=== PATIENT | female | born 1950 | race Caucasian/White ===

== ENCOUNTER 2018-08-21 08:29 | Emergency (ER) | payer MEDICARE, SELFPAY ==
[2018-08-21 08:30] VITALS: BP 154/87; PULSE 98; RESP 18; TEMP 36.3; O2SAT 98; BMI 29.6
--- NOTE | 2018-08-21 08:55 | ED.VISSUMM ---
- ER Visit Summary Date of Service: 08/21/18 Chief Complaint: Anxiety and depression History of Present Illness: The patient is a 67 F currently being treated with any depression and Xanax. She is on medication weeks. Changed several times. Her medications are being controlled by the counseling center. Patient is anxious and tearful. She denies she states I just want my medications to work Physical Examination: Older female no acute distress vital signs are stable afebrile. H EENT exam unremarkable. Neck nontender. Lungs clear to auscultation. Heart regular rhythm no murmur. Abdomen soft nontender. Remedies moves all 4. Neurovascular intact. Neurologically she is awake and alert with no focal motor deficits. It is obvious that she is anxious and tearful. Test Results: None Emergency Department Course and Treatment: Patient was given a dose of p.o. Ativan. She denied discussed that the medications she is on often takes weeks to begin showing positive effects. Repeat exam at 9:40 patient is much more calm after receiving the Ativan she denies her female friend in the room again discussed her medications and follow-up. They are comfortable being discharged. Treatment Plan: Continue current meds. Follow-up with the counseling center. Disposition: Discharge Impression: Acute on chronic anxiety and depression This note was generated with [employer] dictation software. It may contain incorrect words, spelling, and punctuation that were not noted in review of the chart prior to signing ED Disposition - Plan for ED Patient: Disposition: Home or Assisted Living Instructions: Anxiety Reaction, Depression Referrals: Counseling,Center [GROUP OF PHYSICIANS] - Basia Swartz MD [Primary Care Provider] - As Needed Additional Instructions: Continue current medications. The medications often take weeks to start showing positive benefits.
--- NOTE | 2018-08-21 08:57 | ED.DEP ---
ED Disposition - Plan for ED Patient: Disposition: Home or Assisted Living Instructions: Anxiety Reaction, Depression Referrals: Basia Swartz MD [Primary Care Provider] - As Needed Counseling,Center [GROUP OF PHYSICIANS] - Additional Instructions: Continue current medications. The medications often take weeks to start showing positive benefits.
[2018-08-21] MEDS: LORazepam 1 MG Tablet PO (09:04)
[2018-08-21 09:53] VITALS: BP 138/77; PULSE 62; RESP 15; O2SAT 98
== END 2018-08-21 09:54 | disposition home or self-care (01) ==
PROVIDERS: Emergency Provider Emergency Medicine; Family Provider Internal Medicine; PCP Internal Medicine
DX: F32.9 Major depressive disorder, single episode, unspecified (principal); F41.9 Anxiety disorder, unspecified; Z79.899 Other long term (current) drug therapy; Z72.0 Tobacco use
CPT/HCPCS: 99283

== ENCOUNTER 2018-09-01 17:50 | Emergency (ER) | payer MEDICARE, SELFPAY ==
[2018-09-01 17:51] VITALS: BP 188/99; PULSE 90; RESP 17; TEMP 37.6; O2SAT 95; BMI 35.5
--- NOTE | 2018-09-01 18:03 | EKG12_ITS ---
Test Reason : [facility] [place] Pressure : / mmHG Vent. Rate : 079 BPM Atrial Rate : 079 BPM P-R Int : 172 ms QRS Dur : 098 ms QT Int : 368 ms P-R-T Axes : 013 076 062 degrees QTc Int : 421 ms Normal sinus rhythm Normal ECG Confirmed by JENNIFER ARCHER, JACKLYN ([id number]), field map editor ALEXIS ELIZALDE ([id number]) on 09/04/2018 1:57:45 PM Referred By: DAKOTA Confirmed By:JACKLYN RODRIGUEZ MD
--- NOTE | 2018-09-01 18:05 | NURSING ---
NO OLD EKGS
--- NOTE | 2018-09-01 18:08 | ED.DCSUM_ITS ---
History of Present Illness Chief Complaint: Suicidal Informant: Patient, Family Onset: Weeks Context: Gradual Onset Timing: Continuous Current Severity: Moderate Maximum Severity: Severe Narrative: Patient presents to the emergency department with significant anxiety. She states that she normally has anxiety and depression that has been easily treated in the past. Over the past few months, it is gotten worse. She is been active at the counseling center. She has been on medications to help with her anxiety. She feels like it is worsening. She is to the point now, where she is not sleeping, she feels like is not safe for her to try. She has been increasingly tremulous. She is also been having thoughts of self-harm. She denies any specific plan, but states if I cannot get feeling better I just want to . She denies any alcohol use. She denies any street drugs. Past Medical History - Allergies and Home Meds Allergies/Adverse Reactions: Allergies No Known Allergies Allergy (Verified 09/01/18 17:57) Primary Care Physician: Basia Swartz MD [Primary Care Provider] - Prior records reviewed: Yes Smoking Status: Current every day smoker Alcohol: None Drugs: None Review of Systems General: Denies: Chills, Fever, Sweats Eyes: Denies: Visual changes - bilaterally, Diplopia ENT: Denies: Rhinorrhea, Sore throat Cardiovascular: Denies: Chest pain, Palpitations Respiratory: Denies: Dyspnea, Cough, Dyspnea on exertion Gastrointestinal: Denies: Abdominal pain, Nausea, Vomiting, Diarrhea, Melena, Hematochezia Genitourinary: Denies: Dysuria, Hematuria, Frequency Musculoskeletal: Denies: Back pain, Extremity Pain Skin: Denies: Rash, Wounds Neurological: Denies: Headache, Weakness, Numbness Psych: Reports: Depression, Anxiety, Suicidal thoughts Endocrine: Denies: Polyuria Hematologic: Denies: Easy bruising Allergy: Denies: Uticaria Physical Exam Vital Signs/Narrative: Vital Signs Temp Pulse Resp BP Pulse Ox 09/01/18 17:51 99.6 F H 90 17 188/99 H 95 Inital Vital Signs reviewed: Yes General: Well nourished, Well developed, No Acute Distress Head: Normocephalic, Atraumatic Eyes: Perrl, EOMI ENT: Moist mucous membranes, No rhinorrhea Neck: Supple, Nontender Cardiovascular: Regular rate, Regular rhythm, No murmurs Respiratory: No distress, CTA bilaterally, Chest nontender Abdomen: Soft, Nontender, Nondistended, Normal bowel sounds Back: Nontender, Normal Inspection Extremities: Nontender, No edema Skin: Normal color, No rash Neurological: Alert, Oriented x3, Cranial nerves II-XII grossly intact, Normal Strength, Normal Sensation Psychological: Normal affect, Depressed, Tearful Diagnostic/Tx/Re-eval Abnormal Lab Results 09/01/18 09/01/18 09/01/18 18:15 18:15 18:15 WBC 12.4 H RBC 4.18 L Hgb 13.0 Hct 37.0 MCV 88.5 MCH 31.1 MCHC 35.1 RDW 13.8 RDW Differential 44.4 H Plt Count 273 MPV 10.3 Immature Gran % (Auto) 0.200 Neut % (Auto) 67.0 Lymph % (Auto) 24.8 [place] % (Auto) 6.9 Eos % (Auto) 0.9 Baso % (Auto) 0.2 Absolute Neuts (auto) 8.3 H Absolute Lymphs (auto) 3.08 Total Counted Not Reportable Sodium 134 L Potassium 3.3 L Chloride 103 Carbon Dioxide 25.0 Anion Gap 6 BUN 15 Creatinine 0.77 Estim Creat Clear Calc 65.54 Est GFR (MDRD) Af Amer 97 Est GFR (MDRD) Non-Af 80 BUN/Creatinine Ratio 19.6 Glucose 113 H Calcium 8.8 Total Bilirubin 0.30 AST 21 ALT 20 Alkaline Phosphatase 90 Total Protein 7.6 Albumin 3.8 Globulin 3.8 Albumin/Globulin Ratio 1.0 Urine Opiates Screen Urine Methadone Screen Ur Barbiturates Screen Ur Phencyclidine Scrn Ur Amphetamines Screen U Methamphetamin-MDMA U Benzodiazepines Scrn Urine Cocaine Screen U Cannabinoids Screen Ur Drug Screen Comment Ethyl Alcohol 7.0 09/01/18 18:20 WBC RBC Hgb Hct MCV MCH MCHC RDW RDW Differential Plt Count MPV Immature Gran % (Auto) Neut % (Auto) Lymph % (Auto) [place] % (Auto) Eos % (Auto) Baso % (Auto) Absolute Neuts (auto) Absolute Lymphs (auto) Total Counted Sodium Potassium Chloride Carbon Dioxide Anion Gap BUN Creatinine Estim Creat Clear Calc Est GFR (MDRD) Af Amer Est GFR (MDRD) Non-Af BUN/Creatinine Ratio Glucose Calcium Total Bilirubin AST ALT Alkaline Phosphatase Total Protein Albumin Globulin Albumin/Globulin Ratio Urine Opiates Screen NEGATIVE Urine Methadone Screen NEGATIVE Ur Barbiturates Screen NEGATIVE Ur Phencyclidine Scrn NEGATIVE Ur Amphetamines Screen NEGATIVE U Methamphetamin-MDMA NEGATIVE U Benzodiazepines Scrn NEGATIVE Urine Cocaine Screen NEGATIVE U Cannabinoids Screen NEGATIVE Ur Drug Screen Comment Ethyl Alcohol - Rhythm Strip Rhythm Strip: Sinus Rhythm Ectopy: None - Medical Decision Making Patient presents with worsening anxiety. She does voice thoughts of harm if she cannot get her anxiety improved. She has no specific plan. Metabolic work-up was pursued and was unremarkable. The patient was given oral Ativan and had significant improvement. The patient was seen and evaluated by social work. Again, she has no specific plan of suicide and really no thoughts. She is just centered more in her anxiety. At this point, I do not see acute reason for ho spitalization. The patient has improvement with Ativan. I am going to give her a short course. She was able to have follow-up arranged with outpatient counseling through social work. The family is comfortable with this plan of care. ED Disposition - Plan for ED Patient: Diagnosis: Acute anxiety Instructions: Anxiety Reaction Prescriptions: Lorazepam [Ativan] 1 mg PO TID #10 tab Prescription Printed Referrals: Basia Swartz MD [Primary Care Provider] -
[2018-09-01] MEDS: LORazepam 1 MG Tablet PO (18:11)
[2018-09-01 18:34] LABS: Absolute Lymphocyte Count 3.08 X10^3/ul (0.83-4.51); Absolute Neutrophil Count 8.3 X10^3/uL (2.0-7.7); Basophil# 0.02 X10^3/uL; Basophil% 0.2 % (0-1); Eosinophil# 0.11 X10^3/uL; Eosinophils% 0.9 % (0-5); Lymphocyte # 3.08 X10^3/ul (4.0); Lymphocyte % 24.8 % (19-41); Mean Corp Hgb Conc 35.1 g/gl (32-36); Mean Corpuscular Hgb 31.1 pg (27.0-32.0); Mean Corpuscular Volume 88.5 fL (81-99); Mean Platelet Vol. 10.3 fl (6.2-12.0); Monocyte# 0.86 X10^3/uL; Monocyte% 6.9 % (0-10); Neutrophil # 8.33 X10^3/uL (2.7-7.7); Platelet Count 273 K/mm3 (150-450); RBC Distribution Width CV 13.8 % (11.6-14.6); RBC Distribution Width SD 44.4 fl (35.1-43.9); Red Blood Count 4.18 M/mm3 (4.2-5.4); White Blood Count 12.4 K/mm3 (4.4-11.0)
[2018-09-01 18:35] LABS: POSITIVE COUNT NO; POSITIVE DIFFERENTIAL NO; POSITIVE MORPHOLOGY NO
[2018-09-01 18:57] LABS: AST(SGOT) 21 U/L (15-37); Alanine Aminotransfer ALT/SGPT 20 U/L (13-56); Albumin, Serum 3.8 g/dL (3.2-5.0); Alkaline Phosphatase 90 U/L (45-117); Anion Gap 6 (5-15); BUN 15 mg/dL (7-18); BUN/Creat Ratio 19.6 RATIO (10-20); Calcium,Total 8.8 mg/dL (8.5-10.1); Chloride 103 mmol/L (98-107); Creatinine, Serum 0.77 mg/dL (0.55-1.02); EST Glomerular Filtration Rate 80 mL/min (>60); Est Glom Filt Rate - Afr Amer 97 mL/min (>60); Estimated Creatinine Clearance 65.54 ml/min; Globulin 3.8 g/dL (2.2-4.2); Glucose 113 mg/dL (74-106); Potassium 3.3 mmol/L (3.5-5.1); Protein, Total 7.6 g/dL (6.4-8.2); Sodium Level 134 mmol/L (136-145)
[2018-09-01 19:00] LABS: Amphetamine Urine VISTA NEGATIVE (<1000 ng/mL); Barbiturate Urine VISTA NEGATIVE (< 200 ng/mL); Benzodiazepine Urine VISTA NEGATIVE (< 200 ng/mL); Cocaine Urine VISTA NEGATIVE (< 300 ng/mL); Ecstacy Urine VISTA NEGATIVE (< 500 ng/mL); Methadone Urine VISTA NEGATIVE (< 300 ng/mL); PCP Urine VISTA NEGATIVE (< 25 ng/mL); THC Urine VISTA NEGATIVE (< 50 ng/mL); Vista UDS pH Range 6
--- NOTE | 2018-09-01 19:00 | CM.ED ---
Social Work Consult: Suicidal, Anxiety Informant. Dr. Burnham Chief Compliant: Panic attacks and feelings of anxiety. Patient reporting to wake up in the mornings shaking. Patient did report a recent change in medication. Marital/Social History: for the past 7 years. Living Situation: Patient lives alone in a 1-story home. Support/Resources: Patient daughters live in the area and are a positive support for patient. Mental Health Treatment/History: Patient reporting to be diagnosed with depression and anxiety. Patient stating to mange depression with anti-depressants. Patient stating to have Zanax to manage anxiety. Patient reporting that patient psychiatrist is wanting patient to stop taking Zanax. Patient stating to have not taken Zanax today and to have had several panic attacks. Patient also use to take Ativan and found that this helped. Patient stating that patient psychiatrist is no longer prescribing patient with Ativan and patient has been trying to home up with other coping skills. Patient reporting to have been off Ativan for the past 2 weeks and to have had 2 ER visits since then and to have seen an increase in anxiety. Patient reporting that next appointment with psychiatrist is September 21 and that patient has attempted to have appointment changed but that recommendation is for patient to take another Zanax when patient calls [facility]. Abuse Issues: Patient denies Substance Abuse Hx: Patient denies Risk to Self/Other: Patient denies homicidal or active suicidal thoughts. Patient stating to sometimes have thoughts of wanting to be gone when the panic attacks are bad. Intervention: Collaborating with patient and patient family. This oncology social worker recommending for referral to the Behavioral Health Program at [facility]. Patient and patient family are agreeable to this and plan to call Monday to set up intake appointment as patient is unable to meet in the afternoons. This oncology social worker providing patient and patient family with contact information for crisis and the Behavioral Health Program at [facility]. Patient daughters plan to check in more with patient throughout the weekend. Collaborating with Dr. Burnham. Plan is for patient to discharge home with safety plan. César LINO, NEETA
[2018-09-01 19:27] VITALS: BP 176/95; PULSE 85; RESP 16; O2SAT 96
== END 2018-09-01 19:28 | disposition home or self-care (01) ==
LOC: ED 18:16
PROVIDERS: Emergency Provider Emergency Medicine; Family Provider Internal Medicine; PCP Internal Medicine
DX: F41.9 Anxiety disorder, unspecified (principal); F32.9 Major depressive disorder, single episode, unspecified; R45.851 Suicidal ideations; Z79.899 Other long term (current) drug therapy; F17.200 Nicotine dependence, unspecified, uncomplicated
CPT/HCPCS: 36415; 80053; 80307; 80320; 85025; 93005; 99284; G0480

== ENCOUNTER 2018-09-25 07:00 | Emergency (ER) | payer MEDICARE, SELFPAY ==
[2018-09-25 07:02] VITALS: BP 157/108; PULSE 87; RESP 21; TEMP 36.8; O2SAT 94; BMI 28.8
--- NOTE | 2018-09-25 07:34 | EKG12_ITS ---
Test Reason : MEDICAL CLEARANCE Blood Pressure : / mmHG Vent. Rate : 072 BPM Atrial Rate : 072 BPM P-R Int : 202 ms QRS Dur : 098 ms QT Int : 388 ms P-R-T Axes : 011 075 067 degrees QTc Int : 424 ms Normal sinus rhythm Normal ECG Confirmed by SHELLY ARCHER, JAGJIT ([id number]), newspaper photo editor ALMA DELIA SIMMONS ([id number]) on 09/27/2018 1:30:04 PM Referred By: PATRICIA Confirmed By:JAGJIT BRAVO MD
--- NOTE | 2018-09-25 07:46 | ED.VISSUMM ---
- ER Visit Summary Date of Service: 09/25/18 Chief Complaint: Depression History of Present Illness: The patient is a 67 F who presents with depression that has been constant for the past 3 months. Patient states she has been having some suicidal thoughts of overdosing on her medications. Patient states nothing in particular has made her depression worse. Patient states nothing is been helping her depression. Patient states she sees Dr. Spain at the [facility] for her psychiatrist. Patient states she feels like she needs to be admitted to a psychiatric facility. Physical Examination: Vital signs are stable. Patient is afebrile. Patient is in no acute distress. Oral mucosa is pink and moist. Neck is supple. Trachea is midline. There is no JVD noted. Heart was regular rate and rhythm. Lungs are clear and equal bilateral. Abdomen is soft. Bowel sounds are normal. There is no tenderness. There is no guarding noted. Skin is warm dry. Cranial nerves II through XII are intact. There are no focal motor or sensory deficits noted. Patient does have a depressed mood and flat affect. Patient does admit to suicidal thoughts of overdosing on medication. Test Results: CBC was normal. Basic metabolic profile showed sodium of 130 and potassium 3.4. Electrolytes were otherwise normal. Urinalysis does not show any evidence of urinary tract infection. Urine tox screen and serum alcohol level were negative. Emergency Department Course and Treatment: Patient was evaluated by crisis. Crisis feels the patient needs to be admitted for suicidal ideation and plan. They are making arrangements for admission. Disposition: Transfer to psychiatric facility Impression: Depression with suicidal ideation This note was generated with [employer] dictation software. It may contain incorrect words, spelling, and punctuation that were not noted in review of the chart prior to signing ED Disposition - Plan for ED Patient: Disposition: Psychiatric Hospital or Unit Diagnosis: Depression with suicidal ideation Referrals: Basia Swartz MD [Primary Care Provider] -
[2018-09-25 08:10] LABS: Mucous, Urine 0 SEEN /hpf (<or=2+); Red Blood Cells-Urine 0 SEEN /hpf (0-5)
[2018-09-25 08:18] LABS: Absolute Lymphocyte Count 2.12 X10^3/uL (0.83-4.51); Absolute Neutrophil Count 7.3 X10^3/uL (2.0-7.7); Basophil# 0.03 X10^3/uL; Basophil% 0.3 % (0-1); Eosinophil# 0.06 X10^3/uL; Eosinophils% 0.6 % (0-5); Hematocrit 40.7 % (37-47); Hemoglobin 14.4 g/dL (12.0-15.0); Lymphocyte # 2.12 X10^3/ul (4.0); Lymphocyte % 20.8 % (19-41); Mean Corp Hgb Conc 35.4 g/dL (32-36); Mean Corpuscular Hgb 31.1 pg (27.0-32.0); Mean Corpuscular Volume 87.9 fL (81-99); Mean Platelet Vol. 10.9 fl (6.2-12.0); Monocyte# 0.66 X10^3/uL; Monocyte% 6.5 % (0-10); NRBC Flagged by Analyzer 0 % (0-5); Neutrophil # 7.29 X10^3/uL (2.7-7.7); Neutrophil % 71.4 % (47-70); Platelet Count 285 K/mm3 (150-450); RBC Distribution Width CV 13.2 % (11.6-14.6); RBC Distribution Width SD 42.2 fl (35.1-43.9); Red Blood Count 4.63 M/mm3 (4.2-5.4); White Blood Count 10.2 K/mm3 (4.4-11.0)
[2018-09-25 08:21] LABS: Color, Urine Yellow (Yellow); Glucose, Dipstick Normal (Normal); Ketone-Dipstick Negative (Negative); Leukocyte Esterase-Dipstick Negative /ul (Negative); Nitrite-Dipstick Positive (Negative); Occult Blood-Urine 25 /ul (Negative); Protein-Dipstick Negative (Negative); Urine Bilirubin Dipstick Negative (Negative); Urine Clarity Clear (Clear); Urine Urobilinogen Normal (Normal)
[2018-09-25 08:31] LABS: Amphetamine Urine VISTA NEGATIVE (<1000 ng/mL); Barbiturate Urine VISTA NEGATIVE (< 200 ng/mL); Benzodiazepine Urine VISTA NEGATIVE (< 200 ng/mL); Cocaine Urine VISTA NEGATIVE (< 300 ng/mL); Ecstacy Urine VISTA NEGATIVE (< 500 ng/mL); Methadone Urine VISTA NEGATIVE (< 300 ng/mL); PCP Urine VISTA NEGATIVE (< 25 ng/mL); THC Urine VISTA NEGATIVE (< 50 ng/mL); Vista UDS pH Range 7
[2018-09-25 08:37] LABS: Anion Gap 9 (5-15); BUN 11 mg/dL (7-18); Calcium,Total 9.4 mg/dL (8.5-10.1); Chloride 93 mmol/L (98-107); Creatinine, Serum 0.74 mg/dL (0.55-1.02); EST Glomerular Filtration Rate 84 mL/min (>60); Est Glom Filt Rate - Afr Amer 102 mL/min (>60); Estimated Creatinine Clearance 57.19 ml/min; Glucose 104 mg/dL (74-106); Potassium 3.4 mmol/L (3.5-5.1); Sodium Level 130 mmol/L (136-145)
[2018-09-25 08:44] LABS: Bacteria 1+ /hpf (None Seen); Squamous Epithelial Cells - UA 5-10 SEEN /hpf (5-10); White Blood Cells 0-5 SEEN /hpf (0-5)
--- NOTE | 2018-09-25 08:49 | ED.RN ---
CALLED COUNSELING CENTER [facility]
--- NOTE | 2018-09-25 08:50 | ED.RN ---
PATIENT IS CLEARED TO BE SEEN BY CRISIS. CALLED COUNSELING CENTER THEY WILL BE CALLING US BACK.
[2018-09-25 11:27] VITALS: BP 130/82; PULSE 72; RESP 18; O2SAT 97
--- NOTE | 2018-09-25 12:10 | CM.ED ---
SOCIAL WORK JANUSZ FROM CRISIS HERE AND ASSESSED PATIENT. JANUSZ STATING PATIENT WILL REQUIRE INPATIENT HOSPITALIZATION. JANUSZ TO WORK ON PLACEMENT AT THIS TIME. MAURISIO KLEIN, UNIT MANAGER, GENERATOR TECHNICIAN.
[2018-09-25 14:14] VITALS: BP 145/80; PULSE 85; RESP 16; O2SAT 96
[2018-09-25 18:25] VITALS: BP 138/74; PULSE 79; RESP 16; O2SAT 98
[2018-09-25] MEDS: LORazepam 0.5 MG Tablet PO (18:45)
[2018-09-25 19:07] VITALS: BP 138/74; PULSE 79; RESP 16; O2SAT 98
== END 2018-09-25 19:44 ==
PROVIDERS: Emergency Provider Emergency Medicine; Family Provider Internal Medicine; PCP Internal Medicine
DX: F32.9 Major depressive disorder, single episode, unspecified (principal); R45.851 Suicidal ideations; I10 Essential (primary) hypertension; Z79.899 Other long term (current) drug therapy; F17.200 Nicotine dependence, unspecified, uncomplicated
CPT/HCPCS: 80048; 80307; 80320; 81001; 85025; 93005; 99284; G0480

== ENCOUNTER → 2022-12-06 | Outpatient (CLI) | payer MEDICARE, SELFPAY ==
--- NOTE | 2022-12-06 11:00 | PET_ITS ---
EXAMINATION: FDG PET-CT INDICATIONS: A 72-year-old female with history of pulmonary nodularity. COMPARISON EXAMINATION: None available INDEX LESION SIZE SUV INTERPRETATION Aorticopulmonary window 9.1-mm 3.6 Quantitative criteria for viable neoplasm are not fulfilled in patients without histories of pulmonary malignancy TECHNIQUE: Following the intravenous administration of F-18 deoxyglucose multiplanar image acquisitions of the neck, chest, abdomen and pelvis to level of mid thigh, obtained at one hour post radiopharmaceutical administration contemporaneously interpreted with the current CT of the neck, chest, abdomen and pelvis, to level of mid thigh, dated 12/06/22 via coregistration reveals: FINDINGS: Head/Neck: There is no evidence of abnormal increased glucose metabolism in the pharyngeal mucosal space, parapharyngeal space, bilateral-lateral and anterior neck, hypopharynx and distribution of the laryngeal structures. The visualized portion of the cerebral cortical-subcortical structures demonstrate symmetric and preserved glucose metabolism. CHEST: Enhanced radiopharmaceutical concentration is defined in the region of the aorticopulmonary window. The calculated maximal standard uptake value is 3.6. The maximal axial diameter of the metabolic, morphologic abnormality is 9.1-mm. Pertinent chest CT findings are as follows. Parenchymal changes noted in the bilateral apical lung howell are non-glucose avid. There is atherosclerotic calcification defined in the thoracic aorta without evidence of dilatation-aneurysm formation. Bilateral axillary and scattered mediastinal additional soft tissue densities are ametabolic. There are no parenchymal densities-nodules defined in the right and left hemithorax with quantitatively significant increased FDG uptake. Abdomen/Pelvis: Normal physiologic distribution of the radiopharmaceutical is apparent in the hepatic (4.2) and splenic parenchyma, both renal units, bladder and visualized intestinal tract. Diffuse radiopharmaceutical concentration is noted in all four quadrants of the abdomen and pelvis. Pertinent abdomen and pelvis CT findings are as follows. There is atherosclerotic calcification defined in the abdominal aorta without evidence of dilatation-aneurysm formation. Pelvic arterial calcification is observed. The right adrenal gland demonstrates focal calcification. The uterus appears surgically absent. Right and left inguinal soft tissue densities are ametabolic. Subcentimeter bilateral inguinal soft tissue densities are ametabolic. Skeletal: Degenerative changes are noted in the cervical, thoracic and lumbar spine without evidence of increased radiopharmaceutical concentration. PET/PET/CT Tumor Base -Thigh Init IMPRESSION: 1. NEGATIVE EXAMINATION. There is no definitive quantitative scintigraphic evidence of viable neoplasm. 2. Enhanced tracer concentration manifest in the aorticopulmonary window does not fulfill quantitative criteria for centrally located thoracic/mediastinal viable neoplasm in patients without histories of prior known pulmonary malignancies. If clinically indicated, histopathologic analysis may be undertaken. Electronic Signature Cahrles Helm D.O. Accurate Quantification of SUVs for this report are calculated using the exclusive [employer], ([place]. Patent No. [id number] [id number] [phone] [place] patent [phone] ). Standardization and correction of the FDG SUV metric exclusively available with [employer] intellectual property, allow for vendor non-specific objective quantitative sequential FDG PET-CT comparison and otherwise unobtainable optimization of the sensitivity and specificity of the examination. [email or web address] Electronically Signed: Charles Helm DO at 13:42 EDT ,
== END | disposition home or self-care (01) ==
PROVIDERS: PCP Internal Medicine; Referring Provider Nurse Practitioner Family; Visit Provider Nurse Practitioner Family
DX: R59.0 Localized enlarged lymph nodes (principal); R91.1 Solitary pulmonary nodule
CPT/HCPCS: 78815; A9552

== ENCOUNTER 2023-01-25 15:11 | Observation (INO) | payer MEDICARE, SELFPAY ==
[2023-01-25] VITALS (7 sets, daily range): BP systolic 155–213; BP diastolic 76–98; PULSE 82–95; RESP 15–24; TEMP 36.2–36.6; O2SAT 83–99; BMI 32.3; BMI 33.0
--- NOTE | 2023-01-25 15:32 | EKG12_ITS ---
Test Reason : SOB Blood Pressure : / mmHG Vent. Rate : 081 BPM Atrial Rate : 081 BPM P-R Int : 228 ms QRS Dur : 156 ms QT Int : 418 ms P-R-T Axes : 078 000 084 degrees QTc Int : 485 ms Sinus rhythm with 1st degree A-V block Left bundle branch block Abnormal ECG Confirmed by JENNIFER ARCHER, JACKLYN ([id number]), editorial clerk ALMA DELIA SIMMONS ([id number]) on 01/26/2023 10:49:19 AM Referred By: Confirmed By:JACKLYN RODRIGUEZ MD
--- NOTE | 2023-01-25 15:33 | CT_ITS ---
STUDY: CTA CHEST REASON FOR EXAM: Female, 72 years old. shortness of breath RADIATION DOSAGE (If Supplied By Facility): CTDIvol = ( 8.97 ) mGy, DLP = ( 393.55 ) mGycm TECHNIQUE: The examination was performed with the intravenous administration of IV 100mL Isovue-370. Post-processing of the angiographic images was performed, with multiplanar reformation and 3D reconstruction. Individualized dose optimization techniques were used for this CT. COMPARISON: None. FINDINGS: Normal enhancement of the main pulmonary artery and right and left pulmonary arteries. Normal enhancement of the bilateral peripheral pulmonary arteries. There is no demonstrated pulmonary embolism. Atherosclerotic changes of the aorta without evidence for aneurysm There is no demonstrated aortic dissection. Heart size is normal. There is minimal coronary artery calcification Normal mediastinum. Normal hilar regions. Normal visualized trachea and bronchi. The lungs are well expanded. There is mild bibasilar interstitial thickening and mild bronchial wall thickening in the right lower lobe. There is also minor atelectasis within the dependent portion of the lower lobes. No focal infiltration or pulmonary nodules Normal pleura. Normal chest wall structures. Dorsal spine demonstrates mild spondylosis Normal visualized upper abdomen. CT/CTA Chest W/WO Contrast IMPRESSION: Minor bibasilar interstitial thickening and bronchitis of the right lower lobe. No evidence for pulmonary embolus Electronically Signed: Burak Borges MD at 17:23 [facility] ,
--- NOTE | 2023-01-25 15:39 | EDS_ITS ---
HPI <JOHNNY Gonzalez - Last Filed: 01/25/23 18:01> History of Present Illness Chief Complaint: Shortness of Breath Narrative Narrative: Patient is a 72-year-old female with history of left side lower lung cancer, hypertension, she is currently in the middle of treatment with chemotherapy, radiation. Patient still smokes 1/2 pack of cigarettes per day, she states while she was getting her chemotherapy today, she developed some increased shortness of breath. Patient pulse oxygenation at the infusion center was 82%, she responded well to nasal cannula oxygen. She is currently is not oxygen dependent. She denies any recent fever or chills, nausea or vomiting. She does see Dr. Moore here at the hospital. She denies any other symptoms. She is currently on any blood thinners. PFSH <JOHNNY Gonzalez - Last Filed: 01/25/23 18:01> PFSH Medical History Anxiety Cancer COPD (chronic obstructive pulmonary disease) Depression Hepatitis Hypertension Small cell lung cancer Smoker Home Medications duloxetine 60 mg capsule,delayed release 60 mg PO BID 03/29/15 [History Last Taken 09/25/18] lisinopril 20 mg-hydrochlorothiazide 12.5 mg tablet 1 tab PO BID 09/25/18 [History Last Taken 09/25/18] lorazepam 1 mg tablet 1 mg PO BID anxiety 09/25/18 [History Last Taken 09/25/18] azithromycin 250 mg tablet See Rx Instructions PO .COMPLEX #6 tabs 05/04/20 [Rx Last Taken Unknown] dexamethasone 4 mg tablet 10 mg PO BID inflammation 01/25/23 [History Last Taken Unknown] Allergy/AdvReac Type Severity Reaction Status Date / Time No Known Allergies Allergy Verified 01/25/23 15:14 Surgical History (Updated 05/04/20 @ 10:45 by Winter Espinal) History of hysterectomy Social History (Updated 05/04/20 @ 10:48 by Leobardo TORRE, PA) Smoking Status: Current every day smoker tobacco type: cigarettes Tobacco: How many years used: 40 alcohol intake: never ROS <JOHNNY Gonzalez - Last Filed: 01/25/23 18:01> ROS ED ROS Narrative Constitutional: Negative for fever, chills, weight loss, weakness Eyes: Negative for vision loss, vision change, double vision ENT: Negative for any sore throat, ear pain, congestion Cardiovascular: Negative for any chest pain, tightness, palpitations Respiratory: Negative for any sputum production, hemoptysis.positive for dyspnea, dyspnea on exertion, orthopnea Gastrointestinal: Negative for any abdominal pain, nausea, vomiting, diarrhea, constipation, blood in stool, blood in vomit : Negative for any urinary frequency, dysuria, retention, blood in urine Muscle skeletal: Negative for any myalgias, arthralgias, neck pain, back pain Neurological: Negative for any headache, syncope, numbness or tingling, dizziness Skin: Negative for any rashes, lumps, itching, abrasions, lacerations Psychiatric: Negative for any depression, anxiety, stress, suicidal ideation, homicidal ideation Hematologic: Negative for any easy bruising, excessive bruising, easy bleeding Allergies: Negative for any eczema, hives, rash EXAM <JOHNNY Gonzalez - Last Filed: 01/25/23 18:01> Physical Exam Narrative Exam Narrative: Vital signs reviewed. Patient on 3 L of nasal cannula oxygen is a pulse oxygenation of 95%. Patient has slight conversational dyspnea. Patient denies any significant pain. HEET: Head normocephalic atraumatic, TMs clear bilaterally. Posterior pharynx is clear, moist mucous membranes. Nares clear bilaterally. Neck: Supple with no lymphadenopathy or tenderness. No signs of meningismus. Cardiac: Regular rate and rhythm no murmurs gallops or rubs, equal peripheral pulses bilaterally. Respiratory: Patient diffuse expiratory wheezes, diminished lung sounds to the lower lobes.. No chest tenderness. Abdomen: Soft, nontender, nondistended. No abdominal bruit or pulsatile masses. No hepatosplenomegaly Extremities: No peripheral edema, no signs of gross trauma or deformity. Active full range of motion of all extremities. Neuro: Cranial nerves II through XII intact, no focal neurological deficits. Skin: Clean dry and intact with no rash, purpura, petechiae, vesicles or pustules. Backs/flank: No CVA tenderness, no midline spinal tenderness, no deformity. Psych: Normal mood and affect. No SI, HI or acute psychosis. Const Vital Signs: 01/25/23 15:12 01/25/23 15:14 01/25/23 15:57 Temperature 97.2 F L Temperature Source Temporal Pulse Rate 95 Respiratory Rate 24 H Respiratory Effort Respiratory Depth Respiratory Pattern Blood Pressure 213/98 H Blood Pressure Mean 136 Pulse Ox 83 96 Oxygen Delivery Method Room Air Nasal Cannula Room Air Oxygen Flow Rate (L/min) 2 01/25/23 15:59 01/25/23 15:59 01/25/23 15:11 Temperature Temperature Source Pulse Rate 86 Respiratory Rate 15 Respiratory Effort Short of Breath Respiratory Depth Shallow Respiratory Pattern Tachypnea Blood Pressure Blood Pressure Mean Pulse Ox 97 Oxygen Delivery Method Nasal Cannula Nasal Cannula Oxygen Flow Rate (L/min) 2.5 01/25/23 17:00 01/25/23 17:00 Temperature Temperature Source Pulse Rate 88 Respiratory Rate 15 Respiratory Effort Respiratory Depth Respiratory Pattern Blood Pressure Blood Pressure Mean Pulse Ox 97 Oxygen Delivery Method Nasal Cannula Oxygen Flow Rate (L/min) 4 <Rayo Pinto MD - Last Filed: 01/25/23 20:49> Physical Exam Const Vital Signs: 01/25/23 15:12 01/25/23 15:14 01/25/23 15:57 Temperature 97.2 F L Temperature Source Temporal Pulse Rate 95 Respiratory Rate 24 H Respiratory Effort Respiratory Depth Respiratory Pattern Blood Pressure 213/98 H Blood Pressure Mean 136 Pulse Ox 83 96 Oxygen Delivery Method Room Air Nasal Cannula Room Air Oxygen Flow Rate (L/min) 2 01/25/23 15:59 01/25/23 15:59 01/25/23 15:11 Temperature Temperature Source Pulse Rate 86 Respiratory Rate 15 Respiratory Effort Short of Breath Respiratory Depth Shallow Respiratory Pattern Tachypnea Blood Pressure Blood Pressure Mean Pulse Ox 97 Oxygen Delivery Method Nasal Cannula Nasal Cannula Oxygen Flow Rate (L/min) 2.5 01/25/23 17:00 01/25/23 17:00 Temperature Temperature Source Pulse Rate 88 Respiratory Rate 15 Respiratory Effort Respiratory Depth Respiratory Pattern Blood Pressure Blood Pressure Mean Pulse Ox 97 Oxygen Delivery Method Nasal Cannula Oxygen Flow Rate (L/min) 4 MDM <JOHNNY Gonzalez - Last Filed: 01/25/23 18:01> MDM Lab Data Labs: Laboratory Results - last 24 hr 01/25/23 15:50 WBC 13.8 H RBC 3.74 L Hgb 11.2 L Hct 34.4 L MCV 92.0 MCH 29.9 MCHC 32.6 RDW Std Deviation 47.6 H RDW Coeff of Krissy 13.8 Plt Count 242 MPV 11.6 Immature Gran % (Auto) 0.700 Neut % (Auto) 93.8 H Lymph % (Auto) 3.1 L [place] % (Auto) 2.2 Eos % (Auto) 0.1 Baso % (Auto) 0.1 Absolute Neuts (auto) 13.0 H Absolute Lymphs (auto) 0.43 L Nucleated RBC % 0 Differential Comment SEE COMMENT Platelet Estimate ADEQUATE RBC Morphology N CHROM Anisocytosis RARE Macrocytosis RARE Sodium 129 L Potassium 4.1 Chloride 98 Carbon Dioxide 22.0 Anion Gap 9 BUN 46 H Creatinine 1.26 H Estim Creat Clear Calc 31.35 Est GFR (MDRD) Af Amer 54 L Est GFR (MDRD) Non-Af 45 L BUN/Creatinine Ratio 36.5 H Glucose 121 H Calcium 7.7 L Troponin I High Sens 25 B-Natriuretic Peptide 249.3 H Radiography Diagnostic Testing: Clinical Impression(s) from Imaging Studies Chest CTA 01/25/23 15:33 IMPRESSION: Minor bibasilar interstitial thickening and bronchitis of the right lower lobe. No evidence for pulmonary embolus Electronically Signed: Burak Borges MD at 17:23 EST , Chest X-Ray 01/25/23 15:50 IMPRESSION: No acute cardiopulmonary pathology Electronically Signed: Burak Borges MD at 16:12 EST , EKG Sinus rhythm with first-degree AV block: Attestation: I personally reviewed and interpreted this EKG as follows: Comments: EKG shows a sinus rhythm with first-degree block, rate of 81 bpm, WA interval 228 ms, QRS duration 186 ms, no acute ST elevation, no acute infarct. Does not change from 2019. Treatment and Re-Evaluation :: Patient arrives in mild distress secondary to shortness of breath. Patient is currently getting her chemotherapy, radiation here in the hospital. Patient developed increased shortness of breath today. Vital signs are stable on the oxygen however patient still hypertensive. Differential diagnosis includes COPD exacerbation, pneumonia, influenza, COVID-19, other viral illnesses, pulmonary embolus. Patient received multiple lab studies. Will perform a cardiac work-up including chest x-ray, CT of the chest, concern for any pulmonary embolus. Patient was given breathing treatments. IV steroids. Patient's 1 view chest x-ray shows no acute cardiopulmonary pathology. Patient's laboratory values show slight leukocytosis with a white blood count of 13.8, hemoglobin 11.7. Patient's chemistries show a sodium of 129, creatinine of 1.26, this is abnormal usually the patient is 0.7. Calcium low at 7.7, BNP was elevated 249. Patient did have improvement of symptoms with breathing treatments. I did provide the patient IV steroids. COVID flu were negative. Patient did receive a CT scan of the chest concerning for any pulmonary embolus. This showed minor bibasilar interstitial thickening and bronchitis of the right lower lobe. No evidence of pulmonary embolus. At this time, I do believe the patient needs to be admitted to hospital, she does have hypoxia, COPD exacerbation, as well as acute kidney injury, dehydration. I will speak to the hospitalist. Troponin was negative. There was of the ACS, ND. <Rayo Pinto MD - Last Filed: 01/25/23 20:49> MDM MDM Narrative Medical decision making narrative: Dr. Pinto: I have personally performed a face to face assessment of the patient and have reviewed the TEREZA Note. I performed a substantive portion of the visit including all aspects of the following. My mtz findings include: History is shortness of breath with hypoxia after chemotherapy infusion. History of lung carcinoma. Does not wear oxygen at home. Exam is afebrile. Vital signs noted. Regular rate and rhythm. Lungs clear to auscultation bilaterally. Abdomen soft and nontender with normal active bowel sounds. Neurological examination nonfocal and nonlateralizing. Medical Decision Making: Check chest x-ray. Check labs. Supplemental oxygen. Check CTA of chest to rule out pulmonary embolism. Chest x-ray in 1 view interpreted by myself independently shows no evidence of pneumonia or pneumothorax. I reviewed the radiology report which confirms my independent interpretation. I reviewed the radiology report of the CTA and there is no evidence of pulmonary embolism. Admit. Other additions or changes: [None] History & Record Review Discussion w/independent historian: Patient Additional record(s) reviewed:: Prior ED visit and Prior labs Lab Data Attestation: I reviewed the patient's lab results. Labs: Laboratory Results - last 24 hr 01/25/23 15:50 WBC 13.8 H RBC 3.74 L Hgb 11.2 L Hct 34.4 L MCV 92.0 MCH 29.9 MCHC 32.6 RDW Std Deviation 47.6 H RDW Coeff of Krissy 13.8 Plt Count 242 MPV 11.6 Immature Gran % (Auto) 0.700 Neut % (Auto) 93.8 H Lymph % (Auto) 3.1 L [place] % (Auto) 2.2 Eos % (Auto) 0.1 Baso % (Auto) 0.1 Absolute Neuts (auto) 13.0 H Absolute Lymphs (auto) 0.43 L Nucleated RBC % 0 Differential Comment SEE COMMENT Platelet Estimate ADEQUATE RBC Morphology N CHROM Anisocytosis RARE Macrocytosis RARE Sodium 129 L Potassium 4.1 Chloride 98 Carbon Dioxide 22.0 Anion Gap 9 BUN 46 H Creatinine 1.26 H Estim Creat Clear Calc 31.35 Est GFR (MDRD) Af Amer 54 L Est GFR (MDRD) Non-Af 45 L BUN/Creatinine Ratio 36.5 H Glucose 121 H Calcium 7.7 L Troponin I High Sens 25 B-Natriuretic Peptide 249.3 H Radiography Chest X-Ray - ED: 1 View and Read by ED Physician Diagnostic Testing: Clinical Impression(s) from Imaging Studies Chest CTA 01/25/23 15:33 IMPRESSION: Minor bibasilar interstitial thickening and bronchitis of the right lower lobe. No evidence for pulmonary embolus Electronically Signed: Burak Borges MD at 17:23 EST , Chest X-Ray 01/25/23 15:50 IMPRESSION: No acute cardiopulmonary pathology Electronically Signed: Burak Borges MD at 16:12 EST , Management Discussion w/another healthcare provider: Hospitalist Discharge Plan Dx/Rx/DC Orders Clinical Impression: Acute kidney injury, History of cancer of lower lobe bronchus or lung, Hypoxia, Acute exacerbation of chronic obstructive pulmonary disease Disposition Disposition: Acute Care Hospital [facility] Discharge Date/Time: 01/25/23 18:23
--- NOTE | 2023-01-25 15:50 | RAD_ITS ---
STUDY: X-RAY CHEST REASON FOR EXAM: Female, 72 years old. cough TECHNIQUE: AP portable COMPARISON: None. FINDINGS: The lungs are clear and expanded. There is no demonstrated pleural abnormality. Normal size heart. Normal mediastinum and jose. Normal visualized pulmonary arteries. Mildly calcified aortic arch and descending thoracic aorta. Dorsal spine and shoulders demonstrate degenerative change. Normal visualized ribs, and clavicles.. There is no demonstrated abnormality of the visualized soft tissue structures of the upper abdomen. RAD/Chest 1 View (Portable) IMPRESSION: No acute cardiopulmonary pathology Electronically Signed: Burak Borges MD at 16:12 EST ,
[2023-01-25] MEDS: MethylPREDNISolone 125 MG/2 ML Vial IV (15:54)
[2023-01-25] MEDS: Ipratropium/Albuterol Sulfate 3 ML AMPUL.NEB INHALATION (15:58)
[2023-01-25] MEDS: Albuterol 2.5 MG/3 ML VIAL.NEB. INHALATION (15:58)
[2023-01-25 16:08] LABS: Absolute Lymphocyte Count 0.43 X10^3/uL (0.83-4.51); Basophil# 0.01 X10^3/uL; Basophil% 0.1 % (0-1); Eosinophil# 0.01 X10^3/uL; Eosinophils% 0.1 % (0-5); Hematocrit 34.4 % (37-47); Hemoglobin 11.2 g/dL (12.0-15.0); Lymphocyte # 0.43 X10^3/ul (0.83-4.51); Lymphocyte % 3.1 % (19-41); Mean Corp Hgb Conc 32.6 g/dL (32-36); Mean Corpuscular Hgb 29.9 pg (27.0-32.0); Mean Platelet Vol. 11.6 fl (6.2-12.0); Monocyte# 0.31 X10^3/uL; Monocyte% 2.2 % (0-10); NRBC Flagged by Analyzer 0 % (0-5); Neutrophil # 12.97 X10^3/uL (2.7-7.7); Neutrophil % 93.8 % (47-70); POSITIVE DIFFERENTIAL YES; Platelet Count 242 K/mm3 (150-450); RBC Distribution Width CV 13.8 % (11.6-14.6); RBC Distribution Width SD 47.6 fl (35.1-43.9); Red Blood Count 3.74 M/mm3 (4.2-5.4); White Blood Count 13.8 K/mm3 (4.4-11.0)
[2023-01-25 16:25] LABS: Anion Gap 9 (5-15); BUN 46 mg/dL (7-18); BUN/Creat Ratio 36.5 RATIO (10-20); Calcium,Total 7.7 mg/dL (8.5-10.1); Chloride 98 mmol/L (98-107); Creatinine, Serum 1.26 mg/dL (0.55-1.02); EST Glomerular Filtration Rate 45 mL/min (>60); Est Glom Filt Rate - Afr Amer 54 mL/min (>60); Estimated Creatinine Clearance 31.35 ml/min; Glucose 121 mg/dL (74-106); Potassium 4.1 mmol/L (3.5-5.1); Sodium Level 129 mmol/L (136-145); Troponin-I HS (w/2H Reflex) 25 pg/mL (3.0-54.0)
[2023-01-25 16:33] LABS: Differential Indicated SCAN CRITERIA MET
[2023-01-25 16:45] LABS: Anisocytosis RARE; Macrocytosis RARE; Platelet Estimate ADEQUATE (ADEQ); Red Cell Morphology N CHROM NORMAL (NORM C&C)
[2023-01-25 16:57] LABS: BNP,B-Type NATRIURETIC PEPTIDE 249.3 pg/mL (0-100)
--- NOTE | 2023-01-25 17:39 | PCM.HP.STD ---
HPI - General General Date of Admission: 01/25/23 Date of Service: 01/25/23 Chief Complaint: Shortness of breath with wheezing HPI Narrative FELI MAN, is a 72 F who presented to [facility] ED on 01/25/2023 with worsening shortness of breath with wheezing. Patient seen at bedside in the ED, multiple family members present. Patient was sitting up comfortably in bed, conversing normally, no acute distress. Satting in the mid to high 90s on 2 L nasal cannula, no increased work of breathing noted. Patient states that she was recently diagnosed with small cell lung cancer, follows with Dr. Hooper in the office. Had 4 rounds of chemotherapy infusion scheduled for this week. Completed the first 3 rounds of chemotherapy on Monday, Monday and today. States she became significantly more short of breath while having her infusion done today. [facility] office staff placed a pulse oximeter on her and noted that her oxygen saturation was 82% on room air. They did place supplemental oxygen on her and she stated that her shortness of breath felt somewhat improved. States she was able to complete her infusion and then came to the ED for further evaluation. She received a DuoNeb breathing treatment prior to my interview and states this was very helpful for her. States that she has a longtime smoking history and is current smoker, smokes about half pack of cigarettes per day. She is not aware of being previously diagnosed with COPD. Has used an albuterol inhaler as needed in the past, has never been on scheduled long-acting inhalers. No previous history of COPD?type exacerbations. She otherwise denies any fevers or chills, cough or sputum production. Denies any abdominal pain or discomfort. Denies any lightheadedness or dizziness. No other acute concerns at this time. PFSH Medical History Anxiety Cancer COPD (chronic obstructive pulmonary disease) Depression Hepatitis Hypertension Small cell lung cancer Smoker Home Medications duloxetine 60 mg capsule,delayed release 60 mg PO BID 03/29/15 [History Last Taken 09/25/18] lisinopril 20 mg-hydrochlorothiazide 12.5 mg tablet 1 tab PO BID 09/25/18 [History Last Taken 09/25/18] lorazepam 1 mg tablet 1 mg PO BID anxiety 09/25/18 [History Last Taken 09/25/18] azithromycin 250 mg tablet See Rx Instructions PO .COMPLEX #6 tabs 05/04/20 [Rx Last Taken Unknown] dexamethasone 4 mg tablet 10 mg PO BID inflammation 01/25/23 [History Last Taken Unknown] Allergy/AdvReac Type Severity Reaction Status Date / Time No Known Allergies Allergy Verified 01/25/23 15:14 Surgical History (Updated 05/04/20 @ 10:45 by Winter Espinal) History of hysterectomy Social History (Updated 05/04/20 @ 10:48 by Leobardo TORRE, PA) Smoking Status: Current every day smoker tobacco type: cigarettes Tobacco: How many years used: 40 alcohol intake: never ROS Constitutional Constitutional: Denies chills, fatigue, fever(s) or weakness Eyes Eyes: Denies change in vision Cardiovascular Cardiovascular: Reports dyspnea on exertion; Denies chest pain, edema, lightheadedness, orthopnea or palpitations Respiratory/Chest Respiratory/Chest: Reports shortness of breath at rest and wheezing; Denies cough or excessive phlegm production Gastrointestinal Gastrointestinal: Denies abdominal pain Genitourinary Genitourinary: Denies dysuria Musculoskeletal Musculoskeletal: Denies arthralgias or back pain Neurologic Neurologic: Denies confusion, dizziness, focal weakness, headache(s) or numbness Vital Signs Vital Signs Vital Signs: 01/25/23 15:12 01/25/23 15:14 01/25/23 15:57 Temperature 97.2 F L Temperature Source Temporal Pulse Rate 95 Respiratory Rate 24 H Respiratory Effort Respiratory Depth Respiratory Pattern Blood Pressure 213/98 H Blood Pressure Mean 136 Pulse Ox 83 96 Oxygen Delivery Method Room Air Nasal Cannula Room Air Oxygen Flow Rate (L/min) 2 01/25/23 15:59 01/25/23 15:59 01/25/23 15:11 Temperature Temperature Source Pulse Rate 86 Respiratory Rate 15 Respiratory Effort Short of Breath Respiratory Depth Shallow Respiratory Pattern Tachypnea Blood Pressure Blood Pressure Mean Pulse Ox 97 Oxygen Delivery Method Nasal Cannula Nasal Cannula Oxygen Flow Rate (L/min) 2.5 01/25/23 17:00 01/25/23 17:00 Temperature Temperature Source Pulse Rate 88 Respiratory Rate 15 Respiratory Effort Respiratory Depth Respiratory Pattern Blood Pressure Blood Pressure Mean Pulse Ox 97 Oxygen Delivery Method Nasal Cannula Oxygen Flow Rate (L/min) 4 Weight Weight: 77.564 kg Body Mass Index (BMI) 32.3 Physical Exam Const alert and oriented x3 Constitutional Narrative: Pleasant elderly female, obese, sitting comfortably in bed, conversing normally, no acute distress. General Appearance: cooperative and comfortable HEENT normocephalic, head/scalp atraumatic, hearing grossly normal bilaterally, nasal mucous membranes and turbinates normal and moist oral mucous membranes Eyes PERRL, EOMs intact bilaterally and conjunctivae normal Neck full ROM, no lymphadenopathy and supple Lymph Lymphatic: no lymphadenopathy noted Chest inspection of chest normal Resp Resp Narrative: Moderate wheezing noted in upper airways bilaterally. Otherwise, good air movement throughout. No crackles noted. Satting well on 2 L nasal cannula, no increased work of breathing or use of accessory breathing muscles noted. Cardio regular rate, regular rhythm, no murmurs and peripheral pulses 2+ throughout GI normal to inspection, nondistended, normoactive bowel sounds, soft to palpation, non-tender and non-distended Back/Spine normal ROM Extremity normal to inspection, full ROM and no pedal edema Skin no rashes or lesions noted Psych mental status grossly normal Results Lab / Micro Data 01/25/23 15:50 01/25/23 15:50 Labs: Laboratory Results - last 24 hr 01/25/23 15:50: WBC 13.8 H, RBC 3.74 L, Hgb 11.2 L, Hct 34.4 L, MCV 92.0, MCH 29.9, MCHC 32.6, RDW Std Deviation 47.6 H, RDW Coeff of Krissy 13.8, Plt Count 242, MPV 11.6, Immature Gran % (Auto) 0.700, Neut % (Auto) 93.8 H, Lymph % (Auto) 3.1 L, [place] % (Auto) 2.2, Eos % (Auto) 0.1, Baso % (Auto) 0.1, Absolute Neuts (auto) 13.0 H, Absolute Lymphs (auto) 0.43 L, Nucleated RBC % 0, Differential Comment SEE COMMENT, Platelet Estimate ADEQUATE, RBC Morphology N CHROM, Anisocytosis RARE, Macrocytosis RARE, Sodium 129 L, Potassium 4.1, Chloride 98, Carbon Dioxide 22.0, Anion Gap 9, BUN 46 H, Creatinine 1.26 H, Estim Creat Clear Calc 31.35, Est GFR (MDRD) Af Amer 54 L, Est GFR (MDRD) Non-Af 45 L, BUN/Creatinine Ratio 36.5 H, Glucose 121 H, Calcium 7.7 L, Troponin I High Sens 25, B-Natriuretic Peptide 249.3 H Micro: Microbiology 01/25/23 15:55 Nasal Secretion SARS-CoV-2 & FLU Antigen (Rapid) - Final Imagaing Radiology Impression Chest CTA 01/25/23 15:33 IMPRESSION: Minor bibasilar interstitial thickening and bronchitis of the right lower lobe. No evidence for pulmonary embolus Electronically Signed: Burak Borges MD at 17:23 EST , Chest X-Ray 01/25/23 15:50 IMPRESSION: No acute cardiopulmonary pathology Electronically Signed: Burak Borges MD at 16:12 EST , Assessment & Plan Assessment/Plan (1) Hypoxia: (2) Shortness of breath: PLAN: Plan Patient is a 72-year-old female with history of COPD not on home O2 and recently diagnosed small cell lung cancer on active chemotherapy and radiation who presented to [facility] ED on 01/17/2023 with worsening shortness of breath after her chemotherapy infusion this morning. 1. Acute hypoxia, improving; worsening dyspnea with wheezing Unclear etiology for acute hypoxia and wheezing today. Unsure if this could be related to the chemotherapy infusion she received today as noted below. No documented history of COPD but has extensive smoking history, would presume she has some degree of obstructive disease. No previous history of COPD?type exacerbations. Has used an albuterol inhaler as needed in the past, has not needed this for some time. Low concern for infectious etiology. Required up to 5 L nasal cannula in the ED, was weaned to 2 L on my interview and satting in the mid to high 90s. Had received a breathing treatment prior to my arrival but continued to have moderate wheezing in upper airways on exam. However she was breathing comfortably at that time, no increased work of breathing noted. WBC count mildly elevated at 13, suspect this is likely due to recent steroid use with her chemotherapy, has been afebrile and no cough or sputum production. CTA chest showed no PE, minor bibasilar interstitial thickening and bronchitis of the right lower lobe. ? Admit under observation status to PCU. Will give another DuoNeb breathing treatment tonight and tomorrow morning. Anticipate patient will be able to be weaned off supplemental oxygen prior to discharge but will likely need O2 ambulatory test prior to discharge. Received 1 dose of IV methylprednisolone 125 mg in the ED, will give p.o. Decadron 6 mg daily starting tomorrow as patient states was recommended by her oncologist during her chemotherapy treatment. Recommend formal outpatient evaluation with PFTs to assist with diagnosis of COPD. 2. Recently diagnosed small cell lung cancer On [facility], patient had biopsy-confirmed small cell lung cancer from bronchoscopy sample at the beginning of December. States she is seeing Dr. Hooper with Oncology; unfortunately I was unable to find any of his notes. Patient states she had chemotherapy infusions starting on Tuesday 01/23, states the plan was to receive infusions on 01/23-01/26 followed by radiation at some point. Unclear on the chemotherapy agent patient is receiving. States she tolerated the first 2 chemotherapy infusion sessions well and did complete her session today prior to coming to the ED. ? Anticipate short hospitalization as patient's hypoxia and shortness of breath with wheezing is improved quickly with breathing treatments as noted above. Should be okay for close outpatient follow-up with oncology on discharge. Could consider oncology consult versus assistance with obtaining recent oncology notes to clarify recent treatment regimen and plan going forward. 3. Current smoker Extensive smoking history, continues to smoke about half pack per day currently. ? Nicotine patch provided per patient request. 4. Mild KITTY Creatinine 1.26 on admit, BUN 46. Last documented creatinine was back in 2019, creatinine was 0.7-0.8 at that time. Suspect mild prerenal KITTY due to recent poor p.o. intake. Chemotherapy agent unknown; KITTY could possibly be due to chemotherapy agent but seems less likely. Patient reports good urine output, no history of urinary tension. ? Follow-up a.m. BMP. Monitor urine output. Encouraged p.o. intake, holding on administration of IV fluids for now. 5. Hyponatremia Sodium 129 on admit. Unknown baseline, last sodium value was from 2019. Suspect this could be due to a degree of SIADH in setting of small cell lung cancer as noted above. Patient has appropriate mental status, no concern for mental status change due to hyponatremia. ? Will obtain serum osmolality, urine osmolality and urine sodium for further evaluation. Follow-up a.m. BMP. 6. Mild normocytic anemia Hemoglobin 11.2, MCV 92 on admit. Last hemoglobin value of 14 back in 2019. Most likely mild chronic worsening, could be secondary to anemia of chronic disease in setting of active cancer. ? Monitor a.m. CBC. Iron studies, B12, folate ordered. Chronic medical conditions: ? Anxiety/depression: Continue home duloxetine, Ativan p.o. twice daily as needed. ? Hypertension: Holding home lisinopril?hydrochlorothiazide in setting of mild KITTY as noted above, restart when able. DVT prophylaxis: Lovenox CODE STATUS: Full code, verified Expected disposition: Home, 1 to 2 days Total clinical time spent by myself addressing the patient's medical issues, reviewing all the data, and collaborating with patient's care team: 55 minutes. Charges/Coding Visit Charges Inpatient E&M: 43511 Init Hosp L2
--- NOTE | 2023-01-25 17:57 | NURSING ---
PCU MOSTELLER HYPOXIA, COPD EXAC
[2023-01-25 17:59] LABS: Reflex Troponin-HS? (from REC) Y
[2023-01-25 19:48] LABS: Troponin-I HS 25 pg/mL (3.0-54.0)
[2023-01-25] MEDS: DULoxetine Hcl 60 MG Capsule PO (21:20)
[2023-01-25] MEDS: LORazepam 0.5 MG Tablet PO (21:20)
[2023-01-25 22:54] LABS: Ferritin 282 ng/mL (8-252); Iron 274 ug/dL (50-170); Iron Binding Capacity,Total 301 ug/dL (250-450)
[2023-01-26] VITALS (10 sets, daily range): BP systolic 149–167; BP diastolic 66–78; PULSE 86–102; RESP 14–20; TEMP 36.6–36.8; O2SAT 93–100
[2023-01-26] MEDS: Ipratropium/Albuterol Sulfate 3 ML AMPUL.NEB INHALATION ×3 (07:25→19:33)
[2023-01-26 08:00] LABS: Osmolality, Serum 289 mOsm/KG (280-301)
[2023-01-26 08:16] LABS: Vitamin B12 456 pg/mL (211-911)
[2023-01-26] MEDS: LORazepam 0.5 MG Tablet PO (09:47)
[2023-01-26] MEDS: Enoxaparin 40 MG/0.4 ML Syringe SC (09:47)
[2023-01-26] MEDS: DULoxetine Hcl 60 MG Capsule PO ×2 (09:47→22:15)
[2023-01-26] MEDS: dexAMETHasone 4 MG Tablet 6 MG PO (09:47)
--- NOTE | 2023-01-26 13:38 | PN_ITS ---
Subjective Subjective Patient seen and examined. She complained of wheezing and occasional cough. She denied any fever, chills, palpitations, dizziness, nausea, vomiting or any other symptoms. Review of systems is otherwise negative. She has remained hemodynamically stable. Objective Data Objective Data Vital Signs: Vital Signs Temp Pulse Resp BP Pulse Ox O2 Del Method O2 Flow Rate 98.2 F 93 18 167/77 H 100 Room Air 1 01/26/23 09:49 01/26/23 09:49 01/26/23 09:49 01/26/23 09:49 01/26/23 09:49 01/26/23 10:00 01/26/23 09:49 Oxygen Flow Rate (L/min) [ 0 AMBULATING on Room Air] Oxygen Flow Rate (L/min) [At 0 REST on Room Air] Oxygen Flow Rate (L/min) 1 Oxygen Delivery Method Room Air Weight: 175 lb 0.752 oz Body Mass Index (BMI) 33.0 Intake & Output: Intake and Output for Last 24 Hours 01/24/23 01/25/23 01/26/23 23:59 23:59 23:59 Intake Total 320 / 320 620 / 620 Balance 320 / 320 620 / 620 Lab / Micro Data 01/25/23 15:50 01/25/23 15:50 Labs: Laboratory Results - last 24 hr 01/25/23 15:50: WBC 13.8 H, RBC 3.74 L, Hgb 11.2 L, Hct 34.4 L, MCV 92.0, MCH 29.9, MCHC 32.6, RDW Std Deviation 47.6 H, RDW Coeff of Krissy 13.8, Plt Count 242, MPV 11.6, Immature Gran % (Auto) 0.700, Neut % (Auto) 93.8 H, Lymph % (Auto) 3.1 L, [place] % (Auto) 2.2, Eos % (Auto) 0.1, Baso % (Auto) 0.1, Absolute Neuts (auto) 13.0 H, Absolute Lymphs (auto) 0.43 L, Nucleated RBC % 0, Differential Comment SEE COMMENT, Platelet Estimate ADEQUATE, RBC Morphology N CHROM, Anisocytosis RARE, Macrocytosis RARE, Sodium 129 L, Potassium 4.1, Chloride 98, Carbon Dioxide 22.0, Anion Gap 9, BUN 46 H, Creatinine 1.26 H, Estim Creat Clear Calc 31.35, Est GFR (MDRD) Af Amer 54 L, Est GFR (MDRD) Non-Af 45 L, BUN/Creatinine Ratio 36.5 H, Glucose 121 H, Calcium 7.7 L, Iron 274 H, TIBC 301, Iron Saturation 91.0 H, Ferritin 282 H, Troponin I High Sens 25, B-Natriuretic Peptide 249.3 H, Folate 13.60 01/25/23 19:22: Troponin I High Sens 25 01/26/23 06:40: Serum Osmolality 289, Vitamin B12 456 Micro: Microbiology 01/25/23 15:55 Nasal Secretion SARS-CoV-2 & FLU Antigen (Rapid) - Final Radiography Diagnostic Testing: Radiology Impression Chest CTA 01/25/23 15:33 IMPRESSION: Minor bibasilar interstitial thickening and bronchitis of the right lower lobe. No evidence for pulmonary embolus Electronically Signed: Burak Borges MD at 17:23 EST , Chest X-Ray 01/25/23 15:50 IMPRESSION: No acute cardiopulmonary pathology Electronically Signed: Burak Borges MD at 16:12 EST , Physical Exam Const alert, oriented x3 and no apparent distress Constitutional Narrative: frail HEENT normocephalic, moist oral mucous membranes and oropharynx normal Eyes PERRL and EOMs intact bilaterally Neck no lymphadenopathy and supple Lymph Lymphatic: no lymphadenopathy noted Resp Resp Narrative: diminished breath sounds bibasally, moderate wheezes, no crackles. On room air. Cardio regular rate, regular rhythm and S1 normal heart sound GI normal to inspection, nondistended, normoactive bowel sounds, soft to palpation, non-tender and non-distended Extremity normal capillary refill General Extremity: no tenderness to palpation of joints or extremities Neuro CN's II-XII intact bilaterally and no focal motor deficits Motor Exam: strength 5/5 throughout and general weakness Psych thought process normal and cooperative Appearance: appropriate Assessment & Plan Assessment/Plan (1) Acute exacerbation of chronic obstructive pulmonary disease: (2) Shortness of breath: PLAN: Plan #Hypoxia due to COPD exacerbation * newly diagnosed with lung cancer, and on chemotherapy. * on Po decadron * breathing treatment with bronchodilators * * #nonsmall cell lung cancer * had biopsy small cell lung cancer from bronchoscopy. * had chemotherapy on 01/23/2023 * wbc is 13. Discussed with her oncologist Dr Hooper; will give SC granix 480mg daily. * #Mild KITTY: Cr was 1.26 on admission. Will hydrate with NS. #Hyponatremia: * sodium is 129. May be due to SIADH in setting of lung cancer. * being hydrated with IVF * #Anxiety and depression; on duloxetine #Hypertension; HCTZ/lisinopril on hold. DVT prophylaxis: lovenox Charges/Coding Visit Charges Inpatient E&M: 60365 Subs Hosp L2
--- NOTE | 2023-01-26 14:10 | CHAPLAIN ---
Type of Pastoral Visit _x__ Initial Visit ___ Follow-up Visit ___ On-call Visit ___ General Patient Visit ___ Spiritual Assessment ___ Family Conference ___ Bereavement ___ Rapid Response ___ Code Blue ___ Other (describe below) Pastoral Care Referral From _x__ Patient ___ Family ___ Nurse ___ Physician ___ Mesh Man ___ Nail Mill Worker ___ Other (describe below) Sacrament/Intervention _x__ Active listening ___ Anointing ___ Advent ___ Bereavement ___ Communion _x__ Kate exploration ___ _x__ Life review _x__ Prayer ___ Reconciliation ___ Sacrament of Sick _x__ Supportive presence ___ Wedding ___ Other (describe below) Pastoral Comments patient is welcoming and gives some history of her illness which is cancer and her schedule of receiving chemo and radiation; pt has concerns about missing treatments; pt states that early today she was thinking of quitting her treatments but then with daytime her thinking turned around; pt spouse of cancer over 12 years ago; pt admits to having feelings of fear and being scared; pt has not been a anglican person but is thinking now is the time to become more spiritual; talked about how such a change can take place; discussion on how to cope in smaller amounts like in hours or days and not in years; pt leads discussion on whether or not prayer and kate are important matters in a person's life; prayer given; offer of return visits is accepted
[2023-01-26 15:07] LABS: Absolute Lymphocyte Count 0.22 X10^3/uL (0.83-4.51); Absolute Neutrophil Count 10.6 X10^3/uL (2.0-7.7); Basophil# 0.01 X10^3/uL; Basophil% 0.1 % (0-1); Eosinophil# 0.01 X10^3/uL; Eosinophils% 0.1 % (0-5); Hemoglobin 11.1 g/dL (12.0-15.0); Lymphocyte # 0.22 X10^3/ul (0.83-4.51); Mean Corp Hgb Conc 32.6 g/dL (32-36); Mean Corpuscular Hgb 30.2 pg (27.0-32.0); Mean Corpuscular Volume 92.4 fL (81-99); Mean Platelet Vol. 11.4 fl (6.2-12.0); Monocyte# 0.09 X10^3/uL; Monocyte% 0.8 % (0-10); NRBC Flagged by Analyzer 0 % (0-5); Neutrophil # 10.58 X10^3/uL (2.7-7.7); POSITIVE DIFFERENTIAL YES; Platelet Count 221 K/mm3 (150-450); RBC Distribution Width CV 13.9 % (11.6-14.6); RBC Distribution Width SD 47.3 fl (35.1-43.9); Red Blood Count 3.68 M/mm3 (4.2-5.4)
[2023-01-26 15:09] LABS: Differential Indicated SCAN CRITERIA MET
[2023-01-26] MEDS: TBO-FILGRASTIM 480 MCG/0.8 ML ML SC (15:22)
[2023-01-26] MEDS: Flu Vacc QS2023-24(65YR UP)/PF 240 MCG/0.7 ML Syringe IM (15:23)
[2023-01-26 15:38] LABS: Anion Gap 10 (5-15); BUN 41 mg/dL (7-18); BUN/Creat Ratio 28.1 RATIO (10-20); Calcium,Total 7.8 mg/dL (8.5-10.1); Chloride 99 mmol/L (98-107); Creatinine, Serum 1.46 mg/dL (0.55-1.02); EST Glomerular Filtration Rate 38 mL/min (>60); Est Glom Filt Rate - Afr Amer 46 mL/min (>60); Estimated Creatinine Clearance 27.06 ml/min; Glucose 146 mg/dL (74-106); Potassium 4.2 mmol/L (3.5-5.1); Sodium Level 134 mmol/L (136-145)
--- NOTE | 2023-01-26 15:51 | CASEMGMT ---
Met with patient to complete BENDER form. BENDER form explained to patient who voiced understanding and signed form. Original form placed in pt?s chart and copy provided to?patient. Azra Briscoe, Discharge Planning Asst
--- NOTE | 2023-01-26 16:20 | CASEMGMT ---
Discharge Planning Msg received from [facility] that patient will not need a precert. Physician updated and plans to discharge today. Aneta completed and given to SW. Azra Briscoe, Discharge Planning Asst.
[2023-01-26] MEDS: 0.9% Normal Saline (1000mL) 1,000 ML 125 ML IV (18:15)
[2023-01-26] MEDS: LORazepam 1 MG Tablet PO (22:15)
[2023-01-27] VITALS (8 sets, daily range): BP systolic 152–181; BP diastolic 72–98; PULSE 94–100; RESP 15–18; TEMP 36–36.8; O2SAT 94–99
[2023-01-27] MEDS: 0.9% Normal Saline (1000mL) 1,000 ML 125 ML IV (00:08)
[2023-01-27 04:08] LABS: Osmolality, Urine 350 mOsm/KG; Urine Sodium 68 mmol/L (Not Establ.)
[2023-01-27 06:48] LABS: Hematocrit 30.9 % (37-47); Hemoglobin 10.6 g/dL (12.0-15.0); Mean Corp Hgb Conc 34.3 g/dL (32-36); Mean Corpuscular Hgb 31.4 pg (27.0-32.0); Mean Corpuscular Volume 91.4 fL (81-99); Mean Platelet Vol. 11.5 fl (6.2-12.0); POSITIVE COUNT YES; POSITIVE DIFFERENTIAL YES; POSITIVE MORPHOLOGY YES; Platelet Count 186 K/mm3 (150-450); RBC Distribution Width CV 14.2 % (11.6-14.6); RBC Distribution Width SD 48.2 fl (35.1-43.9); Red Blood Count 3.38 M/mm3 (4.2-5.4)
[2023-01-27 06:53] LABS: Differential Indicated MANUAL DIFF; White Blood Count 39.4 K/mm3 (4.4-11.0)
[2023-01-27] MEDS: Ipratropium/Albuterol Sulfate 3 ML AMPUL.NEB INHALATION ×3 (07:32→19:55)
[2023-01-27 07:40] LABS: Anion Gap 7 (5-15); BUN 38 mg/dL (7-18); BUN/Creat Ratio 37.6 RATIO (10-20); Calcium,Total 7.1 mg/dL (8.5-10.1); Chloride 105 mmol/L (98-107); Creatinine, Serum 1.01 mg/dL (0.55-1.02); EST Glomerular Filtration Rate 58 mL/min (>60); Est Glom Filt Rate - Afr Amer 70 mL/min (>60); Estimated Creatinine Clearance 39.11 ml/min; Glucose 115 mg/dL (74-106); Potassium 3.9 mmol/L (3.5-5.1); Sodium Level 135 mmol/L (136-145)
[2023-01-27 07:58] LABS: Neutrophil-Segmented 100 % (47-70); Platelet Estimate ADEQUATE (ADEQ); Red Cell Morphology NORM C+C NORMAL (NORM C&C); Total Cells Counted 100 (MANUAL DIFF)
[2023-01-27 07:59] LABS: Absolute Neutrophil Count 39.4 X10^3/uL (2.0-7.7)
[2023-01-27] MEDS: LORazepam 1 MG Tablet PO ×2 (09:45→20:56)
[2023-01-27] MEDS: DULoxetine Hcl 60 MG Capsule PO ×2 (09:45→20:56)
--- NOTE | 2023-01-27 11:20 | CASEMGMT ---
RN CM Face to Face with patient for initial transition planning/care coordination assessment. RN CM introduced self and role at [facility]. Patient lying in bed, alert and oriented. Patient willing to participate in assessment and is able to answer all questions appropriately. Care providers, pharmacy, and demographics verified. Patient wishes to discharge home, denies need for home health at this time. Patient states he has no further needs or concerns at this time. CM to follow for discharge planning needs that may arise. PCP: Maxime Specialists: Sandie, oncologist; Yadi, radiologist Preferred Pharmacy: [facility] Insurance: [employer] Prescription Benefit: yes Living Will/HPOA: yes, daughter Hilad Caraballo LNOK: daughters Living Arrangements: Patient lives alone in a single story home with one step to enter. Patient states she is independent at home. Transportation: self, sister DME/HHC: Patient denies DME in the home. No previous HHC or SNF. Will monitor for home oxygen. Patient has no preferences for DME. Disposition Plan: Patient to discharge home with family support and follow-up plans in place. Will monitor for home oxygen. Nova LANCE, RN, CM
--- NOTE | 2023-01-27 12:00 | PN_ITS ---
Subjective Subjective Patient seen and examined. She still feels short of breath and weak. She is still wheezing. She is coughing, productive of sputum. Review of systems is otherwise negative. She has remained hemodynamically stable and is now on room air. Objective Data Objective Data Vital Signs: Vital Signs Temp Pulse Resp BP Pulse Ox O2 Del Method O2 Flow Rate 96.8 F L 98 16 181/98 H 99 Room Air 1 01/27/23 08:15 01/27/23 08:15 01/27/23 08:15 01/27/23 08:15 01/27/23 08:15 01/27/23 08:22 01/26/23 09:49 Oxygen Flow Rate (L/min) [ 0 AMBULATING on Room Air] Oxygen Flow Rate (L/min) [At 0 REST on Room Air] Oxygen Flow Rate (L/min) 1 Oxygen Delivery Method Room Air Weight: 175 lb 0.752 oz Body Mass Index (BMI) 33.0 Intake & Output: Intake and Output for Last 24 Hours 01/25/23 01/26/23 01/27/23 23:59 23:59 23:59 Intake Total 320 / 320 860 / 860 1735.42 / 1735.42 Balance 320 / 320 860 / 860 1735.42 / 1735.42 Lab / Micro Data 01/27/23 06:27 01/27/23 06:27 Labs: Laboratory Results - last 24 hr 01/26/23 14:38: WBC 11.0, RBC 3.68 L, Hgb 11.1 L, Hct 34.0 L, MCV 92.4, MCH 30.2, MCHC 32.6, RDW Std Deviation 47.3 H, RDW Coeff of Krissy 13.9, Plt Count 221, MPV 11.4, Immature Gran % (Auto) 1.000 H, Neut % (Auto) 96.0 H, Lymph % (Auto) 2.0 L, [place] % (Auto) 0.8, Eos % (Auto) 0.1, Baso % (Auto) 0.1, Absolute Neuts (auto) 10.6 H, Absolute Lymphs (auto) 0.22 L, Nucleated RBC % 0, Sodium 134 L, Potassium 4.2, Chloride 99, Carbon Dioxide 25.0, Anion Gap 10, BUN 41 H, Creatinine 1.46 H, Estim Creat Clear Calc 27.06, Est GFR (MDRD) Af Amer 46 L, Est GFR (MDRD) Non-Af 38 L, BUN/Creatinine Ratio 28.1 H, Glucose 146 H, Calcium 7.8 L 01/27/23 03:45: Urine Osmolality 350, Ur Random Sodium 68 01/27/23 06:27: WBC 39.4 H*, RBC 3.38 L, Hgb 10.6 L, Hct 30.9 L, MCV 91.4, MCH 31.4, MCHC 34.3 D, RDW Std Deviation 48.2 H, RDW Coeff of Krissy 14.2, Plt Count 186, MPV 11.5, Neut % (Auto) Not Reportable, Absolute Neuts (auto) 39.4 H, Absolute Lymphs (auto) 0.00 L, Total Counted 100, Neutrophils % (Manual) 100 H, Diff Path Review June, Platelet Estimate ADEQUATE, RBC Morphology NORM C+C, Sodium 135 L, Potassium 3.9, Chloride 105, Carbon Dioxide 23.0, Anion Gap 7, BUN 38 H, Creatinine 1.01, Estim Creat Clear Calc 39.11, Est GFR (MDRD) Af Amer 70, Est GFR (MDRD) Non-Af 58 L, BUN/Creatinine Ratio 37.6 H, Glucose 115 H, Calcium 7.1 L Micro: Microbiology 01/25/23 15:55 Nasal Secretion SARS-CoV-2 & FLU Antigen (Rapid) - Final Physical Exam Const alert, oriented x3 and no apparent distress Constitutional Narrative: frail General Appearance: cooperative and comfortable HEENT normocephalic, head/scalp atraumatic, hearing grossly normal bilaterally, nasal mucous membranes and turbinates normal, moist oral mucous membranes and oropharynx normal Eyes PERRL, EOMs intact bilaterally and conjunctivae normal Neck full ROM, no lymphadenopathy and supple Lymph Lymphatic: no lymphadenopathy noted Chest inspection of chest normal Resp Resp Narrative: diminished breath sounds bibasally, moderate bilateral wheezes, no crackles. On room air. Cardio regular rate, regular rhythm, S1 normal heart sound, no murmurs and peripheral pulses 2+ throughout GI normal to inspection, nondistended, normoactive bowel sounds, soft to palpation, non-tender and non-distended Back/Spine normal ROM Extremity normal to inspection, full ROM, normal capillary refill and no pedal edema General Extremity: no tenderness to palpation of joints or extremities Skin no rashes or lesions noted Neuro CN's II-XII intact bilaterally and no focal motor deficits Motor Exam: strength 5/5 throughout and general weakness Psych mental status grossly normal, thought process normal and cooperative Appearance: appropriate Assessment & Plan Assessment/Plan (1) Acute exacerbation of chronic obstructive pulmonary disease: (2) Shortness of breath: PLAN: Plan #Hypoxia due to COPD exacerbation * newly diagnosed with lung cancer, and on chemotherapy. * on Po decadron * still wheezing and coughing. * will hold pO decadron and start on IV solumedrol * breathing treatment with bronchodilators * * #nonsmall cell lung cancer * had biopsy small cell lung cancer from bronchoscopy. * had chemotherapy on 01/23/2023 * wbc is 13. Discussed with her oncologist Dr Hooper; will give SC granix 480mg daily. * wbc today is 39.4 with absolute neutrophil count of 34. Per discussion with Dr Hooper today, will hold granix if neutrophil count is >30 * #Mild KITTY: resolved. Cr is down to 1.01. #Hyponatremia: * resolved. sodium is 135. * #Anxiety and depression; on duloxetine #Hypertension; HCTZ/lisinopril on hold. Will resume as KITTY and hyponatremia have resolved DVT prophylaxis: lovenox Charges/Coding Visit Charges Inpatient E&M: 15586 Subs Hosp L2
[2023-01-27] MEDS: Ondansetron 4 MG/2 ML Vial IV (20:20)
[2023-01-27] MEDS: 0.9% Saline Lock 10 ML Syringe IV ×2 (20:20→20:58)
[2023-01-28 03:00] VITALS: BP 132/80; PULSE 96; RESP 15; TEMP 36.6; O2SAT 95
[2023-01-28] MEDS: 0.9% Saline Lock 10 ML Syringe IV (05:21)
[2023-01-28 07:06] VITALS: PULSE 92; RESP 20; O2SAT 96
[2023-01-28] MEDS: Ipratropium/Albuterol Sulfate 3 ML AMPUL.NEB INHALATION (07:06)
[2023-01-28 07:15] LABS: Hematocrit 31.3 % (37-47); Hemoglobin 10.4 g/dL (12.0-15.0); Mean Corp Hgb Conc 33.2 g/dL (32-36); Mean Corpuscular Hgb 30.2 pg (27.0-32.0); Mean Platelet Vol. 11.9 fl (6.2-12.0); POSITIVE COUNT YES; POSITIVE DIFFERENTIAL YES; POSITIVE MORPHOLOGY YES; Platelet Count 206 K/mm3 (150-450); RBC Distribution Width CV 14.2 % (11.6-14.6); RBC Distribution Width SD 47.2 fl (35.1-43.9); Red Blood Count 3.44 M/mm3 (4.2-5.4)
[2023-01-28 07:31] LABS: Differential Indicated MANUAL DIFF
[2023-01-28 08:37] VITALS: BP 169/90; PULSE 92; RESP 18; TEMP 36.8; O2SAT 98
[2023-01-28] MEDS: DULoxetine Hcl 60 MG Capsule PO (08:41)
[2023-01-28] MEDS: LORazepam 1 MG Tablet PO (08:41)
[2023-01-28 08:43] LABS: Anion Gap 9 (5-15); BUN 36 mg/dL (7-18); BUN/Creat Ratio 35.3 RATIO (10-20); Calcium,Total 7.4 mg/dL (8.5-10.1); Chloride 102 mmol/L (98-107); Creatinine, Serum 1.02 mg/dL (0.55-1.02); EST Glomerular Filtration Rate 57 mL/min (>60); Est Glom Filt Rate - Afr Amer 69 mL/min (>60); Estimated Creatinine Clearance 38.73 ml/min; Glucose 122 mg/dL (74-106); Potassium 3.9 mmol/L (3.5-5.1); Sodium Level 134 mmol/L (136-145)
[2023-01-28 09:07] VITALS: O2SAT 94; O2SAT 98
--- NOTE | 2023-01-28 11:47 | DS.PCM_ITS ---
Providers Date of Admission: 01/26/23 Date of Discharge: 01/28/23 Primary Care Physician: Dr. Basia Swartz MD Reason For Visit: COPD EXACERBATION WITH HYPXIA Diagnosis Discharge Diagnosis (1) Acute exacerbation of chronic obstructive pulmonary disease: Status: Chronic Code(s): J44.1 - Chronic obstructive pulmonary disease with (acute) exacerbation (2) Shortness of breath: Status: Acute Code(s): R06.02 - Shortness of breath Plan #Hypoxia due to COPD exacerbation * newly diagnosed with lung cancer, and on chemotherapy. * on Po decadron * still wheezing and coughing. * will hold pO decadron and start on IV solumedrol * breathing treatment with bronchodilators * * #nonsmall cell lung cancer * had biopsy small cell lung cancer from bronchoscopy. * had chemotherapy on 01/23/2023 * wbc is 13. Discussed with her oncologist Dr Hooper; will give SC granix 480mg daily. * wbc today is 39.4 with absolute neutrophil count of 34. Per discussion with Dr Hooper today, will hold granix if neutrophil count is >30 * #Mild KITTY: resolved. Cr is down to 1.01. #Hyponatremia: * resolved. sodium is 135. * #Anxiety and depression; on duloxetine #Hypertension; HCTZ/lisinopril on hold. Will resume as KITTY and hyponatremia have resolved DVT prophylaxis: lovenox Medications at Discharge Home Medications duloxetine 60 mg capsule,delayed release 60 mg PO BID 03/29/15 lisinopril 20 mg-hydrochlorothiazide 12.5 mg tablet 1 tab PO BID 09/25/18 lorazepam 1 mg tablet 1 mg PO BID anxiety 09/25/18 dexamethasone 4 mg tablet 10 mg PO BID inflammation 01/25/23 levofloxacin 750 mg tablet 750 mg PO DAILY #5 tabs 01/28/23 methylprednisolone 4 mg tablets in a dose pack (Medrol (Landon)) 4 mg PO DAILY #21 tabs 01/28/23 nicotine 14 mg/24 hr daily transdermal patch 14 mg transdermal DAILY #30 ea 01/28/23 Hospital Course Operations None Summary of Care Provided Minutes Spent on Discharge: 55 Hospital Course: Patient is a 72 y/o female with a PMH as outlined who was admitted via the ED on 01/25/2023 with a complaint of shortness of breath and wheezing. She was saturating at 90% on 2L of oxygen. She had recently been diagnosed with small cell lung cancer and had completed on 3 rounds of chemotherapy. She became hypoxic whilst on chemotherapy that day at the outpatient infusion center, and she was saturating at 82% on room air. She was therefore brought o he ED. She was still smoking. She had never been diagnosed with COPD. Chest CTA showed minor bibasilar interstitial thickening and bronchitis of the right lower lobe, with no evidence for PE. SHE was admitted and managed for hypoxia due to COPD exacerbation. She was placed on breathing treatment and steroids as well as antibiotics. White cell count was [address] Hooper, since she had recently had chemotherapy she was to be placed on subcu Granix. White cell count trended up to over 30 and so Granix was held. Patient is of breath improved and she felt much better. She was weaned off of oxygen. On 01/28/2023, patient was still wheezing a bit but insisted on being discharged home as she felt much better than when she came in. She was therefore discharged with a tapering dose of prednisone as well as p.o. levofloxacin 500 mg daily for 5 days . She is follow-up with her primary care doctor and follow-up with oncology on outpatient basis. Patient seen and examined prior to discharge. She felt much better. She was still coughing but had improved. She had no other complaints and review systems otherwise negative. Labs and vitals reviewed. Medication reviewed and reconciled. Physical Exam Const alert, oriented x3 and no apparent distress Constitutional Narrative: frail General Appearance: cooperative, comfortable and well kempt HEENT normocephalic, head/scalp atraumatic, hearing grossly normal bilaterally, nasal mucous membranes and turbinates normal, moist oral mucous membranes and oropharynx normal Mouth: oral and palatal mucosa normal Eyes PERRL, EOMs intact bilaterally and conjunctivae normal Neck full ROM, no lymphadenopathy and supple Lymph Lymphatic: no lymphadenopathy noted Chest inspection of chest normal Resp Resp Narrative: diminished breath sounds bibasally, minimal bilateral wheezes, no crackles. On room air. Cardio regular rate, regular rhythm, S1 normal heart sound, S2 normal heart sound, no murmurs and peripheral pulses 2+ throughout GI normal to inspection, nondistended, normoactive bowel sounds, soft to palpation, non-tender and non-distended Back/Spine normal ROM Extremity normal to inspection, full ROM, normal capillary refill and no pedal edema General Extremity: no tenderness to palpation of joints or extremities Skin no rashes or lesions noted Neuro oriented x3, CN's II-XII intact bilaterally, moves all extremities and no focal motor deficits Sensorium / Orientation: awake Motor Exam: strength 5/5 throughout and general weakness Psych mental status grossly normal, thought process normal and cooperative Appearance: appropriate Weight / BMI Weight Weight: 175 lb 0.752 oz Body Mass Index (BMI) 33.0 ABG / Lab / Microbiology Data 01/28/23 06:27 01/28/23 06:27 Laboratory: Laboratory Results - last 24 hr 01/28/23 06:27: WBC 33.0 H*, RBC 3.44 L, Hgb 10.4 L, Hct 31.3 L, MCV 91.0, MCH 30.2, MCHC 33.2, RDW Std Deviation 47.2 H, RDW Coeff of Krissy 14.2, Plt Count 206, MPV 11.9, Neut % (Auto) Not Reportable, Sodium 134 L, Potassium 3.9, Chloride 102, Carbon Dioxide 23.0, Anion Gap 9, BUN 36 H, Creatinine 1.02, Estim Creat Clear Calc 38.73, Est GFR (MDRD) Af Amer 69, Est GFR (MDRD) Non-Af 57 L, BUN/Creatinine Ratio 35.3 H, Glucose 122 H, Calcium 7.4 L Microbiology: Microbiology 01/25/23 15:55 Nasal Secretion SARS-CoV-2 & FLU Antigen (Rapid) - Final D/C Instructions Discharge Diet: Low fat / Low cholesterol Discharge Activity: Return to Normal Activity Weight Bearing Status: Weight bearing as tolerated Call your doctor if you observe: Fever of 101 or Higher, Shortness of breath, Dizziness and Swelling in the ankles Meaningful Use Info Meaningful Use Diagnoses (Choose all that apply): None applicable Discharge Plan Admission Admit Date/Time: 01/26/23 16:44 Primary Reason for Your Visit: COPD exacerbation Attending Provider: Lorraine Stanley Primary Care Provider: Basia Swartz Consulting Providers: Gerry Lang Instructions Patient Instructions: Diagnosing COPD, COPD Meds Additional Instructions / Restrictions: hold decadron until you finish taking course of prednisone. Counseled strongly to stop smoking. Discharge Orders/Prescriptions Prescriptions: New methylprednisolone [Medrol (Landon)] 4 mg tablets,dose pack 4 mg PO DAILY Qty: 21 0RF levofloxacin 750 mg tablet 750 mg PO DAILY Qty: 5 0RF nicotine 14 mg/24 hr Patch 24 Hour 14 mg transdermal DAILY Qty: 30 0RF Continued duloxetine 60 MG capsule 60 mg PO BID lisinopril-hydrochlorothiazide 1 EACH tablet 1 tab PO BID lorazepam 1 MG tablet 1 mg PO BID dexamethasone 4 mg tablet 10 mg PO BID Discontinued azithromycin 250 mg tablet See Rx Instructions PO .COMPLEX Qty: 6 0RF Rx Instructions: take 500 mg today (day 1), then 250 mg for 4 days (days 2-5) PO Referrals / Follow Up: Basia Swartz MD [Primary Care Provider] - Within 2 Weeks Nhan Hooper DO [Med Staff - Active Staff] - Within 2 Weeks Disposition Disposition (needs filled in before D/C Order can be placed): Home, Self Care Charges/Coding Visit Charges Inpatient E&M: 86920 Disch Hosp >30min
[2023-01-28 12:23] LABS: Neutrophil-Band 3 % (0-5); Neutrophil-Segmented 97 % (47-70); Total Cells Counted 100 (MANUAL DIFF)
[2023-01-28 12:24] LABS: Platelet Estimate ADEQUATE (ADEQ); Red Cell Morphology NORM C+C NORMAL (NORM C&C)
[2023-01-28 12:44] VITALS: BP 171/84; PULSE 80
[2023-01-28] MEDS: hydrALAZINE 20 MG/ML Vial 10 MG IV (12:44)
[2023-01-28] MEDS: hydroCHLOROthiazide 12.5mg 12.5 MG PO (13:48)
[2023-01-28] MEDS: Lisinopril 20 MG Tablet PO (13:49)
[2023-01-28 13:50] VITALS: BP 155/80
[2023-01-30 09:38] LABS: Pathologist Review Reviewed
[2023-01-30 13:30] LABS: Pathologist Review Reviewed
== END 2023-01-28 14:22 | disposition home or self-care (01) | DRG 191 ==
LOC: ED 17:42 → PCU 18:04
PROVIDERS: Nurse Practitioner; Admitting Provider Hospitalist; Emergency Provider Emergency Medicine; PCP Internal Medicine; Visit Provider Student in an Organized Health Care Education/Training Program
DX: J44.1 Chronic obstructive pulmonary disease with (acute) exacerbation (principal); C34.32 Malignant neoplasm of lower lobe, left bronchus or lung; N17.9 Acute kidney failure, unspecified; E87.1 Hypo-osmolality and hyponatremia; D64.9 Anemia, unspecified; F17.210 Nicotine dependence, cigarettes, uncomplicated; I10 Essential (primary) hypertension; F32.A Depression, unspecified; F41.9 Anxiety disorder, unspecified; Z92.21 Personal history of antineoplastic chemotherapy; Z79.899 Other long term (current) drug therapy; Z23 Encounter for immunization; R06.02 Shortness of breath
CPT/HCPCS: 36415; 71045; 71275; 80048; 82607; 82728; 82746; 83540; 83550; 83880; 83930; 83935; 84300; 84484; 85025; 87428; 93005; 94640; 94668; 96361; 96372; 96374; 96375; 96376; 99221; 99284; G0008; J7030; Q9967; 90662; A4216; G0378; J1447; J2405

== ENCOUNTER 2023-02-24 09:04 | Emergency (ER) | payer MEDICARE, SELFPAY ==
[2023-02-24] VITALS (11 sets, daily range): BP systolic 104–166; BP diastolic 47–83; PULSE 70–110; RESP 15–26; TEMP 36.8–37.2; O2SAT 90–96; BMI 31.1
--- NOTE | 2023-02-24 09:40 | EKG12_ITS ---
Test Reason : SOB Blood Pressure : / mmHG Vent. Rate : 101 BPM Atrial Rate : 101 BPM P-R Int : 168 ms QRS Dur : 156 ms QT Int : 388 ms P-R-T Axes : 006 -32 096 degrees QTc Int : 503 ms Sinus tachycardia with Premature atrial complexes Left axis deviation Left bundle branch block Abnormal ECG Confirmed by JENNIFER ARCHER, JACKLYN ([id number]), editorial writer SHAYLEE NIELSON ([id number]) on 02/28/2023 8:25:12 AM Referred By: Confirmed By:JACKLYN RODRIGUEZ MD
--- NOTE | 2023-02-24 09:41 | EX.ED.DYSGE1 ---
HPI History of Present Illness Chief Complaint: Shortness of Breath Informant: patient Narrative Narrative: Patient states that she was sent here because she might have COVID. Triage note says shortness of breath. But patient states her breathing is at her baseline. She does not feel short of breath any different than normal. She does have a history of lung cancer. She had radiation. She is getting chemo. Last chemo was about 3 weeks ago. She also has COPD. She states she is has some wheezing but it is not anything different for her. She is not here for dyspnea. She states that for the last 3 or so days she has had loss of taste, loss of smell, some myalgias, subjective fevers but none measured as high, she is also had some diarrhea without blood. She states she might have had minimal nausea but never vomited. She feels nausea is a very minor part of this. She states she is not eating and drinking a lot mostly because she has no taste. She is able to eat and drink and keep it down though. She states overall she did not feel that bad but she felt she should get checked out. PFSH PFSH Medical History Anxiety Cancer COPD (chronic obstructive pulmonary disease) Depression Hepatitis History of cancer of lower lobe bronchus or lung Hypertension Hypoxia Small cell lung cancer Smoker Home Medications duloxetine 60 mg capsule,delayed release 60 mg PO BID 03/29/15 [History Last Taken 09/25/18] lisinopril 20 mg-hydrochlorothiazide 12.5 mg tablet 1 tab PO BID 09/25/18 [History Last Taken 09/25/18] lorazepam 1 mg tablet 1 mg PO BID anxiety 09/25/18 [History Last Taken 09/25/18] nicotine 14 mg/24 hr daily transdermal patch 14 mg transdermal DAILY #30 ea 01/28/23 [Rx Last Taken Unknown] Allergy/AdvReac Type Severity Reaction Status Date / Time No Known Allergies Allergy Verified 02/24/23 09:06 Surgical History History of hysterectomy Social History Smoking Status: Current every day smoker tobacco type: cigarettes Tobacco: How many years used: 40 alcohol intake: never ROS ROS ED Constitutional Constitutional ED: Reports chills and subjective; Denies fever(s) Eyes Eyes: Denies change in vision ENT ENT ED: Reports rhinorrhea; Denies ear pain or sore throat Cardiovascular Cardiovascular: Denies chest pain, palpitations or racing heartbeat Respiratory/Chest Respiratory/Chest: Reports cough; Denies dyspnea or sputum Gastrointestinal Gastrointestinal: Reports diarrhea, nausea and other Details: She has had mild nausea but it is improving and she is able to eat. Her diarrhea is also improving. Denies ever having blood in it. ; Denies abdominal pain or vomiting Genitourinary Genitourinary ED: Reports other Details: Slightly darker and less amount of urine. But no dysuria ; Denies dysuria Musculoskeletal Musculoskeletal: Reports myalgias Integumentary Denies rash Neurologic Neurologic: Denies weakness Endocrine Endocrinology: Denies polydipsia or polyuria Hematologic/Lymphatic Hematologic/Lymphatic: Denies lymphadenopathy Allergic/Immunologic Allergic/Immunologic ED: Denies urticaria EXAM Physical Exam Narrative Exam Narrative: CONSTITUTIONAL: Patient is nontoxic in appearance. The patient looks comfortable. Work of breathing looks normal. She looks relaxed comfortable and carries on a normal conversation HEENT: No notable trauma. Mucous membranes do look a bit dry. No sinus tenderness. No indication of pain with swallowing. EYES: No significant pallor or icterus. NECK:No JVD. No stridor. CARDIOVASCULAR: Regular rate currently at about 90?95.. Regular rhythm. No notable murmur. No JVD. RESPIRATORY: No respiratory distress. Breathing is unlabored. She carries on a full conversation without difficulty. But she does have expiratory wheezing. GASTROINTESTINAL: Not distended. Bowel sounds are normal. No tenderness. No guarding. No rebound. No palpable mass. No bruit is heard. Abdomen is quite benign. She states despite the diarrhea she has no pain at all in her abdomen GENITOURINARY: No tenderness over the bladder. No CVA tenderness. MUSCULOSKELETAL: Atraumatic. No tenderness. NEUROLOGICAL: Patient is alert and appropriate. No focal deficit noted. SKIN: No noted rashes. No diaphoresis. PSYCHIATRIC: Patient is calm. Mood is appropriate. Const Vital Signs: 02/24/23 09:06 02/24/23 09:37 02/24/23 09:38 Temperature 98.9 F 98.9 F Temperature Source Temporal Temporal Pulse Rate 109 H 101 H Respiratory Rate 22 H 16 Respiratory Effort Short of Breath Respiratory Depth Normal Respiratory Pattern Normal Blood Pressure 117/53 L 109/66 Blood Pressure Mean 74 80 Pulse Ox 96 93 Oxygen Delivery Method Room Air Room Air Room Air 02/24/23 09:56 02/24/23 10:29 02/24/23 10:29 Temperature 98.3 F 98.3 F Temperature Source Oral Oral Pulse Rate 105 H 82 82 Respiratory Rate 20 H 20 H 16 Respiratory Effort Respiratory Depth Respiratory Pattern Blood Pressure 127/60 H 127/60 H Blood Pressure Mean 82 82 Pulse Ox 94 94 Oxygen Delivery Method Room Air Room Air 02/24/23 13:03 02/24/23 13:03 Temperature 98.4 F 98.5 F Temperature Source Oral Oral Pulse Rate 99 101 H Respiratory Rate 20 H 15 Respiratory Effort Respiratory Depth Respiratory Pattern Blood Pressure 133/47 H 133/47 H Blood Pressure Mean 75 75 Pulse Ox 96 96 Oxygen Delivery Method Room Air Room Air MDM MDM MDM Narrative Medical decision making narrative: My independent interpretation of the single view AP chest x-ray showed no acute process final reading was similar. Patient CBC shows a normal white count. But she did have a slight drop in her hemoglobin of 8.8 and her platelets were low at 37,000. This is new on our labs. But she has no bleeding. I talked with her again. She has not seen any black or blood in the stool or urine. No bruising. No nasal bleeding. Patient's electrolytes show some low potassium at 2.3. This is likely due to her diarrhea. But she states the diarrhea is already improving. She is starting to get some formed stools. Creatinine was a little bit above baseline at 1.37. Sodium was slightly low at 127. But she did receive IV fluids here. Rest of electrolytes overall looked good. Patient's urine showed no sign of infection. There were also no red cells Patient's viral studies were negative. I talked with the patient. She now states that she was getting some cramping in her muscles. I have replacing potassium. We are doing this both oral and IV because of the low level. But she really wants to go home. She states she does not feel bad. The diarrhea and symptoms that she was having are improving already. She really just wanted to know if she had COVID. I did call Dr. Guardado who was on-call for the patient's oncologist. He then had to go check the patient's record. He found that the chemo she is getting would cause thrombocytopenia so this is not unexpected. They will have her into the office for recheck. But she should be at a low point now. She is about 10 days past chemo. Patient is happy about this plan and wants to go. As soon as her potassium is in we will get her home. Lab Data Attestation: I reviewed the patient's lab results. Labs: Laboratory Results - last 24 hr 02/24/23 02/24/23 10:22 10:28 WBC 9.0 RBC 2.94 L Hgb 8.8 L Hct 25.4 L MCV 86.4 MCH 29.9 MCHC 34.6 RDW Std Deviation 43.2 RDW Coeff of Krissy 14.2 Plt Count 37 L* MPV 11.5 Neut % (Auto) Not Reportable Absolute Neuts (auto) 6.9 Absolute Lymphs (auto) 0.81 L Total Counted 100 Neutrophils % (Manual) 70 Band Neutrophils % 6 H Lymphocytes % (Manual) 9 L Monocytes % (Manual) 3 Metamyelocytes % 9 H Myelocytes % 3 H Nucleated RBCs/100 WBC 1 Diff Path Review May foll Platelet Estimate MKD DEC RBC Morphology N CHROM Anisocytosis 1+ Sodium 127 L Potassium 2.3 L* Chloride 84 L Carbon Dioxide 29.0 Anion Gap 14 BUN 26 H Creatinine 1.37 H Estim Creat Clear Calc 28.83 Est GFR (MDRD) Af Amer 49 L Est GFR (MDRD) Non-Af 41 L BUN/Creatinine Ratio 19.0 Glucose 94 Calcium 8.6 Urine Color Yellow Urine Clarity Sl. Cloudy Urine pH 5.0 Ur Specific [place] 1.020 Urine Protein 30 H Urine Glucose (UA) Normal Urine Ketones 5 H Urine Occult Blood 50 H Urine Nitrite Negative Urine Bilirubin Negative Urine Urobilinogen Normal Ur Leukocyte Esterase 25 H Urine RBC 0-5 SEEN Urine WBC 0-5 SEEN Ur Squamous Epith Cells 5-10 SEEN Urine Bacteria 1+ Coarse Granular Casts 0-5 SEEN Urine Mucus 0 SEEN Radiography Diagnostic Testing: Clinical Impression(s) from Imaging Studies Chest X-Ray 02/24/23 09:50 IMPRESSION: No radiographic evidence of acute cardiopulmonary disease. Electronically Signed: Rohini Muñoz MD at 10:51 EST , EKG Initial EKG: Comments: My independent interpretation of the patient's EKG shows sinus rhythm with borderline tachycardic rate at 101. Occasional PAC. She has a left bundle branch block which is not new. She has secondary ST changes but no Sgarbossa criteria. MO interval is normal. QRS duration is long and QTc are a bit long. But this is similar to EKG of 25 January 2023. There are some expected other changes likely due to her very low potassium. Discharge Plan Triage Chief Complaint: Shortness of Breath ED Provider: Isaias Tillman Dx/Rx/DC Orders Clinical Impression: History of diarrhea, History of lung cancer, Thrombocytopenia, Acute hypokalemia Instructions: Thrombocytopenia, ED Hypokalemia Prescriptions: No Action duloxetine 60 MG capsule 60 mg PO BID lisinopril-hydrochlorothiazide 1 EACH tablet 1 tab PO BID lorazepam 1 MG tablet 1 mg PO BID nicotine 14 mg/24 hr Patch 24 Hour 14 mg transdermal DAILY Qty: 30 0RF Primary Care Provider: Basia Swartz Referrals: Basia Swartz MD [Primary Care Provider] - Nhan Hooper DO [Med Staff - Active Staff] - (Call Monday for recheck of your labs. The office is expecting your call.) Disposition Disposition: Home, Self Care
--- NOTE | 2023-02-24 09:50 | RAD_ITS ---
INDICATION: cough EXAMINATION/TECHNIQUE: X-RAY - XR Chest 1 View COMPARISON: May 25, 2022 FINDINGS: LINES/DEVICES: None. LUNGS: No consolidation, edema or effusion. No pneumothorax. MEDIASTINUM AND CARDIOVASCULAR STRUCTURES: Cardiac silhouette not enlarged. Central airways and mediastinal contour are unremarkable. BONES AND SOFT TISSUES: Unremarkable. RAD/Chest 1 View (Portable) IMPRESSION: No radiographic evidence of acute cardiopulmonary disease. Electronically Signed: Rohini Muñoz MD at 10:51 EST ,
[2023-02-24] MEDS: Ipratropium/Albuterol Sulfate 3 ML AMPUL.NEB INHALATION (09:53)
[2023-02-24] MEDS: 0.9% Normal Saline (1000mL) 1,000 ML 1000 ML IV (10:24)
[2023-02-24 10:42] LABS: Mucous, Urine 0 SEEN /hpf (<or=2+)
[2023-02-24 10:48] LABS: Hematocrit 25.4 % (37-47); Hemoglobin 8.8 g/dL (12.0-15.0); Mean Corp Hgb Conc 34.6 g/dL (32-36); Mean Corpuscular Hgb 29.9 pg (27.0-32.0); Mean Corpuscular Volume 86.4 fL (81-99); Mean Platelet Vol. 11.5 fl (6.2-12.0); POSITIVE COUNT YES; POSITIVE DIFFERENTIAL YES; POSITIVE MORPHOLOGY YES; RBC Distribution Width CV 14.2 % (11.6-14.6); RBC Distribution Width SD 43.2 fl (35.1-43.9); Red Blood Count 2.94 M/mm3 (4.2-5.4)
[2023-02-24 10:50] LABS: Color, Urine Yellow (Yellow); Glucose, Dipstick Normal (Normal); Ketone-Dipstick 5 mg/dl (Negative); Leukocyte Esterase-Dipstick 25 /ul (Negative); Nitrite-Dipstick Negative (Negative); Occult Blood-Urine 50 /ul (Negative); Protein-Dipstick 30 mg/dl (Negative); Urine Bilirubin Dipstick Negative (Negative); Urine Clarity Sl. Cloudy (Clear); Urine Urobilinogen Normal (Normal)
[2023-02-24 10:56] LABS: Bacteria 1+ /hpf (None Seen); Coarse Granular Cast 0-5 SEEN /lpf (0-5 /lpf); Red Blood Cells-Urine 0-5 SEEN /hpf (0-5); Squamous Epithelial Cells - UA 5-10 SEEN /hpf (5-10); White Blood Cells 0-5 SEEN /hpf (0-5)
[2023-02-24 11:05] LABS: Anion Gap 14 (5-15); BUN 26 mg/dL (7-18); Calcium,Total 8.6 mg/dL (8.5-10.1); Chloride 84 mmol/L (98-107); Creatinine, Serum 1.37 mg/dL (0.55-1.02); EST Glomerular Filtration Rate 41 mL/min (>60); Est Glom Filt Rate - Afr Amer 49 mL/min (>60); Estimated Creatinine Clearance 28.83 ml/min; Glucose 94 mg/dL (74-106); Potassium 2.3 mmol/L (3.5-5.1); Sodium Level 127 mmol/L (136-145)
[2023-02-24 11:07] LABS: Differential Indicated MANUAL DIFF; Platelet Count 37 K/mm3 (150-450)
[2023-02-24 11:10] LABS: Anisocytosis 1+; Lymphocyte 9 % (19-41); Metamyelocyte 9 % (0-1); Monocyte 3 % (0-10); Myelocyte 3 % (0-0); Neutrophil-Band 6 % (0-5); Neutrophil-Segmented 70 % (47-70); Nucleated Red Bld Cells,Manual 1 % (0-5); Platelet Estimate MKD DEC (ADEQ); Total Cells Counted 100 (MANUAL DIFF)
[2023-02-24 11:11] LABS: Absolute Lymphocyte Count 0.81 X10^3/uL (0.83-4.51); Absolute Neutrophil Count 6.9 X10^3/uL (2.0-7.7); Red Cell Morphology N CHROM NORMAL (NORM C&C)
[2023-02-24] MEDS: Potassium Chloride Oral Tablet 20 MEQ 40 MEQ PO (11:32)
[2023-02-24] MEDS: Potassium Chloride 10mEq/100mL 10 MEQ/100 ML IV.SOLN. 100 MEQ IV BOLUS ×4 (11:32→16:03)
[2023-02-28 13:50] LABS: Pathologist Review Reviewed
== END 2023-02-24 17:15 | disposition home or self-care (01) ==
PROVIDERS: Emergency Provider Emergency Medicine; PCP Internal Medicine; Visit Provider Emergency Medicine
DX: D69.6 Thrombocytopenia, unspecified (principal); J44.9 Chronic obstructive pulmonary disease, unspecified; R19.7 Diarrhea, unspecified; F17.210 Nicotine dependence, cigarettes, uncomplicated; Z92.21 Personal history of antineoplastic chemotherapy; Z85.118 Personal history of other malignant neoplasm of bronchus and lung; E87.6 Hypokalemia; F41.9 Anxiety disorder, unspecified; F32.A Depression, unspecified; I10 Essential (primary) hypertension; Z79.899 Other long term (current) drug therapy; Z90.710 Acquired absence of both cervix and uterus; M79.10 Myalgia, unspecified site; R50.9 Fever, unspecified
CPT/HCPCS: 71045; 80048; 81001; 85025; 87631; 93005; 94640; 96361; 96365; 96366; 99284; J7030; A4216

== ENCOUNTER 2023-03-31 09:41 | Emergency (ER) | payer MEDICARE, SELFPAY ==
[2023-03-31 09:41] VITALS: BP 168/78; PULSE 99; RESP 22; TEMP 36; O2SAT 100; BMI 31.5
--- NOTE | 2023-03-31 10:22 | EX.ED.DYSGE1 ---
HPI History of Present Illness Chief Complaint: Abn Labs Informant: patient Narrative Narrative: Patient sent from oncology office secondary to low hemoglobin. She is currently undergoing chemotherapy treatments for lung cancer, last treatment 2 to 3 weeks ago. I did check the fax machine and note from this morning's visit with lab results has been sent to us. Hemoglobin today is down to 7.4. Per their note they would like patient transfused 1 unit of packed RBCs. Patient does report increased weakness and fatigue since her last treatment. No obvious source of blood loss. PFSH PFSH Medical History Anxiety Cancer COPD (chronic obstructive pulmonary disease) Depression Hepatitis History of cancer of lower lobe bronchus or lung Hypertension Hypoxia Small cell lung cancer Smoker Home Medications duloxetine 60 mg capsule,delayed release 60 mg PO BID 03/29/15 [History Last Taken 09/25/18] lisinopril 20 mg-hydrochlorothiazide 12.5 mg tablet 1 tab PO BID 09/25/18 [History Last Taken 09/25/18] lorazepam 1 mg tablet 1 mg PO BID anxiety 09/25/18 [History Last Taken 09/25/18] nicotine 14 mg/24 hr daily transdermal patch 14 mg transdermal DAILY #30 ea 01/28/23 [Rx Last Taken Unknown] potassium chloride 20 mEq tablet,extended release 20 meq PO BID #8 tabs 02/24/23 [Rx Last Taken Unknown] Allergy/AdvReac Type Severity Reaction Status Date / Time No Known Allergies Allergy Verified 02/24/23 09:06 Surgical History History of hysterectomy Social History Smoking Status: Current every day smoker tobacco type: cigarettes Tobacco: How many years used: 40 alcohol intake: never ROS ROS ED Constitutional Constitutional ED: Denies chills or fever(s) Eyes Eyes: Denies discharge from eye(s) ENT ENT ED: Denies discharge from eye(s), rhinorrhea or sore throat Cardiovascular Cardiovascular: Denies chest pain or palpitations Respiratory/Chest Respiratory/Chest: Denies cough or dyspnea Gastrointestinal Gastrointestinal: Denies abdominal pain, nausea or vomiting Musculoskeletal Musculoskeletal: Denies back pain or extremity pain Integumentary Denies Abrasions or rash Neurologic Neurologic: Reports weakness; Denies headache(s) Psychiatric Psychiatric: Denies anxiety or depression Allergic/Immunologic Allergic/Immunologic ED: Denies lip swelling or urticaria EXAM Physical Exam Const Vital Signs: 03/31/23 09:41 03/31/23 09:41 Temperature 96.8 F L Temperature Source Temporal Pulse Rate 99 Respiratory Rate 22 H Respiratory Effort Normal Respiratory Pattern Normal Blood Pressure 168/78 H Blood Pressure Mean 108 Pulse Ox 100 Oxygen Delivery Method Room Air Positive well nourished and well developed General Appearance ED: well developed HEENT Reports moist mucous membranes Eyes EOMs intact bilaterally Chest Wall inspection of chest normal and palpation of chest normal Resp normal respiratory effort and clear to auscultation bilaterally Cardio regular rate and regular rhythm GI non-tender Palpation: soft Extremity normal to inspection Neuro oriented x3 and no sensory deficits noted Motor Exam: strength 5/5 throughout Psych mental status grossly normal Skin no rashes or lesions noted MDM MDM MDM Narrative Medical decision making narrative: Patient's labs from this morning are reviewed. Hep-Lock ordered. 1 unit packed RBCs will be ordered and transfused. Patient stable following 1 L PRBCs. Will be discharged home to follow-up with oncology as planned. Lab Data Labs: Laboratory Results - last 24 hr 03/31/23 10:25 Crossmatch See Detail Discharge Plan Triage Chief Complaint: Abn Labs ED Provider: Gardenia Triplett Dx/Rx/DC Orders Clinical Impression: Anemia Instructions: ED Anemia, Type Not Specified (Adult) Prescriptions: No Action duloxetine 60 MG capsule 60 mg PO BID lisinopril-hydrochlorothiazide 1 EACH tablet 1 tab PO BID lorazepam 1 MG tablet 1 mg PO BID potassium chloride 20 mEq tablet extended release 20 meq PO BID Qty: 8 0RF nicotine 14 mg/24 hr Patch 24 Hour 14 mg transdermal DAILY Qty: 30 0RF Primary Care Provider: Basia Swartz Referrals: Basia Swartz MD [Primary Care Provider] - Nhan Hooper DO [Med Staff - Active Staff] - [facility] appointment Disposition Disposition: Home, Self Care
[2023-03-31 12:41] VITALS: BP 152/64; PULSE 93; RESP 16; TEMP 36.3; O2SAT 95
[2023-03-31 12:56] VITALS: BP 135/66; PULSE 102; RESP 18; TEMP 36.1; O2SAT 98
[2023-03-31 13:46] VITALS: BP 153/77; PULSE 91; RESP 16; TEMP 37; O2SAT 98
== END 2023-03-31 13:56 | disposition home or self-care (01) ==
PROVIDERS: Emergency Provider Emergency Medicine; PCP Internal Medicine; Visit Provider Emergency Medicine
DX: D64.9 Anemia, unspecified (principal); J44.9 Chronic obstructive pulmonary disease, unspecified; F17.210 Nicotine dependence, cigarettes, uncomplicated; Z92.21 Personal history of antineoplastic chemotherapy; Z85.118 Personal history of other malignant neoplasm of bronchus and lung; I10 Essential (primary) hypertension; F41.9 Anxiety disorder, unspecified; F32.A Depression, unspecified; Z79.899 Other long term (current) drug therapy; Z90.710 Acquired absence of both cervix and uterus
CPT/HCPCS: 86850; 86900; 86901; 86920; 86922; 99283; J7040; P9016; A4216

== ENCOUNTER 2023-04-22 08:38 | Emergency (ER) | payer MEDICARE, SELFPAY ==
[2023-04-22] VITALS (7 sets, daily range): BP systolic 160–174; BP diastolic 60–91; PULSE 68–110; RESP 14–20; TEMP 36.6–37.1; O2SAT 97–99; BMI 30.3
--- NOTE | 2023-04-22 09:16 | EDS_ITS ---
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 Porter, and was told that her hemoglobin was very low . She has been feeling weak and tired over the last few days up to a week. While she does not recall how low her hemoglobin may have been, she states that it was arranged for her to have a transfusion on Monday, 2 days from now. However, she states that she feels so weak and tired that it cannot wait so she presents to the emergency department. She denies any black stool. No nausea or vomiting, no bleeding diathesis. PFSH PFSH Medical History Anxiety Cancer COPD (chronic obstructive pulmonary disease) Depression Hepatitis History of cancer of lower lobe bronchus or lung Hypertension Hypoxia Small cell lung cancer Smoker Home Medications duloxetine 60 mg capsule,delayed release 60 mg PO BID 03/29/15 [History Last Taken 09/25/18] lisinopril 20 mg-hydrochlorothiazide 12.5 mg tablet 1 tab PO BID 09/25/18 [History Last Taken 09/25/18] lorazepam 1 mg tablet 1 mg PO BID anxiety 09/25/18 [History Last Taken 09/25/18] nicotine 14 mg/24 hr daily transdermal patch 14 mg transdermal DAILY #30 ea 01/28/23 [Rx Last Taken Unknown] potassium chloride 20 mEq tablet,extended release 20 meq PO BID #8 tabs 02/24/23 [Rx Last Taken Unknown] doxycycline hyclate 100 mg capsule 100 mg PO Q12H 04/22/23 [History Last Taken Unknown] Allergy/AdvReac Type Severity Reaction Status Date / Time No Known Allergies Allergy Verified 04/22/23 08:39 Surgical History History of hysterectomy Social History Smoking Status: Current every day smoker tobacco type: cigarettes Tobacco: How many years used: 40 alcohol intake: never ROS ROS ED ROS Narrative Constitutional: No fever, no chills. Generalized weakness. HEENT: No sore throat. No neck pain. No loss of vision. No rhinorrhea. Cardiovascular: Intermittent chest pain. No palpitations. No pedal edema. Respiratory: No cough, mild dyspnea on exertion/shortness of breath. Abdominal: No abdominal pain. No nausea. No vomiting. No hematemesis. Genitourinary: No dysuria. No hematuria. Musculoskeletal: No myalgias. No arthralgias. Neurologic: No headaches. No dizziness. No lightheadedness. Skin: No rash. No change in color. Psychiatric: No depression. No anxiety. EXAM Physical Exam Narrative Exam Narrative: Afebrile. Vital signs noted. HEENT: Normocephalic. Atraumatic. PERRL, EOMI. Neck soft and supple. No point tenderness or step off. Cardiovascular: Positive tachycardia. No murmurs, rubs, or gallops appreciated. Respiratory: No tachypnea. Lungs clear to auscultation bilaterally. Gastrointestinal: Abdomen soft, nontender, with normoactive bowel sounds. No rebound or guarding. Neurological: Awake. Alert. Nonfocal, nonlateralizing. Skin: No rash. Normal color. Positive pallor. Musculoskeletal: No pedal edema. Full range of motion extremities. Const Vital Signs: 04/22/23 08:39 04/22/23 09:30 04/22/23 12:34 Temperature 97.8 F Temperature Source Temporal Pulse Rate 110 H 94 Respiratory Rate 14 18 Respiratory Effort Normal Respiratory Pattern Normal Blood Pressure 160/81 H 169/61 H Blood Pressure Mean 107 97 Blood Pressure Source Blood Pressure Position Blood Pressure Location Pulse Ox 99 98 Oxygen Delivery Method Room Air Room Air 04/22/23 12:35 04/22/23 12:45 04/22/23 13:45 Temperature 98.4 F 98.4 F 98.1 F Temperature Source Oral Oral Oral Pulse Rate 93 86 89 Respiratory Rate 18 20 H 18 Respiratory Effort Respiratory Pattern Blood Pressure 169/91 H 170/63 H 174/60 H Blood Pressure Mean 117 98 98 Blood Pressure Source Monitor Monitor Monitor Blood Pressure Position Semi-Fowlers Semi-Fowlers Semi-Fowlers Blood Pressure Location Right Arm Right Arm Right Arm Pulse Ox 97 97 99 Oxygen Delivery Method Room Air Room Air Room Air 04/22/23 14:20 04/22/23 14:42 Temperature 98.3 F 98.7 F Temperature Source Oral Pulse Rate 92 68 Respiratory Rate 16 16 Respiratory Effort Respiratory Pattern Blood Pressure 160/64 H 160/83 H Blood Pressure Mean 96 108 Blood Pressure Source Monitor Blood Pressure Position Semi-Fowlers Blood Pressure Location Right Arm Pulse Ox 98 98 Oxygen Delivery Method Room Air MDM MDM MDM Narrative Medical decision making narrative: In the differential diagnosis is anemia of chronic disease, ACS, I have low suspicion for pulmonary embolism causing her shortness of breath. She may have pneumonia as well. She recently finished her fourth dose of chemotherapy. She does not have a Mediport. CBC will be obtained to see how anemic she may be and if she requires transfusion. I will obtain a CMP, troponin, EKG, and chest x- ray as well to rule out other pathology such as pneumonia. However clinically and her history does not support pneumonia. Pulse ox is 99% on room air. EKG was obtained and interpreted by myself independently as normal sinus rhythm at 98 bpm without ectopy or acute ST changes. No STEMI. There is a left bundle branch block present, but in comparison to EKG dated January 2023, no significant change. CBC was obtained and reviewed along with her other laboratory work and she has an elevated white count of 20.5, but she is on Neupogen. Her hemoglobin is 7.5 with platelet count 220. Review of her electrolyte panel shows sodium 135 with potassium slightly low at 3.2 which I think is nonspecific, BUN of 33 and creatinine 1.35, glucose appropriately elevated at 142 with a normal anion gap of 7. High-sensitivity troponin is 13. This is greater than a 6-hour troponin and I do not feel that serial enzymes are indicated. I attempted to contact the oncologist on-call, but there is been no return of the page. Given that the patient is symptomatic with ongoing chest pain, weakness, and mild shortness of breath, initially I had ordered 2 units of packed red blood cells for her, but she declined stating that she only wants 1 transfused. I spoke with blood bank and Dr. Mcclendon she had ordered nonirradiated cells for her. She was consented for transfusion of 1 unit of packed red blood cells. Afterwards, I feel she can be discharged to follow-up and perhaps have another unit infused on Monday. Patient is agreeable to the plan. I do not feel she requires observation at this time. Disposition is discharged home in stable condition. History & Record Review Discussion w/independent historian: Patient Additional record(s) reviewed:: Prior ED visit Lab Data Attestation: I reviewed the patient's lab results. Labs: Laboratory Results - last 24 hr 04/22/23 09:15 WBC 20.5 H RBC 2.36 L Hgb 7.5 L Hct 22.6 L MCV 95.8 MCH 31.8 MCHC 33.2 RDW Std Deviation 63.5 H RDW Coeff of Krissy 19.1 H Plt Count 220 MPV 11.1 Neut % (Auto) Not Reportable Absolute Neuts (auto) 17.6 H Absolute Lymphs (auto) 1.43 Total Counted 100 Neutrophils % (Manual) 84 H Band Neutrophils % 2 Lymphocytes % (Manual) 7 L Monocytes % (Manual) 1 Metamyelocytes % 2 H Myelocytes % 4 H Diff Path Review May foll Platelet Estimate ADEQUATE RBC Morphology N CHROM Anisocytosis 1+ Sodium 135 L Potassium 3.2 L Chloride 100 Carbon Dioxide 28.0 Anion Gap 7 BUN 33 H Creatinine 1.35 H Estim Creat Clear Calc 36.83 Est GFR (MDRD) Af Amer 50 L Est GFR (MDRD) Non-Af 41 L BUN/Creatinine Ratio 24.4 H Glucose 142 H Calcium 9.3 Total Bilirubin 0.40 AST 23 ALT 17 Alkaline Phosphatase 128 H Troponin I High Sens 13 Total Protein 7.3 Albumin 3.5 Globulin 3.8 Albumin/Globulin Ratio 0.9 Blood Type O POSITIVE Antibody Screen NEGATIVE Crossmatch See Detail Radiography Diagnostic Testing: Clinical Impression(s) from Imaging Studies Chest X-Ray 04/22/23 09:16 IMPRESSION: Stable chest with no acute or active cardiopulmonary disease. Electronically Signed: Shravan Robin MD at 9:37 EST Reading Location ID and State: [facility] / [place] , Service support , Discharge Plan Triage Chief Complaint: Weakness ED Provider: Rayo Pinto Dx/Rx/DC Orders Clinical Impression: Anemia requiring transfusions, Symptomatic anemia, Chest pain Instructions: ED Anemia, Type Not Specified (Adult), ED Chest Pain, Uncertain Cause Prescriptions: No Action duloxetine 60 MG capsule 60 mg PO BID lisinopril-hydrochlorothiazide 1 EACH tablet 1 tab PO BID lorazepam 1 MG tablet 1 mg PO BID potassium chloride 20 mEq tablet extended release 20 meq PO BID Qty: 8 0RF nicotine 14 mg/24 hr Patch 24 Hour 14 mg transdermal DAILY Qty: 30 0RF doxycycline hyclate 100 mg capsule 100 mg PO Q12H Primary Care Provider: Basia Swartz Referrals: Basia Swartz MD [Primary Care Provider] - Nhan Hooper DO [Med Staff - Active Staff] - 2 Days Activity Restrictions/Additional Instructions: Follow-up with Dr. Hooper on Monday. You may require another transfusion on Monday Disposition Disposition: Home, Self Care Discharge Date/Time: 04/22/23 14:43
--- NOTE | 2023-04-22 09:16 | EKG12_ITS ---
Test Reason : Blood Pressure : / mmHG Vent. Rate : 098 BPM Atrial Rate : 098 BPM P-R Int : 182 ms QRS Dur : 144 ms QT Int : 384 ms P-R-T Axes : 019 -14 104 degrees QTc Int : 490 ms Normal sinus rhythm Left bundle branch block Abnormal ECG Confirmed by JENNIFER ARCHER, JACKLYN ([id number]), proposal editor ALMA DELIA SIMMONS ([id number]) on 04/24/2023 9:47:26 AM Referred By: Confirmed By:JACKLYN RODRIGUEZ MD
--- NOTE | 2023-04-22 09:16 | RAD_ITS ---
STUDY: X-RAY CHEST REASON FOR EXAM: Female, 72 years old. Chest pain. TECHNIQUE: Single frontal view of the chest. COMPARISON: 02/24/2023 FINDINGS: Stable mild hyperinflation. There is no demonstrated pleural abnormality. Mild cardiomegaly unchanged. Normal mediastinum and jose. Normal visualized pulmonary arteries. Aortic tortuosity with calcification unchanged. No abnormality of the visualized soft tissue structures of the upper abdomen. RAD/Chest 1 View (Portable) IMPRESSION: Stable chest with no acute or active cardiopulmonary disease. Electronically Signed: Shravan Robin MD at 9:37 EST ,
[2023-04-22 09:34] LABS: Hematocrit 22.6 % (37-47); Hemoglobin 7.5 g/dL (12.0-15.0); Mean Corp Hgb Conc 33.2 g/dL (32-36); Mean Corpuscular Hgb 31.8 pg (27.0-32.0); Mean Corpuscular Volume 95.8 fL (81-99); Mean Platelet Vol. 11.1 fl (6.2-12.0); POSITIVE COUNT YES; POSITIVE DIFFERENTIAL YES; POSITIVE MORPHOLOGY YES; Platelet Count 220 K/mm3 (150-450); RBC Distribution Width CV 19.1 % (11.6-14.6); RBC Distribution Width SD 63.5 fl (35.1-43.9); Red Blood Count 2.36 M/mm3 (4.2-5.4); White Blood Count 20.5 K/mm3 (4.4-11.0)
[2023-04-22 09:54] LABS: ALB/GLOB Ratio 0.9 RATIO (0.9-2.4); AST(SGOT) 23 U/L (15-37); Alanine Aminotransfer ALT/SGPT 17 U/L (13-56); Albumin, Serum 3.5 g/dL (3.2-5.0); Alkaline Phosphatase 128 U/L (45-117); Anion Gap 7 (5-15); BUN 33 mg/dL (7-18); BUN/Creat Ratio 24.4 RATIO (10-20); Calcium,Total 9.3 mg/dL (8.5-10.1); Chloride 100 mmol/L (98-107); Creatinine, Serum 1.35 mg/dL (0.55-1.02); EST Glomerular Filtration Rate 41 mL/min (>60); Est Glom Filt Rate - Afr Amer 50 mL/min (>60); Estimated Creatinine Clearance 36.83 ml/min; Globulin 3.8 g/dL (2.2-4.2); Glucose 142 mg/dL (74-106); Potassium 3.2 mmol/L (3.5-5.1); Protein, Total 7.3 g/dL (6.4-8.2); Sodium Level 135 mmol/L (136-145); Troponin-I HS 13 pg/mL (3.0-54.0)
[2023-04-22 10:11] LABS: Anisocytosis 1+; Lymphocyte 7 % (19-41); Metamyelocyte 2 % (0-1); Monocyte 1 % (0-10); Myelocyte 4 % (0-0); Neutrophil-Band 2 % (0-5); Neutrophil-Segmented 84 % (47-70); Platelet Estimate ADEQUATE (ADEQ); Red Cell Morphology N CHROM NORMAL (NORM C&C); Total Cells Counted 100 (MANUAL DIFF)
[2023-04-22 10:12] LABS: Differential Indicated MANUAL DIFF
[2023-04-22 10:13] LABS: Absolute Lymphocyte Count 1.43 X10^3/uL (0.83-4.51); Absolute Neutrophil Count 17.6 X10^3/uL (2.0-7.7)
--- OUTSIDE RECORDS SUMMARY | 2023-04-22 10:21 | XMS RPT_ITS | CCD ---
Author Name Unknown Address [address] [place] [address] Organization [facility] Care Team Providers Care [facility] Pruner Name Role Phone Maxime ARCHER, Vamshi Primary Care Provider Maxime ARCHER, Vamshi Primary Care Provider Sana Lang MD Unavailable NICK WEAVER Referring Unavail able NICK WEAVER Attending Unavail able NICK WEAVER Admitting Unavail able GANTA, VAMSHI Primary Care Unavailable Masci Nhan PISANO A Unavailable Doup RN, Miriam Unavailable Unavailable Fortnio ARCHER, , Daesung Unavailable Fortino ARCHER, Raduung Unavailable GANTA, VAMSHI Primary Care Unavailable MASCI, NHAN A Referring Unavailable MASCI, NHAN A Referring Unavailable GANTA, VAMSHI Primary Care Unavailable MASCI, NHAN A Referring Unavailable GANTA, VAMSHI Primary Care Unavailable GANTA, VAMSHI Primary Care Unavailable GANTA, VAMSHI Primary Care Unavailable MASCI, NHAN A Referring Unavailable FORTINO, DAESUNG Referring Unavailable GANTA, VAMSHI Primary Care Unavailable FORTINO, DAESUNG Referring Unavailable GANTA, VAMSHI Primary Care Unavailable FORTINO, DAESUNG Referring Unavailable GANTA, VAMSHI Primary Care Unavailable MASCI, NHAN A Referring Unavailable GANTA, VAMSHI Primary Care Unavailable FORTINO, DAESUNG Referring Unavailable GANTA, VAMSHI Primary Care Unavailable GANTA, VAMSHI Primary Care Unavailable ZACH BRIGGS Attending Unavailable MASCINHAN Attending Unavailable GANTA, VAMSHI Primary Care Unavailable NICK WEAVER Referring Unavail able MASCI, NHAN A Referring Unavailable GANTA, VAMSHI Primary Care Unavailable SANA LANG Attending Unavailable MASCI, NHAN A Referring Unavailable [facility], [facility] Primary Care Unavailable MASCI, NHAN A Referring Unavailable GANTA, [facility] Primary Care Unavailable MASCI, NHAN A Referring Unavailable GANTA, [facility] Primary Care Unavailable GANTA, [facility] Primary Care Unavailable GANTA, [facility] Primary Care Unavailable GANTA, [facility] Primary Care Unavailable FORTINO, DAESUNG Referring Unavailable GANTA, [facility] Primary Care Unavailable FORTINO, DAESUNG Referring Unavailable GANTA, [facility] Primary Care Unavailable GANTA, [facility] Primary Care Unavailable FORTINO, DAESUNG Attending Unavailable MASCI, NHAN A Referring Unavailable GANTA, [facility] Primary Care Unavailable GANTA, [facility] Primary Care Unavailable MASCI, NHAN A Referring Unavailable GANTA, [facility] Primary Care Unavailable VERENA MATUTE Attending Unavailable MASCI, NHAN A Referring Unavailable GANTA, [facility] Primary Care Unavailable MASCI, NHAN A Referring Unavailable GANTA, [facility] Primary Care Unavailable GANTA, [facility] Primary Care Unavailable FORTINO, DAESUNG Referring Unavailable GANTA, [facility] Primary Care Unavailable GANTA, [facility] Primary Care Unavailable MASCI, NHAN A Referring Unavailable MICHELINE UMANZOR Attending Unavailable GANTA, [facility] Primary Care Unavailable FORTINO, DAESUNG Referring Unavailable GANTA, [facility] Primary Care Unavailable FORTINO, DAESUNG Referring Unavailable GANTA, [facility] Primary Care Unavailable DARYA GERMAIN Attending Unavailable GANTA, [facility] Primary Care Unavailable MASCI, NHAN A Referring Unavailable GANTA, [facility] Primary Care Unavailable MASCI, NHAN A Referring Unavailable GANTA, [facility] Primary Care Unavailable MASCI, NHAN A Referring Unavailable GANTA, [facility] Primary Care Unavailable GANTA, [facility] Primary Care Unavailable FORTINO, DAESUNG Referring Unavailable FORTINO, DAESUNG Attending Unavailable GANTA, [facility] Primary Care Unavailable MASCI, NHAN A Referring Unavailable GANTA, [facility] Primary Care Unavailable MASCI, NHAN A Referring Unavailable GANTA, [facility] Primary Care Unavailable FORTINO, DAESUNG Attending Unavailable FORTINO, DAESUNG Referring Unavailable GANTA, [facility] Primary Care Unavailable FORTINO, DAESUNG Referring Unavailable GANTA, [facility] Primary Care Unavailable FORTINO, DAESUNG Referring Unavailable GANTA, [facility] Primary Care Unavailable GANTA, [facility] Primary Care Unavailable FORTINO, DAESUNG Referring Unavailable FORTINO, DAESUNG Referring Unavailable GANTA, [facility] Primary Care Unavailable GANTA, [facility] Primary Care Unavailable FORTINO, DAESUNG Referring Unavailable GANTA, [facility] Primary Care Unavailable FORTINO, DAESUNG Referring Unavailable GANTA, VAMSHI Primary Care Unavailable FORTINO, DAESUNG Referring Unavailable GANTA, [facility] Primary Care Unavailable MASCI, NHAN A Referring Unavailable FORTINO, DAESUNG Attending Unavailable GANTA, VAMSHI Primary Care Unavailable GANTA, VAMSHI Primary Care Unavailable GANTA, VAMSHI Primary Care Unavailable GANTA, VAMSHI Primary Care Unavailable GANTA, [facility] Primary Care Unavailable FORTINO, DAESUNG Referring Unavailable GANTA, [facility] Primary Care Unavailable FORTINO, DAESUNG Referring Unavailable GANTA, [facility] Primary Care Unavailable FORTINO, DAESUNG Attending Unavailable MASCI, NHAN A Referring Unavailable GANTA, [facility] Primary Care Unavailable GANTA, [facility] Primary Care Unavailable DARYA GERMAIN Referring Unavailable HARPSTER, NASREEN Attending Unavailable GANTA, [facility] Primary Care Unavailable SANA LANG Referring Unavailable GANTA, [facility] Primary Care Unavailable OLDER, DARYA Referring Unavailable GANTA, [facility] Primary Care Unavailable HARPSTER, NASREEN Referring Unavailable GANTA, [facility] Primary Care Unavailable FORTINO, DAESUNG Referring Unavailable GANTA, [facility] Primary Care Unavailable FORTINO, DAESUNG Attending Unavailable GANTA, [facility] Primary Care Unavailable FORTINO, DAESUNG Referring Unavailable MASCI, NHAN A Referring Unavailable GANTA, [facility] Primary Care Unavailable GANTA, [facility] Primary Care Unavailable GANTA, [facility] Primary Care Unavailable URIGURDEEP Referring Unavailable GANTA, [facility] Primary Care Unavailable URISHARMILAGURDEEP Referring Unavailable GANTA, [facility] Primary Care Unavailable SANA LANG Attending Unavailable GURDEEP GREWAL Referring Unavailable MASCINHAN Attending Unavailable GANTA, [facility] Primary Care Unavailable MASCI, NHAN A Referring Unavailable GANTA, [facility] Primary Care Unavailable FORTINO, DAESUNG Referring Unavailable GANTA, [facility] Primary Care Unavailable FORTINO, DAESUNG Referring Unavailable GANTA, [facility] Primary Care Unavailable GANTA, [facility] Primary Care Unavailable FORTINO, DAESUNG Attending Unavailable FORTINO, DAESUNG Referring Unavailable GANTA, [facility] Primary Care Unavailable FORTINO, DAESUNG Referring Unavailable GANTA, [facility] Primary Care Unavailable GANTA, [facility] Primary Care Unavailable SANA LANG Referring Unavailable GANTA, [facility] Primary Care Unavailable MENA JACKMAN Attending Unavailable GANTA, [facility] Primary Care Unavailable FORTINO, DAESUNG Referring Unavailable GANTA, [facility] Primary Care Unavailable MASCI, NHAN A Referring Unavailable MASCI, NHAN A Referring Unavailable GANTA, VAMSHI Primary Care Unavailable NHAN HOOPER Referring Unavailable GANTA, [facility] Primary Care Unavailable GANTA, [facility] Primary Care Unavailable NHAN HOOPER Referring Unavailable GANTA, [facility] Primary Care Unavailable GANTA, [facility] Primary Care Unavailable NHAN HOOPER Referring Unavailable MASCJacqui, NHAN Yang Referring Unavailable GANTA, [facility] Primary Care Unavailable FORTINO, DAESUNG Attending Unavailable GANTA, VAMSHI Primary Care Unavailable FORTINO, DAESUNG Referring Unavailable GANTA, VAMSHI Primary Care Unavailable FORTINO, DAESUNG Referring Unavailable GANTA, [facility] Primary Care Unavailable FORTINO, DAESUNG Referring Unavailable GANTA, [facility] Primary Care Unavailable FORTINO, DAESUNG Referring Unavailable GANTA, [facility] Primary Care Unavailable NHAN HOOPER Referring Unavailable GANTA, [facility] Primary Care Unavailable VERENA MATUTE Referring Unavailable Allergies Allergy Classification Reported Allergen(s) Allergy Type Date of Onset Reaction(s) Facility (20 sources) ARIPiprazole; Translations: [ARIPIPRAZOLE] Drug Allergy 09-12-2018 [facility] Work Phone: (20 sources) risperiDONE; Translations: [RISPERIDONE] Drug Allergy 09-12-2018 [facility] Work Phone: Medications Current Medications Medication Drug Class(es) Dates Sig (Normalized) Sig (Original) doxycycline monohydrate 100 mg oral capsule (5 sources) Tetracycline-cla ss Drug Start: 03-03-2022 End: 03-08-2022 take 1 capsule by mouth twice daily doxycycline monohydrate (MONODOX) 100 mg capsule Indications: COPD with exacerbation (HCC) Take 1 capsule by mouth twice daily for 5 days. 10 capsule 0 03/03/2022 03/08/2022 Active Completed/Discontinued Medications Medication Drug Class(es) Dates Sig (Normalized) Sig (Original) [id number] 200 actuat albuterol 0.09 mg/actuat metered dose inhaler (20 sources) beta2-Adrenergic Agonist Start: 08-03-2021 End: 09-12-2022 take 2 puff(s) by inhalation every four hours as needed albuterol HFA (PROAIR HFA) 90 mcg/actuation inhaler Indications: COPD with exacerbation (HCC) Inhale 2 Puffs as instructed every 4 hours as needed. 18 g 0 09/13/2022 Active Problems Active Problems Problem Classification Problem Date Documented Date Episodic/Chronic Administrative/social admission (1 source) Counseling, unspecified; Translations: [Encounter for education] Onset: 01-16-2023 Episodic Anxiety disorders (20 sources) Anxiety; Translations: [Anxiety disorder, unspecified] Onset: 04-19-2021 04-19-2021 Chronic Cancer of bronchus; lung (20 sources) Small cell carcinoma of lung; Translations: [Malignant neoplasm of lower lobe, left bronchus or lung] Onset: 01-12-2023 01-12-2023 Chronic Chronic obstructive pulmonary disease and bronchiectasis (20 sources) Acute exacerbation of chronic obstructive airways disease; Translations: [Chronic obstructive pulmonary disease with (acute) exacerbation] Onset: 08-02-2022 Chronic Coagulation and hemorrhagic disorders (1 source) Easy bruising; Translations: [Spontaneous ecchymoses] Episodic Deficiency and other anemia (3 sources) Anemia; Translations: [Anemia, unspecified] 03-31-2023 Episodic Deficiency and other anemia (1 source) Anemia, unspecified; Translations: [Anemia, unspecified type] Onset: 04-04-2023 Episodic Essential hypertension (20 sources) Essential hypertension; Translations: [Essential (primary) hypertension] Onset: 11-15-2011 12-08-2015 Chronic Fluid and electrolyte disorders (20 sources) Hypokalemia; Translations: [Hypokalemia] Onset: 07-19-2013 07-19-2013 Episodic Immunizations and screening for infectious disease (1 source) Suspected disease caused by 2019-nCoV; Translations: [Suspected COVID-19 virus infection] Episodic Malaise and fatigue (1 source) Fatigue; Translations: [Other fatigue] Episodic Mood disorders (20 sources) Severe recurrent major depression without psychotic features; Translations: [Major depressive disorder, recurrent severe without psychotic features] Onset: 07-13-2020 07-13-2020 Chronic Mood disorders (1 source) Mood disorders; Translations: [Depression, unspecified depression type] Onset: 10-19-2022 Nutritional deficiencies (4 sources) Vitamin D deficiency; Translations: [Vitamin D deficiency, unspecified] Onset: 10-19-2022 Chronic Nutritional deficiencies (2 sources) Cobalamin deficiency; Translations: [Deficiency of other specified B group vitamins] Episodic Open wounds of extremities (1 source) Disorder of lower extremity; Translations: [Unspecified open wound, left lower leg, initial encounter] Episodic Other circulatory disease (1 source) Respiratory symptom; Translations: [Other specified symptoms and signs involving the circulatory and respiratory systems] Episodic Other lower respiratory disease (2 sources) Cough; Translations: [Cough] Episodic Other lower respiratory disease (2 sources) Wheezing; Translations: [Wheezing] Episodic Other lower respiratory disease (1 source) Disorder of lung; Translations: [Other disorders of lung] Episodic Other lower respiratory disease (4 sources) Nodule of lung; Translations: [Solitary pulmonary nodule] 11-24-2022 Episodic Other lower respiratory disease (1 source) Solitary pulmonary nodule; Translations: [Lung nodule] Onset: 01-04-2023 Episodic Other nutritional; endocrine; and metabolic disorders (1 source) Excessive weight gain; Translations: [Abnormal weight gain] Episodic Other upper respiratory infections (1 source) Chronic sinusitis; Translations: [Chronic sinusitis, unspecified] Chronic Screening and history of mental health and substance abuse codes (1 source) Ex-smoker; Translations: [Personal history of nicotine dependence] 02-03-2023 Episodic Secondary malignancies (20 sources) Secondary malignant neoplasm of mediastinal lymph nodes; Translations: [Secondary and unspecified malignant neoplasm of intrathoracic lymph nodes] Onset: 01-12-2023 01-12-2023 Chronic Secondary malignancies (1 source) Secondary and unspecified malignant neoplasm of intrathoracic lymph nodes; 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)] Onset: 01-12-2023 Chronic Substance-related disorders (4 sources) Cigarette smoker ; Translations: [Nicotine dependence, cigarettes, uncomplicated] Onset: 11-08-2022 Chronic Unclassified (1 source) Non-Chemotherapy Treatment Onset: 04-07-2023 Viral infection (1 source) Disease caused by 2019-nCoV; Translations: [COVID-19] Episodic Past or Other Problems Problem Classification Problem Date Documented Da te Episodic/Chronic Diabetes mellitus without complication (2 sources) Increased glucose level; Translations: [Other abnormal glucose] Onset: 11-15-2022 11-07-2022 Episodic Other lower respiratory disease (3 sources) Chronic cough; Translations: [Chronic cough] Onset: 08-02-2022 Episodic Other lower respiratory disease (1 source) Other disorders of lung; Translations: [Small airways disease] Onset: 08-02-2022 Episodic Other lower respiratory disease (1 source) Wheezing; Translations: [Wheezing] Onset: 07-18-2022 Episodic Other nutritional; endocrine; and metabolic disorders (20 sources) Overweight; Translations: [Overweight] Onset: 05-14-2018 05-14-2018 Episodic Other screening for suspected conditions (not mental disorders or infectious disease) (10 sources) Patient encounter status; Translations: [Encounter for screening mammogram for malignant neoplasm of breast] Onset: 10-19-2022 Episodic Residual codes; unclassified (20 sources) Tobacco user; Translations: [Tobacco use] Onset: 08-14-2017 08-14-2017 Episodic Residual codes; unclassified (1 source) Tobacco use; Translations: [Tobacco abuse disorder] Onset: 08-14-2017 Episodic Results Test Name Value Interpretation Reference Range Facil ity Vital Signs Date Time Vital Sign Value Performing Clinician Faci lity 04-10-2023 11:00-0500 Body temperature 97.81 [degF] Treatment Wstr Work Phone: [facility] 04-10-2023 11:00-0500 Diastolic blood pressure 61 mm[Hg] Treatment Wstr Work Phone: [facility] 04-10-2023 11:00-0500 Heart rate 94 /min Treatment Wstr Work Phone: [facility] 04-10-2023 11:00-0500 Respiratory rate 16 /min Treatment Wstr Work Phone: [facility] 04-10-2023 11:00-0500 SaO2% (BldA) [Mass fraction] 98 % Treatment Wstr Work Phone: [facility] 04-10-2023 11:00-0500 Systolic blood pressure 122 mm[Hg] Treatment Wstr Work Phone: [facility] 04-07-2023 11:00-0500 Diastolic blood pressure 102 mm[Hg] Treatment Wstr Work Phone: [facility] 04-07-2023 11:00-0500 Systolic blood pressure 194 mm[Hg] Treatment Wstr Work Phone: [facility] 04-07-2023 10:00-0500 Body temperature 97.81 [degF] Treatment Wstr Work Phone: [facility] 04-07-2023 10:00-0500 Heart rate 94 /min Treatment Wstr Work Phone: [facility] 04-07-2023 10:00-0500 Respiratory rate 20 /min Treatment Wstr Work Phone: [facility] 04-07-2023 10:00-0500 SaO2% (BldA) [Mass fraction] 98 % Treatment Wstr Work Phone: [facility] 04-06-2023 13:24-0500 Body temperature 97.2 [degF] Treatment Wstr Work Phone: [facility] 04-06-2023 13:24-0500 Diastolic blood pressure 82 mm[Hg] Treatment Wstr Work Phone: [facility] 04-06-2023 13:24-0500 Heart rate 106 /min Treatment Wstr Work Phone: [facility] 04-06-2023 13:24-0500 SaO2% (BldA) [Mass fraction] 97 % Treatment Wstr Work Phone: [facility] 04-06-2023 13:24-0500 Systolic blood pressure 159 mm[Hg] Treatment Wstr Work Phone: [facility] 04-05-2023 13:16-0500 Body temperature 97.59 [degF] Treatment Wstr Work Phone: [facility] 04-05-2023 13:16-0500 Diastolic blood pressure 73 mm[Hg] Treatment Wstr Work Phone: [facility] 04-05-2023 13:16-0500 Heart rate 95 /min Treatment Wstr Work Phone: [facility] 04-05-2023 13:16-0500 SaO2% (BldA) [Mass fraction] 98 % Treatment Wstr Work Phone: [facility] 04-05-2023 13:16-0500 Systolic blood pressure 155 mm[Hg] Treatment Wstr Work Phone: [facility] 04-04-2023 10:07-0500 Body temperature 97.81 [degF] Treatment Wstr Work Phone: [facility] 04-04-2023 10:07-0500 Diastolic blood pressure 69 mm[Hg] Treatment Wstr Work Phone: [facility] 04-04-2023 10:07-0500 Heart rate 107 /min Treatment Wstr Work Phone: [facility] 04-04-2023 10:07-0500 SaO2% (BldA) [Mass fraction] 97 % Treatment Wstr Work Phone: [facility] 04-04-2023 10:07-0500 Systolic blood pressure 142 mm[Hg] Treatment Wstr Work Phone: [facility] 03-31-2023 08:39-0500 Body temperature 98.1 [degF] Verena Matute Work Phone: [facility] 03-31-2023 08:39-0500 Body weight 75.3 kg Verenamaggi Matute Work Phone: [facility] 03-31-2023 08:39-0500 Diastolic blood pressure 74 mm[Hg] Verena Matute Work Phone: [facility] 03-31-2023 08:39-0500 Heart rate 98 /min Verenamaggi Matute Work Phone: [facility] 03-31-2023 08:39-0500 SaO2% (BldA) [Mass fraction] 98 % Verena Matute Work Phone: [facility] 03-31-2023 08:39-0500 Systolic blood pressure 117 mm[Hg] Verena Matute Work Phone: [facility] 02-13-2023 09:33-0500 Body temperature 97.39 [degF] Treatment Wstr Work Phone: [facility] 02-13-2023 09:33-0500 Diastolic blood pressure 65 mm[Hg] Treatment Wstr Work Phone: [facility] 02-13-2023 09:33-0500 Heart rate 89 /min Treatment Wstr Work Phone: [facility] 02-13-2023 09:33-0500 SaO2% (BldA) [Mass fraction] 98 % Treatment Wstr Work Phone: [facility] 02-13-2023 09:33-0500 Systolic blood pressure 147 mm[Hg] Treatment Wstr Work Phone: [facility] 02-10-2023 09:14-0500 Body temperature 97.81 [degF] Verena Matute Work Phone: [facility] 02-10-2023 09:14-0500 Body weight 77.11 kg Verena Matute Work Phone: [facility] 02-10-2023 09:14-0500 Diastolic blood pressure 84 mm[Hg] Verena Matute Work Phone: [facility] 02-10-2023 09:14-0500 Heart rate 87 /min Verena Matute Work Phone: [facility] 02-10-2023 09:14-0500 SaO2% (BldA) [Mass fraction] 97 % Verena Matute Work Phone: [facility] 02-10-2023 09:14-0500 Systolic blood pressure 142 mm[Hg] Verena Matute Work Phone: [facility] 02-09-2023 14:34-0500 Body temperature 98.2 [degF] Lia Freitas MD, MD Work Phone: [facility] 02-09-2023 14:34-0500 Diastolic blood pressure 94 mm[Hg] Lia Freitas MD, MD Work Phone: [facility] 02-09-2023 14:34-0500 Heart rate 92 /min Lia Freitas MD, MD Work Phone: [facility] 02-09-2023 14:34-0500 Respiratory rate 16 /min Lia Freitas MD, MD Work Phone: [facility] 02-09-2023 14:34-0500 SaO2% (BldA) [Mass fraction] 98 % Lia Freitas MD, MD Work Phone: [facility] 02-09-2023 14:34-0500 Systolic blood pressure 175 mm[Hg] Lia Freitas MD, MD Work Phone: [facility] 02-07-2023 14:43-0500 Body temperature 98.29 [degF] Lia Freitas MD, MD Work Phone: [facility] 02-07-2023 14:43-0500 Diastolic blood pressure 75 mm[Hg] Lia Freitas MD, MD Work Phone: [facility] 02-07-2023 14:43-0500 Heart rate 58 /min Lia Freitas MD, MD Work Phone: [facility] 02-07-2023 14:43-0500 SaO2% (BldA) [Mass fraction] 98 % Lia Freitas MD, MD Work Phone: [facility] 02-07-2023 14:43-0500 Systolic blood pressure 146 mm[Hg] Lia Freitas MD, MD Work Phone: [facility] 02-03-2023 08:20-0500 Body temperature 98.8 [degF] Lia Freitas MD, MD Work Phone: [facility] 02-03-2023 08:20-0500 Body weight 76.48 kg Lia Freitas MD, MD Work Phone: [facility] 02-03-2023 08:20-0500 Diastolic blood pressure 86 mm[Hg] Lia Freitas MD, MD Work Phone: [facility] 02-03-2023 08:20-0500 Heart rate 81 /min Lia Freitas MD, MD Work Phone: [facility] 02-03-2023 08:20-0500 Respiratory rate 16 /min Lia Freitas MD, MD Work Phone: [facility] 02-03-2023 08:20-0500 SaO2% (BldA) [Mass fraction] 99 % Lia Freitas MD, MD Work Phone: [facility] 02-03-2023 08:20-0500 Systolic blood pressure 174 mm[Hg] Lia Freitas MD, MD Work Phone: [facility] 01-31-2023 14:54-0500 Body temperature 99.1 [degF] Lia Feritas MD, MD Work Phone: [facility] 01-31-2023 14:54-0500 Diastolic blood pressure 82 mm[Hg] Lia Freitas MD, MD Work Phone: [facility] 01-31-2023 14:54-0500 Heart rate 101 /min Lia Freitas MD, MD Work Phone: [facility] 01-31-2023 14:54-0500 SaO2% (BldA) [Mass fraction] 100 % Lia Freitas MD, MD Work Phone: [facility] 01-31-2023 14:54-0500 Systolic blood pressure 132 mm[Hg] Lia Freitas MD, MD Work Phone: [facility] 01-25-2023 12:50-0500 Body temperature 97.81 [degF] Treatment Wstr Work Phone: [facility] 01-25-2023 12:50-0500 Diastolic blood pressure 76 mm[Hg] Treatment Wstr Work Phone: [facility] 01-25-2023 12:50-0500 Heart rate 91 /min Treatment Wstr Work Phone: [facility] 01-25-2023 12:50-0500 SaO2% (BldA) [Mass fraction] 93 % Treatment Wstr Work Phone: [facility] 01-25-2023 12:50-0500 Systolic blood pressure 158 mm[Hg] Treatment Wstr Work Phone: [facility] 01-25-2023 08:19-0500 Body temperature 98.2 [degF] Lia Freitas MD, MD Work Phone: [facility] 01-25-2023 08:19-0500 Body weight 78.02 kg Lia Freitas MD, MD Work Phone: [facility] 01-25-2023 08:19-0500 Diastolic blood pressure 96 mm[Hg] Lia Freitas MD, MD Work Phone: [facility] 01-25-2023 08:19-0500 Heart rate 81 /min Lia Freitas MD, MD Work Phone: [facility] 01-25-2023 08:19-0500 SaO2% (BldA) [Mass fraction] 97 % Lia Freitas MD, MD Work Phone: [facility] 01-25-2023 08:19-0500 Systolic blood pressure 170 mm[Hg] Lia Freitas MD, MD Work Phone: [facility] 01-13-2023 14:48-0500 Body temperature 97.3 [degF] Lia Freitas MD, MD Work Phone: [facility] 01-13-2023 14:48-0500 Body weight 77.11 kg Lia Freitas MD, MD Work Phone: [facility] 01-13-2023 14:48-0500 Diastolic blood pressure 78 mm[Hg] Lia Freitas MD, MD Work Phone: [facility] 01-13-2023 14:48-0500 Heart rate 89 /min Lia Freitas MD, MD Work Phone: [facility] 01-13-2023 14:48-0500 SaO2% (BldA) [Mass fraction] 96 % Lia Freitas MD, MD Work Phone: [facility] 01-13-2023 14:48-0500 Systolic blood pressure 130 mm[Hg] Lia Freitas MD, MD Work Phone: [facility] 01-04-2023 08:59-0500 Body height 154.9 cm Zach Briggs MD Work Phone: [facility] 01-04-2023 08:59-0500 Body temperature 98.01 [degF] Zach Briggs MD Work Phone: [facility] 01-04-2023 08:59-0500 Body weight 77.11 kg Zach Briggs MD Work Phone: [facility] 01-04-2023 08:59-0500 Diastolic blood pressure 76 mm[Hg] Zach Briggs MD Work Phone: [facility] 01-04-2023 08:59-0500 Heart rate 64 /min Zach Briggs MD Work Phone: [facility] 01-04-2023 08:59-0500 Respiratory rate 17 /min Zach Briggs MD Work Phone: [facility] 01-04-2023 08:59-0500 SaO2% (BldA) [Mass fraction] 99 % Zach Briggs MD Work Phone: [facility] 01-04-2023 08:59-0500 Systolic blood pressure 125 mm[Hg] Zach Briggs MD Work Phone: [facility] 11-08-2022 08:07-0400 Body weight 77.11 kg Nasreen Reynolds LIFE SKILLS SPECIALIST.AMERICAN HISTORY TEACHER Work Phone: [facility] 11-08-2022 08:07-0400 Diastolic blood pressure 73 mm[Hg] Nasreen Reynolds LIFE SKILLS SPECIALIST.AMERICAN HISTORY TEACHER Work Phone: [facility] 11-08-2022 08:07-0400 Heart rate 83 /min Nasreen Reynolds LIFE SKILLS SPECIALIST.AMERICAN HISTORY TEACHER Work Phone: [facility] 11-08-2022 08:07-0400 SaO2% (BldA) [Mass fraction] 97 % Nasreen Reynolds LIFE SKILLS SPECIALIST.AMERICAN HISTORY TEACHER Work Phone: [facility] 11-08-2022 08:07-0400 Systolic blood pressure 144 mm[Hg] Nasreen Reynolds LIFE SKILLS SPECIALIST.AMERICAN HISTORY TEACHER Work Phone: [facility] 10-19-2022 10:55-0400 Diastolic blood pressure 77 mm[Hg] Darya Older LIFE SKILLS SPECIALIST.AMERICAN HISTORY TEACHER Work Phone: [facility] 10-19-2022 10:55-0400 Systolic blood pressure 132 mm[Hg] Darya Older LIFE SKILLS SPECIALIST.AMERICAN HISTORY TEACHER Work Phone: [facility] 10-19-2022 10:21-0400 Body weight 76.2 kg Darya Older LIFE SKILLS SPECIALIST.AMERICAN HISTORY TEACHER Work Phone: [facility] 10-19-2022 10:21-0400 Heart rate 92 /min Darya Older LIFE SKILLS SPECIALIST.AMERICAN HISTORY TEACHER Work Phone: [facility] 10-19-2022 10:21-0400 Respiratory rate 16 /min Darya Older LIFE SKILLS SPECIALIST.AMERICAN HISTORY TEACHER Work Phone: [facility] 10-19-2022 10:21-0400 SaO2% (BldA) [Mass fraction] 97 % Darya Older LIFE SKILLS SPECIALIST.AMERICAN HISTORY TEACHER Work Phone: [facility] 08-02-2022 08:31-0400 Body height 158 cm Sana Lang MD Work Phone: [facility] 08-02-2022 08:31-0400 Body weight 77.11 kg Sana Lang MD Work Phone: [facility] 08-02-2022 08:31-0400 Diastolic blood pressure 82 mm[Hg] Sana Lang MD Work Phone: [facility] 08-02-2022 08:31-0400 Heart rate 82 /min Sana Lang MD Work Phone: [facility] 08-02-2022 08:31-0400 Respiratory rate 14 /min Sana Lang MD Work Phone: [facility] 08-02-2022 08:31-0400 SaO2% (BldA) [Mass fraction] 95 % Sana Lang MD Work Phone: [facility] 08-02-2022 08:31-0400 Systolic blood pressure 126 mm[Hg] Sana Lang MD Work Phone: [facility] 08-02-2022 08:24-0400 Body height 158 cm Pulm Wstr Work Phone: [facility] 08-02-2022 08:24-0400 Body weight 77.11 kg Pulm Wstr Work Phone: [facility] 08-02-2022 08:24-0400 Heart rate 82 /min Pulm Wstr Work Phone: [facility] 08-02-2022 08:24-0400 Respiratory rate 14 /min Pulm Wstr Work Phone: [facility] 08-02-2022 08:24-0400 SaO2% (BldA) [Mass fraction] 95 % Pulm Wstr Work Phone: [facility] 04-08-2022 09:16-0500 Body height 157.5 cm Vamshi Davis MD Work Phone: [facility] 04-08-2022 09:16-0500 Body temperature 97.11 [degF] Vamshi Davis MD Work Phone: [facility] 04-08-2022 09:16-0500 Body weight 77.56 kg Vamshi Davis MD Work Phone: [facility] 04-08-2022 09:16-0500 Diastolic blood pressure 70 mm[Hg] Vamshi Davis MD Work Phone: [facility] 04-08-2022 09:16-0500 Heart rate 86 /min Vamshi Davis MD Work Phone: [facility] 04-08-2022 09:16-0500 Respiratory rate 12 /min Vamshi Davis MD Work Phone: [facility] 04-08-2022 09:16-0500 SaO2% (BldA) [Mass fraction] 94 % Vamshi Davis MD Work Phone: [facility] 04-08-2022 09:16-0500 Systolic blood pressure 128 mm[Hg] Vamshi Davis MD Work Phone: [facility] 03-09-2022 11:46-0500 Body temperature 98.6 [degF] Winter Denbow PA-C Work Phone: [facility] 03-09-2022 11:46-0500 Body weight 78.11 kg Winter Denbow PA-C Work Phone: [facility] 03-09-2022 11:46-0500 Diastolic blood pressure 78 mm[Hg] Winter Denbow PA-C Work Phone: [facility] 03-09-2022 11:46-0500 Systolic blood pressure 128 mm[Hg] Winter Denbow PA-C Work Phone: [facility] 03-03-2022 09:05-0500 Body temperature 98.91 [degF] Naveen Isbell MD Work Phone: [facility] 03-03-2022 09:05-0500 Body weight 78.74 kg Naveen Isbell MD Work Phone: [facility] 03-03-2022 09:05-0500 Diastolic blood pressure 82 mm[Hg] Naveen Isbell MD Work Phone: [facility] 03-03-2022 09:05-0500 Heart rate 87 /min Naveen Isbell MD Work Phone: [facility] 03-03-2022 09:05-0500 Respiratory rate 18 /min Naveen Isbell MD Work Phone: [facility] 03-03-2022 09:05-0500 SaO2% (BldA) [Mass fraction] 96 % Naveen Isbell MD Work Phone: [facility] 03-03-2022 09:05-0500 Systolic blood pressure 148 mm[Hg] Naveen Isbell MD Work Phone: [facility] 01-12-2022 09:40-0500 Body temperature 98.8 [degF] Naveen Isbell MD Work Phone: [facility] 01-12-2022 09:40-0500 Body weight 78.65 kg Naveen Isbell MD Work Phone: [facility] 01-12-2022 09:40-0500 Diastolic blood pressure 74 mm[Hg] Naveen Isbell MD Work Phone: [facility] 01-12-2022 09:40-0500 Heart rate 85 /min Naveen Isbell MD Work Phone: [facility] 01-12-2022 09:40-0500 Respiratory rate 18 /min Naveen Isbell MD Work Phone: [facility] 01-12-2022 09:40-0500 SaO2% (BldA) [Mass fraction] 96 % Naveen Isbell MD Work Phone: [facility] 01-12-2022 09:40-0500 Systolic blood pressure 136 mm[Hg] Naveen Isbell MD Work Phone: [facility] 10-09-2021 09:05-0400 Body temperature 97.7 [degF] Myles Trivedi LIFE SKILLS SPECIALIST.AMERICAN HISTORY TEACHER Work Phone: [facility] 10-09-2021 09:05-0400 Body weight 75.39 kg Myles Trivedi LIFE SKILLS SPECIALIST.AMERICAN HISTORY TEACHER Work Phone: [facility] 10-09-2021 09:05-0400 Diastolic blood pressure 78 mm[Hg] Myles Trivedi LIFE SKILLS SPECIALIST.AMERICAN HISTORY TEACHER Work Phone: [facility] 10-09-2021 09:05-0400 Heart rate 85 /min Myles Trivedi LIFE SKILLS SPECIALIST.AMERICAN HISTORY TEACHER Work Phone: [facility] 10-09-2021 09:05-0400 Respiratory rate 20 /min Myles Trivedi LIFE SKILLS SPECIALIST.AMERICAN HISTORY TEACHER Work Phone: [facility] 10-09-2021 09:05-0400 SaO2% (BldA) [Mass fraction] 96 % Myles Farooq LIFE SKILLS SPECIALIST.AMERICAN HISTORY TEACHER Work Phone: [facility] 10-09-2021 09:05-0400 Systolic blood pressure 122 mm[Hg] Myles King JOSI.AMERICAN HISTORY TEACHER Work Phone: [facility] 10-05-2021 09:24-0400 Body height 157.5 cm Vamshi Davis MD Work Phone: [facility] 10-05-2021 09:24-0400 Body temperature 99 [degF] Vamshi Davis MD Work Phone: [facility] 10-05-2021 09:24-0400 Body weight 76.2 kg Vamshi Davis MD Work Phone: [facility] 10-05-2021 09:24-0400 Diastolic blood pressure 76 mm[Hg] Vamshi Davis MD Work Phone: [facility] 10-05-2021 09:24-0400 Heart rate 80 /min Vamshi Davis MD Work Phone: [facility] 10-05-2021 09:24-0400 Respiratory rate 12 /min Vamshi Davis MD Work Phone: [facility] 10-05-2021 09:24-0400 SaO2% (BldA) [Mass fraction] 98 % Vamshi Davis MD Work Phone: [facility] 10-05-2021 09:24-0400 Systolic blood pressure 130 mm[Hg] Vamshi Davis MD Work Phone: [facility] 08-03-2021 08:24-0400 Body temperature 98.6 [degF] Savannah Crook APRN.AMERICAN HISTORY TEACHER Work Phone: [facility] 08-03-2021 08:24-0400 Body weight 76.75 kg Savannah Crook APRN.AMERICAN HISTORY TEACHER Work Phone: [facility] 08-03-2021 08:24-0400 Diastolic blood pressure 76 mm[Hg] Savannah Crook LIFE SKILLS SPECIALIST.AMERICAN HISTORY TEACHER Work Phone: [facility] 08-03-2021 08:24-0400 Heart rate 94 /min Savannah Ambreen LIFE SKILLS SPECIALIST.AMERICAN HISTORY TEACHER Work Phone: [facility] 08-03-2021 08:24-0400 Respiratory rate 20 /min Savannah Ambreen LIFE SKILLS SPECIALIST.AMERICAN HISTORY TEACHER Work Phone: [facility] 08-03-2021 08:24-0400 SaO2% (BldA) [Mass fraction] 96 % Savannah Ambreen LIFE SKILLS SPECIALIST.AMERICAN HISTORY TEACHER Work Phone: [facility] 08-03-2021 08:24-0400 Systolic blood pressure 142 mm[Hg] Savannah Ambreen LIFE SKILLS SPECIALIST.AMERICAN HISTORY TEACHER Work Phone: [facility] 05-23-2021 09:08-0400 Body temperature 98.01 [degF] Myles Farooq LIFE SKILLS SPECIALIST.AMERICAN HISTORY TEACHER Work Phone: [facility] 05-23-2021 09:08-0400 Body weight 76.02 kg Myles Trivedi LIFE SKILLS SPECIALIST.AMERICAN HISTORY TEACHER Work Phone: [facility] 05-23-2021 09:08-0400 Diastolic blood pressure 74 mm[Hg] Myles Farooq LIFE SKILLS SPECIALIST.AMERICAN HISTORY TEACHER Work Phone: [facility] 05-23-2021 09:08-0400 Heart rate 85 /min Myles Fraooq LIFE SKILLS SPECIALIST.AMERICAN HISTORY TEACHER Work Phone: [facility] 05-23-2021 09:08-0400 Respiratory rate 18 /min Myles Farooq LIFE SKILLS SPECIALIST.AMERICAN HISTORY TEACHER Work Phone: [facility] 05-23-2021 09:08-0400 SaO2% (BldA) [Mass fraction] 97 % Myles Trivedi LIFE SKILLS SPECIALIST.AMERICAN HISTORY TEACHER Work Phone: [facility] 05-23-2021 09:08-0400 Systolic blood pressure 132 mm[Hg] Myles Farooq LIFE SKILLS SPECIALIST.AMERICAN HISTORY TEACHER Work Phone: [facility] Encounters Encounter Date Encounter Type Care Provider Facility Start: 04-12-2023 End: 04-13-2023 ambulatory [facility] Facility:[facility] Start: 04-12-2023 End: 04-12-2023 ambulatory Treatment Rm 10 [facility] Work Phone: Hematology/Oncology Procedures Date Procedure Procedure Detail Performing Clinician Start: 01-13-2023 Mri brain brain stem w/o w/contrast material Nhan Trey Hooper DO Work Phone: Start: 11-22-2022 CT LUNG SCREEN WO IVCON Nasreen Reynolds LIFE SKILLS SPECIALIST.AMERICAN HISTORY TEACHER Work Phone: Start: 11-02-2022 Lipid 1996 panel - S karyna or Plasma Nasreen Reynolds LIFE SKILLS SPECIALIST.AMERICAN HISTORY TEACHER Work Phone: Start: 08-02-2022 Nitric oxide gas determination Sana Lang MD Work Phone: Start: 08-02-2022 Brncdilat rspse spmt ry pre&post-brncdilat admn Sana Lang MD Work Phone: Start: 03-09-2022 Radiologic exam ches t 2 views Winter NUNEZC Work Phone: Start: 03-03-2022 COVID WITH FLUA+B, ROUTINE Naveen Isbell MD Work Phone: Start: 12-06-2019 Mammography Myles wang LIFE SKILLS SPECIALIST.AMERICAN HISTORY TEACHER Work Phone: Start: 12-11-2013 Colonoscopy Myles wang LIFE SKILLS SPECIALIST.AMERICAN HISTORY TEACHER Work Phone: Plan of Treatment Date Care Activity Detail Author Start: 11-03-2027 Lipid 1996 panel - Serum or Plasma Lipid Screening [facility] Start: 11-03-2027 Lipid panel Lipid Screening [facility] Start: 11-03-2027 LIPID SCREEN LIPID SCREEN [facility] Start: 04-12-2026 Diabetes Screening Diabetes Screening [facility] Start: 04-10-2026 Diabetes Screening Diabetes Screening [facility] Start: 04-07-2026 Diabetes Screening Diabetes Screening [facility] Start: 04-05-2026 LIPID SCREEN LIPID SCREEN [facility] Start: 04-04-2026 Diabetes Screening Diabetes Screening [facility] Start: 03-31-2026 Diabetes Screening Diabetes Screening [facility] Start: 02-10-2026 Diabetes Screening Diabetes Screening [facility] Start: 01-23-2026 Diabetes Screening Diabetes Screening [facility] Start: 01-13-2026 Diabetes Screening Diabetes Screening [facility] Start: 01-12-2026 Diabetes Screening Diabetes Screening [facility] Start: 11-15-2025 Diabetes Screening Diabetes Screening [facility] Start: 11-02-2025 DIABETES SCREEN DIABETES SCREEN [facility] Start: 11-02-2025 Diabetes Screening Diabetes Screening [facility] Start: 04-08-2025 DIABETES SCREEN DIABETES SCREEN [facility] Start: 04-05-2024 DIABETES SCREEN DIABETES SCREEN [facility] Start: 03-31-2024 BP Controlled (<130/80) BP Controlled (<130/80) [facility] Start: 02-04-2024 BP Controlled (<130/80) BP Controlled (<130/80) [facility] Start: 01-05-2024 BP Controlled (<130/80) BP Controlled (<130/80) [facility] Start: 12-23-2023 [facility] Start: 12-23-2023 Screening for malignant neoplasm of colon Cologuard (FIT-DNA) [facility] Start: 11-23-2023 Influenza vaccination Lung Cancer Screening [facility] Start: 10-20-2023 ANNUAL PCP TEAM CHRONIC DISEASE VISIT ANNUAL PCP TEAM CHRONIC DISEASE VISIT [facility] Start: 09-27-2023 Urine microalbumin profile [facility] Start: 07-18-2023 BP CONTROLLED (<130/80) BP CONTROLLED (<130/80) [facility] Start: 04-12-2023 End: 07-12-2023 Basic metabolic 2000 panel - Serum or Plasma BASIC METABOLIC PNL Lab STAT Small cell lung cancer, 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) Anemia, unspecified type Expected: 04/12/2023, Expires: 07/12/2023 [facility] Work Phone: Immunizations Immunization Date Immunization Notes Care Provider Tal landry 12-31-2021 influenza virus vacc ine, unspecified formulation Nasreen Reynolds APRN.AMERICAN HISTORY TEACHER Work Phone: [facility] 12-14-2020 influenza, high-dose , quadrivalent vaccine (FLUZONE HIGH DOSE QUADRIVALENT) Myles Trivedi LIFE SKILLS SPECIALIST.AMERICAN HISTORY TEACHER Work Phone: [facility] Work Phone: 12-14-2020 pneumococcal polysaccharide vaccine, 23 valent Myles Trivedi LIFE SKILLS SPECIALIST.AMERICAN HISTORY TEACHER Work Phone: [facility] Work Phone: 07-11-2020 COVID-19 vaccine, fu ll dose (MODERNA) Myles Trivedi LIFE SKILLS SPECIALIST.AMERICAN HISTORY TEACHER Work Phone: [facility] Work Phone: 12-27-2019 influenza, high dose seasonal, preservative-free Myles Trivedi LIFE SKILLS SPECIALIST.[facility] Work Phone: [facility] 09-09-2019 pneumococcal conjuga te vaccine, 13 valent Myles Trivedi LIFE SKILLS SPECIALIST.[facility] Work Phone: [facility] Work Phone: 11-27-2018 influenza, high dose seasonal, preservative-free Myles Trivedi LIFE SKILLS SPECIALIST.AMERICAN HISTORY TEACHER Work Phone: [facility] Work Phone: 05-14-2018 pneumococcal conjuga te vaccine, 13 valent Myles Trivedi LIFE SKILLS SPECIALIST.[facility] Work Phone: [facility] Work Phone: 11-25-2016 influenza, injectabl e, quadrivalent, contains preservative Myles Trivedi LIFE SKILLS SPECIALIST.AMERICAN HISTORY TEACHER Work Phone: [facility] 12-11-2015 influenza, injectabl e, quadrivalent, contains preservative Myles Trivedi LIFE SKILLS SPECIALIST.AMERICAN HISTORY TEACHER Work Phone: [facility] Work Phone: 10-14-2014 hepatitis A and hepatitis B vaccine Myles Trivedi LIFE SKILLS SPECIALIST.AMERICAN HISTORY TEACHER Work Phone: [facility] Work Phone: 09-12-2014 hepatitis A and hepatitis B vaccine Myles Trivedi LIFE SKILLS SPECIALIST.AMERICAN HISTORY TEACHER Work Phone: [facility] Work Phone: 09-26-2013 tetanus toxoid, redu shy diphtheria toxoid, and acellular pertussis vaccine, adsorbed Myles Trivedi LIFE SKILLS SPECIALIST.AMERICAN HISTORY TEACHER Work Phone: [facility] 12-13-2012 influenza virus vacc ine, unspecified formulation Myles Trivedi LIFE SKILLS SPECIALIST.AMERICAN HISTORY TEACHER Work Phone: [facility] 12-02-2011 influenza virus vacc ine, unspecified formulation Myles Trivedi LIFE SKILLS SPECIALIST.AMERICAN HISTORY TEACHER Work Phone: [facility] Work Phone: 03-21-2011 influenza virus vacc ine, unspecified formulation Myles Trivedi LIFE SKILLS SPECIALIST.AMERICAN HISTORY TEACHER Work Phone: [facility] 03-21-2011 pneumococcal polysaccharide vaccine, 23 valent Myles Trivedi LIFE SKILLS SPECIALIST.AMERICAN HISTORY TEACHER Work Phone: [facility] Payers Date Payer Category Payer Unknown [id number] 2021 Unknown [id number] 2014 Medicare MEDICARE MEDICAR E A AND B [id number] 2014-Present [phone] [place] [address] Medicare [id number] 2014 Medicare MEDICARE MEDICAR E A AND B [id number] 2014-Present [phone] [place] [address] Medicare [id number] Social History Date Type Detail Facility Start: 02-24-2011 End: 01-12-2023 Tobacco smoking status WIIS Smokes tobacco daily [facility] Work Phone: End: 01-25-2023 History of tobacco use Cigarette Smoker [facility] Work Phone: Start: 02-24-2011 End: 08-02-2022 Cigarettes smoked current (pack per day) - Reported 1 [facility] Start: 02-24-2011 End: 02-03-2023 Tobacco use and exposure Smokeless tobacco non-user [facility] Work Phone: Start: 05-23-2021 End: 02-10-2023 Alcohol intake Current non-drinker of alcohol (finding) [facility] Start: 04-12-2011 End: 10-05-2021 Tobacco Comment Declined information [facility] Start: 1950 Sex Assigned At Not on file [facility] Start: 07-24-2021 End: 01-12-2022 Exposure to SARS-CoV-2 (event) Not sure [facility] Start: 08-02-2022 Tobacco Comment Declined infor ramona. Started age 17 [facility] Start: 11-27-2018 End: 08-02-2022 Tobacco use panel [facility] Adult Depression Screening Assessment 0 [facility] Start: 01-12-2023 [facility] Start: 1950 Sex Assigned At Female [facility] Start: 01-16-2023 Gender identity Identifies as female gender (finding) [facility] Start: 01-16-2023 Sexual orientation Heterosexual (fin ding) [facility] Start: 02-03-2023 Tobacco smoking stat us WIIS Ex-smoker [facility] End: 01-25-2023 History of tobacco use Current smoker [facility] Start: 03-31-2023 Alcohol intake Ex-drinker (finding) [facility] Clinical Notes 10-14-2014 to 04-12-2023 Bebe Amaya RN - 04/12/2023 11:28 AM ESTTelephone Encounter - Miriam Gregory RN - 04/11/2023 9:38 AM ESTTelephone Encounter - Angela Bone - 04/11/2023 9:29 AM ESTPatient Instructions Note Date & Type Note Facility 04-12-2023 Note HNO ID: [id number] Author: BEBE AMAYA RN Service: ? Author Type: Registered Nurse Type: Progress Notes Filed: 04/12/2023 11:29 Note Text: Labs reviewed with Dr Hooper and no hydration needed today [facility] 04-12-2023 History of Present illness Narrative Labs reviewed with Dr Hooper and no hydration needed today documented in this encounter [facility] 04-11-2023 Miscellaneous Notes [place] Care Coordination FOLLOW-UP NOTE Patient identified by name and date of . YES Spoke to patient Summary: (Reason for follow-up) Follow-up from yesterday's phone call Concerns: (New Barriers to care) Patient stated she is feeling a little bit better compared to yesterday. Patient stated the dizziness has improved, the pain has subsided, and SOB also seems to be better. Patient denies fever, chills, N/V, or diarrhea. Patient verbalized when to seek Medical Attention and an understanding of after- hours phone number and process: Yes Care Coordination Plan: No further follow up needed at this time Miriam Gregory RN April 11, 2023 documented in this encounter [facility] 04-11-2023 Miscellaneous Notes Spoke with primary nurse and patient. Scheduled patient for labs/hydration as directed and adjusted balance of schedule as directed. Angela Bone Chemotherapy is completed. She had 4 cycles. Keep next OV as scheduled, but repeat BMP with possible hydration on Monday. Nhan Hooper DO [place] as directed Shanel Kraus PSS:please schedule lab for 04/07/23 BMP Mg and possible hydration. Dr Hooper orders pended. Kimberly Mcbride LPN documented in this encounter [facility] 04-10-2023 Miscellaneous Notes Pt added on as directed. Simona Dover Spoke to patient. Patient stated she has had intermittent low back pain that started yesterday. Rates pain 10/06, exacerbated with walking, alleviated with rest. Patient has not taken any pain medications, she received neulasta on Monday. Denies urinary symptoms, fever, chills, constipation, diarrhea, or irregular heartbeats. PSS- Patient aware to come in today at 10:45 for labs and IVF at 11:00. Please schedule appointment. Thank you. Miriam Gregory RN PSS- please contact patient to schedule labs/hydration today at 11:00. Ilene Salas LPN May need more hydration. If we have room then stat BMP/hydration. If not can send her to the emergency room. Nhan Hooper DO pt calls office with C/O feeling dizzy when she stands up, head feels foggy for the last few days. The dizziness goes away after a few min after going from sitting to standing. She denies any fever headache or NVD. She does C/O low back pain that comes and goes, pain when she is up moving around but gets better when sitting. Her last Tx was 04/06/23. She still C/O SOB when going up and down her steps at home, this is unchanged. Kimberly Mcbride LPN documented in this encounter [facility] 04-07-2023 Note HNO ID: [id number] Author: NHAN HOOPER DO Service: ? Author Type: Physician Type: Progress Notes Filed: 04/07/2023 17:13 Note Text: Today's hydration order approved by me. Nhan Hooper DO [facility] 04-07-2023 History of Present illness Narrative Today's hydration order approved by me. Nhan Hooper DO documented in this encounter [facility] 04-07-2023 Note [facility] 04-07-2023 History of Present illness Narrative Dr Hooper updated on labs/VS with hypertension noted. Orders received to give 500ml of NS over one hour. Ok to give Neulasta. Rx was written for BP and [facility] Pt has PCP OV on Monday and will follow up. States still have ringing in ears but denies any Headache or pain. Next appt reviewed and denies any needs. Sofía Edouard RN documented in this encounter [facility] 04-06-2023 Note HNO ID: [id number] Author: TERESA GILLIS RN Service: ? Author Type: Registered Nurse Type: Progress Notes Filed: 04/06/2023 14:52 Note Text: ++ [facility] 04-06-2023 History of Present illness Narrative ++ documented in this encounter [facility] 04-04-2023 Note HNO ID: [id number] Author: BEBE AMAYA, ED Service: ? Author Type: Registered Nurse Type: Progress Notes Filed: 04/04/2023 14:19 Note Text: Assessment unchanged from 03/31/23 from office visit with Faisal Matute CNP . [facility] 04-04-2023 History of Present illness Narrative Assessment unchanged from 03/31/23 from office visit with Faisal Matute CNP . documented in this encounter [facility] 03-31-2023 Note [facility] 03-31-2023 History of Present illness Narrative Yadira Yang Magda 1950 03/31/2023 Oncologic problem(s): 1) Stage IIIA small cell lung cancer. HPI: The patient is a 72-year-old female with a past medical history of smoking, hypertension and hypokalemia who was recently diagnosed with small cell lung cancer. Patient underwent a low-dose screening CT lung in October 2022. Was observed to have 3 solid nodules and a perifissural nodule. The solid nodules were located in the right and left upper lobes and one in the left lower lobe and the perifissural nodule is located in the left major fissure. The largest was the nodule in the left lower lobe measuring an average diameter of 8.4 mm. There was a left paratracheal lymph node measuring 12 mm in short axis. No urged supraclavicular, axillary or hilar lymph nodes were observed. There was biapical scarring likely postinflammatory. FDG PET scan done at [facility] 12/06/2022 revealed enhanced radiopharmaceutical concentration in the AP window with a calculated SUV of 3.6. The maximal axial diameter of the corresponding abnormality on CT was 9.1 mm. Overall the study was negative for malignancy. Patient underwent bronchoscopy on 01/04/2023. Under EBUS guidance, the 4L (lower paratracheal) lymph node measured 14.3 mm. 8 samples were obtained. Rapid onsite evaluation suggested malignancy. Pathology: Left station 4, lower paratracheal lymph node, biopsies: - Small cell carcinoma. See comment Was smoking a ppd. Now done to 8-10 cigs a day. No coughing as much. Used to wheeze and that is better now that cut back on cigarettes. No CANTRELL. Active. No hemoptysis except day or two after bronch. Had pneumovax. History of hepatitis C initially treated with interferon and subsequently with oral therapy. Complete response. Admitted 03/27 for exacerbation COPD. Completed radiation 02/14. Quit smoking. Presents for ongoing oncologic management. Interim history: Ms. Man presents today for follow up prior to C4 carbo/etop. She notes that since last treatment she has just felt run down . This last cycle was tough . Increased fatigue. Denies SOB, CP. Some CANTRELL. Feels that her legs are weaker. Dizziness with walking long distances. No SINCLAIR. Notes achy L leg pain over the last few weeks, not getting any worse. No radiculopathy. No N/T. No edema. Eating and drinking ok. Weight stable. No changes in bowel or bladder habits. Denies bleeding, bruising. No hematuria, hematochezia, hemoptysis. Cough is generally stable. Rhinorrhea since quit smoking, stable. Denies fevers, chills or NS. PAST MEDICAL HISTORY Diagnosis Date Chronic hepatitis C virus infection (HCC) 10/14/2014 Successful eradication with Harvoni treatment 2014. 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 Nonspecific elevation of levels of transaminase or lactic acid dehydrogenase (LDH) Elevated LFT's, Hepatitis C infection Small cell lung cancer, left lower lobe (HCC) 01/12/2023 Unspecified vitamin D deficiency PAST SURGICAL HISTORY Procedure Laterality Date CATARACT EXTRACTION HX COLONOSCOPY FLX DX W/COLLJ SPEC WHEN PFRMD 12/11/13 Colonoscopy ESOPHAGOGASTRODUODENOSCOPY TRANSORAL DIAGNOSTIC 12/11/13 EGD VAGINAL HYSTERECTOMY UTERUS 250 GM/< 1973 Hysterectomy, vaginal, Endometrial CA ALLERGIES Allergen Reactions Abilify [Aripiprazo* Intolerance Risperidone Intolerance Developed tardive dyskinesia Current Outpatient Medications Medication Sig [id number]-[id number] (BMX 1:1:1) 1:1:1 liqd Take 10 mL by mouth every 4 hours as needed. LORazepam (ATIVAN) 1 mg tablet Take 1 tablet by mouth two times a day as needed for up to 90 days. umeclidinium-vilanterol (ANORO ELLIPTA) 62.5-25 mcg/actuation inhaler Inhale 1 Inhalation as instructed once daily. OLANZapine (ZYPREXA) 10 mg tablet Take 1 tablet by mouth daily at bedtime. for 4 nights beginning the night of chemotherapy treatment. dexAMETHasone (DECADRON) 4 mg tablet Take 1 tablet by mouth two times a day with meals. for 3 days beginning the day after receiving cisplatin each cycle of chemotherapy. prochlorperazine (COMPAZINE) 10 mg tablet Take 1 tablet by mouth every 6 hours as needed. lisinopril-hydroCHLOROthiazide (ZESTORETIC) 20-12.5 mg per tablet Take 2 tablets by mouth once daily. albuterol HFA (PROAIR HFA) 90 mcg/actuation inhaler Inhale 2 Puffs as instructed every 4 hours as needed. DULoxetine (CYMBALTA) 60 mg capsule Take 1 capsule by mouth twice daily. ergocalciferol 50,000 unit capsule (VITAMIN D2, DRISDOL) Take 1 capsule by mouth two times a week. TO BE TAKEN ORALLY DIRECTED. Take 1 tablet by mouth twice weekly [id number], then decrease to 1 tablet weekly. dextromethorphan-guaiFENesin (MUCINEX DM) 30-600 mg per tablet Take 1 tablet by mouth twice daily. No current facility-administered medications for this visit. Social History Tobacco Use Smoking status: Former Packs/day: 0.50 Years: 50.00 Additional pack years: 0.00 Total pack years: 25.00 Types: Cigarettes Quit date: 01/25/2023 Years since quittin.1 Smokeless tobacco: Never Tobacco comments: Declined information. Started age 17 Vaping Use Vaping Use: Never used Substance Use Topics Alcohol use: Not Currently Comment: rare Drug use: Not Currently Types: Marijuana Family History Problem Relation Age of Onset Hypertension Mother Heart Mother Ischemic Heart Disease Father Fatal HI age 58 Cancer Sister other (C. Diff) Sister Psychiatry Sister Schizoprhenia Cancer Sister Lung Psychiatry Brother Depression Asthma No Family History ROS: All systems reviewed on 03/31/2023 with pertinent positives and negatives as outlined in the interval history. PHYSICAL EXAM: Vitals: Blood pressure 117/74, pulse 98, temperature 36.7 C (98.1 F), temperature source Temporal, weight 75.3 kg (166 lb), SpO2 98%. Well-appearing and in no acute distress. EYES: Sclerae are anicteric bilaterally. ENT: Oral mucosa is unremarkable. LYMPHATIC: There is no palpable cervical, supraclavicular, axillary adenopathy. RESPIRATORY: Inspiratory breath sounds are of diminished intensity in all howell. Scattered wheezes. No crackles CARDIOVASCULAR: Rhythm is regular. ABDOMEN: The abdomen is nondistended. No splenomegaly or hepatomegaly. No tenderness. Extremities: No swelling or edema. SKIN: No jaundice. NEUROLOGIC: edging catcher II-XII are grossly intact. No focal motor weakness. MUSCULOSKELETAL: No muscle wasting. I have performed the physical exam today (03/31/2023) and have edited the note to correlate with current findings. LABS: Latest Reference Range & Units 03/02/23 09:01 03/09/23 08:54 03/13/23 08:28 03/31/23 08:27 WBC 3.70 - 11.00 k/uL 22.13 (H) 13.98 (H) 9.63 14.80 (H) (P) RBC 3.90 - 5.20 m/uL 2.87 (L) 2.88 (L) 3.02 (L) 2.30 (L) (P) Hemoglobin 11.5 - 15.5 g/dL 8.7 (L) 8.8 (L) 9.3 (L) 7.4 (L) (P) Hematocrit 36.0 - 46.0 % 25.3 (L) 25.2 (L) 27.5 (L) 21.5 (L) (P) Platelet Count 150 - 400 k/uL 143 (L) 441 (H) 339 269 (P) MCV 80.0 - 100.0 fL 88.2 87.5 91.1 93.5 (P) MCH 26.0 - 34.0 pg 30.3 30.6 30.8 32.2 (P) MCHC 30.5 - 36.0 g/dL 34.4 34.9 33.8 34.4 (P) MPV 9.0 - 12.7 fL 11.2 9.8 9.9 10.2 (P) RDW-CV 11.5 - 15.0 % 14.6 16.3 (H) 17.6 (H) 18.6 (H) (P) (H): Data is abnormally high (L): Data is abnormally low (P): Preliminary ASSESSMENT/PLAN: (C34.32) Small cell lung cancer, left lower lobe (HCC) (primary encounter diagnosis) (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 -Active smoker. Has cut back. -History of treated hepatitis C infection. -Completed radiation 02/14. -She is tolerating treatment overall well but she is more fatigued today and appetite has been down. Recommended delaying cycle three 1 week. -Reviewed labs. Significantly more anemic but no sign of GI bleeding. Likely from chemotherapy and radiation. -No findings of oral thrush but has symptoms suggestive of mild to moderate radiation esophagitis. -Hypokalemia, improved Plan: -Continue as scheduled, pending labs - reviewed CBC with patient today, dicussed blood transfusion. Pt agreeable - 1 uPRBC for hgb 7.4 as she is symptomatic - CANTRELL, dizziness, fatigue - would not have her wait until Monday with current symptoms. - will need to go to [facility] ED, pt acknowledged -recommend loratadine 10 mg for aches s/p neulasta -Continue potassium supplement. -Rx BMX for as needed use. -Due for scans, will discuss with Dr. Hooper. RTC as scheduled on Monday for tx Verena Matute APRN.[employer] H[employer] Portions of this note including HPI, ROS, impression/plan may have been copied forward as to provide important historical information essential in contributing to medical decision making. Documentation has been reviewed and edited as necessary to support clinical decision making for today's visit and to reflect my own independent evaluation of this patient. documented in this encounter [facility] 03-20-2023 Note HNO ID: [id number] Author: LY BORJAS, ED Service: ? Author Type: Registered Nurse Type: Progress Notes Filed: 03/20/2023 14:42 Note Text: non [facility] 03-02-2023 Note [facility] 03-02-2023 Note [facility] 02-24-2023 Note [facility] 02-14-2023 Note [facility] 02-14-2023 Note [facility] 02-10-2023 Note [facility] 02-10-2023 History of Present illness Narrative Yadira Man 1950 02/10/[address] Weaver for small cell lung cancer. The impression and plan will be communicated by way of the shared electronic record or faxed under separate cover letter. HPI: The patient is a 72-year-old female with a past medical history of smoking, hypertension and hypokalemia who was recently diagnosed with small cell lung cancer. Patient underwent a low-dose screening CT lung in October 2022. Was observed to have 3 solid nodules and a perifissural nodule. The solid nodules were located in the right and left upper lobes and one in the left lower lobe and the perifissural nodule is located in the left major fissure. The largest was the nodule in the left lower lobe measuring an average diameter of 8.4 mm. There was a left paratracheal lymph node measuring 12 mm in short axis. No urged supraclavicular, axillary or hilar lymph nodes were observed. There was biapical scarring likely postinflammatory. FDG PET scan done at [facility] 12/06/2022 revealed enhanced radiopharmaceutical concentration in the AP window with a calculated SUV of 3.6. The maximal axial diameter of the corresponding abnormality on CT was 9.1 mm. Overall the study was negative for malignancy. Patient underwent bronchoscopy on 01/04/2023. Under EBUS guidance, the 4L (lower paratracheal) lymph node measured 14.3 mm. 8 samples were obtained. Rapid onsite evaluation suggested malignancy. Pathology: Left station 4, lower paratracheal lymph node, biopsies: - Small cell carcinoma. See comment Was smoking a ppd. Now done to 8-10 cigs a day. No coughing as much. Used to wheeze and that is better now that cut back on cigarettes. No CANTRELL. Active. No hemoptysis except day or two after bronch. Had pneumovax. History of hepatitis C initially treated with interferon and subsequently with oral therapy. Complete response. Interval History: Ms. Man presents today for follow up of SCLC prior to treatment. She reports feeling better. Recent admission for COPD exacerbation following C1D3. Denies fevers, chills or NS. Feel radiation is going well. Energy is improving. Appetite is good. No changes in bowel or bladder habits. Managing constipation with doculax. Nausea controlled with antiemetics, no vomiting. No dysuria, hematuria. Denies worsening SOB, CANTRELL, or cough. Non-productive cough. No edema, rash or skin changes. Denies SINCLAIR, dizziness, numbness, tingling, or neuro changes. PAST MEDICAL HISTORY Diagnosis Date Chronic hepatitis C virus infection (HCC) 10/14/2014 Successful eradication with Harvoni treatment 2014. Negative hep c virus RNA in May 2015 Depression History of cervical dysplasia 12/02/2011 Had total Hysterectomy at age 23 Lung nodule Major depressive disorder 12/05/2016 [facility] Metastasis to mediastinal lymph node (HCC) 01/12/2023 Nonspecific elevation of levels of transaminase or lactic acid dehydrogenase (LDH) Elevated LFT's, Hepatitis C infection Small cell lung cancer, left lower lobe (HCC) 01/12/2023 Unspecified vitamin D deficiency PAST SURGICAL HISTORY Procedure Laterality Date CATARACT EXTRACTION HX COLONOSCOPY FLX DX W/COLLJ SPEC WHEN PFRMD 12/11/13 Colonoscopy ESOPHAGOGASTRODUODENOSCOPY TRANSORAL DIAGNOSTIC 12/11/13 EGD VAGINAL HYSTERECTOMY UTERUS 250 GM/< 1973 Hysterectomy, vaginal, Endometrial CA ALLERGIES Allergen Reactions Abilify [Aripiprazo* Intolerance Risperidone Intolerance Developed tardive dyskinesia Current Outpatient Medications Medication Sig LORazepam (ATIVAN) 1 mg tablet Take 1 tablet by mouth two times a day as needed for up to 90 days. umeclidinium-vilanterol (ANORO ELLIPTA) 62.5-25 mcg/actuation inhaler Inhale 1 Inhalation as instructed once daily. predniSONE (DELTASONE) 10 mg tablet Take 4 daily for three days, then 3 daily for three days, then 2 daily for three days, then one daily for three days. OLANZapine (ZYPREXA) 10 mg tablet Take 1 tablet by mouth daily at bedtime. for 4 nights beginning the night of chemotherapy treatment. prochlorperazine (COMPAZINE) 10 mg tablet Take 1 tablet by mouth every 6 hours as needed. lisinopril-hydroCHLOROthiazide (ZESTORETIC) 20-12.5 mg per tablet Take 2 tablets by mouth once daily. albuterol HFA (PROAIR HFA) 90 mcg/actuation inhaler Inhale 2 Puffs as instructed every 4 hours as needed. DULoxetine (CYMBALTA) 60 mg capsule Take 1 capsule by mouth twice daily. ergocalciferol 50,000 unit capsule (VITAMIN D2, DRISDOL) Take 1 capsule by mouth two times a week. TO BE TAKEN ORALLY DIRECTED. Take 1 tablet by mouth twice weekly [id number], then decrease to 1 tablet weekly. iv contrast (will be provided with radiology test) CT Chest W -Inject, intravenously, once for 1 dose.No IV access, insert saline lock prior to the beginning of sedation, infusion, injection of imaging exam. Discontinue saline lock post exam. If Pt. has a central line or IVAD, may access for administration according to line specific nursing protocol. Once exam is complete flush line and de-access according to line specific nursing protocol in the CT contrast administration guidelines link. dexAMETHasone (DECADRON) 4 mg tablet Take 1 tablet by mouth two times a day with meals. for 3 days beginning the day after receiving cisplatin each cycle of chemotherapy. (Patient not taking: Reported on 02/03/2023) dextromethorphan-guaiFENesin (MUCINEX DM) 30-600 mg per tablet Take 1 tablet by mouth twice daily. (Patient not taking: Reported on 01/12/2023) No current facility-administered medications for this visit. Social History Tobacco Use Smoking status: Former Packs/day: 0.50 Years: 50.00 Additional pack years: 0.00 Total pack years: 25.00 Types: Cigarettes Quit date: 01/25/2023 Years since quittin.0 Smokeless tobacco: Never Tobacco comments: Declined information. Started age 17 Vaping Use Vaping Use: Never used Substance Use Topics Alcohol use: No Comment: rare Drug use: No Family History Problem Relation Age of Onset Hypertension Mother Heart Mother Ischemic Heart Disease Father Fatal HI age 58 Cancer Sister other (C. Diff) Sister Psychiatry Sister Schizoprhenia Cancer Sister Lung Psychiatry Brother Depression Asthma No Family History Constipation taking doculax ROS: Constitutional: No fever. No drenching night sweats. Normal appetite. No unexplained weight loss. No significant fatigue. Neuro: No recent SINCLAIR, vertigo, dizziness or imbalance. No symptoms of sensory neuropathy. HEENT: No recent change in voice, vision or hearing. Resp: See above. CVS: No exertional chest pain, PND or orthopnea. No extremity swelling/edema. No symptoms of claudication. No painful or tender varicose veins. GI: No dysgeusia. No symptoms of stomatitis. No dysphagia or odynophagia. No reflux, n/v, change in bowel habits. No abdominal pain, bloating or distension. No black or bloody stools. : No dysuria or gross hematuria. No symptoms of bladder outlet obstruction. Endo: No hot flashes. No polyuria or polydipsia. No heat or cold intolerance. Musculoskeletal: No bone, back, joint and muscular pain. Derm: No current rash. No history of jaundice. No diffuse pruritis. Heme: No unusual bleeding and unexplained bruising. Psych: Normal mood. All systems reviewed on 02/10/2023 with pertinent positives and negatives as outlined in the interval history. PHYSICAL EXAM: Vitals: Blood pressure 142/84, pulse 87, temperature 36.6 C (97.8 F), weight 77.1 kg (170 lb), SpO2 97%. Well-appearing and in no acute distress. EYES: Sclerae are anicteric bilaterally. ENT: Oral mucosa is unremarkable. LYMPHATIC: There is no palpable cervical, supraclavicular, axillary adenopathy. RESPIRATORY: Inspiratory breath sounds are of diminished intensity in all howell. Scattered wheezes, worse bases. Clear with cough. CARDIOVASCULAR: Rhythm is regular. ABDOMEN: The abdomen is nondistended. No splenomegaly or hepatomegaly. No tenderness. Extremities: No swelling or edema. SKIN: No jaundice. NEUROLOGIC: edging catcher II-XII are grossly intact. No focal motor weakness. MUSCULOSKELETAL: No muscle wasting. I have performed the physical exam today (02/10/2023) and have edited the note to correlate with current findings. 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 -MRI brain: negative -Active smoker. Has cut back. -History of treated hepatitis C infection. -No functional limitations and no dyspnea with exertion. -Discussed the importance of smoking cessation and recommended nicotine patch and the use of nicotine gum. -Outlined treatment plan of concurrent chemotherapy and radiation and recommended cisplatin and etoposide. Plan: -Continue with C2 cis/etop pending all labs, WBC, ANC pending. -Neulasta day 4 each cycle (age > 65 and goal is cure). Hyponatremia - down to 123 from 130 baseline - asymptomatic - concern SIADH vs fluid overload 2/2 recent admission - discussed fluid restriction, increase Na intake - pt reluctant to start PO NaCl - advised to call with an symptoms. - recheck CMP on Monday RTC as scheduled Verena Matute APRN.[employer] H[employer]ORY TEACHER Portions of this note including HPI, ROS, impression/plan may have been copied forward as to provide important historical information essential in contributing to medical decision making. Documentation has been reviewed and edited as necessary to support clinical decision making for today's visit and to reflect my own independent evaluation of this patient. documented in this encounter [facility] 02-09-2023 Note [facility] 02-09-2023 History of Present illness Narrative Radiation Oncology - On Treatment Review (OTR) Note PATIENT NAME: Yadira Man PATIENT DIAGNOSIS: Limited stage small cell lung cancer. COURSE: definitive and concurrent chemotherapy AREA TREATED: Mediastinum CURRENT DOSE: 3600 cGy in 24 fx PLANNED DOSE: 4500 cGy in 30 fx Status: Post-menopausal SUBJECTIVE: She is doing well without any specific new complaints. No significant changes with slight dysphagia. EXAM: KPS: 90 General Appearance: Alert and oriented. No acute distress. IMAGING/LAB RESULTS: CBC scheduled tomorrow. Treatment chart checked: Yes Patient treatment site reviewed and verified:Yes CBCTs reviewed and current:Yes Medications started: None. ASSESSMENT/PLAN: Clinically stable. Toxicity within expected parameters. Continue radiation treatment as planned. Lia Freitas MD documented in this encounter [facility] 02-09-2023 Nurse Note Radiation Therapy - Nursing Note (OTV) PATIENT NAME: Yadira Man PATIENT February 09, 2023 [facility] FACILITY/LOCATION: [place] NURSING NOTE TYPE: CHEST Subjective Data No complaints Additional Data Do you want to see a Mechanical Operator? No Status: Post-menopausal. Stress Scale: On a scale of 0 to 10, what number best describes how much distress you have experienced in the past week?(0 being no distress and 10 being extreme distress) 1 Social work notified: no Nursing Assessment Fatigue: increased fatigue over baseline but not altering normal activities Appetite: good Nutritional Intake: Regular oral intake. Weight Gain/Loss: No Ambulatory weight history: Last 6 Encounter Wt Readings: Date: Wt: 02/03/2023 76.5 kg (168 lb 9.6 oz) 01/25/2023 78 kg (172 lb) 01/23/2023 78 kg (172 lb) 01/13/2023 77.1 kg (170 lb) 01/12/2023 77.1 kg (170 lb) 01/04/2023 77.1 kg (170 lb) Nausea:None Vomiting: None Bowel Function: constipation 0 - bowel movement every day Erythema/Hyperpigmentation:none Desquamation:none Rash:none Skin Care: Aquaphor Skin Sensation: Within Normal Limits Focused Assessment CHEST: Dysphagia: Minimal. Pain with swallowing: No. Shortness of breath: No. Cough: Mild. SIGNED by: Paige Negron RN documented in this encounter [facility] 02-07-2023 Note [facility] 02-07-2023 History of Present illness Narrative Radiation Oncology - On Treatment Review (OTR) Note PATIENT NAME: Yadira Man PATIENT DIAGNOSIS: Limited stage small cell lung cancer. COURSE: definitive and concurrent chemotherapy AREA TREATED: Mediastinum CURRENT DOSE: 3000 cGy in 20 fx PLANNED DOSE: 4500 cGy in 30 fx Status: Post-menopausal SUBJECTIVE: She has slight dysphagia with dry food only occasionally. She hasn't started Prilosec yet because her symptoms are only mild. EXAM: KPS: 90 General Appearance: Alert and oriented. No acute distress. IMAGING/LAB RESULTS: CBC on 01/30/23 reviewed. Treatment chart checked: Yes Patient treatment site reviewed and verified:Yes CBCTs reviewed and current:Yes Medications started: None. ASSESSMENT/PLAN: Clinically stable. Toxicity within expected parameters. Continue radiation treatment as planned. Lia Freitas MD documented in this encounter [facility] 02-07-2023 Nurse Note Radiation Therapy - Nursing Note (OTV) PATIENT NAME: Yadira Man PATIENT February 07, 2023 [facility] FACILITY/LOCATION: [place] NURSING NOTE TYPE: CHEST Subjective Data no new complaints quit smoking, breathing a lot better Additional Data Do you want to see a Mechanical Operator? No Status: Post-menopausal. Stress Scale: On a scale of 0 to 10, what number best describes how much distress you have experienced in the past week?(0 being no distress and 10 being extreme distress) 2 Social work notified: Pt denied need to see social director at this time. Nursing Assessment Fatigue: moderate; causing difficulty performing some activities Appetite: good Nutritional Intake: Regular oral intake. Weight Gain/Loss: No Ambulatory weight history: Last 6 Encounter Wt Readings: Date: Wt: 02/03/2023 76.5 kg (168 lb 9.6 oz) 01/25/2023 78 kg (172 lb) 01/23/2023 78 kg (172 lb) 01/13/2023 77.1 kg (170 lb) 01/12/2023 77.1 kg (170 lb) 01/04/2023 77.1 kg (170 lb) Nausea:None Vomiting: None Bowel Function: constipation will take something tonight Erythema/Hyperpigmentation:none Desquamation:none Rash:none Skin Care: Aquaphor Skin Sensation: Within Normal Limits Focused Assessment CHEST: Dysphagia: Mild. Pain with swallowing: No. Shortness of breath: No. Cough: Mild.improved Mild dysphagia with foods that are dry SIGNED by: Rizwana Graves RN documented in this encounter [facility] 02-07-2023 Miscellaneous Notes TC to patient who verbalized understanding of script sent. Nothing further at this time. MARIO Collado Prescription sent PDMP website checked and validated. All prescriptions have been APPROPRIATELY filled. No suspicious activity was identified. 02/06/2023 by Darya Germain APRN.[employer] Pt calling to check status on refill below. Pt out of medication. Please advise pt when this has been sent to the pharmacy. Yi Menjivar LPN Patient has been identified by name and date of : No Patient phones for refill(s): Requested Prescriptions Pending Prescriptions Disp Refills LORazepam (ATIVAN) 1 mg tablet 60 tablet 0 Sig: Take 1 tablet by mouth two times a day as needed for up to 30 days. Date of last office visit in primary care: 11/25/2016 Date of next office visit in primary care: Visit date not found Last 2 Encounter Wt Readings: Date: Wt: 02/03/2023 76.5 kg (168 lb 9.6 oz) 01/25/2023 78 kg (172 lb) Previous labs/tests for medication: Not applicable Please advise. Thank you. Winnie Reynolds. Patient has been identified by name and date of : Yes Last office visit in this department: 11/25/2016 RX INSTRUCTIONS: Patient aware RX will be sent to pharmacy. No need to notify patient. Patient phones requesting refills as follows: Requested Prescriptions Pending Prescriptions Disp Refills LORazepam (ATIVAN) 1 mg tablet 60 tablet 0 Sig: Take 1 tablet by mouth two times a day as needed for up to 30 days. Please review and advise. Loraine Joseph documented in this encounter [facility] 02-03-2023 Note [facility] 02-03-2023 History of Present illness Narrative Images from the original note were not included. . [facility] [place] Note Patient name: Yadira Man PCP: Vamshi Davis MD CC: Follow-up HPI: Yadira Man 72 year old female recent former smoker with PMH significant for Hep C s/p treatment, depression originally seen for evaluation of SOB. PFT with small airways obstruction. Patient was counseled to quit smoking, to maintain albuterol as needed and was referred to lung cancer screening program. CT showed several nodules, largest 8 mm LLL nodule and left paratracheal adenopathy. PET scan without significant uptake in nodule or enlarged paratracheal nodes but 3.6 SUV in AP window lymph node 9 mm in diameter. Tumor board recommended EBUS biopsy. Pathology unfortunately was positive for small cell lung cancer, 4L. Patient seen Dr. Hooper, treatment plan with concomitant chemoradiation (carboplatin/etoposide). Recent hospitalization for COPD exacerbation [facility] 01/26-01/27. She was in the infusion center for her chemotherapy, noted to be wheezing and saturation was 82%. Symptoms at that time consisted of chest congestion, wheezing, cough productive of green sputum. No fevers or chills. CTA of the chest performed at [facility] did not show evidence of pulmonary embolism nor significant infiltrate to suggest pneumonia. She did not require oxygen at discharge. She was treated with steroids and Levaquin. Today she still has some chest congestion and wheezing with shortness of breath. DATA: Reviewed EMR from [facility] Labs: Component Ref Range & Units 4 d ago WBC 3.70 - 11.00 k/uL 4.06 RBC 3.90 - 5.20 m/uL 3.66 Low Hemoglobin 11.5 - 15.5 g/dL 11.0 Low Hematocrit 36.0 - 46.0 % 31.7 Low MCV 80.0 - 100.0 fL 86.6 MCH 26.0 - 34.0 pg 30.1 MCHC 30.5 - 36.0 g/dL 34.7 RDW-CV 11.5 - 15.0 % 13.2 Platelet Count 150 - 400 k/uL 158 MPV 9.0 - 12.7 fL 10.9 NRBC /100 WBC 0.0 Absolute nRBC <0.01 k/uL <0.01 Neutrophils % % 90.4 Abs Neut (Segs + Bands) 1.45 - 7.50 k/uL 3.67 Lymphocytes % % 9.6 Abs Lymph (Normal + Reactive) 1.00 - 4.00 k/uL 0.39 Low Monocytes % % 0.0 Abs [place] <0.87 k/uL 0.00 Eosin% % 0.0 Abs Eosin <0.46 k/uL 0.00 Basophils % % 0.0 Abs Baso <0.11 k/uL 0.00 Imaging / Diagnostic Studies: DATE OF EXAM: Jan 12 2023 4:02PM [facility] 0539 - CT CHEST W IVCON / Comparison: PET/CT, 12/06/[address] of the lungs, 11/22/2022 RESULT: Limitations: None. Lines, tubes, and devices: None. Lung parenchyma and airways: The trachea and major bronchi are patent. There is mild diffuse bronchial wall thickening in both lungs suggestive of airway inflammation. Biapical bullae with post inflammatory mild biapical pleural parenchymal scarring again noted. The largest bulla in the left lung apex measures approximately 1.5 cm (image 18). Stable bilateral lung nodules which are not significantly changed from 11/22/2022. The largest nodule is located in the left lower lobe and measures approximately 8 mm (image 113); the nodule has a somewhat tubular shape, and may have an endobronchial component associated with mucous plugging which precludes accurate measurement. Additional stable nodules include a couple of 5 mm perifissural nodules along the left major fissure (images 104 and 107), a 4 mm anterior left upper lobe nodule (image 114), and a couple one-2 mm nodules in the bilateral apices (images 32, 37, 53, etc.). There is subtle mosaicism of the lung parenchyma suggestive of air trapping in the mid to lower lung zones. Pleural space: No pleural effusion. No pleural thickening. Lower neck, lymph nodes, and mediastinum: The imaged thyroid gland is unremarkable. No supraclavicular or axillary lymphadenopathy. Again noted is an enlarged left paratracheal lymph node which measures 16 mm in short axis (image 72), mildly increased in size compared to the previous scans when it measured approximately 13-14 mm in short axis. No additional mediastinal lymphadenopathy. No hilar lymphadenopathy. The thoracic esophagus is nondilated. Heart, pericardium, and thoracic vessels: The thoracic aorta and main pulmonary artery are normal in caliber. There are mild atherosclerotic calcifications in the thoracic aorta, particularly in the aortic arch. The cardiac chambers are normal in size. Minimal coronary artery atherosclerotic calcifications are noted, although the study is not optimized for coronary assessment. No pericardial effusion or thickening. Bones and soft tissues: No destructive bone lesion. Stable indeterminate sclerotic density in the right fourth rib, possibly a bone island (image 50). Degenerative changes in the thoracic spine. Chest wall is unremarkable aside from a stable tiny calcification or clip in the left breast (image 34). Upper abdomen: Stable subcentimeter low-density lesions in both kidneys, which most likely represent simple cysts although too small to characterize (image 219). Stable subcentimeter calcification in the right adrenal (image 201). IMPRESSION: Overall, no significant change in size and number of multiple bilateral small lung nodules. The largest nodule in the left lower lobe measures approximately 8 mm and has a somewhat tubular shape with presumed endobronchial component and probable distal mucous plugging. Suggest continued follow-up. Enlarged left paratracheal lymph node is minimally increased in size compared to earlier scans. The node is compatible with biopsy-proven metastasis. Mild bronchial wall thickening suggestive of airway inflammation, few stable biapical bullae and mild biapical pleural parenchymal fibrosis again noted. CTA chest from [facility] FINDINGS: Normal enhancement of the main pulmonary artery and right and left pulmonary arteries. Normal enhancement of the bilateral peripheral pulmonary arteries. There is no demonstrated pulmonary embolism. Atherosclerotic changes of the aorta without evidence for aneurysm There is no demonstrated aortic dissection. Heart size is normal. There is minimal coronary artery calcification Normal mediastinum. Normal hilar regions. Normal visualized trachea and bronchi. The lungs are well expanded. There is mild bibasilar interstitial thickening and mild bronchial wallthickening in the right lower lobe. There is also minor atelectasis withinthe dependent portion of the lower lobes. No focal infiltration or pulmonary nodules Normal pleura. Normal chest wall structures. Dorsal spine demonstrates mild spondylosis Normal visualized upper abdomen. CT/CTA Chest W/WO Contrast IMPRESSION: Minor bibasilar interstitial thickening and bronchitis of the right lower lobe. No evidence for pulmonary embolus I personally reviewed the images listed above and agree with the assessments PAST MEDICAL HISTORY Diagnosis Date Chronic hepatitis C virus infection (HCC) 10/14/2014 Successful eradication with Harvoni treatment 2014. 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 predniSONE (DELTASONE) 10 mg tablet Take 4 daily for three days, then 3 daily for three days, then 2 daily for three days, then one daily for three days. iv contrast (will be provided with radiology test) CT Chest W -Inject, intravenously, once for 1 dose.No IV access, insert saline lock prior to the beginning of sedation, infusion, injection of imaging exam. Discontinue saline lock post exam. If Pt. has a central line or IVAD, may access for administration according to line specific nursing protocol. Once exam is complete flush line and de-access according to line specific nursing protocol in the CT contrast administration guidelines link. OLANZapine (ZYPREXA) 10 mg tablet Take 1 tablet by mouth daily at bedtime. for 4 nights beginning the night of chemotherapy treatment. dexAMETHasone (DECADRON) 4 mg tablet Take 1 tablet by mouth two times a day with meals. for 3 days beginning the day after receiving cisplatin each cycle of chemotherapy. (Patient not taking: Reported on 02/03/2023) prochlorperazine (COMPAZINE) 10 mg tablet Take 1 tablet by mouth every 6 hours as needed. LORazepam (ATIVAN) 1 mg tablet Take 1 tablet by mouth two times a day as needed for up to 30 days. lisinopril-hydroCHLOROthiazide (ZESTORETIC) 20-12.5 mg per tablet Take 2 tablets by mouth once daily. albuterol HFA (PROAIR HFA) 90 mcg/actuation inhaler Inhale 2 Puffs as instructed every 4 hours as needed. DULoxetine (CYMBALTA) 60 mg capsule Take 1 capsule by mouth twice daily. ergocalciferol 50,000 unit capsule (VITAMIN D2, DRISDOL) Take 1 capsule by mouth two times a week. TO BE TAKEN ORALLY DIRECTED. Take 1 tablet by mouth twice weekly [id number], then decrease to 1 tablet weekly. dextromethorphan-guaiFENesin (MUCINEX DM) 30-600 mg per tablet Take 1 tablet by mouth twice daily. (Patient not taking: Reported on 01/12/2023) Social History Tobacco Use Smoking status: Former Packs/day: 0.50 Years: 50.00 Additional pack years: 0.00 Total pack years: 25.00 Types: Cigarettes Quit date: 01/25/2023 Years since quittin.0 Smokeless tobacco: Never Tobacco comments: Declined information. Started age 17 Vaping Use Vaping Use: Never used Substance Use Topics Alcohol use: No Comment: rare Drug use: No FAMILY HISTORY Problem Relation Age of Onset Hypertension Mother Heart Mother Ischemic Heart Disease Father Fatal [place] age 58 Cancer Sister other (C. Diff) Sister Psychiatry Sister Schizoprhenia Cancer Sister Lung Psychiatry Brother Depression Asthma No Family History PAST SURGICAL HISTORY Procedure Laterality Date CATARACT EXTRACTION HX COLONOSCOPY FLX DX W/COLLJ SPEC WHEN PFRMD 12/11/13 Colonoscopy ESOPHAGOGASTRODUODENOSCOPY TRANSORAL DIAGNOSTIC 12/11/13 EGD VAGINAL HYSTERECTOMY UTERUS 250 GM/< 1973 Hysterectomy, vaginal, Endometrial CA PMH, Social history, family history and surgical history reviewed and updated in EMR REVIEW OF SYSTEMS: CONSTITUTIONAL: No fevers, chills, nightsweats, unintended weight loss HEENT: Denies nasal congestion/sinus symptoms, allergy problems. EYES: No diplopia or blurry vision. CARDIOVASCULAR: No chest pain, palpitations, orthopnea, PND, edema. PULM: See HPI GI: No dysphagia/odynophagia, reflux, diarrhea NEURO: No new balance problems, peripheral weakness/paresthesias or numbness of concern. INTEGUMENTARY: No new skin changes or rashes PHYSICAL EXAMINATION: BP 120/70, P 88, RR 16, SpO2 96% General Appearance: Age appropriate, NAD. Skin: Skin color, texture, turgor normal, no suspicious rashes or lesions. Upper extremity ecchymoses Head: Normocephalic, no masses, lesions, tenderness or abnormalities. Eyes: Sclera, conjunctiva normal. Oropharynx: Poor dentition, no sores. Neck: No JVD, no masses, no adenopathy. Lungs: Not labored, normal to percussion, wheezes on the right and crackles with rhonchi on the left. Heart: RRR, no murmur. Extremities: No edema, no clubbing. Assessment/Plan: Mild COPD, GOLD stage 1 -Longer course of steroids -Started Anoro Ellipta with continued use of albuterol as needed -Smoking cessation is paramount Small cell lung cancer -Active treatment plan per oncology Recent former smoker -Stop smoking since her hospitalization. -Continue abstinence Sana Lang MD [facility] [place] documented in this encounter [facility] 02-03-2023 Nurse Note Intake information documented in the prior visit with Dr. Fortino olivares. documented in this encounter [facility] 02-03-2023 Note [facility] 02-03-2023 Nurse Note Radiation Therapy - Nursing Note (OTV) PATIENT NAME: Yadira Man PATIENT February 03, 2023 [facility] FACILITY/LOCATION: [place] NURSING NOTE TYPE: CHEST Subjective Data No complaints Additional Data Do you want to see a Mechanical Operator? No Status: Post-menopausal. Stress Scale: On a scale of 0 to 10, what number best describes how much distress you have experienced in the past week?(0 being no distress and 10 being extreme distress) 7 Social work notified: Pt denied need to see social director at this time. Nursing Assessment Fatigue: moderate; causing difficulty performing some activities Appetite: good Nutritional Intake: Regular oral intake. Weight Gain/Loss: No Ambulatory weight history: Last 6 Encounter Wt Readings: Date: Wt: 01/25/2023 78 kg (172 lb) 01/23/2023 78 kg (172 lb) 01/13/2023 77.1 kg (170 lb) 01/12/2023 77.1 kg (170 lb) 01/04/2023 77.1 kg (170 lb) 11/08/2022 77.1 kg (170 lb) Nausea:Nausea does not interfere with the ability to eat Vomiting: None Bowel Function: normal bowel movements Erythema/Hyperpigmentation:mild Desquamation:none Rash:none Skin Care: Aquaphor Skin Sensation: Within Normal Limits Focused Assessment CHEST: Dysphagia: No. Pain with swallowing: No. Shortness of breath: No. Cough: Mild and productive clear sputum. SIGNED by: Paige Negron RN documented in this encounter [facility] 02-03-2023 History of Present illness Narrative Radiation Oncology - On Treatment Review (OTR) Note PATIENT NAME: Yadira Man PATIENT DIAGNOSIS: Limited stage small cell lung cancer. COURSE: definitive and concurrent chemotherapy AREA TREATED: Mediastinum CURRENT DOSE: 2250 cGy in 15 fx PLANNED DOSE: 4500 cGy in 30 fx Status: Post-menopausal SUBJECTIVE: She is doing well without any specific new complaints related to radiation treatment. EXAM: KPS: 90 General Appearance: Alert and oriented. No acute distress. IMAGING/LAB RESULTS: CBC on 01/30/23 reviewed. Treatment chart checked: Yes Patient treatment site reviewed and verified:Yes CBCTs reviewed and current:Yes Medications started: Prilosec. ASSESSMENT/PLAN: Clinically stable. Toxicity within expected parameters. Continue radiation treatment as planned. Lia Freitas MD documented in this encounter [facility] 01-31-2023 Note [facility] 01-31-2023 History of Present illness Narrative Radiation Oncology - On Treatment Review (OTR) Note PATIENT NAME: Yadira Man PATIENT DIAGNOSIS: Limited stage small cell lung cancer. COURSE: definitive and concurrent chemotherapy AREA TREATED: Mediastinum CURRENT DOSE: 1500 cGy in 10 fx PLANNED DOSE: 4500 cGy in 30 fx Status: Post-menopausal SUBJECTIVE: She is doing well without any specific new complaints. EXAM: KPS: 90 General Appearance: Alert and oriented. No acute distress. IMAGING/LAB RESULTS: CBC on 01/30/23 reviewed. Treatment chart checked: Yes Patient treatment site reviewed and verified:Yes CBCTs reviewed and current:Yes Medications started: Prilosec. ASSESSMENT/PLAN: Clinically stable. Toxicity within expected parameters. Continue radiation treatment as planned. Lia Freitas MD documented in this encounter [facility] 01-31-2023 Nurse Note Radiation Therapy - Nursing Note (OTV) PATIENT NAME: Yadira Man PATIENT January 31, 2023 [facility] FACILITY/LOCATION: [place] NURSING NOTE TYPE: CHEST Subjective Data slight nausea related to chemo Additional Data Do you want to see a Mechanical Operator? No Status: Post-menopausal. Stress Scale: On a scale of 0 to 10, what number best describes how much distress you have experienced in the past week?(0 being no distress and 10 being extreme distress) 8 Social work notified: Pt denied need to see social director at this time. Nursing Assessment Fatigue: increased fatigue over baseline but not altering normal activities Appetite: good Nutritional Intake: Regular oral intake. Weight Gain/Loss: No Ambulatory weight history: Last 6 Encounter Wt Readings: Date: Wt: 01/25/2023 78 kg (172 lb) 01/23/2023 78 kg (172 lb) 01/13/2023 77.1 kg (170 lb) 01/12/2023 77.1 kg (170 lb) 01/04/2023 77.1 kg (170 lb) 11/08/2022 77.1 kg (170 lb) Nausea:Nausea does not interfere with the ability to eat Vomiting: None Bowel Function: constipation just amount has decreased goes every day small amounts Erythema/Hyperpigmentation:none Desquamation:none Rash:none Skin Care: Aquaphor Skin Sensation: Within Normal Limits Focused Assessment CHEST: Dysphagia: No. Pain with swallowing: No. Shortness of breath: improved. Cough: much improved dx as COPD. SIGNED by: Rizwana Graves RN documented in this encounter [facility] 01-30-[address] Hooper filed consult to pulmonary medicine. Please schedule patient to see Dr. Lang. New diagnosis COPD, was recently admitted for COPD exacerbation. Patient stated [facility] recommended that she follow-up with pulmonology, patient would like to stay within [facility]. Thank you. Miriam Gregory RN Radiation nurse made aware to inform pt. She Needs a CBC today or tomorrow when here for radiation. Mitzi Jacques LPN We can repeat a CBC either today or tomorrow when she is here for radiation. Order filed. Nhan Hooper DO DISCHARGE CALL BACK Today's date: January 30, 2023 Notified of Pt discharge by: checked [facility] records Patient discharged on 01/28/23 from [facility] to Home Primary Cancer Diagnosis: SCLC Admitting Diagnosis: COPD exacerbation Discharge Summary/SBAR reviewed: Yes Handoff Discussed with Transitional [place]: N/A Psychosocial Risk Factors: None If patient discharged to SNF/Rehab Facility, phone call completed to reinforce discharge instructions and follow up: N/A Call Disposition: Called patient and spoke with patient Patient identified by name and date of . YES Patient with symptom issues: Yes, patient still has wheezing and a productive cough but stated this has improved. Pain: No=0 (pain 0 on a scale of 0-10). Is patient followed by Palliative Medicine? No Palliative Medicine follow up: N/A Any new barriers to care identified? Patient was instructed to stay on her nicotine patch and stop smoking Any new referrals needed? Yes pulmonary medicine Social Work Follow-Up visit scheduled? No Does the patient need interventions no or same day appointment: No MEDICATION ADHERENCE Patient discharged with prescriptions? Yes, medrol dose pack, Levaquin, nicotine patch Discharge prescriptions filled: Yes Patient understands when to take prescriptions: Yes FOLLOW UP Patient scheduled for follow-up appointment within 5 business days of discharge? No, Other: patient has an OV with XRT this week, will discuss with Dr. Hooper if patient needs an earlier OV Patient reminded of follow-up appointment with [facility] provider, Micheline Umanzor on 02/10/23: Yes Discussed: patient was discharged home on 01/28/23. Patient was admitted for COPD exacerbation. Patient was discharged home on steroids, Levaquin, and a nicotine patch. Patient was encouraged to stop smoking. Patient stated she is to follow-up with a pulmonary doctor, she would like to stay within [facility]. Okay to refer patient to Dr. Lang? Next OV is with Micheline on 02/10/23, no labs scheduled until 02/10. PATIENT EDUCATION / REINFORCEMENT Patient verbalizes understanding of when to seek Medical Attention? YES Patient verbalizes understanding of after hours and weekend phone number? YES Miriam Gregory RN CYCLE 1/DAY 1 POST TREATMENT CALL Today's date: January 30, 2023 Treatment Regimen: Cisplatin/Etoposide C1D1 Date: 01/23/23 Called patient to follow-up on symptom management. Spoke with patient SYMPTOM ASSESSMENT Neuro: None CV/Resp: Patient denies difficulty breathing, still has some wheezing, I think its getting better each day . Patient stated she has had a bad cough with phlegm first it was real dark green but now its brown (denies blood) but this seems to be improving. GI/: Diarrhea: yes, while she was admitted into the hospital. Resolved. Integument: None Activity: Patient reported no changes in energy level, energy level good Activity Level (0-100%): good Pain: No=0 (pain 0 on a scale of 0-10). Fever: No Chills: No Any new referrals needed? Yes pulmonary medicine Reinforced CURRENT treatment education based on current and anticipated symptoms. Discussed port/line care and patient verbalizes understanding: Not Applicable Patient instructed to contact office or after hours Hematology/Oncology fellow for: temperature ? 100.4; questions or concerns. Patient verbalized understanding of when to seek medical attention and after hours number protocol. Miriam Gregory RN CYCLE 1/DAY 1 POST TREATMENT CALL Today's date: January 26, 2023 Treatment Regimen: Cisplatin/Etoposide C1D1 Date: 01/23/23 Patient is currently admitted at [facility] for exacerbation of COPD. Dr. Hooper aware. This nurse will follow-up with patient after discharge. Miriam Gregory RN documented in this encounter [facility] 01-26-2023 Miscellaneous Notes Daughter notified. Ilene Salas LPN Yes. She is admitted to [facility] currently though. But okay with me if she gets a flu shot while there. Nhan Hooper DO Patient asking if she can have flu shot. Please advise Hilda. documented in this encounter [facility] 01-26-2023 Miscellaneous Notes I spoke with the hospitalist. Patient was started on Neupogen daily while in the hospital. Nhan Hooper DO Done. Please cancel neulasta injection. Thank you. Miriam Gregory RN Received call from daughter stating patient will not be discharged today. Dr. Hooper informed that patient is currently admitted and might not make it today for her neulasta injection. Spoke to Edwige the nurse taking care of patient. Edwige stated patient is doing better and is on 1 L of oxygen. Edwige is unsure of when patient will be discharged at this time. Edwige stated Dr. Stanley will be rounding today. Edwige informed that Dr. Hooper would like to discuss Neupogen with the hospitalist. Edwige was given Dr. Hooper's number to give to Dr. Stanley to call when able. Miriam Gregory RN Noted. Ilene Salas LPN Edwige from [facility] called to inform that patient is inpatient at [facility]. She is unsure if patient will be discharged in time for Neulasta scheduled for today. documented in this encounter [facility] 01-25-2023 Note HNO ID: [id number] Author: Bebe Amaya RN Service: ? Author Type: Registered Nurse Type: Progress Notes Filed: 01/25/2023 2:12 PM Note Text: Assessment unchanged from 01/24/23 chemotherapy treatment [facility] 01-25-2023 History of Present illness Narrative Assessment unchanged from 01/24/23 chemotherapy treatment documented in this encounter [facility] 01-25-2023 Note [facility] [facility] Nurse Note Radiation Therapy - Nursing Note (OTV) PATIENT NAME: Yadira Man PATIENT January 25, 2023 [facility] FACILITY/LOCATION: [place] NURSING NOTE TYPE: CHEST Subjective Data c/o raspy voice, no pain, had decadron with chemo Additional Data Do you want to see a Mechanical Operator? No Status: Post-menopausal. Stress Scale: On a scale of 0 to 10, what number best describes how much distress you have experienced in the past week?(0 being no distress and 10 being extreme distress) 9 Social work notified: Pt denied need to see social director at this time. Nursing Assessment Fatigue: none Appetite: good Nutritional Intake: Regular oral intake. Weight Gain/Loss: No Ambulatory weight history: Last 6 Encounter Wt Readings: Date: Wt: 01/23/2023 78 kg (172 lb) 01/13/2023 77.1 kg (170 lb) 01/12/2023 77.1 kg (170 lb) 01/04/2023 77.1 kg (170 lb) 11/08/2022 77.1 kg (170 lb) 10/19/2022 76.2 kg (168 lb) Nausea:None Vomiting: None Bowel Function: normal bowel movements Erythema/Hyperpigmentation:none Desquamation:none Rash:none Skin Care: Aquaphor Skin Sensation: Within Normal Limits Focused Assessment CHEST: Dysphagia: No. Pain with swallowing: No. Shortness of breath: nothing new since starting treatment. Cough: yes but not new since starting treatment C/O dry mouth. SIGNED by: Rizwana Graves RN documented in this encounter [facility] 01-25-2023 History of Present illness Narrative Radiation Oncology - On Treatment Review (OTR) Note PATIENT NAME: Yadira Man PATIENT DIAGNOSIS: Limited stage small cell lung cancer. COURSE: definitive and concurrent chemotherapy AREA TREATED: Mediastinum CURRENT DOSE: 750 cGy in 5 fx PLANNED DOSE: 4500 cGy in 30 fx Status: Post-menopausal SUBJECTIVE: She is doing well without any specific new complaints related to radiation treatment. EXAM: KPS: 90 General Appearance: Alert and oriented. No acute distress. IMAGING/LAB RESULTS: CBC on 01/23/23 reviewed. Treatment chart checked: Yes Patient treatment site reviewed and verified:Yes CBCTs reviewed and current:Yes Medications started: Prilosec. ASSESSMENT/PLAN: Clinically stable. Toxicity within expected parameters. Continue radiation treatment as planned. Lia Freitas MD documented in this encounter [facility] 01-17-2023 Note [facility] 01-17-2023 Note [facility] 01-17-2023 History of Present illness Narrative YADIRA MAN [id number] 01/17/2023 [facility] Department of Radiation Oncology Treatment Planning Note For reasons stated in the consult note, Yadira Man is a candidate for radiation therapy. Based on review and interpretation of the relevant diagnostic studies together with the exam findings, Yadira Man was simulated on 01/17/2023 at which time the target volume and/or requisite howell were delineated, as indicated in the simulation note, to be treated according to the prescription. An ITV was created from all the phases of respiratory motion captured by the 4DCT image sets. Motion management allowed for design of patient specific planning target volume and reduced the radiation exposure to normal tissues. The treatment target and organs at risk were contoured on the simulation scan using the fused PET /CT. Special consideration to these and other structures was given in light of the potential for increased toxicities of combined chemoradiation. Pulmonary function testing was reviewed. After reviewing multiple treatment plans with dosimetry, the best plan was approved to deliver the prescribed course of radiation to the target area using inverse planning to allow for the best isodose distribution, treating to the 97.4% isodose line with 6 MV and 3 vmat howell. Custom MLC for IMRT were the treatment device(s) used to shape/modify the beams. Limiting dose to normal tissue was confirmed upon review of the calculated dose volume histogram. IMRT planning was used because it best met the dose/volume constraints for the organs at risk for this patient, better than what could be achieved using conventional or 3D planning. The specific dose requirements for the PTV, organs at risk and dose-volume histograms are contained in this treatment plan and/or elsewhere in the medical record. A completed summary of this plan dated 01/18/2023 incorporated herein by reference includes dose, beam arrangements, energy, blocking, isodose distribution, and/or ports and DVH. Electronically Signed Lia Freitas M.D. 0:14 AM documented in this encounter [facility] 01-16-2023 Nurse Note This visit was completed via telephone. Miriam Gregory RN ONCOLOGY PATIENT EDUCATION NOTE TOPIC: Chemotherapy, Medications: Cisplatin/etoposide READINESS TO LEARN: COGNITIVE ABILITY: Alert and oriented MOTIVATION TO LEARN: Interested FAMILY SUPPORT: Unable to assess - Family not present INSTRUCTION PROVIDED TO: Patient INSTRUCTION PROVIDED BY: Nurse Coordinator PATIENT LEARNS BEST BY: Multiple Methods FACTORS AFFECTING LEARNING: None PHYSICAL LIMITATIONS AFFECTING LEARNING: None LEARNING RESPONSE DIAGNOSIS: SCLC METHOD OF INSTRUCTION: Individual instruction Written instruction - handouts Verbal instruction PATIENT/FAMILY RESPONSE: Verbalizes understanding of: CHEMOTHERAPY-Regimen, toxicity and side effects FOLLOW UP PLAN: Patient instructed to call with any further issues Recommend - Recommend continued instruction and follow up as directed Follow up phone call. Contact information given. SUPPLEMENTAL MATERIAL: Written material was provided at this visit with the following information: - Chemotherapy education was provided by a pharmacist NO - Side effect management information was provided/discussed including but not limited to: anemia, appetite changes, arthralgia, bowel habit changes, diet, fatigue, infection, mouth hygiene, myalgia, nausea/vomitting, neuropathy, neutropenia, peripheral neuropathy, rash, skin changes, taste changes, thrombocytopenia YES - Provided important phone numbers and contacts during and after hours. YES - Provided information on symptoms that require immediate assistance. YES - Provided Chemotherapy when to call handouts YES - Preventing infection. YES - Treatment schedule and confirmation of appointment times. NA - Available support groups. YES - The importance of contraception during the course of chemotherapy YES - Neutropenic fever protocol discussed with patient, which included the importance of reporting any fever of 100.4F (38.0C) or greater to the healthcare team as noted on the provided wallet card and/or magnet. YES Time Spent: 50 minutes REFERRAL (RECOMMENDATION): Social Work Miriam Gregory RN [place] Pre Chemo Patient identified by name and date of . YES Confirmed date and time for chemotherapy ? NO TBD Other appointments (labs, imaging) discussed? YES Discussed where to park (retirement actuary), charge for parking YES Discussed where to report (building/floor) YES Any pre-medications ordered? NO Described the infusion room and what to expect. (What to wear, what to bring [iPad, books] amount of time treatment can take, meals and CC options for food) YES Note: Discussed whether the patient can eat prior to labs and treatment. YES-- but should discuss with XRT if they will allow her to eat/drink prior to XRT. Okay from a chemo standpoint. Who is driving you to and from treatment? Daughter? Discussed why it is important to bring someone with you. Yes, for the first day of treatment Resources discussed (music therapy, Art therapy, pet therapy, etc.) NO Education on chemotherapy (drug, side effects) discussed and that the patient will be receiving a C1D1 call within 7 days of treatment. YES Other topics discussed, interventions needed: Miriam Gregory RN documented in this encounter [facility] 01-16-2023 Miscellaneous Notes PSYCHOSOCIAL ASSESSMENT Date of Service: January 16, 2023 Yadira Man is a 72 year old female being seen for initial social work assessment. Diagnosis: Small cell lung cancer, left lower lobe; Metastasis to mediastinal lymph node New Primary Oncologist: Nhan Hooper DO Radiation Oncologist: Lia Freitas MD Goals of Care: Curative intent Today's visit includes: self/patient Family History of Cancer: Sister-Lung cancer. Pt reports the family on both sides. SUPPORT NETWORK: Marital status: Parent(s): Child/Children: Yes. How many? 2 daughters director career services arrangements needed: No Siblings: Yes Grandchild(dewey): 4 Home Health Provider: No Community Services: No Kate Identified: No Yarsanism/Spirituality: Unknown Are these practices or beliefs that may affect or influence treatment? No EMPLOYMENT/FINANCIAL/HEALTH INSURANCE: Employment: Retired Income source: Social Security Insurance: Medicare only Prescription coverage: Yes Is the patient appropriate for referral to [facility] COBRA Assistance program? No Financial Distress: No : No FOOD INSECURITY Within the past year, have you worried about how you would buy or obtain food? No LIVING ARRANGEMENTS: Type: House- independent ranch Resides with: Alone FUNCTIONAL STATUS: Cognitive limitations: none Physical limitations: none Language barrier: No Hearing Impaired: No Speech Impaired: No Visual Impairments: No Special considerations/accommodations needed: No HEALTH LITERACY: Do you have difficulty understanding medical instructions or other written materials you receive from you doctor or pharmacy? No Do have difficulty filling out medical forms by yourself? No The following interventions were put into place: NA MEDICATION ADHERENCE: Within the past 2 weeks, have you had difficulty remembering to take your medicine? No Within the past 2 weeks, did you ever miss taking your medications for reasons other than forgetting? No The following interventions were put into place: NA MENTAL HEALTH HISTORY: Yes Diagnosis: Severe episode of recurrent major depressive disorder, without psychotic features Treatment: medication - Cymbalta, Ativan; previous counseling history, no longer feels is needed History of combat/trauma: No Substance Use and Treatment History: Regular tobacco use History of Abuse: Unknown Issues with: Sleep:No Eating:No Exercising: No Stress Management: No ADVANCE DIRECTIVES/LEGAL DOCUMENTS: Living Will: Not addressed during this encounter Scanned into EPIC: Not addressed during this encounter Health Care Durable Power of Public Health Physician: Not addressed during this encounter Scanned into EPIC: Not addressed during this encounter Guardianship: No Scanned into EPIC:NA Reasons Advanced Directives were not Addressed: SW did not address due to patient being overwhelmed COPING STATUS: Coping Strengths: supportive relationships with immediate family successful managing past crises ability to plan able to follow direction consistently over time future oriented and able to identify goals Current affect/mood: anxious History of Loss: Yes Adjustment to diagnosis: reflecting understanding, responding appropriately, and accepting help BARRIERS/CARE CHALLENGES: None Are barriers/care challenges identified likely to have an impact on the patient's quality of life during treatment? No INTERVENTIONS/REFERRALS TO BE PROVIDED: Monitor patient response to treatment Communicate pertinent medical/psychosocial information to Cancer Center team Provide emotional support to patient/family Financial Navigators Continue follow up as needed Resources and Referrals: Internal: [facility] External: [facility] CLINICAL IMPRESSION: Yadira is a 72 year old female beginning treatment for lung cancer. She has no previous personal encounter with oncology although reports she has seen several people and family members go through it. She reports she is feeling pretty scared although is encouraged that Dr. Hooper has a positive outlook on her diagnosis. Yadira lives alone, has two adult daughters and 4 grandchildren who live close. She reports they are her main support system. Pt has a history of major depression although reports it is well managed by Cymbalta which is prescribed and monitored by her PCP. She [facility] although feels well enough on Cymbalta that she no longer feels this is needed. SW oriented pt to SW role and explained all available resources/referrals. Pt reports she would like some assistance with co-pays as she lives on a fixed income and has had to pay $45 per visit lately and reports this is unaffordable. SW discussed grants, foundations, patient assistance applications. Pt reports she would be appreciative of any help. Yadira declined any further needs at this time and agreed to reach out to SW if needs arise. Psychosocial Risk Criteria If positive for one or more of the following risk criteria, follow up every 30 days Age: NA Mental Health: History of Severe Mental Illness Practical Needs: N/A PLAN: SW to follow pt at upcoming appointments and remain in contact with pt throughout treatment to address any psychosocial concerns if needed. Follow up appointment with SW in: PAULINE Jacobson documented in this encounter [facility] 01-13-2023 Note [facility] 01-13-2023 Note [facility] 01-13-2023 History of Present illness Narrative Radiology Service Progress Note DATE OF SERVICE: January 13, 2023 TIME: 4:23 PM PATIENT IDENTITY VERIFICATION COMPLETED USING TWO (2) STANDARD IDENTIFIERS: Name and Date of confirmed by patient verbally. FALL SCREENING: Has the patient had 2 falls in the last year or 1 fall with injury or currently using an Ambulatory Assistive Device (Walker, Cane, Wheelchair, Crutches, etc.)? No PATIENT GENDER DATA: Female. status: : No status: NO. PATIENT RELEVANT IMPLANT DATA REVIEWED: Yes ALLERGIES: Reviewed and unchanged CONTRAST ALLERGY: NO. EXAM: MRI - CONTRAST TYPE: GROUP II PERIPHERAL IV DATA: Ambulatory: A peripheral IV was started in the Left hand with a Angio cath: 22 gauge. RADIOLOGY DEPARTMENT: MR; Exam(s) Completed: Head: Routine Brain SIGNATURE: RT Ezra(R) PATIENT NAME: Yadira Man DATE: January 13, 2023 TIME: 4:23 PM documented in this encounter [facility] 01-13-2023 Nurse Note Radiation Therapy - Nursing Note (Consult) PATIENT NAME: Yadira Man PATIENT January 13, 2023 [facility] FACILITY/LOCATION: [place] Chief Complaint: lung cancer Reason for visit: Consult. Referring physician: Internal provider Dr Hooper Subjective Data: notes cough for months, CANTRELL at times but not always Additional Data Do you want to see a Mechanical Operator? No Are you interested in information about fertility? No Status: Post-menopausal Stress Scale: On a scale of 0 to 10, what number best describes how much distress you have experienced in the past week?(0 being no distress and 10 being extreme distress) 10 Social work notified: encouraged to talk to teresa SIGNED by: Rizwana Graves RN documented in this encounter [facility] 01-13-2023 History of Present illness Narrative Radiation Oncology - New Patient/Consult Note PATIENT NAME: Yadira Man PATIENT REQUESTING PROVIDER: Dr. Nhan Hooper DIAGNOSIS: Limited stage small cell lung cancer. HPI: 72 year old female who presents with above diagnosis, for an opinion regarding the role of radiation therapy in the management of the patient's disease. Final recommendations will be communicated back to the requesting physician by way of the shared medical record, or letter to requesting physician via US mail. 72 year old woman with 25 pack-year history of smoking and a current smoker, 1/2 ppd. She had a screening CT chest on 11/22/22. It showed a solid nodule in the left lower lobe measuring 11.4 mm x 5.4 mm. There was another left lung nodules measuring 6.7 x 2.2 mm,1.7 x 1.3 mm and right upper lung nodule measuring 2.5 x 1.7 mm. PET/CT scan on 12/06/22 showed an AP window node measuring 9.1 mm with SUV 3.6. Bronchoscopy on 01/04/23 showed no endobronchial lesions. EBUS and TBNA of the 4L node showed small cell carcinoma. PFT on 08/02/22 showed FEV1 1.96 L, 77% predicted. CT chest on 01/12/23 showed that the left paratracheal node increased in size slightly from 13-14 mm to 16 mm. No additional mediastinal lymphadenopathy. No hilar lymphadenopathy. The previously seen bilateral lung nodules didn't change in size. The largest nodule measuring 8 mm had somewhat tubular shape with presumed endobronchial component and probable distal mucous plugging. MRI brain today was negative for brain metastasis. ALLERGIES Allergen Reactions Abilify [Aripiprazo* Intolerance Risperidone Intolerance Developed tardive dyskinesia Current Outpatient Medications on File Prior to Visit Medication Sig iv contrast (will be provided with radiology test) MRI Brain Inject, intravenously, once for 1 dose.No IV access, insert saline lock prior to beginning of sedation, infusion, injection of imaging exam.Discontinue saline lock post exam. If Pt. has a central line or IVAD, may access for administration according to line specific nursing protocol.Once exam is complete flush line and de-access according to line specific nursing protocol in the MR contrast administration guidelines link iv contrast (will be provided with radiology test) CT Chest W -Inject, intravenously, once for 1 dose.No IV access, insert saline lock prior to the beginning of sedation, infusion, injection of imaging exam. Discontinue saline lock post exam. If Pt. has a central line or IVAD, may access for administration according to line specific nursing protocol. Once exam is complete flush line and de-access according to line specific nursing protocol in the CT contrast administration guidelines link. OLANZapine (ZYPREXA) 10 mg tablet Take 1 tablet by mouth daily at bedtime. for 4 nights beginning the night of chemotherapy treatment. dexAMETHasone (DECADRON) 4 mg tablet Take 1 tablet by mouth two times a day with meals. for 3 days beginning the day after receiving cisplatin each cycle of chemotherapy. prochlorperazine (COMPAZINE) 10 mg tablet Take 1 tablet by mouth every 6 hours as needed. LORazepam (ATIVAN) 1 mg tablet Take 1 tablet by mouth two times a day as needed for up to 30 days. lisinopril-hydroCHLOROthiazide (ZESTORETIC) 20-12.5 mg per tablet Take 2 tablets by mouth once daily. albuterol HFA (PROAIR HFA) 90 mcg/actuation inhaler Inhale 2 Puffs as instructed every 4 hours as needed. DULoxetine (CYMBALTA) 60 mg capsule Take 1 capsule by mouth twice daily. ergocalciferol 50,000 unit capsule (VITAMIN D2, DRISDOL) Take 1 capsule by mouth two times a week. TO BE TAKEN ORALLY DIRECTED. Take 1 tablet by mouth twice weekly [id number], then decrease to 1 tablet weekly. dextromethorphan-guaiFENesin (MUCINEX DM) 30-600 mg per tablet Take 1 tablet by mouth twice daily. (Patient not taking: Reported on 01/12/2023) No current facility-administered medications on file prior to visit. PAST MEDICAL HISTORY Diagnosis Date Chronic hepatitis C virus infection (HCC) 10/14/2014 Successful eradication with Harvoni treatment 2014. 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 Nonspecific elevation of levels of transaminase or lactic acid dehydrogenase (LDH) Elevated LFT's, Hepatitis C infection Small cell lung cancer, left lower lobe (HCC) 01/12/2023 Unspecified vitamin D deficiency Prior radiation therapy, collagen vascular disease, or inflammatory bowel disease: No Any implanted or external electric devices? No status: Post-menopausal. PAST SURGICAL HISTORY Procedure Laterality Date CATARACT EXTRACTION HX COLONOSCOPY FLX DX W/COLLJ SPEC WHEN PFRMD 12/11/13 Colonoscopy ESOPHAGOGASTRODUODENOSCOPY TRANSORAL DIAGNOSTIC 12/11/13 EGD VAGINAL HYSTERECTOMY UTERUS 250 GM/< 1973 Hysterectomy, vaginal, Endometrial CA FAMILY HISTORY Problem Relation Age of Onset Hypertension Mother Heart Mother Ischemic Heart Disease Father Fatal [place] age 58 Cancer Sister other (C. Diff) Sister Psychiatry Sister Schizoprhenia Cancer Sister Lung Psychiatry Brother Depression Asthma No Family History Social History Tobacco Use Smoking status: Every Day Packs/day: 0.50 Years: 50.00 Additional pack years: 0.00 Total pack years: 25.00 Types: Cigarettes Smokeless tobacco: Never Tobacco comments: Declined information. Started age 17 Vaping Use Vaping Use: Never used Substance Use Topics Alcohol use: No Comment: rare Drug use: No COMPLETE REVIEW OF SYSTEMS: GENERAL: feeling well without fatigue, no recent change in weight HEENT: denies SINCLAIR, change in hearing or vision, no other ENT complaints NECK: denies swelling or pain in neck RESPIRATORY: chronic cough and shortness of breath with exertion. CARDIOVASCULAR: no chest pain, no palpitations GI: normal appetite, tolerating PO well, BMs normal, and no abdominal pain : urination is normal MUSCULOSKELETAL: denies any painful or swollen joints, no muscle aches SKIN: no rash HEMATOLOGY/LYMPHOLOGY: negative for prolonged bleeding, no swollen lymph nodes NEURO: no numbness or paresthesias and no weakness of the extremities PHYSICAL EXAM: VS: BP 130/78 Pulse 89 Temp 36.3 C (97.3 F) (Temporal) Wt 77.1 kg (170 lb) SpO2 96% BMI 30.69 kg/m KPS: 90 General Appearance: Alert and oriented. No acute distress. HEENT: NCAT. Sclera anicteric. EOMI. Neck: Normal ROM. Chest: No respiratory distress. Musculoskeletal: Normal ROM in extremities. Neuro: Speech fluent. Gait normal. No focal deficits. Hematologic: No signs of active bleeding. RADIOLOGY/LABORATORY DATA: see HPI ASSESSMENT AND PLAN: 72 year old woman with limited stage small cell lung cancer. I recommend concurrent chemoradiation treatment. I explained the rationale, benefits, alternative management options and potential complications of radiation treatment to the patient and she understands and agrees to proceed. It was explained and understood that other personnel such as radiation therapists, safety deposit clerk, and physicists will participate in planning and delivery of radiation treatment. Permanent tattoo acosta will be placed to aid with positioning for daily treatment and the patient consented. Patient will have a simulation procedure within a week. Thank you very much for allowing us to participate in her care. Signed by: Lia Freitas MD cc: Vamshi Davis [address] [place] [address] Nhan Hooper [address] [facility] [id number] documented in this encounter [facility] 01-12-2023 Note [facility] 01-12-2023 Miscellaneous Notes Spoke with patient and scheduled. Angela Bone Her sodium and potassium were little low on today's lab work. Not sure if this is erroneous or not so please check BMP when she is here on Monday to see Dr. Freitas. Nhan Hooper DO Check out comments: Labs today. - COMPLETED STAT MRI brain at [facility] (patient preference)- AUTHORIZED AND AWAITING SCHEDULING CT chest [facility]. - SCHEDULED Chemo education. - SCHEDULED Referral to Dr. Freitas for SCLC. - SCHEDULED Referral to Dr. Araujo for baseline hearing test. - SCHEDULED FOR 01/23/23 AT 8:15 am - FIRST AVAILABLE Consented for treatment to begin after patient sees Dr. Freitas. Treatment will begin when radiation begins. Chemo needs scheduled concurrently with Radiation and AFTER 10/23/22 appointment with [facility]. Angela Bone documented in this encounter [facility] 01-12-2023 History of Present illness Narrative Radiology Service Progress Note DATE OF SERVICE: January 12, 2023 TIME: 4:15 PM PATIENT IDENTITY VERIFICATION COMPLETED USING TWO (2) STANDARD IDENTIFIERS: Name and Date of confirmed by patient verbally. FALL SCREENING: Has the patient had 2 falls in the last year or 1 fall with injury or currently using an Ambulatory Assistive Device (Walker, Cane, Wheelchair, Crutches, etc.)? No PATIENT GENDER DATA: Female. status: : No status: NO. PATIENT RELEVANT IMPLANT DATA REVIEWED: Yes ALLERGIES: Reviewed and unchanged CONTRAST ALLERGY: NO. EXAM: CT -CONTRAST INDUCED NEPHROPATHY RISK FACTORS: Patient age > 60 years CREATININE: Creatinine Date Value Ref Range Status 01/12/2023 0.76 0.58 - 0.96 mg/dL Final 11/02/2022 0.86 0.58 - 0.96 mg/dL Final 04/08/2022 0.90 0.58 - 0.96 mg/dL Final Estimated Glomerular Filtration Rate Date Value Ref Range Status 01/12/2023 84 >=60 mL/min/1.73m Final Comment: Estimated Glomerular Filtration Rate (eGFR) is calculated using the 2020 CKD-EPI creatinine equation. This equation utilizes serum creatinine, sex, and age as parameters. The creatinine assay has traceable calibration to isotope dilution-mass spectrometry. Refer to KDIGO guidelines for clinical interpretation. In patients with unstable renal function, e.g. those with acute kidney injury, the eGFR may not accurately reflect actual GFR. eGFR- Date Value Ref Range Status 04/05/2021 >60 Final P.O.C.T. RESULTS: POC done: Yes, See Lab Tab January 12, 2023 TREATMENT: N/A PERIPHERAL IV DATA: Ambulatory: A peripheral IV was started in the Left hand with a Angio cath: 22 gauge. RADIOLOGY DEPARTMENT: CT; Exam(s) Completed: Chest SIGNATURE: RT Tawanna(R) PATIENT NAME: Yadira Man DATE: January 12, 2023 TIME: 4:15 PM documented in this encounter [facility] 01-12-2023 Note [facility] 01-06-2023 Miscellaneous Notes Patient notified. Let her know ok to increase to a whole pill twice daily from the prior dose of half a pill, new rx sent. Pt calling stating she needs a refill of her Ativan. She is asking if dosage could be increased.Pt states she was just diagnosed with lymphoma and is having trouble sleeping and current dosage is not working. Please send to [facility]. Please call to update pt. Rupal Davis LPN documented in this encounter [facility] 01-04-2023 Note HNO ID: [id number] Author: Christiano Saldivar, RN Service: Nursing Author Type: Registered Nurse Type: Nursing Progress Note Filed: 01/04/2023 2:33 PM Note Text: Positive gag reflex noted; [facility] 01-04-2023 Note HNO ID: [id number] Author: Christiano Saldivar RN Service: Nursing Author Type: Registered Nurse Type: Nursing Progress Note Filed: 01/04/2023 2:03 PM Note Text: Gag reflex evaluated with 2 RNs; gag reflex not returned; [facility] 01-04-2023 Note HNO ID: [id number] Author: Rod Saba APRN.CRNA Service: Anesthesiology Author Type: Nurse Asphalt Smoother Type: Anesthesia Procedure Notes Filed: 01/04/2023 12:19 PM Note Text: ANESTHESIOLOGY PROCEDURE NOTE Airway General Information Procedure Start Time/Medication Administration: 01/04/2023 12:12 PM Staffing [employer]PERVISOR [employer]: Rod Saba APRN.SUPERVISOR [employer] Performed by: SUPERVISOR [employer] Indications and Patient Condition Indications for airway management: anesthesia Preoxygenated: yes anesthesia circuit Patient position: sniffing Method: asleep Difficult Mask: No Final Airway Details Final airway type: supraglottic airway Number of attempts at approach: 1 Final Supraglottic Airway: i-gel Size 4 Seal Adequate: yes Failed airway: no Airway not difficult SIGNATURE: Rod Saba APRN.SUPERVISOR [employer] PATIENT NAME: Yadira Man DATE: January 04, 2023 TIME: 12:19 PM CSN: [id number] [facility] 01-04-2023 Note [facility] 01-04-2023 History of Present illness Narrative Summary: Pre Op H&P Images from the original note were not included. [facility] Pre-EBUS H&P Note SERVICE DATE: 01/04/2023 PRIMARY CARE PHYSICIAN: Vamshi Davis MD Consultation requested by for an opinion regarding Yadira Man. My final recommendations will be communicated back to the requesting physician by way of shared Medical record or letter to requesting physician via US mail. SUBJECTIVE CHIEF COMPLAINT: LLL lung nodule HPI: Yadira Man is a 72 year old female here for assessment and management of lung nodule. She has a PMH of Depression, Hep C s/p treatment, 50 pack yr hx of smoking, mild emphysema and a newly found LLL nodule with a 4L PET avid LN. On today's visit she states that she continues to smoke and has a mild cough that she notices worse in the morning but does not use anything for it. She does have an albuterol inhaler that she barely uses. Denies any wheezing, weight loss, fever, chills, lightheadedness, dizziness, chest pain, chest tightness or shortness of breath. She is able to walk for long distances and climb a flight of stairs with ease with no issues. Denies any history of cardiac disease. She follows with Nasreen Reynolds and Sana Lang at [place]. PMH: PAST MEDICAL HISTORY Diagnosis Date Chronic hepatitis C virus infection (HCC) 10/14/2014 Successful eradication with Harvoni treatment 2014. Negative hep c virus RNA in May 2015 Depression History of cervical dysplasia 12/02/2011 Had total Hysterectomy at age 23 Lung nodule Major depressive disorder 12/05/2016 [facility] Nonspecific elevation of levels of transaminase or lactic acid dehydrogenase (LDH) Elevated LFT's, Hepatitis C infection Unspecified vitamin D deficiency PSH: PAST SURGICAL HISTORY Procedure Laterality Date CATARACT EXTRACTION HX COLONOSCOPY FLX DX W/COLLJ SPEC WHEN PFRMD 12/11/13 Colonoscopy ESOPHAGOGASTRODUODENOSCOPY TRANSORAL DIAGNOSTIC 12/11/13 EGD VAGINAL HYSTERECTOMY UTERUS 250 GM/< 1973 Hysterectomy, vaginal, Endometrial CA Family Hx: Family History Problem Relation Age of Onset Hypertension Mother Heart Mother Ischemic Heart Disease Father Fatal HI age 58 Cancer Sister other (C. Diff) Sister Psychiatry Sister Schizoprhenia Cancer Sister Lung Psychiatry Brother Depression Asthma No Family History SOCIAL HISTORY: Social History Tobacco Use Smoking status: Every Day Packs/day: 1.00 Years: 50.00 Additional pack years: 0.00 Total pack years: 50.00 Types: Cigarettes Smokeless tobacco: Never Tobacco comments: Declined information. Started age 17 Vaping Use Vaping Use: Never used Substance Use Topics Alcohol use: No Drug use: No MEDICATIONS: Current Outpatient Medications Medication Sig Dispense Refill LORazepam (ATIVAN) 1 mg tablet Take 0.5 tablets by mouth two times a day as needed for up to 30 days. 30 tablet 0 lisinopril-hydroCHLOROthiazide (ZESTORETIC) 20-12.5 mg per tablet Take 2 tablets by mouth once daily. 180 tablet 3 albuterol HFA (PROAIR HFA) 90 mcg/actuation inhaler Inhale 2 Puffs as instructed every 4 hours as needed. 18 g 0 DULoxetine (CYMBALTA) 60 mg capsule Take 1 capsule by mouth twice daily. 180 capsule 3 ergocalciferol 50,000 unit capsule (VITAMIN D2, DRISDOL) Take 1 capsule by mouth two times a week. TO BE TAKEN ORALLY DIRECTED. Take 1 tablet by mouth twice weekly [id number], then decrease to 1 tablet weekly. 8 capsule 5 dextromethorphan-guaiFENesin (MUCINEX DM) 30-600 mg per tablet Take 1 tablet by mouth twice daily. (Patient not taking: Reported on 11/08/2022) 30 tablet 0 No current facility-administered medications for this visit. ALLERGIES Allergen Reactions Abilify [Aripiprazo* Intolerance Risperidone Intolerance Developed tardive dyskinesia (Not in a hospital admission) CURRENT ALLERGIES: ALLERGIES Allergen Reactions Abilify [Aripiprazo* Intolerance Risperidone Intolerance Developed tardive dyskinesia COMPLETE REVIEW OF SYSTEMS: REVIEW OF SYSTEMS 12 Point ROS done and negative except HPI. OBJECTIVE PHYSICAL EXAMINATION: VITAL SIGNS: BP 125/76 Pulse 64 Temp (Src) 98 (Temporal) Resp 17 Ht 5' 1 (1.55m) Wt 170 lb (77.1kg) SpO2 99% BMI 32.14 kg/(m^2). General appearance- NAD, no conversational dyspnea. Ambulates without assistance Eyes: PERRLA; anicteric sclera, No conjunctival injection; No heliotrope rash. ENMT: Gross hearing intact. No oral ulcers. No oral thrush. Mallampati class 3 Neck: No palpable LEANDRA; No obvious goiter; No JVD Cardiovascular: RRR w/o murmurs Respiratory: Good bilateral air entry with no added sounds. No crackles, wheezes, or rhonchi. No accessory muscle use. Good effort. No kyphosis. Gastrointestinal: soft, NT/ND, BS+ Skin: No visible rashes, lesions, or subcutaneous nodules; No Gottron's papules; normal temperature Psychiatric: Alert and oriented x person, place and time; cooperative, appropriate affect Neurological: Gross sensation intact. EOMI, moving all extremities Musculoskeletal: No clubbing or cyanosis; No joint effusions, swelling or erythema; strength 5/5 throughout; normal tone Extremities: Peripheral pulses present; No edema DATA: Diagnostic tests reviewed for today's visit, films/specimens were personally reviewed by me: Labs: @CBC with diff:@ WBC 8.13 11/02/2022 RBC 4.16 11/02/2022 Hemoglobin 12.6 11/02/2022 Hematocrit 38.8 11/02/2022 MCV 93.3 11/02/2022 MCH 30.3 11/02/2022 MCHC 32.5 11/02/2022 RDW-CV 13.9 11/02/2022 Platelet Count 274 11/02/2022 MPV 12.1 11/02/2022 Neut% 62.1 04/08/2022 Lymph% 29.1 04/08/2022 [place]% 7.3 04/08/2022 Eosin% 0.9 04/05/2021 Baso% 0.4 04/08/2022 Abs Neut (ANC) 6.70 04/08/2022 Abs [place] 0.79 04/08/2022 Abs Eosin 0.08 04/08/2022 Abs Baso 0.04 04/08/2022 Diagnostic Work Up: CT chest: 11/22/2022 LDCT RESULT: Are nodules present? Yes, 1-5 nodules If No, go to IMPRESSION. If yes, proceed with characterization of the FIVE largest nodules. Nodule 1: This Solid nodule is located in the left lower lobe on slice number 157 with an average diameter of 8.4 mm (11.4 mm x 5.4 mm). Nodule 2: This Perifissural nodule is located in the left major fissure on slice number 151 with an average diameter of 4.5 mm (6.7 mm x 2.2 mm). Nodule 3: This Solid nodule is located in the Right Upper Lobe on slice number 35 with an average diameter of 2.1 mm (2.5 mm x 1.7 mm). Nodule 4: This Solid nodule is located in the Left Upper Lobe on slice number 49 with an average diameter of 1.5 mm (1.7 mm x 1.3 mm). Other lung nodule comments: None Other findings: The central airways are patent without evidence of endobronchial lesion. Biapical scarring is likely postinflammatory. No acute focal lung consolidation is seen. There is no pleural effusion or pneumothorax. A left paratracheal lymph node (image 98) measures 12 mm in short axis. No enlarged supraclavicular, axillary or hilar lymph nodes are seen. The aorta and main pulmonary artery are normal in course and caliber. Mild atherosclerotic calcifications are seen in the aorta. The heart size is normal. There is no pericardial effusion. The thyroid gland is unremarkable. The esophagus is nondilated. Punctate calcification is seen in the left breast (image 101). The visible portion of the upper abdomen is unremarkable. No destructive bone lesion is seen. Minimal endplate degenerative changes are seen in the thoracic spine. Emphysema: Trivial (<5%), Paraseptal, Upper lobe Coronary Artery Calcifications: Circumflex None; Left Anterior Descending Minimum; Right Coronary None PET/CT done December 09, 2022 showed a left paratracheal PET avid lymph node and no significant uptake otherwise. I personally reviewed it. Chest xray: Heart echo: None recent. PFT: Done November 2022 showed normal spirometry with normal exhaled nitric oxide. Biopsy results: ASSESSMENT No problem-specific Assessment & Plan notes found for this encounter. 1. Lung nodule - ICD9: 793.11, ICD10: R91.1 (primary diagnosis) 2. Pre-op exam - ICD9: V72.84, ICD10: Z01.818 Patient is not on any anticoagulation, antiplatelet therapy and has a METS of 4 at least. We will obtain EKG preoperatively and proceed with planned EBUS. Left lower lobe lung nodule with a PET avid 4L lymph node for EBUS, diagnostic and staging. I personally reviewed the procedure with the patient, obtained her consent and reviewed all the relevant information including risk factors, benefits, anticipated wait times and all the details about the procedure. Discussed the differential diagnosis of her nodule and lymph node. She is to follow-up with her primary industrial cleaner at [facility] for her remaining pulmonary. PLAN: Orders Placed This Encounter ECG (FUTURE) Standing Status: Future Standing Expiration Date: 01/05/2024 Return in about 4 weeks (around 02/01/2023). Copy to Referring physician Thank you for allowing me to participate in this patient's care. I spent a total of 35 minutes on the date of the service which included preparing to see the patient, [id number] patient care, completing clinical documentation, obtaining and/or reviewing separately obtained history, performing a medically appropriate examination, counseling and educating the patient/family/caregiver, ordering medications, tests, or procedures, and independently interpreting results (not separately reported). SIGNATURE: Zach Briggs MD PATIENT NAME: Yadira Man DATE: January 04, 2023 TIME: 9:00 AM PAGER/CONTACT #: [phone] documented in this encounter [facility] 01-04-2023 Note HNO ID: [id number] Author: Christiano Saldivar RN Service: Nursing Author Type: Registered Nurse Type: Nursing Progress Note Filed: 01/04/2023 3:38 PM Note Text: Dr Weaver at bedside to evaluate pt; [facility] 12-26-2022 Miscellaneous Notes Called pt and reviewed all pre procedure dates times and locations. Pt is aware to be there 2 hours early. Pt aware nothing to eat or drink after midnight Pt aware must have a driver examiner Pt aware no blood thinning medications Pt notes understanding all instructions and will call if they have any questions before the procedure. Pt passed COVID screening questions, denies fevers,cough,diarrhea. Denies exposure to someone who tested positive for COVID and pt has not travelled internationally in the past month. Opal Pollack RN Opal, please call the patient with prep, date and time of EBUS. EBUS is scheduled on 01/04/23 @ 12:30pm. Patient has a office visit same day a@ 9:15am. Patient wanted all done in same day because of long drive. Preethi Lu documented in this encounter [facility] 12-20-2022 Miscellaneous Notes [facility] Bronchoscopy Request: Please schedule patient for the following: Bronchoscopy: EBUS staging Clinical Discussion: left lower lobe 8 mm nodule with enlarged adenopathies , PET showed activity in the [address], lung nodule without PET activity Pulmonary Visit: schedule with [facility] prior to OR Time Allotment:90 first available Monday OR Physician Performing Bronchoscopy: Dedicated OR Staff Anesthesia Type: General Equipment Requests: EBUS bronchoscopy Needs Labs: No Needs EKG: Yes Needs CT prior: No Does the pt need cardiac clearance? No Is he/she on anticoagulants/anti-plt therapy? No Referred by: Nasreen Mayer MD December 20, 2022 10:24 AM Addendum: CBC with diff: WBC 8.13 11/02/2022 RBC 4.16 11/02/2022 Hemoglobin 12.6 11/02/2022 Hematocrit 38.8 11/02/2022 MCV 93.3 11/02/2022 MCH 30.3 11/02/2022 MCHC 32.5 11/02/2022 RDW-CV 13.9 11/02/2022 Platelet Count 274 11/02/2022 MPV 12.1 11/02/2022 Neut% 62.1 04/08/2022 Lymph% 29.1 04/08/2022 [place]% 7.3 04/08/2022 Eosin% 0.9 04/05/2021 Baso% 0.4 04/08/2022 Abs Neut (ANC) 6.70 04/08/2022 Abs [place] 0.79 04/08/2022 Abs Eosin 0.08 04/08/2022 Abs Baso 0.04 04/08/2022 Potassium Date Value Ref Range Status 11/02/2022 5.0 3.7 - 5.1 mmol/L Final 04/08/2022 4.3 3.7 - 5.1 mmol/L Final 04/05/2021 4.8 3.7 - 5.1 mmol/L Final Sodium Date Value Ref Range Status 11/02/2022 134 (L) 136 - 144 mmol/L Final 04/08/2022 134 (L) 136 - 144 mmol/L Final 04/05/2021 137 136 - 144 mmol/L Final BUN Date Value Ref Range Status 11/02/2022 31 (H) 7 - 21 mg/dL Final Creatinine Date Value Ref Range Status 11/02/2022 0.86 0.58 - 0.96 mg/dL Final documented in this encounter [facility] 12-15-2022 Miscellaneous Notes Phone call to patient to discuss PET results. No avidity in lung nodule or lymph nodes. Will present to tumor board for review and will notify pt of recommendations. Pt is agreeable. Patient requesting a call to discuss her scan results from 12/06/2022. Her phone # [phone] Gardenia Leslie MA documented in this encounter [facility] 12-09-2022 Miscellaneous Notes Pt called to let you know her pharmacy is out of medication below. She needs prescription to be sent to [facility]. Yi Menjivar LPN documented in this encounter [facility] 12-08-2022 Miscellaneous Notes PDMP website checked and validated. All prescriptions have been APPROPRIATELY filled. No suspicious activity was identified. 12/08/2022 by Darya Germain APRN.IKER Patient has been identified by name and date of : No Patient phones for refill(s): Requested Prescriptions Pending Prescriptions Disp Refills LORazepam (ATIVAN) 1 mg tablet 30 tablet 0 Sig: Take 0.5 tablets by mouth two times a day as needed for up to 30 days. Date of last office visit in primary care:10/19/2022 Date of next office visit in primary care: Visit date not found Last 2 Encounter Wt Readings: Date: Wt: 11/08/2022 77.1 kg (170 lb) 10/19/2022 76.2 kg (168 lb) Previous labs/tests for medication: Not applicable Please advise. Thank you. Winnie Reynolds. Patient has been identified by name and date of : Yes Last office visit in this department: 11/25/2016 RX INSTRUCTIONS: Patient aware RX will be sent to pharmacy. No need to notify patient. Patient phones requesting refills as follows: Requested Prescriptions Pending Prescriptions Disp Refills LORazepam (ATIVAN) 1 mg tablet 30 tablet 0 Sig: Take 0.5 tablets by mouth two times a day as needed for up to 30 days. Please review and advise. Zenaida Cerna documented in this encounter [facility] 11-30-2022 Note HNO ID: [id number] Author: Nasreen Reynolds APRN.AMERICAN HISTORY TEACHER Service: ? Author Type: Nurse Practitioner Type: Progress Notes Filed: 11/30/2022 3:20 PM Note Text: Pt requests PET scan at [facility]. [facility] 11-30-2022 Note [facility] 11-22-2022 Note [facility] 11-22-2022 History of Present illness Narrative 2 Radiology Service Progress Note PATIENT NAME: Yadira Man DATE OF SERVICE: November 22, 2022 TIME: 9:34 AM PATIENT IDENTITY VERIFICATION COMPLETED USING TWO (2) IDENTIFIERS: Name and Date of confirmed by patient verbally. FALL SCREENING: Has the patient had 2 falls in the last year or 1 fall with injury or currently using an Ambulatory Assistive Device (Walker, Cane, Wheelchair, Crutches, etc.)? No PATIENT GENDER DATA: Female. status: : No status: NO. PATIENT RELEVANT IMPLANT DATA REVIEWED: Yes RADIOLOGY DEPARTMENT: CT; Exam(s) Completed: Chest PERIPHERAL IV DATA: Not applicable SIGNED BY: RT Tawanna(R) November 22, 2022 9:34 AM documented in this encounter [facility] 11-18-2022 Miscellaneous Notes Patient notified. ----- Message from Darya Germain APRN.AMERICAN HISTORY TEACHER sent at 11/17/2022 7:24 AM EDT ----- Please let patient know that HgbA1c is in the acceptable ranges. Take care Darya Germain APRN.AMERICAN HISTORY TEACHER documented in this encounter [facility] 11-11-2022 Miscellaneous Notes PATIENT NOTIFIED OF SAME. Please let patient know script updated and sent in for her. Yadira Man is calling Vamshi Davis MD today to request Medication Problem (LORazepam (ATIVAN) 0.5 mg- pharmacy will not have this med until January can the patient get a script for the 1 mg of this medication instead as this is what the pharmacy has? )please advise Patient has been identified by name and birthdate. Duration of symptoms: N/A Person calling: self Call patient at: at home [phone] (home) [phone] (cell) Was an appointment scheduled: No Closing statement: Results or non-symptom based questions: Thank you for calling [facility], your call will be returned within the next business day. Winter Augustine Pss documented in this encounter [facility] 11-10-2022 Miscellaneous Notes Reviewed recent progress note from appointment with Darya Germain. Had discussed trying to use med as needed instead of routinely; noted has been on for 11 years so may take time to work on this. Okayed RX . She has follow up in March. The following approved medication requests have been transmitted electronically. Requested Prescriptions Signed Prescriptions Disp Refills LORazepam (ATIVAN) 0.5 mg 60 tablet 0 Sig: Take 1 tablet by mouth twice daily as needed for up to 30 days. Do not start before November 11, 2022. Authorizing Provider: TANVIR ZARATE MD Pharmacy verified in [facility] Patient has been identified by name and date of : Yes Patient aware RX will be sent to pharmacy. No need to notify patient. Patient phones for refill(s): Requested Prescriptions Pending Prescriptions Disp Refills LORazepam (ATIVAN) 0.5 mg 60 tablet 0 Sig: Take 1 tablet by mouth twice daily as needed for up to 30 days. Date of last office visit : 10/19/2022 Date of next office visit : 04/21/2023 Last 2 Encounter Wt Readings: Date: Wt: 11/08/2022 77.1 kg (170 lb) 10/19/2022 76.2 kg (168 lb) Not applicable Please advise. Gardenia Veliz documented in this encounter [facility] 11-08-2022 Note [facility] 11-08-2022 Instructions Nasreen Reynolds APRN.IKER - 11/08/2022 8:33 AM EDT Triggers In order to unpair certain habits of smoking with specific activities and to help wean down smoking over time in order to minimize withdrawal effects of reduction in nicotine intake, try the following: Smoke one cigarette every hour on the hour during waking hours and do not pair the cigarette with a normal activity such as coffee or driving as you normally would. Do this for a week and then cut back to smoking one cigarette every other hour for the second week Then cut back to smoking a cigarette every third hour on the third week Quit on week 4. Alternatively, you can make a list of triggers such as coffee, after eating, while driving, etc. and work on one habit at a time for a week period before working on the next one and continuing on. Inconvenience You can try to implement new routines that you associate with smoking that make smoking more inconvenient or less desirable/pleasurable to do. Try to choose one new routine and work on that for 4-6 weeks until it becomes second nature. Then implement an additional barrier. This should help you to decrease how much you smoke over time. Some ideas include: Smoking outside only (it won't be as pleasant in the winter when it is snowing and freezing!!) Putting cigarettes in the trunk of the car where they aren't as accessible Leaving cigarettes on another floor in the house (or far away in a drawer) where it is an effort to go get them Stress/Cravings Be aware of a craving/trigger to have a cigarette and wait 5 minutes before you smoke. During this 5 minute period try to sit in a quiet place and focus on your breathing (meditation).This should help you to relax and lower stress. Alternatively, try to occupy your mind by completing a task or going on a short walk. Re-assess to see if you still feel like you need to smoke. CT Lung Screen Results The CT scan that you will have done will show if you have any nodules (small spots) in your lungs that are suspicious for cancer. Around 90% of the patients who have this scan done are found to have at least one nodule. Most nodules are benign (not cancer) and of no harm to you at all. A specialist will make a scientific evaluation about whether or not a nodule is worrisome based on its size and shape. The radiologist who will read your scan will put it into one of four categories: LUNG-RADS Category Description Overall Probability of Malignancy Recommended Follow-Up 1 Negative No nodules and definitely benign (non-cancerous nodules) Essentially 0. 1 Year - Follow-up Low dose CT 2 Benign Appearance or Behavior Nodules with a very low likelihood of becoming cancer due to size or lack of growth Less than 1% 1 Year - Follow-up Low dose CT 3 Probably Benign Probably benign finding, short term follow-up recommended 1 to 2% 6 Months - Follow-up CT 4 A,B,or X Suspicious Findings for which additional diagnostic testing and/or biopsy is recommended Will be calculated based on nodule characteristics. Dependent on what is seen on the exam. [address], PET, Biopsy At times, we may see something outside of the lungs on the scan that could be a health concern. Below are some of the most common findings: S Clinically Significant or Potentially Clinically Significant Findings (non lung cancer) Referral or additional imaging/labs depending on result. Approximately 10% of people receive this result. Coronary Artery Calcifications (Moderate or Severe) - Referral to cardiology or PCP for further work-up and recommendations. Thyroid Nodule - TSH level and Thyroid Ultrasound dependent on size, referral to endocrinology. Adrenal Nodule - Blood work and referral to endocrinology. Others Lung Cancer Screening hotline: [phone] Lung Cancer Screening [phone] Billing Questions: or [email or web address] Lung Cancer Screening Team: Aletha Quiñonez CNP; Inga Cartagena PA-C; Marilynn Marcial CNP; Ly Constantino CNP, Cecy Barnard PA-C, Tiffany Gómez PA-C, Nasreen Reynolds, AMERICAN HISTORY TEACHER : [phone] documented in this encounter [facility] 11-08-2022 History of Present illness Narrative Images from the original note were not included. LUNG SCREENING VISIT PRIMARY CARE PHYSICIAN: Vamshi Davis MD PULMONARY PROVIDER: Dr. Sana Lang Results will be communicated via letter or electronic record if applicable. Visit Delivery: In Person Patient Visit Type: New to Screening Current or Ex-smoker? [Current Exam Type: baseline LDCT Number of Pack Years: 50 Current smoker (=0) REQUESTER: The referring provider advised the patient to have screening. HISTORY OF PRESENT ILLNESS: Yadira Man is a 72 year old Active smoker who presents for lung screening. Respiratory symptoms include: SOB: Yes, heat and humidity Chest tightness: No Coughing: Yes: With mucus Clear and brown Hemoptysis: No Wheezing: Yes Fever/Chills: No Recent Respiratory Infection: No Unintentional weight loss: No Last 6 Encounter Wt Readings: Date: Wt: 11/08/2022 77.1 kg (170 lb) 10/19/2022 76.2 kg (168 lb) 08/02/2022 77.1 kg (170 lb) 08/02/2022 77.1 kg (170 lb) 07/17/2022 77.6 kg (171 lb) 04/08/2022 77.6 kg (171 lb) ECOG PERFORMANCE STATUS: 0- Fully active, able to carry on all pre-disease performance w/o restriction. Modified Medical Research [place] Dyspnea Scale (MMRC) I only get breathless with strenous exercise 0 PAST MEDICAL HISTORY Diagnosis Date Chronic hepatitis C virus infection (HCC) 10/14/2014 Successful eradication with Harvoni treatment 2014. Negative hep c virus RNA in May 2015 Depression History of cervical dysplasia 12/02/2011 Had total Hysterectomy at age 23 Major depressive disorder 12/05/2016 [facility] Nonspecific elevation of levels of transaminase or lactic acid dehydrogenase (LDH) Elevated LFT's, Hepatitis C infection Unspecified vitamin D deficiency PAST SURGICAL HISTORY Procedure Laterality Date CATARACT EXTRACTION HX COLONOSCOPY FLX DX W/COLLJ SPEC WHEN PFRMD 12/11/13 Colonoscopy ESOPHAGOGASTRODUODENOSCOPY TRANSORAL DIAGNOSTIC 12/11/13 EGD VAGINAL HYSTERECTOMY UTERUS 250 GM/< 1973 Hysterectomy, vaginal, Endometrial CA FAMILY HISTORY Problem Relation Age of Onset Hypertension Mother Heart Mother Ischemic Heart Disease Father Fatal [place] age 58 Cancer Sister other (C. Diff) Sister Psychiatry Sister Schizoprhenia Cancer Sister Lung Psychiatry Brother Depression Asthma No Family History lisinopril-hydroCHLOROthiazide (ZESTORETIC) 20-12.5 mg per tablet Take 2 tablets by mouth once daily. LORazepam (ATIVAN) 0.5 mg Take 1 tablet by mouth twice daily as needed for up to 30 days. albuterol HFA (PROAIR HFA) 90 mcg/actuation inhaler Inhale 2 Puffs as instructed every 4 hours as needed. DULoxetine (CYMBALTA) 60 mg capsule Take 1 capsule by mouth twice daily. ergocalciferol 50,000 unit capsule (VITAMIN D2, DRISDOL) Take 1 capsule by mouth two times a week. TO BE TAKEN ORALLY DIRECTED. Take 1 tablet by mouth twice weekly [id number], then decrease to 1 tablet weekly. dextromethorphan-guaiFENesin (MUCINEX DM) 30-600 mg per tablet Take 1 tablet by mouth twice daily. (Patient not taking: Reported on 11/08/2022) ALLERGIES Allergen Reactions Abilify [Aripiprazo* Intolerance Risperidone Intolerance Developed tardive dyskinesia The medications and allergies were reviewed and reconciled for this patient and deemed current. Lung Cancer Risk Factors: 1.Tobacco Use: Start Age 22, Quit Age: N/A, Average packs per day 1, Pack Years 50 2. Passive Smoke Exposure: Yes, as a Child and as an Adult 3. Personal hx of malignancy: Yes, Type of Cancer: Other smoking-related cancers 4. 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 Race: White 6. Education: Less than High School 7. BMI:Body mass index is 30.88 kg/m . Patient-entered Height: 5'2 Patient-entered Weight: 170 pounds 8. COPD: No 9. Pneumonia in the past 5 years: No 10. Is there a history of lung cancer in a first degree relative? Yes 11. Is there a history of lung cancer in a non-first degree relative? No 12. Is there a history of any other cancer in a first degree relative? Yes Health Maintenance Immunization History Administered Date(s) Administered COVID-19 original vaccine, full dose, monovalent (MODERNA) 06/09/2020 07/11/2020 02/23/2021 COVID-19 vaccine, age 12+ yr, bivalent (MODERNA) 12/31/2021 hepatitis A-hepatitis B (HepA-HepB) vaccine (TWINRIX) 09/12/2014 10/14/2014 influenza (HD-IIV3) vaccine, age 65+ yr, high dose, PF (FLUZONE HIGH-DOSE) 11/27/2018 12/27/2019 influenza (HD-IIV4) vaccine, age 65+ yr, high dose, quadrivalent, PF (FLUZONE HIGH-DOSE) 12/14/2020 influenza (IIV4) vaccine, age 6 mo - 64 yr, quadrivalent (AFLURIA, FLULAVAL, FLUZONE) 12/11/2015 11/25/2016 influenza vaccine, unspecified formulation 03/21/2011 12/02/2011 12/13/2012 pneumococcal (PCV13) vaccine, 13 valent (PREVNAR 13) 05/14/2018 09/09/2019 pneumococcal (PPV23) vaccine, 23 valent (PNEUMOVAX 23) 03/21/2011 12/14/2020 tetanus diphtheria pertussis (Tdap) vaccine, age 7+ yr (ADACEL, BOOSTRIX) 09/26/2013 Colonoscopy: 09/13/2019 Mammogram: 12/06/2019 DATA REVIEW I have directly visualized the testing documented: Prior Imaging: Last CT/CTA Chest/Lungs No resulted procedures found. Last CT Chest - Impression Only No resulted procedures found. Last XR Chest - Impression Only XR CHEST 2V FRONTAL/LAT Exam End: 07/18/2022 9:38 AM (Final result) Impression: IMPRESSION: No acute radiographic abnormality. ... Pulmonary Function Testing: SPIROMETRY WITH DILATOR IF OBSTRUCTED ([id number]) - ordered on 08/02/22 No textual results for order. PHYSICAL EXAM: BP 144/73 (BP Site: Right Arm, BP Position: Sitting, BP Cuff Size: Regular Adult) Pulse 83 Wt 77.1 kg (170 lb) SpO2 97% BMI 30.88 kg/m Deferred ASSESSMENT and RECOMMENDATIONS: 1. Screening for lung cancer: Six year risk for lung cancer: 16.63% Https://PakSense.Pocket Change/Greek/ result/female_[email or web address]_yes_unknown [email or web address] Change/tiny/01sk4 https://youtu.be/[email or web address] I have determined that the patient is eligible for a low dose CT based on age, absence of signs or symptoms of lung cancer, and total pack years: Yes. The patient and I engaged in shared decision making, including the use of one or more decision aids, to include benefits, harms, follow-up diagnostic testing, over-diagnosis, false positive rate, and total radiation exposure. The patient understands and feels comfortable with it: Yes. The patient was counseled on the importance of adherence to annual LDCT lung cancer screening, impact of comorbidities and ability or willingness to undergo diagnosis and treatment. The patient understands and feels comfortable with it:Yes. 2. Nicotine dependence: The patient was counseled on the importance of smoking cessation if current smoker and, if appropriate, offered additional tobacco cessation counseling services - Smoking Cessation Counseling. SMOKING CESSATION COUNSELING Smoking cessation methods including Nicotine Replacement Therapies and Behavior Modification were discussed with the patient and assistance offered. Pt has had side effects from bupropion in the past and was told not to take Chantix. Discussed reduction by smoking on the hourly method. Directions added to AVS. The medical conditions adversely affected by cigarette use include:COPD, Emphysema, and Lung Cancer. The patient is currently not ready to quit. I personally spent 5 minutes in counseling. The time spent in smoking cessation counseling is exclusive of any other counseling during this visit. Nasreen Reynolds APRN.CNP NPI #: November [id number], [id number] 8:24 AM documented in this encounter [facility] 11-07-2022 Miscellaneous Notes Left detailed message on Cuponzote. Please let patient know lab work is all within acceptable ranges except fasting glucose was slightly elevated. I have ordered a HgbA1c to evaluate for possible prediabetes. Thank you Darya Germain APRN.IKER documented in this encounter [facility] 10-19-2022 Note [facility] 10-19-2022 History of Present illness Narrative CC: Patient presents with: Recheck: 6 month follow up HPI Yadira Man is a 72 year old female who presents today for routine follow up. Denies history of asthma or COPD. [facility] to [facility] a few months ago with some shortness of breath, was consulted to pulmonology and given an albuterol inhaler. Needs the albuterol inhaler 1-2 per week. Does smoke an average of 1ppd but sometimes less. Shortness of breath has improved, chronic cough related to smoking without change, and occasionally has wheezing. Denies fever, chills, or chest pain. Anxiety and Depression: Feels controlled with the duloxetine but also uses ativan twice daily. Has been on ativan since 2011 and last increase was in 2019. Will occasionally get anxiety attacks, but uses ativan regularly even without increase in anxiety symptoms. Sleep: is described as normal Alcohol use: drinks less than one drink a day Drug use: No Appetite: good Stresses: Major stressor: sister Suicidal Thoughts: No suicidal ideation, intent or plan Support: Comes from multiple sources including family Counseling: No HTN: Ms. Man indicates that she is feeling well and denies any symptoms referable to elevated blood pressure. Specifically denies headache, chest pain, palpitations, dyspnea, and peripheral edema. Patient denies any side effects of her medication(s) and is compliant with their regimen. She does not check BP's generally. Yadira denies regular aerobic exercise but stays active with house and yard work. She watches her diet for sodium, low fat and low cholesterol some of the time. Last 3 Encounter BP Readings: Date: BP: 10/19/2022 136/80 - 132/77 08/02/2022 126/82 07/17/2022 110/68 REVIEW OF SYSTEMS General: no fevers, no chills, no night sweats, no recurrent infections, no change in appetite, no change in energy, and no significant changes in weight Respiratory: See HPI Cardiovascular: no chest pain, no chest pressure, no palpitations, and no swelling Neurologic: No headache, weakness, numbness, tingling, dizziness, syncope. PAST MEDICAL HISTORY Diagnosis Date Chronic hepatitis C virus infection (HCC) 10/14/2014 Successful eradication with Harvoni treatment 2014. Negative hep c virus RNA in May 2015 Depression History of cervical dysplasia 12/02/2011 Had total Hysterectomy at age 23 Major depressive disorder 12/05/2016 [facility] Nonspecific elevation of levels of transaminase or lactic acid dehydrogenase (LDH) Elevated LFT's, Hepatitis C infection Unspecified vitamin D deficiency PAST SURGICAL HISTORY Procedure Laterality Date CATARACT EXTRACTION HX COLONOSCOPY FLX DX W/COLLJ SPEC WHEN PFRMD 12/11/13 Colonoscopy ESOPHAGOGASTRODUODENOSCOPY TRANSORAL DIAGNOSTIC 12/11/13 EGD VAGINAL HYSTERECTOMY UTERUS 250 GM/< 1973 Hysterectomy, vaginal, Endometrial CA ALLERGIES Abilify [Aripiprazole] and Risperidone MEDICATIONS LORazepam (ATIVAN) 0.5 mg Take 1 tablet by mouth twice daily as needed for up to 30 days. albuterol HFA (PROAIR HFA) 90 mcg/actuation inhaler Inhale 2 Puffs as instructed every 4 hours as needed. DULoxetine (CYMBALTA) 60 mg capsule Take 1 capsule by mouth twice daily. ergocalciferol 50,000 unit capsule (VITAMIN D2, DRISDOL) Take 1 capsule by mouth two times a week. TO BE TAKEN ORALLY DIRECTED. Take 1 tablet by mouth twice weekly [id number], then decrease to 1 tablet weekly. lisinopril-hydroCHLOROthiazide (ZESTORETIC) 20-12.5 mg per tablet Take 2 tablets by mouth once daily. dextromethorphan-guaiFENesin (MUCINEX DM) 30-600 mg per tablet Take 1 tablet by mouth twice daily. (Patient not taking: Reported on 07/17/2022) FAMILY HISTORY Problem Relation Age of Onset Hypertension Mother Heart Mother Ischemic Heart Disease Father Fatal [place] age 58 Cancer Sister other (C. Diff) Sister Psychiatry Sister Schizoprhenia Cancer Sister Lung Psychiatry Brother Depression Asthma No Family History Social History Tobacco Use Smoking status: Every Day Packs/day: 1.00 Years: 50.00 Additional pack years: 0.00 Total pack years: 50.00 Types: Cigarettes Smokeless tobacco: Never Tobacco comments: Declined information. Started age 17 Vaping Use Vaping Use: Never used Substance Use Topics Alcohol use: No Drug use: No PHYSICAL EXAM BP 132/77 Pulse 92 Resp 16 Wt 76.2 kg (168 lb) SpO2 97% BMI 30.52 kg/m General Appearance: well appearing, in no acute distress, alert Pysch: mood and affect broad and appropriate Skin: Skin color, texture, turgor normal for age; Eyes: conjunctiva pink and moist, no icterus, sclera white, non-injected Lungs: Lungs clear to auscultation. No wheezing, rhonchi, rales. Heart: RRR without murmur, gallop, or rubs. No ectopy Health maintenance reviewed with patient: LUNG CANCER SCREENING Never done SHINGRIX VACCINE(1 of 2) Never done MAMMOGRAM due on 12/05/2020 COLORECTAL CANCER SCREENING due on 12/23/2020 BP CONTROLLED (<130/80) due on 08/06/2021 ADVANCE DIRECTIVE DISCUSSION due on 02/27/2022 COVID-19 VACCINE(5 - Moderna series) due on 04/30/2022 INFLUENZA(1) due on 10/28/2022 ANNUAL PCP TEAM CHRONIC DISEASE VISIT due on 04/08/2023 DTAP,TDAP,TD(2 - Td or Tdap) due on 09/27/2023 DIABETES SCREEN due on 04/08/2025 LIPID SCREEN due on 04/05/2026 BONE DENSITY Completed ALPHA-1 ANTITRYPSIN DEFICIENCY SCREENING Completed SPIROMETRY Completed HEPATITIS C SCREENING Completed PNEUMOCOCCAL: 65+ Completed DATA REVIEWED: No new labs ASSESSMENT/PLAN: 1. Essential hypertension - ICD9: 401.9, ICD10: I10 (primary diagnosis) - Controlled - Continue current medications - Recommend home blood pressure monitoring, to bring results to next visit - Encouraged sodium restriction, DASH or Mediterranean diet - Recommend regular aerobic exercise - smoking cessation encouraged. - COMP METABOLIC PANEL - CBC - LISINOPRIL 20 MG-HYDROCHLOROTHIAZIDE 12.5 MG TABLET 2. Anxiety - ICD9: 300.00, ICD10: F41. - controlled at this time. Patient has been on ativan for 11 years. Would be difficult to get off of this. Discussed only uses ativan twice a day as needed for feelings of anxiety. She may only need it once day... - Reviewed concept of neurochemical imbalance wth depression/anxiety, treatment options and benefits of counseling in combination with medication. Also reviewed benefits of sleep hygeine, diet and exercise - Follow-up in 6 [facility] or sooner as needed - Instructed patient to contact office or [id number] after-hours promptly should condition worsen or any new symptoms appear. - [facility] and after hours crisis line 3. Depression, unspecified depression type - ICD9: 311, ICD10: F32.A As above 4. Tobacco abuse disorder - ICD9: 305.1, ICD10: Z72.0 - Cessation encouraged. - Physiologic and physical aspects of tobacco addiction as well as strategies for quitting were discussed. - Counseling was given focusing on the harmful effects of this addiction especially given the patient's medical condition(s) which will be worsened because of the chemicals in tobacco. 5. Vitamin D deficiency - ICD9: 268.9, ICD10: E55.9 - taking supplement regularly as previously ordered - VITAMIN D 25 HYDROXY 6. Lipid screening - ICD9: V77.91, ICD10: Z13.220 - LIPID PANEL BASIC - COMP METABOLIC PANEL Prescription instructions reviewed with patient as applicable. Potential red flag symptoms discussed with the patient. Reviewed appropriate action plan to take if red flag symptoms occur. Patient agreeable to treatment plan. Darya Germain APRN.CNP documented in this encounter [facility] 09-13-2022 Miscellaneous Notes The following approved medication requests have been transmitted electronically. Requested Prescriptions Signed Prescriptions Disp Refills LORazepam (ATIVAN) 0.5 mg 60 tablet 0 Sig: Take 1 tablet by mouth twice daily as needed for up to 30 days. Do not start before September 15, 2022. Authorizing Provider: TANVIR ZARATE albuterol HFA (PROAIR HFA) 90 mcg/actuation inhaler 18 g 0 Sig: Inhale 2 Puffs as instructed every 4 hours as needed. Authorizing Provider: TANVIR ZARATE MD Noted PDMP last filled lorazepam 08/16 so instead of 09/17 okayed 09/15 fill date Refills when sees Darya in September Patient has been identified by name and date of : No Patient phones for refill(s): Requested Prescriptions Pending Prescriptions Disp Refills LORazepam (ATIVAN) 0.5 mg 60 tablet 1 Sig: Take 1 tablet by mouth twice daily as needed for up to 60 days. albuterol HFA (PROAIR HFA) 90 mcg/actuation inhaler 18 g 0 Sig: Inhale 2 Puffs as instructed every 4 hours as needed. Date of last office visit in primary care: 04/08/22 Last 2 Encounter Wt Readings: Date: Wt: 08/02/2022 77.1 kg (170 lb) 08/02/2022 77.1 kg (170 lb) Previous labs/tests for medication: Not applicable Please advise. Thank you. Winnie Knight LPN Patient has been identified by name and date of : Yes Last office visit in this department: Visit date not found RX INSTRUCTIONS: Patient aware RX will be sent to pharmacy. No need to notify patient. Patient phones requesting refills as follows: Requested Prescriptions Pending Prescriptions Disp Refills LORazepam (ATIVAN) 0.5 mg 60 tablet 1 Sig: Take 1 tablet by mouth twice daily as needed for up to 60 days. albuterol HFA (PROAIR HFA) 90 mcg/actuation inhaler 18 g 0 Sig: Inhale 2 Puffs as instructed every 4 hours as needed. Please review and advise. Lexis Veliz documented in this encounter [facility] 08-02-2022 Note [facility] 08-02-2022 Note [facility] 08-02-2022 Note [facility] 08-02-2022 Instructions Sana Lang MD - 08/02/2022 9:11 AM EDT Received literature on smoking cessation documented in this encounter [facility] 08-02-2022 History of Present illness Narrative Images from the original note were not included. . Respiratory [place] Note Patient name: Yadira Man PCP: Vamshi Davis MD Referring Physician: [facility] Consultation requested by Gurdeep Grewal for an opinion regarding SOB. My final recommendations will be communicated back to the requesting physician by way of shared Medical record or letter to requesting physician via US mail. CC: SOB HPI: Yadira Man 71 year old female current 26-yigk-oipp smoker with PMH significant for Hep C s/p treatment, depression, recently seen [facility] for urinary frequency and dysuria. Patient mentioned symptoms of chronic cough and SOB and was noted to have wheezing on exam so referred to pulmonary clinic for evaluation of possible COPD. Patient denies significant dyspnea rest or with activity. She may note more shortness of breath when exposed to significant heat and humidity during the summer months. She has a chronic morning cough productive of phlegm that is clear to slightly discolored. No hemoptysis. No coughing throughout the day or nocturnal awakenings. She denies recurrent bronchitis, audible wheezing, history of pneumonia. She has tried quitting smoking in the past using nicotine replacement but has been unsuccessful. No acid reflux symptoms. She does have occasional sinus congestion and drainage. No history of allergies. She received albuterol inhaler [facility] which she does not use as she feels it is unnecessary. DATA: SERVICE DATE: 08/02/2022 SERVICE TIME: 8:28 AM Oral Exhaled Nitric Oxide measurement: 6.0 (ppb) PFT: FVC 2.08 L 77% FEV1 1.49 L 71% FEV1/FVC 72% FEF 25-75% 1.04 L 57% Review of spirometry shows small airways obstruction Labs: Component Ref Range & Units 3 mo ago (04/08/22) WBC 3.70 - 11.00 k/uL 10.79 RBC 3.90 - 5.20 m/uL 4.11 Hemoglobin 11.5 - 15.5 g/dL 12.7 Hematocrit 36.0 - 46.0 % 37.6 MCV 80.0 - 100.0 fL 91.5 MCH 26.0 - 34.0 pg 30.9 MCHC 30.5 - 36.0 g/dL 33.8 RDW-CV 11.5 - 15.0 % 13.2 Platelet Count 150 - 400 k/uL 308 MPV 9.0 - 12.7 fL 11.8 Neutrophils % % 62.1 Abs Neut 1.45 - 7.50 k/uL 6.70 Lymphocytes % % 29.1 Abs Lymph 1.00 - 4.00 k/uL 3.14 Monocytes % % 7.3 Abs [place] <0.87 k/uL 0.79 Eosinophils % % 0.7 Abs Eosin <0.46 k/uL 0.08 Basophils % % 0.4 Abs Baso <0.11 k/uL 0.04 Immature Granulocytes % % 0.4 Abs Immature Gran <0.10 k/uL 0.04 NRBC /100 WBC 0.0 Absolute nRBC <0.01 k/uL <0.01 Diff Type Auto Nucleated Reds Imaging / Diagnostic Studies: DATE OF EXAM: Jul 18 2022 9:37AM WOX [id number] - XR CHEST 2V FRONTAL/LAT / CLINICAL HISTORY: Wheezing MQ: [id number] EXAM DATE/TIME: 07/18/2022 9:37 AM COMPARISON: 03/09/2022 RESULT: Lines, tubes, and devices: None. Lungs and pleura: No consolidation. No lung mass. No pleural effusion. No pneumothorax. Apical scarring bilaterally is stable Cardiomediastinal silhouette: Normal cardiomediastinal silhouette. Bones and soft tissues: Unremarkable. IMPRESSION: No acute radiographic abnormality. I personally reviewed the images which shows no suspicious nodules or infiltrates. PAST MEDICAL HISTORY Diagnosis Date Chronic hepatitis C virus infection (HCC) 10/14/2014 Successful eradication with Harvoni treatment 2014. Negative hep c virus RNA in May 2015 Depression History of cervical dysplasia 12/02/2011 Had total Hysterectomy at age 23 Major depressive disorder 12/05/2016 [facility] Nonspecific elevation of levels of transaminase or lactic acid dehydrogenase (LDH) Elevated LFT's, Hepatitis C infection Unspecified vitamin D deficiency ALLERGIES Allergen Reactions Abilify [Aripiprazo* Intolerance Risperidone Intolerance Developed tardive dyskinesia LORazepam (ATIVAN) 0.5 mg Take 1 tablet by mouth twice daily as needed for up to 60 days. DULoxetine (CYMBALTA) 60 mg capsule Take 1 capsule by mouth twice daily. ergocalciferol 50,000 unit capsule (VITAMIN D2, DRISDOL) Take 1 capsule by mouth two times a week. TO BE TAKEN ORALLY DIRECTED. Take 1 tablet by mouth twice weekly [id number], then decrease to 1 tablet weekly. lisinopril-hydroCHLOROthiazide (PRINZIDE,ZESTORETIC) 20-12.5 mg per tablet Take 2 tablets by mouth once daily. dextromethorphan-guaiFENesin (MUCINEX DM) 30-600 mg per tablet Take 1 tablet by mouth twice daily. (Patient not taking: Reported on 07/17/2022) albuterol HFA (PROAIR HFA) 90 mcg/actuation inhaler Inhale 2 Puffs as instructed every 4 hours as needed. (Patient not taking: Reported on 08/02/2022) Social History Tobacco Use Smoking status: Every Day Packs/day: 1.00 Types: Cigarettes Smokeless tobacco: Never Tobacco comments: Declined information. 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 Pets: None FAMILY HISTORY Problem Relation Age of Onset Hypertension Mother Heart Mother Ischemic Heart Disease Father Fatal [place] age 58 Cancer Sister other (C. Diff) Sister Psychiatry Sister Schizoprhenia Cancer Sister Lung Psychiatry Brother Depression Asthma No Family History PAST SURGICAL HISTORY Procedure Laterality Date CATARACT EXTRACTION HX COLONOSCOPY FLX DX W/COLLJ SPEC WHEN PFRMD 12/11/13 Colonoscopy ESOPHAGOGASTRODUODENOSCOPY TRANSORAL DIAGNOSTIC 12/11/13 EGD VAGINAL HYSTERECTOMY UTERUS 250 GM/< 1973 Hysterectomy, vaginal, Endometrial CA PMH, Social history, family history and surgical history reviewed and updated in EMR REVIEW OF SYSTEMS: CONSTITUTIONAL: No fevers, chills, nightsweats, unintended weight loss HEENT: Occasional nasal congestion/sinus symptoms. No history of allergies EYES: No diplopia or blurry vision. CARDIOVASCULAR: No chest pain, dyspnea, palpitations, orthopnea, PND, edema. PULM: See HPI GI: No dysphagia/odynophagia, problematic reflux, changes in stool habits : No new urinary complaints, including dysuria, gross hematuria or pyuria. NEURO: No new balance problems, peripheral weakness/paresthesias or numbness of concern. MUSC-SKEL: No new joint pain, swelling, or erythema. PSY: Significant depression and anxiety INTEGUMENTARY: No new skin changes. Easy bruising PHYSICAL EXAMINATION: BP 126/82 Pulse 82 Resp 14 Ht 5' 2.21 (1.58m) Wt 170 lb (77.1kg) SpO2 95% BMI 30.89 kg/(m^2). General Appearance: Age-appropriate female, NAD Skin: Skin color, turgor normal, no suspicious rashes or lesions. Thin skin with extremity ecchymoses Head: Normocephalic, no masses, lesions, tenderness or abnormalities. Eyes: Sclera, conjunctiva normal Oropharynx: No oral lesions or thrush Neck: No JVD, no masses, no thyromegaly Chest wall: Normal configuration Lungs: Not labored, normal to percussion, no wheezes or crackles Heart: Regular rate and rhythm, no murmurs, no gallops Extremities: No edema, no clubbing Musculoskeletal: No joint deformities or effusions Neurologic: Alert and oriented, no focal findings Lymph Nodes: No cervical lymphadenopathy and No supraclavicular lymphadenopathy. Assessment/Plan: 1. Smoker's cough -Morning cough typical of a smoker's cough with some component of postnasal drip -Recommend smoking cessation -Patient received literature regarding smoking cessation 2. Cigarette smoker -Current [id number] smoker -See #1 -Patient qualifies for and is agreeable to lung cancer screening -Referral to lung cancer screening clinic 3. Small airways obstruction -Pulmonary function test show small airways obstruction. No large airways obstruction to suggest COPD at this point -Smoking cessation -Continue albuterol as needed Sana Lang MD Respiratory [place] documented in this encounter [facility] 08-02-2022 Nurse Note Intake information documented in the prior visit with TRINI Gonzales today. documented in this encounter [facility] 08-02-2022 Procedure note Associated Ord er(s): NITRIC OXIDE, EXHALED RESPIRATORY THERAPY ORAL EXHALED NITRIC OXIDE SERVICE DATE: 08/02/2022 SERVICE TIME: 8:28 AM Oral Exhaled Nitric Oxide measurement: 6.0 (ppb) Normal: Adult 5-20 ppb, pediatric (<12 years) 5-15 ppb High Normal / Increased: Adult 20-35 ppb, pediatric (<12 years) 15-25 ppb Moderately raised exhaled Nitric Oxide may indicate underlying inflammation, but note that: Cold and influenza can raise exhaled Nitric Oxide and some patients have higher baseline exhaled Nitric Oxide levels than others. High: Adult >35 ppb, pediatric (<12 years) >25 ppb Indicative of ongoing eosinophilic inflammation. Symptomatic patient likely to respond to steroids. Possible causes (if already on steroids): Poor compliance, recent allergen exposure, steroid dose inadequate, and steroid resistance. Note that not all patients with high exhaled nitric oxide levels display symptoms. Oral Exhaled Nitric Oxide measurement (Previous Encounters) Test Date Oral Exhaled Nitric Oxide (ppb) 08/02/2022 6.0 NAME: TRINI Gonzales PATIENT NAME: Yadira Man DATE: August 02, 2022 TIME: 8:28 AM documented in this encounter [facility] 08-02-2022 History of Present illness Narrative PULM FUNCTION SMARTBLOCK: Provider: Sana Lang MD Assisting Tech: TRINI Gonzales Spirometry: 1 Exhaled Nitric Oxide: 1 documented in this encounter [facility] 07-19-2022 Miscellaneous Notes Patient calling to check status of refill of medication and not at pharmacy yet. . Patient is out of medication Patient has been identified by name and date of : No Patient phones for refill(s): Requested Prescriptions Pending Prescriptions Disp Refills LORazepam (ATIVAN) 0.5 mg 60 tablet 1 Sig: Take 1 tablet by mouth twice daily as needed for up to 60 days. Date of last office visit in primary care: 04/08/22 Last 2 Encounter Wt Readings: Date: Wt: 07/17/2022 77.6 kg (171 lb) 04/08/2022 77.6 kg (171 lb) Previous labs/tests for medication: Not applicable Please advise. Thank you. Winnie Knight LPN Pt states she is out of her medication. Patient has been identified by name and date of : Yes Last office visit in this department: 11/25/2016 RX INSTRUCTIONS: Patient aware RX will be sent to pharmacy. No need to notify patient. Patient phones requesting refills as follows: Requested Prescriptions No prescriptions requested or ordered in this encounter Please review and advise. Corina Carbajal documented in this encounter [facility] 07-18-2022 Note [facility] 07-18-2022 Miscellaneous Notes Left detailed message on a secured voicemail. Priya Durant Please let patient know that her chest x-ray was normal. Follow-up with pulmonary as discussed at visit. documented in this encounter [facility] 07-17-2022 Note [facility] 05-19-2022 Miscellaneous Notes PDMP website checked and validated. All prescriptions have been APPROPRIATELY filled. No suspicious activity was identified. 05/19/2022 by Darya Germain APRN.IKER Patient has been identified by name and date of : No Patient phones for refill(s): Requested Prescriptions Pending Prescriptions Disp Refills LORazepam (ATIVAN) 0.5 mg 60 tablet 1 Sig: Take 1 tablet by mouth twice daily as needed for up to 60 days. Date of last office visit in primary care: 04/08/22 Last 2 Encounter Wt Readings: Date: Wt: 04/08/2022 77.6 kg (171 lb) 03/09/2022 78.1 kg (172 lb 3.2 oz) Previous labs/tests for medication: Not applicable Please advise. Thank you. Winnie Knight LPN Patient has been identified by name and date of : Yes Requested Prescriptions Pending Prescriptions Disp Refills LORazepam (ATIVAN) 0.5 mg 60 tablet 1 Sig: Take 1 tablet by mouth twice daily as needed for up to 60 days. RX INSTRUCTIONS: Patient aware RX will be sent to pharmacy. No need to notify patient. Ivania Man [employer] documented in this encounter [facility] 04-14-2022 Miscellaneous Notes Addended by: VAMSHI DAVIS on: 04/14/2022 08:05 AM Modules accepted: Orders Ok I sent the rx for it Regards, Vamshi Davis MD Patient calling asking if PCP could give her rx for Vitamin D? Patient said the otc never works and her level never gets any better. Patient uses [facility] for her [facility]. Please advise documented in this encounter [facility] 04-11-2022 Miscellaneous Notes Ok, I updated hm Fax received from [facility] stating that the cologuard that was ordered 04/08/22 is too soon. Most insurance will cover cost of test once every 3 years. documented in this encounter [facility] 04-08-2022 History of Present illness Narrative Reason for Visit Patient presents with: F/U 6 months Yadira Man is a 71 year old female who presents here today for Above Complaints.. Health Maintenance SPIROMETRY SHINGRIX VACCINE(1 of 2) MAMMOGRAM COLORECTAL CANCER SCREENING ADVANCE DIRECTIVE DISCUSSION HPI Patient feels tired a lot lately. HTN: Compliant with medications. Denies any chest pain, palpitations, or edema. No SOB. Doesn't check BP at home generally. Careful with diet to avoid salt, trying to eat more fruits and vegetables, exercises regularly. Still smoking around 2 to 4 cigs a day, she has tried to cut down over the past few years and is doing well. Anxiety and depression is well controlled on cymbalta. No problem-specific Assessment & Plan notes found for this encounter. PAST MEDICAL HISTORY Diagnosis Date Chronic hepatitis C virus infection (HCC) 10/14/2014 Successful eradication with Harvoni treatment 2014. Negative hep c virus RNA in May 2015 Depression History of cervical dysplasia 12/02/2011 Had total Hysterectomy at age 23 Major depressive disorder 12/05/2016 [facility] Nonspecific elevation of levels of transaminase or lactic acid dehydrogenase (LDH) Elevated LFT's, Hepatitis C infection Unspecified vitamin D deficiency PAST SURGICAL HISTORY Procedure Laterality Date CATARACT EXTRACTION HX COLONOSCOPY FLX DX W/COLLJ SPEC WHEN PFRMD 12/11/13 Colonoscopy ESOPHAGOGASTRODUODENOSCOPY TRANSORAL DIAGNOSTIC 12/11/13 EGD VAGINAL HYSTERECTOMY UTERUS 250 GM/< 1973 Hysterectomy, vaginal, Endometrial CA FAMILY HISTORY Problem Relation Age of Onset Hypertension Mother Heart Mother Ischemic Heart Disease Father Fatal HI age 58 Psychiatry Brother Depression Psychiatry Sister Schizoprhenia Cancer Sister Lung Social History Tobacco Use Smoking status: Every Day Packs/day: 1.00 Types: Cigarettes Smokeless tobacco: Never Tobacco comments: Declined information Vaping Use Vaping Use: Never used Substance Use Topics Alcohol use: No Drug use: No Past medical history, appointments, medications, allergies reviewed. Pertinent Lab/Diagnostic Studies are reviewed and discussed today Current Outpatient Medications: LORazepam (ATIVAN) 0.5 mg dextromethorphan-guaiFENesin (MUCINEX DM) 30-600 mg per tablet albuterol HFA (PROAIR HFA) 90 mcg/actuation inhaler lisinopril-hydroCHLOROthiazide (PRINZIDE,ZESTORETIC) 20-12.5 mg per tablet DULoxetine (CYMBALTA) 60 mg capsule Review of Systems CONSTITUTIONAL: No fevers, chills night sweats, unintended weight loss CARDIOVASCULAR: No chest pain, dyspnea, palpitations, orthopnea, PND, ankle edema. PULM: No dyspnea, unexplained cough. GI: No dysphagia/odynophagia, problematic reflux, constipation, diarrhea, changes in stool habits, hematochezia, melena. : No new urinary complaints, including dysuria, gross hematuria or pyuria. NEURO: No new balance problems, peripheral weakness/paresthesias or numbness of concern. Physical Exam BP 128/70 (BP Site: Left Arm, BP Position: Sitting, BP Cuff Size: Large Adult) Pulse 86 Temp 36.2 C (97.1 F) Resp 12 Ht 157.5 cm (5' 2 ) Wt 77.6 kg (171 lb) SpO2 94% BMI 31.28 kg/m General appearance: Well appearing, alert, in no acute distress, well nourished. Skin: Skin color, texture, turgor normal, no suspicious rashes or lesions Head: Normocephalic, no masses, lesions, tenderness or abnormalities Eyes: Anicteric sclera. Pupils are equally round and reactive to light. Extraocular movements are intact. Lungs: Lungs clear to auscultation. No wheezing, rhonchi, rales Heart: RRR without murmur, gallop, or rubs. Extremities: No deformities, edema, skin discoloration, clubbing or cyanosis. Good capillary refill. ASSESSMENT/PLAN: 1. Other fatigue - ICD9: 780.79, ICD10: R53.83 (primary diagnosis) - TSH BLD 2. Vitamin B12 deficiency - ICD9: 266.2, ICD10: E53.8 - VITAMIN B12 BLOOD 3. Vitamin D deficiency - ICD9: 268.9, ICD10: E55.9 - VITAMIN D 25 HYDROXY 4. Essential hypertension - ICD9: 401.9, ICD10: I10 - good control - Recommended regular aerobic exercise. - Recommend home blood pressure monitoring, to bring results in on next visit - Goal of BP <130/80 5. Tobacco abuse disorder - ICD9: 305.1, ICD10: Z72.0 - Cessation encouraged. - Physiologic and physical aspects of tobacco addiction as well as strategies for quitting were discussed. - Counseling was given focusing on the harmful effects of this addiction especially given the patient's medical condition(s) which will be worsened because of the chemicals in tobacco. 6. Iron deficiency - ICD9: 280.9, ICD10: E61.1 - CBC + DIFF - IRON + TIBC - FERRITIN BLD Vamshi Davis MD documented in this encounter [facility] 03-24-2022 Miscellaneous Notes Patient has been identified by name and date of : Yes Requested Prescriptions Pending Prescriptions Disp Refills LORazepam (ATIVAN) 0.5 mg 60 tablet 1 Sig: Take 1 tablet by mouth twice daily as needed for up to 60 days. [facility]-10/05/21 Labs-04/05/21 NOV-04/08/22 med filled 01/27/22 RX INSTRUCTIONS: Patient aware RX will be sent to pharmacy. No need to notify patient. Betty Romano documented in this encounter [facility] 03-09-2022 Instructions Winter Whitehead PA-C - 03/09/2022 12:51 PM EST Mucinex and scheduled dosing of albuterol inhaler every 4-6 hours Start prednisone taper -- would advise taking half the dosage today so it does not keep you up all night (20 mg instead of 40 mg) OK to take 60 mg tomorrow first thing in the morning (the 20 mg you aren't taking today will be added to the 40 mg for tomorrow's dosage), then proceeding with 40 mg and normal taper from there on out Typically take prednisone first thing in the morning with food documented in this encounter [facility] 03-09-2022 History of Present illness Narrative Subjective HPI HPI Yadira Man is a 71 year old female who presents today for CC of cough and sinus drainage, that she has now had almost 2 weeks. I just feel miserable. Was diagnosed with covid on 03/03, and had symptoms for about 1 week prior to that. When she was seen 03/03/22, she was txed w/ Doxy and prednisone. May have felt better slightly at the time but states symptoms have not resolved. Sometimes SOB and wheezy. PMH significant for COPD. Uses abuterol PRN, currently about once to twice/day. Currently smokes ~1PPD. BP 128/78 Temp 37 C (98.6 F) (Tympanic) Wt 78.1 kg (172 lb 3.2 oz) BMI 31.50 kg/m ALLERGIES Allergen Reactions Abilify [Aripiprazo* Intolerance Risperidone Intolerance Developed tardive dyskinesia ACTIVE PROBLEM LIST Essential Hypertension Hypokalemia Tobacco Abuse Disorder Overweight Severe Episode of Recurrent Major Depressive Disorder, Without Psychotic Features (Hcc) Anxiety Family History Problem Relation Age of Onset Hypertension Mother Heart Mother Ischemic Heart Disease Father Fatal HI age 58 Psychiatry Brother Depression Psychiatry Sister Schizoprhenia Cancer Sister Lung Social History Tobacco Use Smoking status: Every Day Packs/day: 1.00 Types: Cigarettes Smokeless tobacco: Never Tobacco comments: Declined information Vaping Use Vaping Use: Never used Substance Use Topics Alcohol use: No Drug use: No Review of Systems Constitutional: Negative for chills, fever and malaise/fatigue. HENT: Negative for congestion, ear pain, sinus pain and sore throat. Respiratory: Positive for cough, sputum production, shortness of breath and wheezing. Cardiovascular: Negative for chest pain. Neurological: Negative for headaches. Objective BP 128/78 Pulse (P) 97 Temp 37 C (98.6 F) (Tympanic) Wt 78.1 kg (172 lb 3.2 oz) SpO2 (P) 96% BMI 31.50 kg/m Physical Exam Constitutional: General: She is not in acute distress. Appearance: She is not toxic-appearing. HENT: Head: Normocephalic. Right Ear: Tympanic membrane, ear canal and external ear normal. No drainage. No middle ear effusion. Tympanic membrane is not perforated, erythematous, retracted or bulging. Left Ear: Ear canal normal. No drainage. No middle ear effusion. Tympanic membrane is not perforated, erythematous, retracted or bulging. Nose: No rhinorrhea. Right Sinus: No maxillary sinus tenderness or frontal sinus tenderness. Left Sinus: No maxillary sinus tenderness or frontal sinus tenderness. Mouth/Throat: Pharynx: Uvula midline. No oropharyngeal exudate or posterior oropharyngeal erythema. Tonsils: No tonsillar abscesses. Eyes: General: Lids are normal. Conjunctiva/sclera: Conjunctivae normal. Cardiovascular: Rate and Rhythm: Normal rate and regular rhythm. Heart sounds: S1 normal and S2 normal. No friction rub. Pulmonary: Effort: Pulmonary effort is normal. Breath sounds: Wheezing (Diffusely wheezy on both inspiration and expiration) present. No decreased breath sounds, rhonchi or rales. Lymphadenopathy: Head: Right side of head: No submental, submandibular, tonsillar, preauricular, posterior auricular or occipital adenopathy. Left side of head: No submental, submandibular, tonsillar, preauricular, posterior auricular or occipital adenopathy. Cervical: Right cervical: No superficial or posterior cervical adenopathy. Left cervical: No superficial or posterior cervical adenopathy. Neurological: Mental Status: She is alert and oriented to person, place, and time. Psychiatric: Behavior: Behavior is cooperative. ASSESSMENT/PLAN: 1. COVID-19 - ICD9: 079.89, ICD10: U07.1 (primary diagnosis) As diagnosed on 03/03 -- about 13 days of symptoms at this point. Recent course of doxy, and short steroid taper, with minimal relief in symptoms. Will obtain CXR to see if secondary bacterial component is playing a role and start additional abx if indicated. Update post CXR: no acute findings/pneumonia. Will send in longer course of steroids (taper), and advise scheduled dosing of albuterol every 4-6 hours PRN. Also advised mucinex to help assist w/ mucus plugging/cough, as pt states tessalon is ineffective for her (and I explained that we cannot have her taking another sedating cough suppressant with her ativan, which already causes respiratory depression) - XR CHEST 2V FRONTAL/LAT - PREDNISONE 10 MG TABLET 2. Wheezing - ICD9: 786.07, ICD10: R06.2 See above - XR CHEST 2V FRONTAL/LAT - PREDNISONE 10 MG TABLET 3. COPD with exacerbation (HCC) - ICD9: 491.21, ICD10: J44.1 See above - XR CHEST 2V FRONTAL/LAT - PREDNISONE 10 MG TABLET - MUCINEX DM 30 MG-600 MG TABLET,EXTENDED RELEASE 12 HR Pt advised to see PCP if symptoms persist or progress. Reviewed red flags with patient and when to seek care sooner. The patient indicates understanding of these issues and agrees with the plan. Winter Whitehead PA-C documented in this encounter [facility] 03-04-2022 Miscellaneous Notes Patient notified and verbalized understanding of instructions given.Zuleyka Daigle LPN Please call and let patient know her COVID-19 was positive. It looks like she is out of the 5-day quarantine. But I would recommend a mask around others for the full 10 days of symptoms. Continue the medications as prescribed at visit. Follow-up with PCP if not improving. documented in this encounter [facility] 03-03-2022 Miscellaneous Notes Noted and agree. Patient needs a visit to discuss this further. Thank you Darya Germain APRN.IKER Patient calls and states that she has been on Cymbalta for quite a while for depression. Patient states that she just cries all of the time. Patient states that she does not feel like doing the things she used to enjoy. Patient denies any suicidal ideations. Patient states that she is just down. Offered to schedule her with provider today to discuss medications and depression. Patient declining at this time. Patient states that she will schedule something tomorrow if she feels like she needs it. Please review and advise, Angela Addison RN documented in this encounter [facility] 03-03-2022 History of Present illness Narrative Patient presents with: Cough: Cough and chest congestion, SINCLAIR x 1 week HPI: Feeling sick for 1 week. Positive symptoms: cough-productive, headache, improved body aches, Shortness of breath, Wheezing, sometimes Feverish, Nasal Congestion, Rhinorrhea, Diarrhea, Negative symptoms: Sore throat, Vomiting, OTC: Nyquil, albuterol MEDICATIONS: Current Outpatient Medications Medication Sig LORazepam (ATIVAN) 0.5 mg Take 1 tablet by mouth twice daily as needed for up to 60 days. albuterol HFA (PROAIR HFA) 90 mcg/actuation inhaler Inhale 2 Puffs as instructed every 4 hours as needed. lisinopril-hydroCHLOROthiazide (PRINZIDE,ZESTORETIC) 20-12.5 mg per tablet Take 2 tablets by mouth once daily. DULoxetine (CYMBALTA) 60 mg capsule Take 1 capsule by mouth twice daily. No current facility-administered medications for this visit. ALLERGIES: ALLERGIES Allergen Reactions Abilify [Aripiprazo* Intolerance Risperidone Intolerance Developed tardive dyskinesia VITALS: BP 148/82 Pulse 87 Temp 37.2 C (98.9 F) (Tympanic) Resp 18 Wt 78.7 kg (173 lb 9.6 oz) SpO2 96% BMI 31.75 kg/m PHYSICAL EXAM: GEN: mildly ill appearing HEENT: PERRL, EOMI, conjunctiva clear Ears: TMs without erythema, bulge, or effusion Sinuses: non-tender frontal sinus, non-tender maxillary sinuses Throat: moist mucous membranes, mild erythema, no exudate Neck: supple, no thyromegaly, no lymphadenopathy HEART: regular rate and rhythm, no murmurs LUNGS: few scattered wheezes or crackles, no increased WOB; harsh productive sounding cough ASSESSMENT/PLAN: 1. COPD with exacerbation (HCC) - ICD9: 491.21, ICD10: J44.1 - DOXYCYCLINE MONOHYDRATE 100 MG CAPSULE - PREDNISONE 10 MG TABLET burst. - COVID WITH FLUA+B, ROUTINE Naveen Isbell MD documented in this encounter [facility] 01-12-2022 History of Present illness Narrative Patient presents with: Cough: Cough, congestion and SINCLAIR x 1 week HPI: Feeling sick for 8 days. Reminds her of bronchitis she gets this time year. Positive symptoms: Cough, Nasal Congestion, Headache, some Shortness of breath, lots of Wheezing, some Sinus pressure, Negative symptoms: Fever, Vomiting, Diarrhea, OTC: Cold Medicine Has not had known COVID illness. Had 4th Moderna COVID-19 (bivalent) vaccine a week ago. Exposed to someone with inflenza. PAST MEDICAL HISTORY Diagnosis Date Chronic hepatitis C virus infection (HCC) 10/14/2014 Successful eradication with Harvoni treatment 2014. Negative hep c virus RNA in May 2015 Depression History of cervical dysplasia 12/02/2011 Had total Hysterectomy at age 23 Major depressive disorder 12/05/2016 [facility] Nonspecific elevation of levels of transaminase or lactic acid dehydrogenase (LDH) Elevated LFT's, Hepatitis C infection Unspecified vitamin D deficiency MEDICATIONS: Current Outpatient Medications Medication Sig LORazepam (ATIVAN) 0.5 mg Take 1 tablet by mouth twice daily as needed for up to 60 days. lisinopril-hydroCHLOROthiazide (PRINZIDE,ZESTORETIC) 20-12.5 mg per tablet Take 2 tablets by mouth once daily. albuterol HFA (PROAIR HFA) 90 mcg/actuation inhaler Inhale 2 Puffs as instructed every 4 hours as needed. DULoxetine (CYMBALTA) 60 mg capsule Take 1 capsule by mouth twice daily. No current facility-administered medications for this visit. ALLERGIES: ALLERGIES Allergen Reactions Abilify [Aripiprazo* Intolerance Risperidone Intolerance Developed tardive dyskinesia VITALS: BP 136/74 Pulse 85 Temp 37.1 C (98.8 F) (Tympanic) Resp 18 Wt 78.7 kg (173 lb 6.4 oz) SpO2 96% BMI 31.72 kg/m PHYSICAL EXAM: GEN: mildly ill appearing HEENT: PERRL, EOMI, conjunctiva clear Ears: canals clear. TMs without erythema, bulge, or effusion Sinuses: non-tender frontal sinus, non-tender maxillary sinuses Throat: moist mucous membranes, mild erythema, no exudate Neck: supple, no thyromegaly, no lymphadenopathy HEART: regular rate and rhythm, no murmurs LUNGS: bilateral upper lung field wheezes no crackles, diminished lower lung air exchange, no increased WOB; wheezy cough ASSESSMENT/PLAN: 1. Acute cough - ICD9: 786.2, ICD10: R05.1 (primary diagnosis) 2. COPD with exacerbation (HCC) - ICD9: 491.21, ICD10: J44.1 - suspect viral URI, differential includes COVID-19. Declines COVID testing. - Supportive care treatment with rest, cold medicine, and analgesia. - Red flags to seek further treatment include chest pain, shortness of breath, and lethargy; in the ER if severe. - DOXYCYCLINE MONOHYDRATE 100 MG CAPSULE - PREDNISONE 10 MG TABLET - ALBUTEROL SULFATE HFA 90 MCG/ACTUATION AEROSOL INHALER Naveen Isbell MD documented in this encounter [facility] 12-02-2021 Miscellaneous Notes PDMP website checked and validated. All prescriptions have been APPROPRIATELY filled. No suspicious activity was identified. 12/02/2021 by Darya Germain APRN.[employer]ER Pt calling for the status of filling this Rx. Azra Paz LPN Patient has been identified by name and date of : Yes Patient phones for refill(s): Requested Prescriptions Pending Prescriptions Disp Refills LORazepam (ATIVAN) 0.5 mg 60 tablet 1 Sig: Take 1 tablet by mouth twice daily as needed for up to 60 days. Date of last office visit in primary care: 10/05/21 Last 2 Encounter Wt Readings: Date: Wt: 10/09/2021 75.4 kg (166 lb 3.2 oz) 10/05/2021 76.2 kg (168 lb) Previous labs/tests for medication: Not applicable Please advise. Thank you. Winnie Knight LPN Patient has been identified by name and date of : Yes Requested Prescriptions Pending Prescriptions Disp Refills LORazepam (ATIVAN) 0.5 mg 60 tablet 1 Sig: Take 1 tablet by mouth twice daily as needed for up to 60 days. RX INSTRUCTIONS: Patient aware RX will be sent to pharmacy. No need to notify patient. Leta Moreno Pss documented in this encounter [facility] 10-09-2021 History of Present illness Narrative Images from the original note were not included. Subjective HPI HPI Yadira Man is a 71 year old female who presents today for CC of left leg wound. This started 2 weeks ago. Has tried atb ointment. Symptoms are worsened by nothing. Denies hx of diabetes. .Patient presents with: Laceration: Cut/sore on left leg x 2 weeks PAST MEDICAL HISTORY Diagnosis Date Chronic hepatitis C virus infection (HCC) 10/14/2014 Successful eradication with Harvoni treatment 2014. Negative hep c virus RNA in May 2015 Depression History of cervical dysplasia 12/02/2011 Had total Hysterectomy at age 23 Major depressive disorder 12/05/2016 [facility] Nonspecific elevation of levels of transaminase or lactic acid dehydrogenase (LDH) Elevated LFT's, Hepatitis C infection Unspecified vitamin D deficiency PAST SURGICAL HISTORY Procedure Laterality Date CATARACT EXTRACTION HX COLONOSCOPY FLX DX W/COLLJ SPEC WHEN PFRMD 12/11/13 Colonoscopy ESOPHAGOGASTRODUODENOSCOPY TRANSORAL DIAGNOSTIC 12/11/13 EGD VAGINAL HYSTERECTOMY UTERUS 250 GM/< 1973 Hysterectomy, vaginal, Endometrial CA ALLERGIES Abilify [Aripiprazole] and Risperidone MEDICATIONS lisinopril-hydroCHLOROthiazide (PRINZIDE,ZESTORETIC) 20-12.5 mg per tablet Take 2 tablets by mouth once daily. LORazepam (ATIVAN) 0.5 mg Take 1 tablet by mouth twice daily as needed for up to 60 days. albuterol HFA (PROAIR HFA) 90 mcg/actuation inhaler Inhale 2 Puffs as instructed every 4 hours as needed. DULoxetine (CYMBALTA) 60 mg capsule Take 1 capsule by mouth twice daily. mupirocin (BACTROBAN) 2 % ointment Apply to affected area three times daily for 10 days. benzonatate (TESSALON PERLE) 100 mg capsule Take 1-2 capsules tid prn, no more than 6 in 24 hours. guaiFENesin (MUCINEX) 600 mg 12 hr tablet Take 2 tablets by mouth twice daily. albuterol (PROVENTIL) 5 mg/mL nebu Inhale 0.5 mL as instructed one time only for 1 dose. 1 DOSE NOW - BACK OFFICE. PLACE 0.5 ML PER DROPPER AND 2.5 ML OF NORMAL SALINE INTO RESERVOIR. FAMILY HISTORY Problem Relation Age of Onset Hypertension Mother Heart Mother Ischemic Heart Disease Father Fatal [place] age 58 Psychiatry Brother Depression Psychiatry Sister Schizoprhenia Cancer Sister Lung Social History Tobacco Use Smoking status: Every Day Packs/day: 1.00 Types: Cigarettes Smokeless tobacco: Never Tobacco comments: Declined information Vaping Use Vaping Use: Never used Substance Use Topics Alcohol use: No Drug use: No ROS Objective Blood pressure 122/78, pulse 85, temperature 36.5 C (97.7 F), resp. rate 20, weight 75.4 kg (166 lb 3.2 oz), SpO2 96 %. Physical Exam Constitutional: General: She is not in acute distress. Appearance: She is not toxic-appearing or diaphoretic. HENT: Head: Normocephalic and atraumatic. Pulmonary: Effort: Pulmonary effort is normal. No accessory muscle usage or respiratory distress. Skin: Neurological: Mental Status: She is alert and oriented to person, place, and time. ASSESSMENT/PLAN: 1. Leg wound, left, initial encounter - ICD9: 894.0, ICD10: S81.802A Appears to be healing well Keep clean and covered Antibiotic ointment as ordered. -if does not seem to be healing well call [facility]. Urgent follow up for redness, drainage, pain. Agrees to plan Myles Trivedi APRN.CNP documented in this encounter [facility] 10-09-2021 Instructions Myles Trivedi APRN.CNP - 10/09/2021 9:38 AM EDT ASSESSMENT/PLAN: 1. Leg wound, left, initial encounter - ICD9: 894.0, ICD10: S81.802A Appears to be healing well Keep clean and covered Antibiotic ointment as ordered. -if does not seem to be healing well call [facility]. Urgent follow up for redness, drainage, pain. documented in this encounter [facility] 10-07-2021 Miscellaneous Notes Patient notified. T/C patient, lulu was busy. ----- Message from Darya Germain APRN.AMERICAN HISTORY TEACHER sent at 10/06/2021 4:41 PM EDT ----- Please let patient know her thyroid level is normal. Thank you Darya Germain APRN.AMERICAN HISTORY TEACHER documented in this encounter [facility] 10-05-2021 History of Present illness Narrative Reason for Visit Patient presents with: Hypertension: refill needed Yadira Man is a 71 year old female who presents here today for Above Complaints.. Health Maintenance SHINGRIX VACCINE(1 of 2) MAMMOGRAM COLORECTAL CANCER SCREENING ADVANCE DIRECTIVE DISCUSSION COVID-19 VACCINE(4 - Booster for Moderna series) BP CONTROLLED (<130/80) HPI HTN: Compliant with medications. Denies any chest pain, palpitations, or edema. No SOB. Doesn't check BP at home generally. Careful with diet to avoid salt, trying to eat more fruits and vegetables, exercises regularly. Still smoking around 2 to 4 cigs a day, she has tried to cut down over the past few years and is doing well. Anxiety and depression is well controlled on cymbalta. No problem-specific Assessment & Plan notes found for this encounter. PAST MEDICAL HISTORY Diagnosis Date Chronic hepatitis C virus infection (HCC) 10/14/2014 Successful eradication with Harvoni treatment 2014. Negative hep c virus RNA in May 2015 Depression History of cervical dysplasia 12/02/2011 Had total Hysterectomy at age 23 Major depressive disorder 12/05/2016 [facility] Nonspecific elevation of levels of transaminase or lactic acid dehydrogenase (LDH) Elevated LFT's, Hepatitis C infection Unspecified vitamin D deficiency PAST SURGICAL HISTORY Procedure Laterality Date CATARACT EXTRACTION HX COLONOSCOPY FLX DX W/COLLJ SPEC WHEN PFRMD 12/11/13 Colonoscopy ESOPHAGOGASTRODUODENOSCOPY TRANSORAL DIAGNOSTIC 12/11/13 EGD VAGINAL HYSTERECTOMY UTERUS 250 GM/< 1973 Hysterectomy, vaginal, Endometrial CA FAMILY HISTORY Problem Relation Age of Onset Hypertension Mother Heart Mother Ischemic Heart Disease Father Fatal [place] age 58 Psychiatry Brother Depression Psychiatry Sister Schizoprhenia Cancer Sister Lung Social History Tobacco Use Smoking status: Every Day Packs/day: 1.00 Types: Cigarettes Smokeless tobacco: Never Tobacco comments: Declined information Vaping Use Vaping Use: Never used Substance Use Topics Alcohol use: No Drug use: No Past medical history, appointments, medications, allergies reviewed. Pertinent Lab/Diagnostic Studies are reviewed and discussed today Current Outpatient Medications: LORazepam (ATIVAN) 0.5 mg albuterol HFA (PROAIR HFA) 90 mcg/actuation inhaler DULoxetine (CYMBALTA) 60 mg capsule lisinopril-hydroCHLOROthiazide (PRINZIDE,ZESTORETIC) 20-12.5 mg per tablet benzonatate (TESSALON PERLE) 100 mg capsule guaiFENesin (MUCINEX) 600 mg 12 hr tablet albuterol (PROVENTIL) 5 mg/mL nebu Review of Systems CONSTITUTIONAL: No fevers, chills night sweats, unintended weight loss CARDIOVASCULAR: No chest pain, dyspnea, palpitations, orthopnea, PND, ankle edema. PULM: No dyspnea, unexplained cough. GI: No dysphagia/odynophagia, problematic reflux, constipation, diarrhea, changes in stool habits, hematochezia, melena. : No new urinary complaints, including dysuria, gross hematuria or pyuria. NEURO: No new balance problems, peripheral weakness/paresthesias or numbness of concern. Physical Exam BP 130/76 (BP Site: Left Arm, BP Position: Sitting, BP Cuff Size: Large Adult) Pulse 80 Temp 37.2 C (99 F) Resp 12 Ht 157.5 cm (5' 2 ) Wt 76.2 kg (168 lb) SpO2 98% BMI 30.73 kg/m General appearance: Well appearing, alert, in no acute distress, well nourished. Skin: Skin color, texture, turgor normal, no suspicious rashes or lesions Head: Normocephalic, no masses, lesions, tenderness or abnormalities Eyes: Anicteric sclera. Pupils are equally round and reactive to light. Extraocular movements are intact. Lungs: Lungs clear to auscultation. No wheezing, rhonchi, rales Heart: RRR without murmur, gallop, or rubs. Extremities: No deformities, edema, skin discoloration, clubbing or cyanosis. Good capillary refill. ASSESSMENT/PLAN: 1. Essential hypertension - ICD9: 401.9, ICD10: I10 (primary diagnosis) Bp is well controlled - LISINOPRIL 20 MG-HYDROCHLOROTHIAZIDE 12.5 MG TABLET 2. Screening for colon cancer - ICD9: V76.51, ICD10: Z12.11 3. Excessive weight gain - ICD9: 783.1, ICD10: R63.5 Patient feels like she is working hard and not loosing much weight. She would like thyroid checked, Cymbalta could be causing her to not gain weight. - TSH BLD 4. Tobacco abuse disorder - ICD9: 305.1, ICD10: Z72.0 She will try to cut down the smoking 5. Severe episode of recurrent major depressive disorder, without psychotic features (HCC) - ICD9: 296.33, ICD10: F33.2 Cont the duloxetine Vamshi Davis MD documented in this encounter [facility] 09-02-2021 Miscellaneous Notes PDMP website checked and validated. All prescriptions have been APPROPRIATELY filled. No suspicious activity was identified. 09/02/2021 by Darya Germain APRN.IKER Patient has been identified by name and date of : Yes Patient phones for refill(s): Pending Prescriptions Disp Refills LORAZEPAM 0.5 MG TABLET 60 tablet 1 Sig: Take 1 tablet by mouth twice daily as needed for up to 60 days. MELVA Class: C-IV ERICKA: No Date of last office visit in primary care: 04/19/21 Last 2 Encounter Wt Readings: Date: Wt: 08/03/2021 76.7 kg (169 lb 3.2 oz) 05/23/2021 76 kg (167 lb 9.6 oz) Previous labs/tests for medication: Not applicable Please advise. Thank you. Winnie Knight LPN Patient has been identified by name and date of : Yes Pending Prescriptions Disp Refills LORAZEPAM 0.5 MG TABLET 60 tablet 1 Sig: Take 1 tablet by mouth twice daily as needed for up to 60 days. MELVA Class: C-IV ERICKA: No RX INSTRUCTIONS: Patient aware RX will be sent to pharmacy. No need to notify patient. [employer] documented in this encounter [facility] 08-04-2021 Miscellaneous Notes Talked with EC provider she said they don't do pre-approvals for medications, and her insurance probably didn't cover them because you can get them over the counter. She said for Pt to get the OTC Mucinex, and Delcium or Robitussin DM for the cough. She states generic is fine to get. Called Pt and notified her of providers message. Pt states she wishes she would have know that before, but alright. Pt called and is notified of providers results and instructions. Pt voices understanding. Pt reports that her insurance won't pay for the Mucinex or the Tessalon Perle until the provider faxes them approval. Aletha Enciso RN TC to pt. LM to call office, ask for triage nurse to get results. Kimmie Guerrero LPN Please notify of negative flu and covid test. Continue comfort measures for symptoms as you would for a cold. Any worsening symptoms follow up with PCP or ER. Savannah Crook APRN.CNP documented in this encounter [facility] 08-03-2021 Instructions Savannah Crook APRN.CNP - 08/03/2021 8:48 AM EDT covid test ordered You will be notified in 24 -48 hours, results available on [facility] Home isolation until covid results are back Rest, increase water intake Motrin or Tylenol as needed for fever or pain. Salt water gargles, chloraseptic spray or lozenges as needed for sore throat. Warm beverages, honey. Nasal saline spray as needed Cool mist humidifier at night Tylenol (generic acetaminophen) 500 mg-2 tabs every 8 hrs. as needed for fever and aches Ibuprofen 600 mg (3-200mg tablets) every 6 hours Tessalon Perles 1-2 every 8 hours, do not combine this with robitussin or delsym * Prednisone 40 mg (2 tablets) per day for 5 days, take in morning or early in day * Do not NSAIDs during this 5 day course (ibuprofen, naproxen, Motrin, Aleve, Advil) Tylenol only during prednisone use * Follow up with primary care provider if no improvement with treatment Albuterol inhaler 2 puffs every 4-6 hours as needed -Mucinex (generic is fine) Guaifenesin 1200 mg twice daily to help with cough and to thin out mucus * Seek medical care immediately, call 911, go to ER if you have chest pain, difficulty breathing, shortness of breath, inability to swallow. documented in this encounter [facility] 08-03-2021 History of Present illness Narrative Subjective The history is provided by the patient. No sign language instructor was used. HPI Yadira Man is a 70 year old female who presents today for CC of cough, body aches, shortness of breath and occasional fever. This started 4 days ago. She has used some ibuprofen, no other medications. She is an everyday smoker. BP 142/76 Pulse 94 Temp 37 C (98.6 F) Resp 20 Wt 76.7 kg (169 lb 3.2 oz) SpO2 96% BMI 30.95 kg/m Social History Tobacco Use Smoking status: Current Every Day Smoker Packs/day: 1.00 Types: Cigarettes Smokeless tobacco: Never Used Tobacco comment: Declined information Vaping Use Vaping Use: Never used Substance Use Topics Alcohol use: No Drug use: No PAST MEDICAL HISTORY Diagnosis Date Chronic hepatitis C virus infection (HCC) 10/14/2014 Successful eradication with Harvoni treatment 2014. Negative hep c virus RNA in May 2015 Depression History of cervical dysplasia 12/02/2011 Had total Hysterectomy at age 23 Major depressive disorder 12/05/2016 [facility] Nonspecific elevation of levels of transaminase or lactic acid dehydrogenase (LDH) Elevated LFT's, Hepatitis C infection Unspecified vitamin D deficiency I have confirmed and edited as necessary, the [facility] Review of Systems Constitutional: Positive for fever. Negative for chills and malaise/fatigue. HENT: Positive for congestion. Negative for ear pain, sinus pain and sore throat. Respiratory: Positive for cough. Negative for sputum production, shortness of breath and wheezing. Cardiovascular: Negative for chest pain. Gastrointestinal: Negative for abdominal pain, diarrhea, nausea and vomiting. Musculoskeletal: Negative for myalgias. Neurological: Negative for headaches. Objective Physical Exam Vitals and nursing note reviewed. HENT: Head: Normocephalic and atraumatic. Right Ear: Tympanic membrane, ear canal and external ear normal. Left Ear: Tympanic membrane, ear canal and external ear normal. Nose: Mucosal edema, congestion and rhinorrhea present. Mouth/Throat: Pharynx: Uvula midline. No oropharyngeal exudate or posterior oropharyngeal erythema. Cardiovascular: Rate and Rhythm: Normal rate and regular rhythm. Heart sounds: Normal heart sounds. Pulmonary: Effort: Pulmonary effort is normal. Breath sounds: Wheezing (expiratory scattered throughout) present. Lymphadenopathy: Head: Right side of head: No submental, submandibular or tonsillar adenopathy. Left side of head: No submental, submandibular or tonsillar adenopathy. Cervical: No cervical adenopathy. Skin: General: Skin is warm and dry. Neurological: Mental Status: She is alert. Psychiatric: Mood and Affect: Affect normal. ASSESSMENT/PLAN: 1. Upper respiratory symptom - ICD9: 786.9, ICD10: R09.89 (primary diagnosis) Suspect viral illness, covid, flu - COVID WITH FLUA+B, ROUTINE 2. Cough - ICD9: 786.2, ICD10: R05.9 Tessalon perls, inhaler - COVID WITH FLUA+B, ROUTINE 3. Wheezing - ICD9: 786.07, ICD10: R06.2 Prednisone burst - COVID WITH FLUA+B, ROUTINE 4. Suspected COVID-19 virus infection - ICD9: V01.79, ICD10: Z20.822 Home isolation Testing ordered Comfort measures discussed - see patient instructions. When to seek higher level of care Notified in 24-48 hours with results, available on [facility] - COVID WITH FLUA+B, ROUTINE Diagnosis and treatment plan were discussed and questions were answered to the patient's satisfaction. Pt acknowledged understanding of concepts and follow up plan. Specific signs and symptoms that would indicate the need for higher level of care were discussed in detail warranting prompt ER evaluation. Savannah Crook APRN.AMERICAN HISTORY TEACHER documented in this encounter [facility] 07-01-2021 Miscellaneous Notes Pt last seen pcp 04/19/21. Next appt arranged for 08/18/21/ Patient has been identified by name and date of : Yes Pending Prescriptions Disp Refills LORAZEPAM 0.5 MG TABLET 60 tablet 1 Sig: Take 1 tablet by mouth twice daily as needed for up to 60 days. MELVA Class: C-IV ERICKA: No RX INSTRUCTIONS: Patient aware RX will be sent to pharmacy. No need to notify patient. Bertha Quiros Pss documented in this encounter [facility] 05-23-2021 History of Present illness Narrative Subjective HPI HPI Yadira Man is a 70 year old female who presents today for CC of cough, sinus pressure, sob with cough. This started 2 weeks ago. Has tried otc medication for relief. Symptoms are worsened by nothing. Risk factors smoker. .Patient presents with: Cough: x2 weeks, c/o intermittent SOB, chest pain PAST MEDICAL HISTORY Diagnosis Date Chronic hepatitis C virus infection (HCC) 10/14/2014 Successful eradication with Harvoni treatment 2014. Negative hep c virus RNA in May 2015 Depression History of cervical dysplasia 12/02/2011 Had total Hysterectomy at age 23 Major depressive disorder 12/05/2016 [facility] Nonspecific elevation of levels of transaminase or lactic acid dehydrogenase (LDH) Elevated LFT's, Hepatitis C infection Unspecified vitamin D deficiency PAST SURGICAL HISTORY Procedure Laterality Date CATARACT EXTRACTION HX COLONOSCOPY FLX DX W/COLLJ SPEC WHEN PFRMD 12/11/13 Colonoscopy ESOPHAGOGASTRODUODENOSCOPY TRANSORAL DIAGNOSTIC 12/11/13 EGD VAGINAL HYSTERECTOMY UTERUS 250 GM/< 1973 Hysterectomy, vaginal, Endometrial CA ALLERGIES Abilify [Aripiprazole] and Risperidone MEDICATIONS LORazepam (ATIVAN) 0.5 mg Take 1 tablet by mouth twice daily as needed for up to 60 days. DULoxetine (CYMBALTA) 60 mg capsule Take 1 capsule by mouth twice daily. lisinopril-hydroCHLOROthiazide (PRINZIDE,ZESTORETIC) 20-12.5 mg per tablet Take 2 tablets by mouth once daily. doxycycline monohydrate 100 mg tablet Take 1 tablet by mouth twice daily for 10 days. predniSONE (DELTASONE) 20 mg tablet Take 2 tablets by mouth once daily for 5 days. FAMILY HISTORY Problem Relation Age of Onset Hypertension Mother Heart Mother Ischemic Heart Disease Father Fatal [place] age 58 Psychiatry Brother Depression Psychiatry Sister Schizoprhenia Cancer Sister Lung Social History Tobacco Use Smoking status: Current Every Day Smoker Packs/day: 1.00 Types: Cigarettes Smokeless tobacco: Never Used Tobacco comment: Declined information Vaping Use Vaping Use: Never used Substance Use Topics Alcohol use: No Drug use: No Review of Systems Constitutional: Negative for fever. HENT: Positive for congestion, sinus pain and sore throat. Negative for ear pain and nosebleeds. Respiratory: Positive for cough, sputum production and wheezing. Negative for shortness of breath. Cardiovascular: Negative for chest pain. Musculoskeletal: Negative for neck pain. Skin: Negative for itching and rash. Objective Blood pressure 132/74, pulse 85, temperature 36.7 C (98 F), temperature source Temporal, resp. rate 18, weight 76 kg (167 lb 9.6 oz), SpO2 97 %. Physical Exam Constitutional: General: She is not in acute distress. Appearance: She is not toxic-appearing or diaphoretic. HENT: Head: Normocephalic and atraumatic. Nose: Congestion present. Right Sinus: Maxillary sinus tenderness and frontal sinus tenderness present. Left Sinus: Maxillary sinus tenderness and frontal sinus tenderness present. Cardiovascular: Rate and Rhythm: Normal rate and regular rhythm. Heart sounds: Normal heart sounds, S1 normal and S2 normal. Pulmonary: Effort: Pulmonary effort is normal. Breath sounds: Wheezing (throughout) present. No decreased breath sounds, rhonchi or rales. Lymphadenopathy: Cervical: No cervical adenopathy. Right cervical: No superficial cervical adenopathy. Left cervical: No superficial cervical adenopathy. Neurological: Mental Status: She is alert and oriented to person, place, and time. Gait: Gait is intact. ASSESSMENT/PLAN: 1. Sinobronchitis - ICD9: 473.9, 490, ICD10: J32.9, J40 - Will begin treatment with Doxycycline - Supportive care with plenty of fluids, rest, and analgesia prn. - Follow up in 3-5 days if symptoms persist or worsen. - DOXYCYCLINE MONOHYDRATE 100 MG TABLET - PREDNISONE 20 MG TABLET Agrees to plan Declines avs Myles Trivedi APRN.AMERICAN HISTORY TEACHER documented in this encounter [facility] documented as of this encounter (statuses as of 05/23/2021) [facility] History of Past illness Narrative* Problem Noted Date Resolved Date Chronic hepatitis C virus infection 10/14/2014 12/08/2015 Overview: Successful eradication with Harvoni treatment 2014. Negative hep c virus RNA in May 2015 History of cervical dysplasia 12/02/2011 Overview: Had total Hysterectomy at age 23 Hepatitis C infection 03/21/2011 10/14/2014 Overview: Treated by Dr. Blaire lopez 6 months, last seen years ago Depression 03/21/2011 10/12/2018 documented as of this encounter (statuses as of 07/01/2021) [facility] History of Past illness Narrative* Problem Noted Date Resolved Date Chronic hepatitis C virus infection 10/14/2014 12/08/2015 Overview: Successful eradication with Harvoni treatment 2014. Negative hep c virus RNA in May 2015 History of cervical dysplasia 12/02/2011 Overview: Had total Hysterectomy at age 23 Hepatitis C infection 03/21/2011 10/14/2014 Overview: Treated by Dr. Blaire lopez 6 months, last seen years ago Depression 03/21/2011 10/12/2018 documented as of this encounter (statuses as of 08/03/2021) [facility] History of Past illness Narrative* Problem Noted Date Resolved Date Chronic hepatitis C virus infection 10/14/2014 12/08/2015 Overview: Successful eradication with Harvoni treatment 2014. Negative hep c virus RNA in May 2015 History of cervical dysplasia 12/02/2011 Overview: Had total Hysterectomy at age 23 Hepatitis C infection 03/21/2011 10/14/2014 Overview: Treated by Dr. Blaire lopez 6 months, last seen years ago Depression 03/21/2011 10/12/2018 documented as of this encounter (statuses as of 08/04/2021) [facility] History of Past illness Narrative* Problem Noted Date Resolved Date Chronic hepatitis C virus infection 10/14/2014 12/08/2015 Overview: Successful eradication with Harvoni treatment 2014. Negative hep c virus RNA in May 2015 History of cervical dysplasia 12/02/2011 Overview: Had total Hysterectomy at age 23 Hepatitis C infection 03/21/2011 10/14/2014 Overview: Treated by Dr. Blaire lopez 6 months, last seen years ago Depression 03/21/2011 10/12/2018 documented as of this encounter (statuses as of 08/09/2021) [facility] History of Past illness Narrative* Problem Noted Date Resolved Date Chronic hepatitis C virus infection 10/14/2014 12/08/2015 Overview: Successful eradication with Harvoni treatment 2014. Negative hep c virus RNA in May 2015 History of cervical dysplasia 12/02/2011 Overview: Had total Hysterectomy at age 23 Hepatitis C infection 03/21/2011 10/14/2014 Overview: Treated by Dr. Blaire lopez 6 months, last seen years ago Depression 03/21/2011 10/12/2018 documented as of this encounter (statuses as of 08/18/2021) [facility] History of Past illness Narrative* Problem Noted Date Resolved Date Chronic hepatitis C virus infection 10/14/2014 12/08/2015 Overview: Successful eradication with Harvoni treatment 2014. Negative hep c virus RNA in May 2015 History of cervical dysplasia 12/02/2011 Overview: Had total Hysterectomy at age 23 Hepatitis C infection 03/21/2011 10/14/2014 Overview: Treated by Dr. Blaire lopez 6 months, last seen years ago Depression 03/21/2011 10/12/2018 documented as of this encounter (statuses as of 09/02/2021) [facility] History of Past illness Narrative* Problem Noted Date Resolved Date Chronic hepatitis C virus infection 10/14/2014 12/08/2015 Overview: Successful eradication with Harvoni treatment 2014. Negative hep c virus RNA in May 2015 History of cervical dysplasia 12/02/2011 Overview: Had total Hysterectomy at age 23 Hepatitis C infection 03/21/2011 10/14/2014 Overview: Treated by Dr. Blaire lopez 6 months, last seen years ago Depression 03/21/2011 10/12/2018 documented as of this encounter (statuses as of 10/05/2021) [facility] History of Past illness Narrative* Problem Noted Date Resolved Date Chronic hepatitis C virus infection 10/14/2014 12/08/2015 Overview: Successful eradication with Harvoni treatment 2014. Negative hep c virus RNA in May 2015 History of cervical dysplasia 12/02/2011 Overview: Had total Hysterectomy at age 23 Hepatitis C infection 03/21/2011 10/14/2014 Overview: Treated by Dr. Blaire lopez 6 months, last seen years ago Depression 03/21/2011 10/12/2018 documented as of this encounter (statuses as of 10/07/2021) [facility]08[facility]18-2015 History of Past illness Narrative* Problem Noted Date Resolved Date Chronic hepatitis C virus infection 10/14/2014 12/08/2015 Overview: Successful eradication with Harvoni treatment 2014. Negative hep c virus RNA in May 2015 History of cervical dysplasia 12/02/2011 Overview: Had total Hysterectomy at age 23 Hepatitis C infection 03/21/2011 10/14/2014 Overview: Treated by Dr. Blaire lopez 6 months, last seen years ago Depression 03/21/2011 10/12/2018 documented as of this encounter (statuses as of 10/09/2021) [facility]2015 History of Past illness Narrative* Problem Noted Date Resolved Date Chronic hepatitis C virus infection 10/14/2014 12/08/2015 Overview: Successful eradication with Harvoni treatment 2014. Negative hep c virus RNA in May 2015 History of cervical dysplasia 12/02/2011 Overview: Had total Hysterectomy at age 23 Hepatitis C infection 03/21/2011 10/14/2014 Overview: Treated by Dr. Blaire lopez 6 months, last seen years ago Depression 03/21/2011 10/12/2018 documented as of this encounter (statuses as of 12/02/2021) [facility]2015 History of Past illness Narrative* Problem Noted Date Resolved Date Chronic hepatitis C virus infection 10/14/2014 12/08/2015 Overview: Successful eradication with Harvoni treatment 2014. Negative hep c virus RNA in May 2015 History of cervical dysplasia 12/02/2011 Overview: Had total Hysterectomy at age 23 Hepatitis C infection 03/21/2011 10/14/2014 Overview: Treated by Dr. Blaire lopez 6 months, last seen years ago Depression 03/21/2011 10/12/2018 documented as of this encounter (statuses as of 01/12/2022) [address]18-2015 History of Past illness Narrative* Problem Noted Date Resolved Date Chronic hepatitis C virus infection 10/14/2014 12/08/2015 Overview: Successful eradication with Harvoni treatment 2014. Negative hep c virus RNA in May 2015 History of cervical dysplasia 12/02/2011 Overview: Had total Hysterectomy at age 23 Hepatitis C infection 03/21/2011 10/14/2014 Overview: Treated by Dr. Blaire lopez 6 months, last seen years ago Depression 03/21/2011 10/12/2018 documented as of this encounter (statuses as of 03/04/2022) [facility]2015 History of Past illness Narrative* Problem Noted Date Resolved Date Chronic hepatitis C virus infection 10/14/2014 12/08/2015 Overview: Successful eradication with Harvoni treatment 2014. Negative hep c virus RNA in May 2015 History of cervical dysplasia 12/02/2011 Overview: Had total Hysterectomy at age 23 Hepatitis C infection 03/21/2011 10/14/2014 Overview: Treated by Dr. Blaire lopez 6 months, last seen years ago Depression 03/21/2011 10/12/2018 documented as of this encounter (statuses as of 03/04/2022) [facility]2015 History of Past illness Narrative* Problem Noted Date Resolved Date Chronic hepatitis C virus infection 10/14/2014 12/08/2015 Overview: Successful eradication with Harvoni treatment 2014. Negative hep c virus RNA in May 2015 History of cervical dysplasia 12/02/2011 Overview: Had total Hysterectomy at age 23 Hepatitis C infection 03/21/2011 10/14/2014 Overview: Treated by Dr. Blaire lopez 6 months, last seen years ago Depression 03/21/2011 10/12/2018 documented as of this encounter (statuses as of 03/09/2022) [facility]2015 History of Past illness Narrative* Problem Noted Date Resolved Date Chronic hepatitis C virus infection 10/14/2014 12/08/2015 Overview: Successful eradication with Harvoni treatment 2014. Negative hep c virus RNA in May 2015 History of cervical dysplasia 12/02/2011 Overview: Had total Hysterectomy at age 23 Hepatitis C infection 03/21/2011 10/14/2014 Overview: Treated by Dr. Blaire lopez 6 months, last seen years ago Depression 03/21/2011 10/12/2018 documented as of this encounter (statuses as of 03/24/2022) [facility]2015 History of Past illness Narrative* Problem Noted Date Resolved Date Chronic hepatitis C virus infection 10/14/2014 12/08/2015 Overview: Successful eradication with Harvoni treatment 2014. Negative hep c virus RNA in May 2015 History of cervical dysplasia 12/02/2011 Overview: Had total Hysterectomy at age 23 Hepatitis C infection 03/21/2011 10/14/2014 Overview: Treated by Dr. Blaire lopez 6 months, last seen years ago Depression 03/21/2011 10/12/2018 documented as of this encounter (statuses as of 03/25/2022) [facility]2015 History of Past illness Narrative* Problem Noted Date Resolved Date Chronic hepatitis C virus infection 10/14/2014 12/08/2015 Overview: Successful eradication with Harvoni treatment 2014. Negative hep c virus RNA in May 2015 History of cervical dysplasia 12/02/2011 Overview: Had total Hysterectomy at age 23 Hepatitis C infection 03/21/2011 10/14/2014 Overview: Treated by Dr. Blaire lopez 6 months, last seen years ago Depression 03/21/2011 10/12/2018 documented as of this encounter (statuses as of 04/09/2022) [facility]2015 History of Past illness Narrative* Problem Noted Date Resolved Date Chronic hepatitis C virus infection 10/14/2014 12/08/2015 Overview: Successful eradication with Harvoni treatment 2014. Negative hep c virus RNA in May 2015 History of cervical dysplasia 12/02/2011 Overview: Had total Hysterectomy at age 23 Hepatitis C infection 03/21/2011 10/14/2014 Overview: Treated by Dr. Blaire lopez 6 months, last seen years ago Depression 03/21/2011 10/12/2018 documented as of this encounter (statuses as of 04/12/2022) [facility] History of Past illness Narrative* Problem Noted Date Resolved Date Chronic hepatitis C virus infection 10/14/2014 12/08/2015 Overview: Successful eradication with Harvoni treatment 2014. Negative hep c virus RNA in May 2015 History of cervical dysplasia 12/02/2011 Overview: Had total Hysterectomy at age 23 Hepatitis C infection 03/21/2011 10/14/2014 Overview: Treated by Dr. Blaire lopez 6 months, last seen years ago Depression 03/21/2011 10/12/2018 documented as of this encounter (statuses as of 04/14/2022) [facility] History of Past illness Narrative* Problem Noted Date Resolved Date Chronic hepatitis C virus infection 10/14/2014 12/08/2015 Overview: Successful eradication with Harvoni treatment 2014. Negative hep c virus RNA in May 2015 History of cervical dysplasia 12/02/2011 Overview: Had total Hysterectomy at age 23 Hepatitis C infection 03/21/2011 10/14/2014 Overview: Treated by Dr. Blaire lopez 6 months, last seen years ago Depression 03/21/2011 10/12/2018 documented as of this encounter (statuses as of 05/19/2022) [facility]2015 History of Past illness Narrative* Problem Noted Date Resolved Date Chronic hepatitis C virus infection 10/14/2014 12/08/2015 Overview: Successful eradication with Harvoni treatment 2014. Negative hep c virus RNA in May 2015 History of cervical dysplasia 12/02/2011 Overview: Had total Hysterectomy at age 23 Hepatitis C infection 03/21/2011 10/14/2014 Overview: Treated by Dr. Blaire lopez 6 months, last seen years ago Depression 03/21/2011 10/12/2018 documented as of this encounter (statuses as of 07/18/2022) [facility]2015 History of Past illness Narrative* Problem Noted Date Resolved Date Chronic hepatitis C virus infection 10/14/2014 12/08/2015 Overview: Successful eradication with Harvoni treatment 2014. Negative hep c virus RNA in May 2015 History of cervical dysplasia 12/02/2011 Overview: Had total Hysterectomy at age 23 Hepatitis C infection 03/21/2011 10/14/2014 Overview: Treated by Dr. Blaire lopez 6 months, last seen years ago Depression 03/21/2011 10/12/2018 documented as of this encounter (statuses as of 07/28/2022) [facility] History of Past illness Narrative* Problem Noted Date Resolved Date Chronic hepatitis C virus infection 10/14/2014 12/08/2015 Overview: Successful eradication with Harvoni treatment 2014. Negative hep c virus RNA in May 2015 History of cervical dysplasia 12/02/2011 Overview: Had total Hysterectomy at age 23 Hepatitis C infection 03/21/2011 10/14/2014 Overview: Treated by Dr. Blaire lopez 6 months, last seen years ago Depression 03/21/2011 10/12/2018 documented as of this encounter (statuses as of 08/02/2022) [facility]2015 History of Past illness Narrative* Problem Noted Date Resolved Date Chronic hepatitis C virus infection 10/14/2014 12/08/2015 Overview: Successful eradication with Harvoni treatment 2014. Negative hep c virus RNA in May 2015 History of cervical dysplasia 12/02/2011 Overview: Had total Hysterectomy at age 23 Hepatitis C infection 03/21/2011 10/14/2014 Overview: Treated by Dr. Blaire lopez 6 months, last seen years ago Depression 03/21/2011 10/12/2018 documented as of this encounter (statuses as of 08/02/2022) [facility]2015 History of Past illness Narrative* Problem Noted Date Diagnosed Date Resolved Date Chronic hepatitis C virus infection 10/14/2014 12/08/2015 Overview: Successful eradication with Harvoni treatment 2014. Negative hep c virus RNA in May 2015 History of cervical dysplasia 12/02/2011 12/14/2020 Overview: Had total Hysterectomy at age 23 Hepatitis C infection 03/21/20112014 Overview: Treated by Dr. Blaire lopez 6 months, last seen years ago Depression 03/21/2011 10/12/2018 documented as of this encounter (statuses as of 09/14/2022) [facility] History of Past illness Narrative* Problem Noted Date Diagnosed Date Resolved Date Chronic hepatitis C virus infection 10/14/2014 12/08/2015 Overview: Successful eradication with Harvoni treatment 2014. Negative hep c virus RNA in May 2015 History of cervical dysplasia 12/02/2011 12/14/2020 Overview: Had total Hysterectomy at age 23 Hepatitis C infection 03/21/20112014 Overview: Treated by Dr. Blaire lopez 6 months, last seen years ago Depression 03/21/2011 10/12/2018 documented as of this encounter (statuses as of 10/19/2022) [facility] History of Past illness Narrative* Problem Noted Date Diagnosed Date Resolved Date Chronic hepatitis C virus infection 10/14/2014 12/08/2015 Overview: Successful eradication with Harvoni treatment 2014. Negative hep c virus RNA in May 2015 History of cervical dysplasia 12/02/2011 12/14/2020 Overview: Had total Hysterectomy at age 23 Hepatitis C infection 03/21/20112014 Overview: Treated by Dr. Rudd x 6 months, last seen years ago Depression 03/21/2011 10/12/2018 documented as of this encounter (statuses as of 11/07/2022) [facility] History of Past illness Narrative* Problem Noted Date Diagnosed Date Resolved Date Chronic hepatitis C virus infection 10/14/2014 12/08/2015 Overview: Successful eradication with Harvoni treatment 2014. Negative hep c virus RNA in May 2015 History of cervical dysplasia 12/02/2011 12/14/2020 Overview: Had total Hysterectomy at age 23 Hepatitis C infection 03/21/20112014 Overview: Treated by Dr. Blaire lopez 6 months, last seen years ago Depression 03/21/2011 10/12/2018 documented as of this encounter (statuses as of 11/09/2022) [facility]2015 History of Past illness Narrative* Problem Noted Date Diagnosed Date Resolved Date Chronic hepatitis C virus infection 10/14/2014 12/08/2015 Overview: Successful eradication with Harvoni treatment 2014. Negative hep c virus RNA in May 2015 History of cervical dysplasia 12/02/2011 12/14/2020 Overview: Had total Hysterectomy at age 23 Hepatitis C infection 03/21/20112014 Overview: Treated by Dr. Blaire lopez 6 months, last seen years ago Depression 03/21/2011 10/12/2018 documented as of this encounter (statuses as of 11/11/2022) [facility] History of Past illness Narrative* Problem Noted Date Diagnosed Date Resolved Date Chronic hepatitis C virus infection 10/14/2014 12/08/2015 Overview: Successful eradication with Harvoni treatment 2014. Negative hep c virus RNA in May 2015 History of cervical dysplasia 12/02/2011 12/14/2020 Overview: Had total Hysterectomy at age 23 Hepatitis C infection 03/21/20112014 Overview: Treated by Dr. Blaire lopez 6 months, last seen years ago Depression 03/21/2011 10/12/2018 documented as of this encounter (statuses as of 11/19/2022) [facility] History of Past illness Narrative* Problem Noted Date Diagnosed Date Resolved Date Chronic hepatitis C virus infection 10/14/2014 12/08/2015 Overview: Successful eradication with Harvoni treatment 2014. Negative hep c virus RNA in May 2015 History of cervical dysplasia 12/02/2011 12/14/2020 Overview: Had total Hysterectomy at age 23 Hepatitis C infection 03/21/20112014 Overview: Treated by Dr. Blaire lopez 6 months, last seen years ago Depression 03/21/2011 10/12/2018 documented as of this encounter (statuses as of 11/25/2022) [facility] History of Past illness Narrative* Problem Noted Date Diagnosed Date Resolved Date Chronic hepatitis C virus infection 10/14/2014 12/08/2015 Overview: Successful eradication with Harvoni treatment 2014. Negative hep c virus RNA in May 2015 History of cervical dysplasia 12/02/2011 12/14/2020 Overview: Had total Hysterectomy at age 23 Hepatitis C infection 03/21/20112014 Overview: Treated by Dr. Blaire lopez 6 months, last seen years ago Depression 03/21/2011 10/12/2018 documented as of this encounter (statuses as of 12/08/2022) [facility] History of Past illness Narrative* Problem Noted Date Diagnosed Date Resolved Date Chronic hepatitis C virus infection 10/14/2014 12/08/2015 Overview: Successful eradication with Harvoni treatment 2014. Negative hep c virus RNA in May 2015 History of cervical dysplasia 12/02/2011 12/14/2020 Overview: Had total Hysterectomy at age 23 Hepatitis C infection 03/21/20112014 Overview: Treated by Dr. Blaire lopez 6 months, last seen years ago Depression 03/21/2011 10/12/2018 documented as of this encounter (statuses as of 12/09/2022) [facility] History of Past illness Narrative* Problem Noted Date Diagnosed Date Resolved Date Chronic hepatitis C virus infection 10/14/2014 12/08/2015 Overview: Successful eradication with Harvoni treatment 2014. Negative hep c virus RNA in May 2015 History of cervical dysplasia 12/02/2011 12/14/2020 Overview: Had total Hysterectomy at age 23 Hepatitis C infection 03/21/20112014 Overview: Treated by Dr. Blaire lopez 6 months, last seen years ago Depression 03/21/2011 10/12/2018 documented as of this encounter (statuses as of 12/15/2022) [facility] History of Past illness Narrative* Problem Noted Date Diagnosed Date Resolved Date Chronic hepatitis C virus infection 10/14/2014 12/08/2015 Overview: Successful eradication with Harvoni treatment 2014. Negative hep c virus RNA in May 2015 History of cervical dysplasia 12/02/2011 12/14/2020 Overview: Had total Hysterectomy at age 23 Hepatitis C infection 03/21/20112014 Overview: Treated by Dr. Blaire lopez 6 months, last seen years ago Depression 03/21/2011 10/12/2018 documented as of this encounter (statuses as of 12/20/2022) [facility] History of Past illness Narrative* Problem Noted Date Diagnosed Date Resolved Date Chronic hepatitis C virus infection 10/14/2014 12/08/2015 Overview: Successful eradication with Harvoni treatment 2014. Negative hep c virus RNA in May 2015 History of cervical dysplasia 12/02/2011 12/14/2020 Overview: Had total Hysterectomy at age 23 Hepatitis C infection 03/21/20112014 Overview: Treated by Dr. Blaire lopez 6 months, last seen years ago Depression 03/21/2011 10/12/2018 documented as of this encounter (statuses as of 01/01/2023) [facility] History of Past illness Narrative* Problem Noted Date Diagnosed Date Resolved Date Chronic hepatitis C virus infection 10/14/2014 12/08/2015 Overview: Successful eradication with Harvoni treatment 2014. Negative hep c virus RNA in May 2015 History of cervical dysplasia 12/02/2011 12/14/2020 Overview: Had total Hysterectomy at age 23 Hepatitis C infection 03/21/20112014 Overview: Treated by Dr. Blaire lopez 6 months, last seen years ago Depression 03/21/2011 10/12/2018 documented as of this encounter (statuses as of 01/04/2023) [facility] History of Past illness Narrative* Problem Noted Date Diagnosed Date Resolved Date Chronic hepatitis C virus infection 10/14/2014 12/08/2015 Overview: Successful eradication with Harvoni treatment 2014. Negative hep c virus RNA in May 2015 History of cervical dysplasia 12/02/2011 12/14/2020 Overview: Had total Hysterectomy at age 23 Hepatitis C infection 03/21/20112014 Overview: Treated by Dr. Blaire lopez 6 months, last seen years ago Depression 03/21/2011 10/12/2018 documented as of this encounter (statuses as of 01/06/2023) [facility] History of Past illness Narrative* Problem Noted Date Diagnosed Date Resolved Date Chronic hepatitis C virus infection 10/14/2014 12/08/2015 Overview: Successful eradication with Harvoni treatment 2014. Negative hep c virus RNA in May 2015 History of cervical dysplasia 12/02/2011 12/14/2020 Overview: Had total Hysterectomy at age 23 Hepatitis C infection 03/21/20112014 Overview: Treated by Dr. Blaire lopez 6 months, last seen years ago Depression 03/21/2011 10/12/2018 documented as of this encounter (statuses as of 01/09/2023) [facility] History of Past illness Narrative* Problem Noted Date Diagnosed Date Resolved Date Chronic hepatitis C virus infection 10/14/2014 12/08/2015 Overview: Successful eradication with Harvoni treatment 2014. Negative hep c virus RNA in May 2015 History of cervical dysplasia 12/02/2011 12/14/2020 Overview: Had total Hysterectomy at age 23 Hepatitis C infection 03/21/20112014 Overview: Treated by Dr. Blaire lopez 6 months, last seen years ago Depression 03/21/2011 10/12/2018 documented as of this encounter (statuses as of 01/13/2023) [facility] History of Past illness Narrative* Problem Noted Date Diagnosed Date Resolved Date Chronic hepatitis C virus infection 10/14/2014 12/08/2015 Overview: Successful eradication with Harvoni treatment 2014. Negative hep c virus RNA in May 2015 History of cervical dysplasia 12/02/2011 12/14/2020 Overview: Had total Hysterectomy at age 23 Hepatitis C infection 03/21/20112014 Overview: Treated by Dr. Blaire lopez 6 months, last seen years ago Depression 03/21/2011 10/12/2018 documented as of this encounter (statuses as of 01/13/2023) [facility] History of Past illness Narrative* Problem Noted Date Diagnosed Date Resolved Date Chronic hepatitis C virus infection 10/14/2014 12/08/2015 Overview: Successful eradication with Harvoni treatment 2014. Negative hep c virus RNA in May 2015 History of cervical dysplasia 12/02/2011 12/14/2020 Overview: Had total Hysterectomy at age 23 Hepatitis C infection 03/21/20112014 Overview: Treated by Dr. Blaire lopez 6 months, last seen years ago Depression 03/21/2011 10/12/2018 documented as of this encounter (statuses as of 01/14/2023) [facility] History of Past illness Narrative* Problem Noted Date Diagnosed Date Resolved Date Chronic hepatitis C virus infection 10/14/2014 12/08/2015 Overview: Successful eradication with Harvoni treatment 2014. Negative hep c virus RNA in May 2015 History of cervical dysplasia 12/02/2011 12/14/2020 Overview: Had total Hysterectomy at age 23 Hepatitis C infection 03/21/20112014 Overview: Treated by Dr. Blaire lopez 6 months, last seen years ago Depression 03/21/2011 10/12/2018 documented as of this encounter (statuses as of 01/16/2023) [facility] History of Past illness Narrative* Problem Noted Date Diagnosed Date Resolved Date Chronic hepatitis C virus infection 10/14/2014 12/08/2015 Overview: Successful eradication with Harvoni treatment 2014. Negative hep c virus RNA in May 2015 History of cervical dysplasia 12/02/2011 12/14/2020 Overview: Had total Hysterectomy at age 23 Hepatitis C infection 03/21/20112014 Overview: Treated by Dr. Blaire lopez 6 months, last seen years ago Depression 03/21/2011 10/12/2018 documented as of this encounter (statuses as of 01/16/2023) [facility] History of Past illness Narrative* Problem Noted Date Diagnosed Date Resolved Date Chronic hepatitis C virus infection 10/14/2014 12/08/2015 Overview: Successful eradication with Harvoni treatment 2014. Negative hep c virus RNA in May 2015 History of cervical dysplasia 12/02/2011 12/14/2020 Overview: Had total Hysterectomy at age 23 Hepatitis C infection 03/21/20112014 Overview: Treated by Dr. Blaire lopez 6 months, last seen years ago Depression 03/21/2011 10/12/2018 documented as of this encounter (statuses as of 01/17/2023) [facility] History of Past illness Narrative* Problem Noted Date Diagnosed Date Resolved Date Chronic hepatitis C virus infection 10/14/2014 12/08/2015 Overview: Successful eradication with Harvoni treatment 2014. Negative hep c virus RNA in May 2015 History of cervical dysplasia 12/02/2011 12/14/2020 Overview: Had total Hysterectomy at age 23 Hepatitis C infection 03/21/20112014 Overview: Treated by Dr. Blaire lopez 6 months, last seen years ago Depression 03/21/2011 10/12/2018 documented as of this encounter (statuses as of 01/17/2023) [facility] History of Past illness Narrative* Problem Noted Date Diagnosed Date Resolved Date Chronic hepatitis C virus infection 10/14/2014 12/08/2015 Overview: Successful eradication with Harvoni treatment 2014. Negative hep c virus RNA in May 2015 History of cervical dysplasia 12/02/2011 12/14/2020 Overview: Had total Hysterectomy at age 23 Hepatitis C infection 03/21/20112014 Overview: Treated by Dr. Blaire lopez 6 months, last seen years ago Depression 03/21/2011 10/12/2018 documented as of this encounter (statuses as of 01/17/2023) [facility] History of Past illness Narrative* Problem Noted Date Diagnosed Date Resolved Date Chronic hepatitis C virus infection 10/14/2014 12/08/2015 Overview: Successful eradication with Harvoni treatment 2014. Negative hep c virus RNA in May 2015 History of cervical dysplasia 12/02/2011 12/14/2020 Overview: Had total Hysterectomy at age 23 Hepatitis C infection 03/21/20112014 Overview: Treated by Dr. Blaire lopez 6 months, last seen years ago Depression 03/21/2011 10/12/2018 documented as of this encounter (statuses as of 01/19/2023) [facility] History of Past illness Narrative* Problem Noted Date Diagnosed Date Resolved Date Chronic hepatitis C virus infection 10/14/2014 12/08/2015 Overview: Successful eradication with Harvoni treatment 2014. Negative hep c virus RNA in May 2015 History of cervical dysplasia 12/02/2011 12/14/2020 Overview: Had total Hysterectomy at age 23 Hepatitis C infection 03/21/20112014 Overview: Treated by Dr. Blaire lopez 6 months, last seen years ago Depression 03/21/2011 10/12/2018 documented as of this encounter (statuses as of 01/22/2023) [facility] History of Past illness Narrative* Problem Noted Date Diagnosed Date Resolved Date Chronic hepatitis C virus infection 10/14/2014 12/08/2015 Overview: Successful eradication with Harvoni treatment 2014. Negative hep c virus RNA in May 2015 History of cervical dysplasia 12/02/2011 12/14/2020 Overview: Had total Hysterectomy at age 23 Hepatitis C infection 03/21/20112014 Overview: Treated by Dr. Blaire lopez 6 months, last seen years ago Depression 03/21/2011 10/12/2018 documented as of this encounter (statuses as of 01/25/2023) [address]18[address]2015 History of Past illness Narrative* Problem Noted Date Diagnosed Date Resolved Date Chronic hepatitis C virus infection 10/14/2014 12/08/2015 Overview: Successful eradication with Harvoni treatment 2014. Negative hep c virus RNA in May 2015 History of cervical dysplasia 12/02/2011 12/14/2020 Overview: Had total Hysterectomy at age 23 Hepatitis C infection 03/21/20112014 Overview: Treated by Dr. Blaire lopez 6 months, last seen years ago Depression 03/21/2011 10/12/2018 documented as of this encounter (statuses as of 01/25/2023) [address]18-2015 History of Past illness Narrative* Problem Noted Date Diagnosed Date Resolved Date Chronic hepatitis C virus infection 10/14/2014 12/08/2015 Overview: Successful eradication with Harvoni treatment 2014. Negative hep c virus RNA in May 2015 History of cervical dysplasia 12/02/2011 12/14/2020 Overview: Had total Hysterectomy at age 23 Hepatitis C infection 03/21/20112014 Overview: Treated by Dr. Blaire lopez 6 months, last seen years ago Depression 03/21/2011 10/12/2018 documented as of this encounter (statuses as of 01/26/2023) [facility]08-18-2015 History of Past illness Narrative* Problem Noted Date Diagnosed Date Resolved Date Chronic hepatitis C virus infection 10/14/2014 12/08/2015 Overview: Successful eradication with Harvoni treatment 2014. Negative hep c virus RNA in May 2015 History of cervical dysplasia 12/02/2011 12/14/2020 Overview: Had total Hysterectomy at age 23 Hepatitis C infection 03/21/20112014 Overview: Treated by Dr. Blaire lopez 6 months, last seen years ago Depression 03/21/2011 10/12/2018 documented as of this encounter (statuses as of 01/31/2023) [facility]-18[facility]2015 History of Past illness Narrative* Problem Noted Date Diagnosed Date Resolved Date Chronic hepatitis C virus infection 10/14/2014 12/08/2015 Overview: Successful eradication with Harvoni treatment 2014. Negative hep c virus RNA in May 2015 History of cervical dysplasia 12/02/2011 12/14/2020 Overview: Had total Hysterectomy at age 23 Hepatitis C infection 03/21/20112014 Overview: Treated by Dr. Blaire lopez 6 months, last seen years ago Depression 03/21/2011 10/12/2018 documented as of this encounter (statuses as of 02/01/2023) [facility]18[facility]2015 History of Past illness Narrative* Problem Noted Date Diagnosed Date Resolved Date Chronic hepatitis C virus infection 10/14/2014 12/08/2015 Overview: Successful eradication with Harvoni treatment 2014. Negative hep c virus RNA in May 2015 History of cervical dysplasia 12/02/2011 12/14/2020 Overview: Had total Hysterectomy at age 23 Hepatitis C infection 03/21/20112014 Overview: Treated by Dr. Blaire lopez 6 months, last seen years ago Depression 03/21/2011 10/12/2018 documented as of this encounter (statuses as of 02/03/2023) [address]18-2015 History of Past illness Narrative* Problem Noted Date Diagnosed Date Resolved Date Chronic hepatitis C virus infection 10/14/2014 12/08/2015 Overview: Successful eradication with Harvoni treatment 2014. Negative hep c virus RNA in May 2015 History of cervical dysplasia 12/02/2011 12/14/2020 Overview: Had total Hysterectomy at age 23 Hepatitis C infection 03/21/20112014 Overview: Treated by Dr. Blaire lopez 6 months, last seen years ago Depression 03/21/2011 10/12/2018 documented as of this encounter (statuses as of 02/04/2023) [address]18-2015 History of Past illness Narrative* Problem Noted Date Diagnosed Date Resolved Date Chronic hepatitis C virus infection 10/14/2014 12/08/2015 Overview: Successful eradication with Harvoni treatment 2014. Negative hep c virus RNA in May 2015 History of cervical dysplasia 12/02/2011 12/14/2020 Overview: Had total Hysterectomy at age 23 Hepatitis C infection 03/21/20112014 Overview: Treated by Dr. Blaire lopez 6 months, last seen years ago Depression 03/21/2011 10/12/2018 documented as of this encounter (statuses as of 02/07/2023) [facility]18[facility]2015 History of Past illness Narrative* Problem Noted Date Diagnosed Date Resolved Date Chronic hepatitis C virus infection 10/14/2014 12/08/2015 Overview: Successful eradication with Harvoni treatment 2014. Negative hep c virus RNA in May 2015 History of cervical dysplasia 12/02/2011 12/14/2020 Overview: Had total Hysterectomy at age 23 Hepatitis C infection 03/21/20112014 Overview: Treated by Dr. Blaire lopez 6 months, last seen years ago Depression 03/21/2011 10/12/2018 documented as of this encounter (statuses as of 02/08/2023) [facility]2015 History of Past illness Narrative* Problem Noted Date Diagnosed Date Resolved Date Chronic hepatitis C virus infection 10/14/2014 12/08/2015 Overview: Successful eradication with Harvoni treatment 2014. Negative hep c virus RNA in May 2015 History of cervical dysplasia 12/02/2011 12/14/2020 Overview: Had total Hysterectomy at age 23 Hepatitis C infection 03/21/20112014 Overview: Treated by Dr. Blaire lopez 6 months, last seen years ago Depression 03/21/2011 10/12/2018 documented as of this encounter (statuses as of 02/10/2023) [facility]2015 History of Past illness Narrative* Problem Noted Date Diagnosed Date Resolved Date Chronic hepatitis C virus infection 10/14/2014 12/08/2015 Overview: Successful eradication with Harvoni treatment 2014. Negative hep c virus RNA in May 2015 History of cervical dysplasia 12/02/2011 12/14/2020 Overview: Had total Hysterectomy at age 23 Hepatitis C infection 03/21/20112014 Overview: Treated by Dr. Blaire lopez 6 months, last seen years ago Depression 03/21/2011 10/12/2018 documented as of this encounter (statuses as of 02/11/2023) [place] [id number] History of Past illness Narrative* Problem Noted Date Diagnosed Date Resolved Date Chronic hepatitis C virus infection 10/14/2014 12/08/2015 Overview: Successful eradication with Harvoni treatment 2014. Negative hep c virus RNA in May 2015 History of cervical dysplasia 12/02/2011 12/14/2020 Overview: Had total Hysterectomy at age 23 Hepatitis C infection 03/21/20112014 Overview: Treated by Dr. Blaire lopez 6 months, last seen years ago Depression 03/21/2011 10/12/2018 documented as of this encounter (statuses as of 02/14/2023) [address]18-2015 History of Past illness Narrative* Problem Noted Date Diagnosed Date Resolved Date Chronic hepatitis C virus infection 10/14/2014 12/08/2015 Overview: Successful eradication with Harvoni treatment 2014. Negative hep c virus RNA in May 2015 History of cervical dysplasia 12/02/2011 12/14/2020 Overview: Had total Hysterectomy at age 23 Hepatitis C infection 03/21/20112014 Overview: Treated by Dr. Blaire lopez 6 months, last seen years ago Depression 03/21/2011 10/12/2018 documented as of this encounter (statuses as of 03/31/2023) [address]18-2015 History of Past illness Narrative* Problem Noted Date Diagnosed Date Resolved Date Chronic hepatitis C virus infection 10/14/2014 12/08/2015 Overview: Successful eradication with Harvoni treatment 2014. Negative hep c virus RNA in May 2015 History of cervical dysplasia 12/02/2011 12/14/2020 Overview: Had total Hysterectomy at age 23 Hepatitis C infection 03/21/20112014 Overview: Treated by Dr. Blaire lopez 6 months, last seen years ago Depression 03/21/2011 10/12/2018 documented as of this encounter (statuses as of 04/04/2023) [place] [id number] History of Past illness Narrative* Problem Noted Date Diagnosed Date Resolved Date Chronic hepatitis C virus infection 10/14/2014 12/08/2015 Overview: Successful eradication with Harvoni treatment 2014. Negative hep c virus RNA in May 2015 History of cervical dysplasia 12/02/2011 12/14/2020 Overview: Had total Hysterectomy at age 23 Hepatitis C infection 03/21/20112014 Overview: Treated by Dr. Blaire lopez 6 months, last seen years ago Depression 03/21/2011 10/12/2018 documented as of this encounter (statuses as of 04/05/2023) [address]18-2015 History of Past illness Narrative* Problem Noted Date Diagnosed Date Resolved Date Chronic hepatitis C virus infection 10/14/2014 12/08/2015 Overview: Successful eradication with Harvoni treatment 2014. Negative hep c virus RNA in May 2015 History of cervical dysplasia 12/02/2011 12/14/2020 Overview: Had total Hysterectomy at age 23 Hepatitis C infection 03/21/20112014 Overview: Treated by Dr. Blaire lopez 6 months, last seen years ago Depression 03/21/2011 10/12/2018 documented as of this encounter (statuses as of 04/06/2023) [facility]08[facility]18[facility]2015 History of Past illness Narrative* Problem Noted Date Diagnosed Date Resolved Date Chronic hepatitis C virus infection 10/14/2014 12/08/2015 Overview: Successful eradication with Harvoni treatment 2014. Negative hep c virus RNA in May 2015 History of cervical dysplasia 12/02/2011 12/14/2020 Overview: Had total Hysterectomy at age 23 Hepatitis C infection 03/21/20112014 Overview: Treated by Dr. Jabour x 6 months, last seen years ago Depression 03/21/2011 10/12/2018 documented as of this encounter (statuses as of 04/07/2023) [facility]2015 History of Past illness Narrative* Problem Noted Date Diagnosed Date Resolved Date Chronic hepatitis C virus infection 10/14/2014 12/08/2015 Overview: Successful eradication with Harvoni treatment 2014. Negative hep c virus RNA in May 2015 History of cervical dysplasia 12/02/2011 12/14/2020 Overview: Had total Hysterectomy at age 23 Hepatitis C infection 03/21/20112014 Overview: Treated by Dr. Blaire lopez 6 months, last seen years ago Depression 03/21/2011 10/12/2018 documented as of this encounter (statuses as of 04/07/2023) [address]18-2015 History of Past illness Narrative* Problem Noted Date Diagnosed Date Resolved Date Chronic hepatitis C virus infection 10/14/2014 12/08/2015 Overview: Successful eradication with Harvoni treatment 2014. Negative hep c virus RNA in May 2015 History of cervical dysplasia 12/02/2011 12/14/2020 Overview: Had total Hysterectomy at age 23 Hepatitis C infection 03/21/20112014 Overview: Treated by Dr. Blaire lopez 6 months, last seen years ago Depression 03/21/2011 10/12/2018 documented as of this encounter (statuses as of 04/10/2023) [facility]2015 History of Past illness Narrative* Problem Noted Date Diagnosed Date Resolved Date Chronic hepatitis C virus infection 10/14/2014 12/08/2015 Overview: Successful eradication with Harvoni treatment 2014. Negative hep c virus RNA in May 2015 History of cervical dysplasia 12/02/2011 12/14/2020 Overview: Had total Hysterectomy at age 23 Hepatitis C infection 03/21/20112014 Overview: Treated by Dr. Blaire lopez 6 months, last seen years ago Depression 03/21/2011 10/12/2018 documented as of this encounter (statuses as of 04/10/2023) [facility]2015 History of Past illness Narrative* Problem Noted Date Diagnosed Date Resolved Date Chronic hepatitis C virus infection 10/14/2014 12/08/2015 Overview: Successful eradication with Harvoni treatment 2014. Negative hep c virus RNA in May 2015 History of cervical dysplasia 12/02/2011 12/14/2020 Overview: Had total Hysterectomy at age 23 Hepatitis C infection 03/21/20112014 Overview: Treated by Dr. Blaire lopez 6 months, last seen years ago Depression 03/21/2011 10/12/2018 documented as of this encounter (statuses as of 04/11/2023) [address]18-2015 History of Past illness Narrative* Problem Noted Date Diagnosed Date Resolved Date Chronic hepatitis C virus infection 10/14/2014 12/08/2015 Overview: Successful eradication with Harvoni treatment 2014. Negative hep c virus RNA in May 2015 History of cervical dysplasia 12/02/2011 12/14/2020 Overview: Had total Hysterectomy at age 23 Hepatitis C infection 03/21/20112014 Overview: Treated by Dr. Blaire lopez 6 months, last seen years ago Depression 03/21/2011 10/12/2018 documented as of this encounter (statuses as of 04/11/2023) [facility]2015 History of Past illness Narrative* Problem Noted Date Diagnosed Date Resolved Date Chronic hepatitis C virus infection 10/14/2014 12/08/2015 Overview: Successful eradication with Harvoni treatment 2014. Negative hep c virus RNA in May 2015 History of cervical dysplasia 12/02/2011 12/14/2020 Overview: Had total Hysterectomy at age 23 Hepatitis C infection 03/21/20112014 Overview: Treated by Dr. Rudd x 6 months, last seen years ago Depression 03/21/2011 10/12/2018 documented as of this encounter (statuses as of 04/12/2023) [facility] Diagnosis Sinobronchitis- Primary Unspecified sinusitis (chronic) [facility] Diagnosis Anxiety Anxiety state, unspecified [facility] Diagnosis Upper respiratory symptom- Primary Other symptoms involving respiratory system and chest Cough Wheezing Suspected COVID-19 virus infection [facility] Diagnosis Encounter for screening [facility] for [facility] Anxiety Anxiety state, unspecified [facility] Diagnosis Essential hypertension- Primary Unspecified essential hypertension Screening for colon cancer Special screening for malignant neoplasms, colon Excessive weight gain Abnormal weight gain Tobacco abuse disorder Tobacco use disorder Severe episode of recurrent major depressive disorder, without psychotic features (HCC) Easy bruising Other symptoms involving skin and integumentary tissues [facility]* Diagnosis Leg wound, left, initial encounter- Primary [facility]* Diagnosis Acute cough- Primary COPD with exacerbation (HCC) Obstructive chronic bronchitis with exacerbation [facility]* Diagnosis COPD with exacerbation (HCC)- Primary Obstructive chronic bronchitis with exacerbation [facility]* Diagnosis COVID-19- Primary Wheezing COPD with exacerbation (HCC) Obstructive chronic bronchitis with exacerbation [facility]* Diagnosis Anxiety Anxiety state, unspecified [facility]* Diagnosis Essential hypertension Unspecified essential hypertension Medication management Encounter for long-term (current) use of other medications [facility]* Diagnosis Other fatigue- Primary Vitamin B12 deficiency Other B-complex deficiencies Vitamin D deficiency Unspecified vitamin D deficiency Essential hypertension Unspecified essential hypertension Tobacco abuse disorder Tobacco use disorder Iron deficiency Iron deficiency anemia, unspecified Colon cancer screening Special screening for malignant neoplasms, colon [facility] Diagnosis Vitamin D deficiency- Primary Unspecified vitamin D deficiency [facility] Diagnosis Anxiety Anxiety state, unspecified documented in this encounter [facility]* Diagnosis Anxiety Anxiety state, unspecified documented in this encounter [facility] note* Diagnosis Chronic cough Cough documented in this encounter [facility] note* Diagnosis Chronic cough Cough documented in this encounter [facility] note* Diagnosis Smokers' cough (HCC)- Primary Simple chronic bronchitis Cigarette smoker Tobacco use disorder Small airways disease Other diseases of lung, not elsewhere classified documented in this encounter [facility] note* Diagnosis Anxiety Anxiety state, unspecified COPD with exacerbation (HCC) Obstructive chronic bronchitis with exacerbation documented in this encounter [facility] note* Diagnosis Essential hypertension- Primary Unspecified essential hypertension Anxiety Anxiety state, unspecified Depression, unspecified depression type Tobacco abuse disorder Tobacco use disorder Vitamin D deficiency Unspecified vitamin D deficiency Lipid screening Screening for lipoid disorders documented in this encounter [facility] note* Diagnosis Elevated glucose- Primary Other abnormal glucose documented in this encounter [facility] note* Diagnosis Encounter for screening for lung cancer- Primary Cigarette smoker Tobacco use disorder documented in this encounter [facility] note* Diagnosis Anxiety Anxiety state, unspecified documented in this encounter [facility] note* Diagnosis Anxiety Anxiety state, unspecified documented in this encounter [facility] note* Diagnosis Lung nodule- Primary Solitary pulmonary nodule documented in this encounter [facility] note* Diagnosis Anxiety Anxiety state, unspecified documented in this encounter [facility] note* Diagnosis Lung nodule- Primary Solitary pulmonary nodule documented in this encounter [facility] note* Diagnosis Cigarette smoker Tobacco use disorder Encounter for screening for lung cancer Lung nodule Solitary pulmonary nodule documented in this encounter [facility] note* Diagnosis Lung nodule- Primary Solitary pulmonary nodule Pre-op exam Preoperative examination, unspecified documented in this encounter [facility] note* Diagnosis Anxiety Anxiety state, unspecified documented in this encounter [facility] note* Diagnosis Lung nodule- Primary Solitary pulmonary nodule documented in this encounter [facility] note* Diagnosis Hypokalemia- Primary Hypopotassemia documented in this encounter [facility] note* Diagnosis Malignant neoplasm of unspecified part of unspecified bronchus or lung (HCC) documented in this encounter [facility] note* Diagnosis Malignant neoplasm of unspecified part of unspecified bronchus or lung (HCC) [facility] Diagnosis 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 [facility] Diagnosis Encounter for education- Primary Counseling NOS [facility] Diagnosis 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 [facility] Diagnosis Small cell lung cancer, 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 [facility] Diagnosis 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 [facility] Diagnosis Small cell lung cancer, 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 [facility]* Diagnosis Chronic obstructive pulmonary disease, unspecified COPD type (HCC)- Primary [facility] Diagnosis 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 [facility] Diagnosis 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 Stage 1 mild COPD by GOLD classification (HCC)- Primary Small cell lung cancer (HCC) Malignant neoplasm of bronchus and lung, unspecified site Former smoker Personal history of tobacco use, presenting hazards to health [facility]* Diagnosis Stage 1 mild COPD by GOLD classification (HCC)- Primary Small cell lung cancer (HCC) Malignant neoplasm of bronchus and lung, unspecified site Former smoker Personal history of tobacco use, presenting hazards to health [facility] Diagnosis Anxiety Anxiety state, unspecified [facility]* Diagnosis 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 [facility] Diagnosis 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 documented in this encounter [facility] note* Diagnosis Small cell lung cancer, 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 Hyponatremia Hyposmolality and/or hyponatremia documented in this encounter [facility] note* Diagnosis Small cell lung cancer, 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 documented in this encounter [facility] note* Diagnosis Small cell lung cancer, left lower lobe (HCC)- Primary Anemia, unspecified type 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 documented in this encounter [facility] note* Diagnosis Small cell lung cancer, left lower lobe (HCC)- Primary Anemia, unspecified type documented in this encounter [facility] note* Diagnosis Small cell lung cancer, 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 documented in this encounter [facility] note* Diagnosis Small cell lung cancer, 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 documented in this encounter [facility] note* Diagnosis Small cell lung cancer, 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 documented in this encounter [facility] note* Diagnosis Small cell lung cancer, left lower lobe (HCC)- Primary documented in this encounter [facility] note* Diagnosis Small cell lung cancer, left lower lobe (HCC)- Primary documented in this encounter [facility] note* Diagnosis Small cell lung cancer, 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 Anemia, unspecified type documented in this encounter [facility] note* Diagnosis Small cell lung cancer, left lower lobe (HCC)- Primary documented in this encounter [facility] for referral (narrative)* Diagnostic Procedure Only (Routine) - Pending Review Specialty Diagnoses / Procedures Referred By Contac t Referred To Contact [facility] Diagnoses Encounter for screening mammogram for breast cancer Procedures SANTO SCREENING SCREENING MAMMOGRAPHY BI 2-VIEW BREAST INC CAD Vamshi Davis MD [address] [place] [address] [facility] [address] [place] [phone] Referral ID Status Reason Start Date Expiration Date Visits Requested Visits Authorized [id number] Pending Review Auto-Generat ed Referral 08/04/2021 09/03/2022 1 1 [facility] for referral (narrative)* Outpatient Procedure (Routine) - Closed Specialty Diagnoses / Procedures Referred By Contac t Referred To Contact [facility] Diagnoses Smokers' cough (HCC) Procedures NITRIC OXIDE, EXHALED NITRIC OXIDE GAS DETERMINATION Sana Lang MD [address] [place] [address] [address] Referral ID Status Reason Start Date Expiration Date V isits Requested Visits Authorized [id number] Closed Auto-Generate d Referral 08/02/2022 02/26/2023 1 1 * Outpatient Procedure (Routine) - Closed Specialty Diagnoses / Procedures Referred By Contac t Referred To Contact [facility] Diagnoses Smokers' cough (HCC) Procedures SPIROMETRY WITH DILATOR IF OBSTRUCTED BRNCDILAT RSPSE SPMTRY PRE&POST-BRNCDILAT ADMN Sana Lang MD [address] [place] [address] [address] Referral ID Status Reason Start Date Expiration Date V isits Requested Visits Authorized [id number] Closed Auto-Generate d Referral 08/02/2022 02/26/2023 1 1 [facility] for referral (narrative)* Outpatient Procedure (Routine) - Pending Review Specialty Diagnoses / Procedures Referred By Contac t Referred To [facility] Diagnoses Lung nodule Procedures ECG COMPLETE ECG ROUTINE ECG W/LEAST 12 LDS W/I&R Zach Briggs MD [address] [place] [address] [facility] [place] [facility] [place] [id number] Referral ID Status Reason Start Date Expiration Date Visits Requested Visits Authorized [id number] Pending Review Auto-Generat ed Referral 01/04/2023 01/04/2024 1 1 [facility] Health Concerns Infection Onset Date Last Indicated Resolved Time COVID-19 Rule-Out 08/03/2021 08/03/2021 Infection Onset Date Last Indicated Resolved Time COVID-19 Rule-Out 08/03/2021 08/03/2021 08/04/2021 12:49 AM EDT Infection Onset Date Last Indicated Resolved Time COVID-19 Rule-Out 08/03/2021 08/03/2021 08/04/2021 12:49 AM EDT Infection Onset Date Last Indicated Resolved Time COVID-19 Rule-Out 03/03/2022 03/03/2022 03/03/2022 10:50 PM EST Infection Onset Date Last Indicated Resolved Time COVID-19 Confirmed 03/03/2022 03/03/2022 Reason for Referral Specialty Diagnoses / Procedures Referred By Contac t Referred To Contact CT IMAGING Diagnoses Cigarette smoker Encounter for screening for lung cancer Procedures CT LUNG SCREEN WO IVCON COMPUTED TOMOGRAPHY THORAX LW DOSE LNG CA SCR C- Nasreen Reynolds, LIFE SKILLS SPECIALIST.[employer] [id number] [id number] Referral ID Status Reason Start Date Expiration Date Visits Requested Visits Authorized [id number] Authorized Auto-Generat ed Referral 11/08/2022 02/05/2023 1 1 Referral ID Status Reason Start Date Expiration Date V isits Requested Visits Authorized [id number] Closed Auto-Generate d Referral 11/08/2022 02/05/2023 1 1 Specialty Diagnoses / Procedures Referred By Contac t Referred To Contact [facility] Diagnoses Malignant neoplasm of unspecified part of unspecified bronchus or lung (HCC) Procedures MRI BRAIN WO/W IVCON MRI BRAIN BRAIN STEM W/O W/CONTRAST MATERIAL Nhan Hooper, [address] [place] [address] [place] [id number] Referral ID Status Reason Start Date Expiration Date V isits Requested Visits Authorized [id number] Closed Auto-Generate d Referral 01/12/2023 02/11/2024 1 1 Specialty Diagnoses / Procedures Referred By Contac t Referred To Contact Diagnoses Metastasis to mediastinal lymph node (HCC) Procedures CT SIM PLANNING RADIATION ONCOLOGY THER RAD SIMULAJ-AIDED FIELD SETTING COMPLEX Lia Freitas MD, [address] [place] [address] Referral ID Status Reason Start Date Expiration Date Visits Requested Visits Authorized [id number] Pending Review PCP Requested Referral 3 04/17/2023 1 1 Summary Purpose Family History No Family History Records FoundNo Family History Records Found Advance Directives No Advanced Directives Records FoundNo Advanced Directives Records Found Medications Administered Section Inactive Administered Medications - up to 3 most recent administrations Medication Order MAR Action Action Date Dose Rate Site etoposide 184 mg in NaCl 0.9% 549.2 mL 184 mg (100 mg/m2 1.84 m2 Treatment Plan BSA from Recorded weight), INTRAVENOUS, Administer over 1 Hours, ONCE, 1 dose, On Mon01/25/23 at 1300, exp 2000 01/25/23 (room temp) Hazardous Chemotherapy Drug: Use appropriate PPE. Protect from Light. Administer with non-DEHP 0.2 micron filter and tubing. New Bag/Syringe/Bottle 01/25/2023 1:09 PM EST 184 mg Inactive Administered Medications - up to 3 most recent administrations Medication Order MAR Action Action Date Dose Rate Site CISplatin 138 mg in NaCl 0.9% 1,188 mL (PLATINOL) 138 mg (75 mg/m2 1.84 m2 Treatment Plan BSA from Recorded weight), INTRAVENOUS, Administer over 1 Hours, ONCE, 1 dose, On 02/13/23 at 1000, exp 1600 02/14/23 (room temp) Hazardous Chemotherapy Drug: Use appropriate PPE. Antineoplastic Vesicant for concentrations greater than 0.4 mg/mL - Antineoplastic Irritant for concentrations less than 0.4 mg/mL. Protect from Light. New Bag/Syringe/Bottl e 02/13/2023 11:07 AM EST 138 mg dexAMETHasone 10 mg in NaCl 0.9% 50 mL (DECADRON) 10 mg, INTRAVENOUS, ONCE, 1 dose, On Mon02/13/23 at 1000, Refrigerate. New Bag/Syringe/Bottl e 02/13/2023 10:04 AM EST 10 mg etoposide 184 mg in NaCl 0.9% 549.2 mL 184 mg (100 mg/m2 1.84 m2 Treatment Plan BSA from Recorded weight), INTRAVENOUS, Administer over 1 Hours, ONCE, 1 dose, On Mon02/13/23 at 1000, exp 1600 02/14/23 (room temp) 1 Hazardous Chemotherapy Drug: Use appropriate PPE. Protect from Light. Administer with non-DEHP 0.2 micron filter and tubing. New Bag/Syringe/Bottl e 02/13/2023 12:37 PM EST 184 mg fosaprepitant 150 mg in NaCl 0.9% 250 mL (EMEND) 150 mg, INTRAVENOUS, Administer over 30 Minutes, ONCE, 1 dose, On Mon02/13/23 at 1000, Approximate Total Volume = 280 mL Mix in non-DEHP bag - Refrigerate New Bag/Syringe/Bottl e 02/13/2023 10:21 AM EST 150 mg NaCl 0.9% 1,000 mL INTRAVENOUS, at 999 mL/hr, Administer over 1 Hours, ONCE, 1 dose, On Mon02/13/23 at 1000 New Bag/Syringe/Bottl e 02/13/2023 12:41 PM EST 999 mL/hr NaCl 0.9% iv infusion 999 mL/hr, INTRAVENOUS, Administer over 1 Hours, ONCE, 1 dose, On Mon02/13/23 at 1000, Give after chemotherapy. New Bag/Syringe/Bottl e 02/13/2023 10:04 AM EST 999 mL/hr 999 mL/hr palonosetron 0.25 mg injection (ALOXI) 0.25 mg, INTRAVENOUS, ONCE, 1 dose, On Mon02/13/23 at 1000, Flush IV line with NS prior to and following administration. Given 02/13/2023 10:01 AM EST 0.25 mg Additional Source Comments Source Comments (unrecognize d section and content) In the event this informatio n is protected by the Federal Confidentiality of Alcohol and Drug Abuse Patient Records regulations: The Federal rules restrict any use of the information to criminally investigate or prosecute any alcohol or drug abuse patient.[facility] the event this information is protected by the Federal Confidentiality of Alcohol and Drug Abuse Patient Records regulations: The Federal rules restrict any use of the information to criminally investigate or prosecute any alcohol or drug abuse patient.[facility] the event this information is protected by the Federal Confidentiality of Alcohol and Drug Abuse Patient Records regulations: The Federal rules restrict any use of the information to criminally investigate or prosecute any alcohol or drug abuse patient.[facility] the event this information is protected by the Federal Confidentiality of Alcohol and Drug Abuse Patient Records regulations: The Federal rules restrict any use of the information to criminally investigate or prosecute any alcohol or drug abuse patient.[facility] the event this information is protected by the Federal Confidentiality of Alcohol and Drug Abuse Patient Records regulations: The Federal rules restrict any use of the information to criminally investigate or prosecute any alcohol or drug abuse patient.[facility]In the event this information is protected by the Federal Confidentiality of Alcohol and Drug Abuse Patient Records regulations: The Federal rules restrict any use of the information to criminally investigate or prosecute any alcohol or drug abuse patient.[facility] the event this information is protected by the Federal Confidentiality of Alcohol and Drug Abuse Patient Records regulations: The Federal rules restrict any use of the information to criminally investigate or prosecute any alcohol or drug abuse patient.[facility]In the event this information is protected by the Federal Confidentiality of Alcohol and Drug Abuse Patient Records regulations: The Federal rules restrict any use of the information to criminally investigate or prosecute any alcohol or drug abuse patient.[facility]In the event this information is protected by the Federal Confidentiality of Alcohol and Drug Abuse Patient Records regulations: The Federal rules restrict any use of the information to criminally investigate or prosecute any alcohol or drug abuse patient.[facility]In the event this information is protected by the Federal Confidentiality of Alcohol and Drug Abuse Patient Records regulations: The Federal rules restrict any use of the information to criminally investigate or prosecute any alcohol or drug abuse patient.[facility]In the event this information is protected by the Federal Confidentiality of Alcohol and Drug Abuse Patient Records regulations: The Federal rules restrict any use of the information to criminally investigate or prosecute any alcohol or drug abuse patient.[facility]In the event this information is protected by the Federal Confidentiality of Alcohol and Drug Abuse Patient Records regulations: The Federal rules restrict any use of the information to criminally investigate or prosecute any alcohol or drug abuse patient.[facility] HospitalIn the event this information is protected by the Federal Confidentiality of Alcohol and Drug Abuse Patient Records regulations: The Federal rules restrict any use of the information to criminally investigate or prosecute any alcohol or drug abuse patient.[facility]In the event this information is protected by the Federal Confidentiality of Alcohol and Drug Abuse Patient Records regulations: The Federal rules restrict any use of the information to criminally investigate or prosecute any alcohol or drug abuse patient.[facility]In the event this information is protected by the Federal Confidentiality of Alcohol and Drug Abuse Patient Records regulations: The Federal rules restrict any use of the information to criminally investigate or prosecute any alcohol or drug abuse patient.[facility] HospitalIn the event this information is protected by the Federal Confidentiality of Alcohol and Drug Abuse Patient Records regulations: The Federal rules restrict any use of the information to criminally investigate or prosecute any alcohol or drug abuse patient.[facility] HospitalIn the event this information is protected by the Federal Confidentiality of Alcohol and Drug Abuse Patient Records regulations: The Federal rules restrict any use of the information to criminally investigate or prosecute any alcohol or drug abuse patient.[facility] HospitalIn the event this information is protected by the Federal Confidentiality of Alcohol and Drug Abuse Patient Records regulations: The Federal rules restrict any use of the information to criminally investigate or prosecute any alcohol or drug abuse patient.[facility] HospitalIn the event this information is protected by the Federal Confidentiality of Alcohol and Drug Abuse Patient Records regulations: The Federal rules restrict any use of the information to criminally investigate or prosecute any alcohol or drug abuse patient.[facility] HospitalIn the event this information is protected by the Federal Confidentiality of Alcohol and Drug Abuse Patient Records regulations: The Federal rules restrict any use of the information to criminally investigate or prosecute any alcohol or drug abuse patient.[facility] HospitalIn the event this information is protected by the Federal Confidentiality of Alcohol and Drug Abuse Patient Records regulations: The Federal rules restrict any use of the information to criminally investigate or prosecute any alcohol or drug abuse patient.[facility] HospitalIn the event this information is protected by the Federal Confidentiality of Alcohol and Drug Abuse Patient Records regulations: The Federal rules restrict any use of the information to criminally investigate or prosecute any alcohol or drug abuse patient.[facility] HospitalIn the event this information is protected by the Federal Confidentiality of Alcohol and Drug Abuse Patient Records regulations: The Federal rules restrict any use of the information to criminally investigate or prosecute any alcohol or drug abuse patient.[facility] HospitalIn the event this information is protected by the Federal Confidentiality of Alcohol and Drug Abuse Patient Records regulations: The Federal rules restrict any use of the information to criminally investigate or prosecute any alcohol or drug abuse patient.[facility]In the event this information is protected by the Federal Confidentiality of Alcohol and Drug Abuse Patient Records regulations: The Federal rules restrict any use of the information to criminally investigate or prosecute any alcohol or drug abuse patient.[facility] HospitalIn the event this information is protected by the Federal Confidentiality of Alcohol and Drug Abuse Patient Records regulations: The Federal rules restrict any use of the information to criminally investigate or prosecute any alcohol or drug abuse patient.[facility] HospitalIn the event this information is protected by the Federal Confidentiality of Alcohol and Drug Abuse Patient Records regulations: The Federal rules restrict any use of the information to criminally investigate or prosecute any alcohol or drug abuse patient.[facility] HospitalIn the event this information is protected by the Federal Confidentiality of Alcohol and Drug Abuse Patient Records regulations: The Federal rules restrict any use of the information to criminally investigate or prosecute any alcohol or drug abuse patient.[facility] HospitalIn the event this information is protected by the Federal Confidentiality of Alcohol and Drug Abuse Patient Records regulations: The Federal rules restrict any use of the information to criminally investigate or prosecute any alcohol or drug abuse patient.[facility] HospitalIn the event this information is protected by the Federal Confidentiality of Alcohol and Drug Abuse Patient Records regulations: The Federal rules restrict any use of the information to criminally investigate or prosecute any alcohol or drug abuse patient.[facility] HospitalIn the event this information is protected by the Federal Confidentiality of Alcohol and Drug Abuse Patient Records regulations: The Federal rules restrict any use of the information to criminally investigate or prosecute any alcohol or drug abuse patient.[facility] HospitalIn the event this information is protected by the Federal Confidentiality of Alcohol and Drug Abuse Patient Records regulations: The Federal rules restrict any use of the information to criminally investigate or prosecute any alcohol or drug abuse patient.[facility] HospitalIn the event this information is protected by the Federal Confidentiality of Alcohol and Drug Abuse Patient Records regulations: The Federal rules restrict any use of the information to criminally investigate or prosecute any alcohol or drug abuse patient.[facility] HospitalIn the event this information is protected by the Federal Confidentiality of Alcohol and Drug Abuse Patient Records regulations: The Federal rules restrict any use of the information to criminally investigate or prosecute any alcohol or drug abuse patient.[facility] HospitalIn the event this information is protected by the Federal Confidentiality of Alcohol and Drug Abuse Patient Records regulations: The Federal rules restrict any use of the information to criminally investigate or prosecute any alcohol or drug abuse patient.[facility] HospitalIn the event this information is protected by the Federal Confidentiality of Alcohol and Drug Abuse Patient Records regulations: The Federal rules restrict any use of the information to criminally investigate or prosecute any alcohol or drug abuse patient.[facility] HospitalIn the event this information is protected by the Federal Confidentiality of Alcohol and Drug Abuse Patient Records regulations: The Federal rules restrict any use of the information to criminally investigate or prosecute any alcohol or drug abuse patient.[facility] HospitalIn the event this information is protected by the Federal Confidentiality of Alcohol and Drug Abuse Patient Records regulations: The Federal rules restrict any use of the information to criminally investigate or prosecute any alcohol or drug abuse patient.[facility] HospitalIn the event this information is protected by the Federal Confidentiality of Alcohol and Drug Abuse Patient Records regulations: The Federal rules restrict any use of the information to criminally investigate or prosecute any alcohol or drug abuse patient.[facility] HospitalIn the event this information is protected by the Federal Confidentiality of Alcohol and Drug Abuse Patient Records regulations: The Federal rules restrict any use of the information to criminally investigate or prosecute any alcohol or drug abuse patient.[facility] HospitalIn the event this information is protected by the Federal Confidentiality of Alcohol and Drug Abuse Patient Records regulations: The Federal rules restrict any use of the information to criminally investigate or prosecute any alcohol or drug abuse patient.[facility] HospitalIn the event this information is protected by the Federal Confidentiality of Alcohol and Drug Abuse Patient Records regulations: The Federal rules restrict any use of the information to criminally investigate or prosecute any alcohol or drug abuse patient.[facility] HospitalIn the event this information is protected by the Federal Confidentiality of Alcohol and Drug Abuse Patient Records regulations: The Federal rules restrict any use of the information to criminally investigate or prosecute any alcohol or drug abuse patient.[facility] HospitalIn the event this information is protected by the Federal Confidentiality of Alcohol and Drug Abuse Patient Records regulations: The Federal rules restrict any use of the information to criminally investigate or prosecute any alcohol or drug abuse patient.[facility] HospitalIn the event this information is protected by the Federal Confidentiality of Alcohol and Drug Abuse Patient Records regulations: The Federal rules restrict any use of the information to criminally investigate or prosecute any alcohol or drug abuse patient.[facility] HospitalIn the event this information is protected by the Federal Confidentiality of Alcohol and Drug Abuse Patient Records regulations: The Federal rules restrict any use of the information to criminally investigate or prosecute any alcohol or drug abuse patient.[facility] HospitalIn the event this information is protected by the Federal Confidentiality of Alcohol and Drug Abuse Patient Records regulations: The Federal rules restrict any use of the information to criminally investigate or prosecute any alcohol or drug abuse patient.[facility] HospitalIn the event this information is protected by the Federal Confidentiality of Alcohol and Drug Abuse Patient Records regulations: The Federal rules restrict any use of the information to criminally investigate or prosecute any alcohol or drug abuse patient.[facility] HospitalIn the event this information is protected by the Federal Confidentiality of Alcohol and Drug Abuse Patient Records regulations: The Federal rules restrict any use of the information to criminally investigate or prosecute any alcohol or drug abuse patient.[facility] HospitalIn the event this information is protected by the Federal Confidentiality of Alcohol and Drug Abuse Patient Records regulations: The Federal rules restrict any use of the information to criminally investigate or prosecute any alcohol or drug abuse patient.[facility] HospitalIn the event this information is protected by the Federal Confidentiality of Alcohol and Drug Abuse Patient Records regulations: The Federal rules restrict any use of the information to criminally investigate or prosecute any alcohol or drug abuse patient.[facility] HospitalIn the event this information is protected by the Federal Confidentiality of Alcohol and Drug Abuse Patient Records regulations: The Federal rules restrict any use of the information to criminally investigate or prosecute any alcohol or drug abuse patient.[facility] HospitalIn the event this information is protected by the Federal Confidentiality of Alcohol and Drug Abuse Patient Records regulations: The Federal rules restrict any use of the information to criminally investigate or prosecute any alcohol or drug abuse patient.[facility] HospitalIn the event this information is protected by the Federal Confidentiality of Alcohol and Drug Abuse Patient Records regulations: The Federal rules restrict any use of the information to criminally investigate or prosecute any alcohol or drug abuse patient.[facility] HospitalIn the event this information is protected by the Federal Confidentiality of Alcohol and Drug Abuse Patient Records regulations: The Federal rules restrict any use of the information to criminally investigate or prosecute any alcohol or drug abuse patient.[facility] HospitalIn the event this information is protected by the Federal Confidentiality of Alcohol and Drug Abuse Patient Records regulations: The Federal rules restrict any use of the information to criminally investigate or prosecute any alcohol or drug abuse patient.[facility] HospitalIn the event this information is protected by the Federal Confidentiality of Alcohol and Drug Abuse Patient Records regulations: The Federal rules restrict any use of the information to criminally investigate or prosecute any alcohol or drug abuse patient.[facility] HospitalIn the event this information is protected by the Federal Confidentiality of Alcohol and Drug Abuse Patient Records regulations: The Federal rules restrict any use of the information to criminally investigate or prosecute any alcohol or drug abuse patient.[facility] HospitalIn the event this information is protected by the Federal Confidentiality of Alcohol and Drug Abuse Patient Records regulations: The Federal rules restrict any use of the information to criminally investigate or prosecute any alcohol or drug abuse patient.[facility] HospitalIn the event this information is protected by the Federal Confidentiality of Alcohol and Drug Abuse Patient Records regulations: The Federal rules restrict any use of the information to criminally investigate or prosecute any alcohol or drug abuse patient.[facility] HospitalIn the event this information is protected by the Federal Confidentiality of Alcohol and Drug Abuse Patient Records regulations: The Federal rules restrict any use of the information to criminally investigate or prosecute any alcohol or drug abuse patient.[facility] HospitalIn the event this information is protected by the Federal Confidentiality of Alcohol and Drug Abuse Patient Records regulations: The Federal rules restrict any use of the information to criminally investigate or prosecute any alcohol or drug abuse patient.[facility] HospitalIn the event this information is protected by the Federal Confidentiality of Alcohol and Drug Abuse Patient Records regulations: The Federal rules restrict any use of the information to criminally investigate or prosecute any alcohol or drug abuse patient.[facility] HospitalIn the event this information is protected by the Federal Confidentiality of Alcohol and Drug Abuse Patient Records regulations: The Federal rules restrict any use of the information to criminally investigate or prosecute any alcohol or drug abuse patient.[facility] HospitalIn the event this information is protected by the Federal Confidentiality of Alcohol and Drug Abuse Patient Records regulations: The Federal rules restrict any use of the information to criminally investigate or prosecute any alcohol or drug abuse patient.[facility] HospitalIn the event this information is protected by the Federal Confidentiality of Alcohol and Drug Abuse Patient Records regulations: The Federal rules restrict any use of the information to criminally investigate or prosecute any alcohol or drug abuse patient.[facility] HospitalIn the event this information is protected by the Federal Confidentiality of Alcohol and Drug Abuse Patient Records regulations: The Federal rules restrict any use of the information to criminally investigate or prosecute any alcohol or drug abuse patient.[facility] HospitalIn the event this information is protected by the Federal Confidentiality of Alcohol and Drug Abuse Patient Records regulations: The Federal rules restrict any use of the information to criminally investigate or prosecute any alcohol or drug abuse patient.[facility] HospitalIn the event this information is protected by the Federal Confidentiality of Alcohol and Drug Abuse Patient Records regulations: The Federal rules restrict any use of the information to criminally investigate or prosecute any alcohol or drug abuse patient.[facility] HospitalIn the event this information is protected by the Federal Confidentiality of Alcohol and Drug Abuse Patient Records regulations: The Federal rules restrict any use of the information to criminally investigate or prosecute any alcohol or drug abuse patient.[facility] HospitalIn the event this information is protected by the Federal Confidentiality of Alcohol and Drug Abuse Patient Records regulations: The Federal rules restrict any use of the information to criminally investigate or prosecute any alcohol or drug abuse patient.[facility] HospitalIn the event this information is protected by the Federal Confidentiality of Alcohol and Drug Abuse Patient Records regulations: The Federal rules restrict any use of the information to criminally investigate or prosecute any alcohol or drug abuse patient.[facility] HospitalIn the event this information is protected by the Federal Confidentiality of Alcohol and Drug Abuse Patient Records regulations: The Federal rules restrict any use of the information to criminally investigate or prosecute any alcohol or drug abuse patient.[facility] HospitalIn the event this information is protected by the Federal Confidentiality of Alcohol and Drug Abuse Patient Records regulations: The Federal rules restrict any use of the information to criminally investigate or prosecute any alcohol or drug abuse patient.[facility] HospitalIn the event this information is protected by the Federal Confidentiality of Alcohol and Drug Abuse Patient Records regulations: The Federal rules restrict any use of the information to criminally investigate or prosecute any alcohol or drug abuse patient.[facility] HospitalIn the event this information is protected by the Federal Confidentiality of Alcohol and Drug Abuse Patient Records regulations: The Federal rules restrict any use of the information to criminally investigate or prosecute any alcohol or drug abuse patient.[facility] HospitalIn the event this information is protected by the Federal Confidentiality of Alcohol and Drug Abuse Patient Records regulations: The Federal rules restrict any use of the information to criminally investigate or prosecute any alcohol or drug abuse patient.[facility] HospitalIn the event this information is protected by the Federal Confidentiality of Alcohol and Drug Abuse Patient Records regulations: The Federal rules restrict any use of the information to criminally investigate or prosecute any alcohol or drug abuse patient.[facility] HospitalIn the event this information is protected by the Federal Confidentiality of Alcohol and Drug Abuse Patient Records regulations: The Federal rules restrict any use of the information to criminally investigate or prosecute any alcohol or drug abuse patient.[facility] Reason for Visit (unrecogniz ed section and content) Specialty Diagnoses / Procedures Referred By Contac t Referred To Contact Diagnoses Small cell lung cancer, 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) Procedures ETOPOSIDE 10 MG INJ CISPLATIN 10 MG INJECTION INJECTION, PEGFILGRASTIM, EXCLUDES BIOSIMILAR, 0.5 MG PALONOSETRON HCL FOSAPREPITANT INJECTION Nhan Hooper, DO [address] [place] [address] [facility] [address] [place] [address] Referral ID Status Reason Start Date Expiration Date V isits Requested Visits Authorized [id number] Authorized 01/13/2023 07/01/2023 15 15 Reason Comments Cough x2 weeks, c/o interm ittent SOB, chest pain Reason Onset Date Comments Refill Request 07/01/2021 Reason Comments Cough Pt reported intermit tent SOB, denied chest pain, bodyaches, fever x4 days Reason Comments Results Medication Problem Reason Comments Erroneous encounter-disregard Reason Comments Refill Request Reason Comments Hypertension refill needed Reason Comments Results Reason Comments Laceration Cut/sore on left leg x 2 weeks Reason Onset Date Comments Refill Request 11/29/2021 Reason Comments Cough Cough, congestion an d SINCLAIR x 1 week Reason Comments Cough Cough and chest chandler estion, SINCLAIR x 1 week Reason Comments Patient Update Reason Comments Cough Cough and congestion -positive COVID 1/5 Reason Onset Date Comments Refill Request 03/24/2022 Reason Comments F/U 6 months Reason Comments Medication Problem Reason Comments Patient Question Reason Onset Date Comments Refill Request 07/16/2022 Reason Comments Spirometry Specialty Diagnoses / Procedures Referred By Contac t Referred To Contact [facility] Diagnoses Smokers' cough (HCC) Procedures SPIROMETRY WITH DILATOR IF OBSTRUCTED BRNCDILAT RSPSE SPMTRY PRE&POST-BRNCDILAT ADMN Sana Lang MD [address] [place] [phone] [facility] [place] [address] [place] [address] Referral ID Status Reason Start Date Expiration Date V isits Requested Visits Authorized [id number] Closed Auto-Generate d Referral 08/02/2022 02/26/2023 1 1 Specialty Diagnoses / Procedures Referred By Contac t Referred To Contact [facility] Diagnoses Smokers' cough (HCC) Procedures NITRIC OXIDE, EXHALED NITRIC OXIDE GAS DETERMINATION Sana Lang MD [address] [facility] [address] [place] [address] Referral ID Status Reason Start Date Expiration Date V isits Requested Visits Authorized [id number] Closed Auto-Generate d Referral 08/02/2022 02/26/2023 1 1 Reason Comments New Patient Dyspnea Reason Onset Date Comments Refill Request 09/12/2022 Reason Comments Recheck 6 month follow up Reason Comments Consult For lung ca screening Reason Onset Date Comments Refill Request 11/10/2022 Reason Comments Medication Problem LORazepam (ATIVAN) 0 .5 mg- pharmacy will not have this med until January can the patient get a script for the 1 mg of this medication instead as this is what the pharmacy has? Reason Onset Date Comments Refill Request 12/09/[address] Specialty Diagnoses / Procedures Referred By Contac t Referred To Contact CT IMAG[facility] Diagnoses Cigarette smoker Encounter for screening for lung cancer Procedures CT LUNG SCREEN WO IVCON COMPUTED TOMOGRAPHY THORAX LW DOSE LNG CA SCR Norma- Hagerhill, Nasreen, LIFE SKILLS SPECIALIST.[employer] [address] [place] [phone] [place] [address] Referral ID Status Reason Start Date Expiration Date V isits Requested Visits Authorized [id number] Closed Auto-Generate d Referral 11/08/2022 02/05/2023 1 1 Reason Comments lung nodule Consult Reason Onset Date Comments Refill Request 01/06/2023 Reason Comments Bronchoscopy Scheduling EBUS Reason Comments AVS 01/12/23/CHEMO START - CONCURRENT WI TH XRT Reason Comments Radiology CT Specialty Diagnoses / Procedures Referred By Contac t Referred To Contact CT IMAGING Diagnoses Malignant neoplasm of unspecified part of unspecified bronchus or lung (HCC) Procedures CT CHEST W IVCON DIAGNOSTIC COMPUTED TOMOGRAPHY THORAX W/CONTRAST Nhan Hooper, DO [address] [place] [address] Ct Imaging [facility] Referral ID Status Reason Start Date Expiration Date V isits Requested Visits Authorized [id number] Closed Auto-Generate d Referral 01/12/2023 02/11/2024 1 1 Specialty Diagnoses / Procedures [facility] Diagnoses Malignant neoplasm of unspecified part of unspecified bronchus or lung (HCC) Procedures MRI BRAIN WO/W IVCON MRI BRAIN BRAIN STEM W/O W/CONTRAST MATERIAL Nhan Hooper, DO [address] [place] [address] [place] [address] Referral ID Status Reason Start Date Expiration Date V isits Requested Visits Authorized [id number] Closed Auto-Generate d Referral 01/12/2023 02/11/2024 1 1 Reason Comments Opened In Error Reason Comments Consult Reason Comments Reason Onset Date Comments Simulation Request Form 01/17/2023 Reason Comments Radiotherapy On-treatment Visit Reason Comments Chemotherapy Treatment Referral ID Status Reason Start Date Expiration Date V isits Requested Visits Authorized [id number] Authorized 01/13/2023 04/07/2023 3 3 Reason Comments [facility] - Other C1D1 Post Treat ment Call/Hospital Discharge Reason Comments New Patient COPD Reason Onset Date Comments Refill Request 02/04/2023 Reason Comments Established Patient Referral ID Status Reason Start Date Expiration Date V isits Requested Visits Authorized [id number] Authorized 01/13/2023 04/07/2023 8 8 Reason Comments Orders Reason Comments Follow Up Reason Comments [facility] - Other Follow-up Care Teams (unrecognized sec tion and content) Orchard Pruner Relationship Specialty Start Date End Date Vamshi Davis MD [address] [place] [address] PCP - General Internal Medicine 08/14/17 Orchard Pruner Relationship Specialty Start Date End Date Vamshi Davis MD [address] [place] [address] PCP - General Internal Medicine 08/14/17 Orchard Pruner Relationship Specialty Start Date End Date Vamshi Davis MD [address] [place] [address] PCP - General Internal Medicine 08/14/17 Orchard Pruner Relationship Specialty Start Date End Date Vamshi Davis MD [address] [place] [address] PCP - General Internal Medicine 08/14/17 Orchard Pruner Relationship Specialty Start Date End Date Vamshi Davis MD [address] [place] [address] PCP - General Internal Medicine 08/14/17 Orchard Pruner Relationship Specialty Start Date End Date Vamshi Davis MD [address] [place] [address] PCP - General Internal Medicine 08/14/17 Orchard Pruner Relationship Specialty Start Date End Date Vamshi Davis MD [address] [place] [address] PCP - General Internal Medicine 08/14/17 Orchard Pruner Relationship Specialty Start Date End Date Vamshi Davis MD [address] [place] [address] PCP - General Internal Medicine 08/14/17 Orchard Pruner Relationship Specialty Start Date End Date Vamshi Davis MD [address] [place] [address] PCP - General Internal Medicine 08/14/17 Orchard Pruner Relationship Specialty Start Date End Date Vamshi Davis MD [address] [place] [address] PCP - General Internal Medicine 08/14/17 Orchard Pruner Relationship Specialty Start Date End Date Vamshi Davis MD [address] [place] [address] PCP - General Internal Medicine 08/14/17 Orchard Pruner Relationship Specialty Start Date End Date Vamshi Davis MD [address] [place] [address] PCP - General Internal Medicine 08/14/17 Orchard Pruner Relationship Specialty Start Date End Date Vamshi Davis MD [address] [place] [address] PCP - General Internal Medicine 08/14/17 Orchard Pruner Relationship Specialty Start Date End Date Vamshi Davis MD [address] [place] [address] PCP - General Internal Medicine 08/14/17 Orchard Pruner Relationship Specialty Start Date End Date Vamshi Davis MD [address] [place] [address] PCP - General Internal Medicine 08/14/17 Sana Lang MD [address] [place] [address] Pulmonary and Critical Care Medicine 11/08/22 Orchard Pruner Relationship Specialty Start Date End Date Vamshi Davis MD [address] [place] [address] PCP - General Internal Medicine 08/14/17 Sana Lang MD [address] [place] [address] Pulmonary and Critical Care Medicine 11/08/22 Orchard Pruner Relationship Specialty Start Date End Date Vamshi Davis MD [address] [place] [address] PCP - General Internal Medicine 08/14/17 Sana Lang MD [address] [place] [address] Pulmonary and Critical Care Medicine 11/08/22 Orchard Pruner Relationship Specialty Start Date End Date Vamshi Davis MD [address] [place] [address] PCP - General Internal Medicine 08/14/17 Sana Lang MD [address] [place] [address] Pulmonary and Critical Care Medicine 11/08/22 Orchard Pruner Relationship Specialty Start Date End Date Vamshi Davis MD [address] [place] [address] PCP - General Internal Medicine 08/14/17 Sana Lang MD [address] [place] [address] Pulmonary and Critical Care Medicine 11/08/22 Orchard Pruner Relationship Specialty Start Date End Date Vamshi Davis MD [address] [place] [address] PCP - General Internal Medicine 08/14/17 Sana Lang MD [address] [place] [address] Pulmonary and Critical Care Medicine 11/08/22 Orchard Pruner Relationship Specialty Start Date End Date Vamshi Davis MD [address] [place] [address] PCP - General Internal Medicine 08/14/17 Sana Lang MD [address] [place] [address] Pulmonary and Critical Care Medicine 11/08/22 Orchard Pruner Relationship Specialty Start Date End Date Vamshi Davis MD [address] [place] [address] PCP - General Internal Medicine 08/14/17 Sana Lang MD [address] [place] [address] Pulmonary and Critical Care Medicine 11/08/22 Orchard Pruner Relationship Specialty Start Date End Date Vamshi Davis MD [address] [place] [address] PCP - General Internal Medicine 08/14/17 Sana Lang MD [address] [place] [id number] Pulmonary and Critical Care Medicine 11/08/22 Orchard Pruner Relationship Specialty Start Date End Date Vamshi Davis MD [address] [place] [address] PCP - General Internal Medicine 08/14/17 Sana Lang MD [address] [place] [address] Pulmonary and Critical Care Medicine 11/08/22 Orchard Pruner Relationship Specialty Start Date End Date Vamshi Davis MD [address] [facility] [place] [address] PCP - General Internal Medicine 08/14/17 Sana Lang MD [address] [address] Pulmonary and Critical Care Medicine 11/08/22 Orchard Pruner Relationship Specialty Start Date End Date Vamshi Davis MD [address] [place] [address] PCP - General Internal Medicine 08/14/17 Sana Lang MD [address] [place] [address] Pulmonary and Critical Care Medicine 11/08/22 Nhan Hooper DO [address] [place] [address] Hematology/Oncology 01/12/23 Miriam Gregory RN Specialty [facility] Oncology 01/12/23 Lia Freitas MD, MD [address] [place] [address] Physician Radiation Oncology 01/12/23 Orchard Pruner Relationship Specialty Start Date End Date Vamshi Davis MD [address] [place] [address] PCP - General Internal Medicine 08/14/17 Sana Lang MD [address] [place] [address] Pulmonary and Critical Care Medicine 11/08/22 Nhan Hopoer DO [address] [place] [address] Hematology/Oncology 01/12/23 Miriam Gregory RN Specialty [facility] Oncology 01/12/23 Lia Freitas MD, MD [address] [place] [address] Physician Radiation Oncology 01/12/23 Orchard Pruner Relationship Specialty Start Date End Date Vamshi Davis MD [address] [place] [address] PCP - General Internal Medicine 08/14/17 Sana Lang MD [address] [place] [address] Pulmonary and Critical Care Medicine 11/08/22 Nhan Hooper DO [address] [place] [address] Hematology/Oncology 01/12/23 Miriam Gregory RN Specialty [facility] Oncology 01/12/23 Lia Freitas MD, MD [address] [place] [address] Physician Radiation Oncology 01/12/23 Orchard Pruner Relationship Specialty Start Date End Date Vamshi Davis MD [address] [place] [address] PCP - General Internal Medicine 08/14/17 Sana Lang MD [address] [place] [address] Pulmonary and Critical Care Medicine 11/08/22 Nhan Hooper DO [address] [place] [address] Hematology/Oncology 01/12/23 Miriam Gregory RN Specialty [facility] Oncology 01/12/23 Lia Freitas MD, [address] [place] [address] Physician Radiation Oncology 01/12/23 Orchard Pruner Relationship Specialty Start Date End Date Vamshi Davis MD [address] [place] [address] PCP - General Internal Medicine 08/14/17 Sana Lang MD [address] [place] [address] Pulmonary and Critical Care Medicine 11/08/22 Nhan Hooper DO [address] [place] [address] Hematology/Oncology 01/12/23 Miriam Gregory RN Specialty [facility] Oncology 01/12/23 Lia Freitas MD, [address] [place] [address] Physician Radiation Oncology 01/12/23 Orchard Pruner Relationship Specialty Start Date End Date Vamshi Davis MD [address] [place] [address] PCP - General Internal Medicine 08/14/17 Sana Lang MD [address] [place] [address] Pulmonary and Critical Care Medicine 11/08/22 Nhan Hooper DO [address] [place] [address] Hematology/Oncology 01/12/23 Miriam Gregory RN Specialty [facility] Oncology 01/12/23 Lia Freitas MD, [address] [place] [address] Physician Radiation Oncology 01/12/23 Orchard Pruner Relationship Specialty Start Date End Date Vamshi Davis MD [address] [place] [address] PCP - General Internal Medicine 08/14/17 Sana Lang MD [address] [place] [address] Pulmonary and Critical Care Medicine 11/08/22 Nhan Hooper DO [address] [place] [address] Hematology/Oncology 01/12/23 Miriam Gregory RN Specialty [facility] Oncology 01/12/23 Lia Freitas MD, MD [address] [place] [address] Physician Radiation Oncology 01/12/23 Orchard Pruner Relationship Specialty Start Date End Date Vamshi Davis MD [address] [place] [address] PCP - General Internal Medicine 08/14/17 Sana Lang MD [address] [place] [address] Pulmonary and Critical Care Medicine 11/08/22 Nhan Hooper DO [address] [place] [address] Hematology/Oncology 01/12/23 Miriam Gregory RN Specialty [facility] Oncology 01/12/23 Lia Freitas MD, [address] [place] [address] Physician Radiation Oncology 01/12/23 Orchard Pruner Relationship Specialty Start Date End Date Vamshi Davis MD [address] [place] [address] PCP - General Internal Medicine 08/14/17 Sana Lang MD [address] [place] [address] Pulmonary and Critical Care Medicine 11/08/22 Nhan Hooper DO [address] [place] [address] Hematology/Oncology 01/12/23 Miriam Gregory RN Specialty [facility] Oncology 01/12/23 Lia Freitas MD, MD [address] [place] [address] Physician Radiation Oncology 01/12/23 Orchard Pruner Relationship Specialty Start Date End Date Vamshi Davis MD [address] [place] [address] PCP - General Internal Medicine 08/14/17 Saan Lang MD [address] [place] [address] Pulmonary and Critical Care Medicine 11/08/22 Nhan Hooper DO [address] [place] [address] Hematology/Oncology 01/12/23 Miriam Gregory RN Specialty [facility] Oncology 01/12/23 Lia Freitas MD, [address] [place] [address] Physician Radiation Oncology 01/12/23 Orchard Pruner Relationship Specialty Start Date End Date Vamshi Davis MD [address] [place] [address] PCP - General Internal Medicine 08/14/17 Sana Lang MD [address] [place] [address] Pulmonary and Critical Care Medicine 11/08/22 Nhan Hooper DO [address] [place] [address] Hematology/Oncology 01/12/23 Miriam Gregory RN Specialty [facility] Oncology 01/12/23 Lia Freitas MD, MD [address] [place] [address] Physician Radiation Oncology 01/12/23 Orchard Pruner Relationship Specialty Start Date End Date Vamshi Davis MD [address] [place] [address] PCP - General Internal Medicine 08/14/17 Sana Lang MD [address] [place] [address] Pulmonary and Critical Care Medicine 11/08/22 Nhan Hooper DO [address] [place] [address] Hematology/Oncology 01/12/23 Miriam Gregory RN Specialty [facility] Oncology 01/12/23 Lia Freitas MD, [address] [place] [address] Physician Radiation Oncology 01/12/23 Orchard Pruner Relationship Specialty Start Date End Date Vamshi Davis MD [address] [place] [address] PCP - General Internal Medicine 08/14/17 Sana Lang MD [address] [place] [address] Pulmonary and Critical Care Medicine 11/08/22 Nhan Hooper DO [address] [place] [address] Hematology/Oncology 01/12/23 Miriam Gregory RN Specialty [facility] Oncology 01/12/23 Lia Freitas MD, MD [address] [place] [address] Physician Radiation Oncology 01/12/23 Orchard Pruner Relationship Specialty Start Date End Date Vamshi Davis MD [address] [place] [address] PCP - General Internal Medicine 08/14/17 Sana Lang MD [address] [place] [address] Pulmonary and Critical Care Medicine 11/08/22 Nhan Hooper DO [address] [place] [address] Hematology/Oncology 01/12/23 Miriam Gregory RN Specialty [facility] Oncology 01/12/23 Lia Freitas MD, MD [address] [place] [address] Physician Radiation Oncology 01/12/23 Orchard Pruner Relationship Specialty Start Date End Date Vamshi Davis MD [address] [place] [address] PCP - General Internal Medicine 08/14/17 Sana Lang MD [address] [place] [address] Pulmonary and Critical Care Medicine 11/08/22 Nhan Hooper DO [address] [place] [address] Hematology/Oncology 01/12/23 Miriam Gregory RN Specialty [facility] Oncology 01/12/23 Lia Freitas MD, MD [address] [place] [address] Physician Radiation Oncology 01/12/23 Orchard Pruner Relationship Specialty Start Date End Date Vamshi Davis MD [address] [place] [address] PCP - General Internal Medicine 08/14/17 Sana Lang MD [address] [place] [address] Pulmonary and Critical Care Medicine 11/08/22 Nhan Hooper DO [address] [place] [address] Hematology/Oncology 01/12/23 Miriam Gregory RN Specialty [facility] Oncology 01/12/23 Lia Freitas MD, [address] [place] [address] Physician Radiation Oncology 01/12/23 Orchard Pruner Relationship Specialty Start Date End Date Vamshi Davis MD [address] [place] [address] PCP - General Internal Medicine 08/14/17 Sana Lang MD [address] [place] [address] Pulmonary and Critical Care Medicine 11/08/22 Nhan Hooper DO [address] [place] [address] Hematology/Oncology 01/12/23 Miriam Gregory RN Specialty [facility] Oncology 01/12/23 Lia Freitas MD, [address] [place] [address] Physician Radiation Oncology 01/12/23 Orchard Pruner Relationship Specialty Start Date End Date Vamshi Davis MD [address] [place] [address] PCP - General Internal Medicine 08/14/17 Sana Lang MD [address] [place] [address] Pulmonary and Critical Care Medicine 11/08/22 Nhan Hooper DO [address] [place] [address] Hematology/Oncology 01/12/23 Miriam Gregory RN Specialty [facility] Oncology 01/12/23 Lia Freitas MD, [address] [place] [address] Physician Radiation Oncology 01/12/23 Orchard Pruner Relationship Specialty Start Date End Date Vamshi Davis MD [address] [place] [address] PCP - General Internal Medicine 08/14/17 Sana Lang MD [address] [place] [address] Pulmonary and Critical Care Medicine 11/08/22 Nhan Hooper DO [address] [place] [address] Hematology/Oncology 01/12/23 Miriam Gregory RN Specialty [place] Oncology 01/12/23 Lia Freitas MD, [address] [place] [address] Physician Radiation Oncology 01/12/23 Orchard Pruner Relationship Specialty Start Date End Date Vamshi Davis MD [address] [place] [address] PCP - General Internal Medicine 08/14/17 Sana Lang MD [address] [place] [address] Pulmonary and Critical Care Medicine 11/08/22 Nhan Hooper DO [address] [place] [address] Hematology/Oncology 01/12/23 Miriam Gregory RN Specialty [place] Oncology 01/12/23 Lia Freitas MD, [address] [place] [address] Physician Radiation Oncology 01/12/23 Orchard Pruner Relationship Specialty Start Date End Date Vamshi Davis MD [address] [place] [address] PCP - General Internal Medicine 08/14/17 Sana Lang MD [address] [place] [address] Pulmonary and Critical Care Medicine 11/08/22 Nhan Hooper DO [address] [place] [address] Hematology/Oncology 01/12/23 Miriam Grgeory RN Specialty [place] Oncology 01/12/23 Lia Freitas MD, [address] [place] [address] Physician Radiation Oncology 01/12/23 Orchard Pruner Relationship Specialty Start Date End Date Vamshi Davis MD [address] [place] [address] PCP - General Internal Medicine 08/14/17 Sana Lang MD [address] [place] [address] Pulmonary and Critical Care Medicine 11/08/22 Nhan Hooper DO [address] [place] [address] Hematology/Oncology 01/12/23 Miriam Gregory RN Specialty [place] Oncology 01/12/23 Lia Freitas MD [address] [place] [address] Physician Radiation Oncology 01/12/23 Orchard Pruner Relationship Specialty Start Date End Date Vamshi Davis MD [address] [place] [address] PCP - General Internal Medicine 08/14/17 Sana Lang MD [address] [place] [address] Pulmonary and Critical Care Medicine 11/08/22 Nhan Hooper DO [address] [place] [address] Hematology/Oncology 01/12/23 Miriam Gregory RN Specialty [place] Oncology 01/12/23 Lia Freitas MD [address] [place] [address] Physician Radiation Oncology 01/12/23 Orchard Pruner Relationship Specialty Start Date End Date Vamshi Davis MD [address] [place] [address] PCP - General Internal Medicine 08/14/17 Sana Lang MD [address] [place] [address] Pulmonary and Critical Care Medicine 11/08/22 Nhan Hooper DO [address] [place] [address] Hematology/Oncology 01/12/23 Miriam Gregory RN Specialty [place] Oncology 01/12/23 Lia Freitas MD [address] [place] [address] Physician Radiation Oncology 01/12/23 Orchard Pruner Relationship Specialty Start Date End Date Vamshi Davis MD [address] [place] [address] PCP - General Internal Medicine 08/14/17 Sana Lang MD [address] [place] [address] Pulmonary and Critical Care Medicine 11/08/22 Nhan Hooper DO [address] [place] [address] Hematology/Oncology 01/12/23 Miriam Gregory RN Specialty [place] Oncology 01/12/23 Lia Freitas MD [address] [place] [address] Physician Radiation Oncology 01/12/23 Orchard Pruner Relationship Specialty Start Date End Date Vamshi Davis MD [address] [place] [address] PCP - General Internal Medicine 08/14/17 Sana Lang MD [address] [place] [address] Pulmonary and Critical Care Medicine 11/08/22 Nhan Hooper DO [address] [place] [address] Hematology/Oncology 01/12/23 Miriam Gregory RN Specialty [place] Oncology 01/12/23 Lia Freitas MD [address] [place] [address] Physician Radiation Oncology 01/12/23 Orchard Pruner Relationship Specialty Start Date End Date Vamshi Davis MD [address] [place] [address] PCP - General Internal Medicine 08/14/17 Sana Lang MD [address] [place] [address] Pulmonary and Critical Care Medicine 11/08/22 Nhan Hooper DO [address] [place] [address] Hematology/Oncology 01/12/23 iMriam Gregory RN Specialty [place] Oncology 01/12/23 Lia Freitas MD [address] [place] [address] Physician Radiation Oncology 01/12/23 Orchard Pruner Relationship Specialty Start Date End Date Vamshi Davis MD [address] [place] [address] PCP - General Internal Medicine 08/14/17 Sana Lang MD [address] [place] [address] Pulmonary and Critical Care Medicine 11/08/22 Nhan Hooper DO [address] [place] [address] Hematology/Oncology 01/12/23 Miriam Gregory RN Specialty [place] Oncology 01/12/23 Lia Freitas MD [address] [place] [address] Physician Radiation Oncology 01/12/23 Orchard Pruner Relationship Specialty Start Date End Date Vamshi Davis MD [address] [place] [address] PCP - General Internal Medicine 08/14/17 Sana Lang MD [address] [place] [address] Pulmonary and Critical Care Medicine 11/08/22 Nhan Hooper DO [address] [place] [address] Hematology/Oncology 01/12/23 Miriam Gregory RN Specialty [place] Oncology 01/12/23 Lia Freitas MD [address] [place] [address] Physician Radiation Oncology 01/12/23 Orchard Pruner Relationship Specialty Start Date End Date Vamshi Davis MD [address] [place] [address] PCP - General Internal Medicine 08/14/17 Sana Lang MD [address] [place] [address] Pulmonary and Critical Care Medicine 11/08/22 Nhan Hooper DO [address] [place] [address] Hematology/Oncology 01/12/23 Miriam Gregory RN Specialty [place] Oncology 01/12/23 Lia Freitas MD [address] [place] [address] Physician Radiation Oncology 01/12/23 Orchard Pruner Relationship Specialty Start Date End Date Vamshi Davis MD [address] [place] [address] PCP - General Internal Medicine 08/14/17 Sana Lang MD [address] [place] [id number] Pulmonary and Critical Care Medicine 11/08/22 Nhan Hooper DO [address] [place] ID [id number] Hematology/Oncology 01/12/23 Miriam Gregory RN Specialty [place] Oncology 01/12/23 Lia Freitas MD [address] [place] [id number] Physician Radiation Oncology 01/12/23 INFORMATION SOURCE (unrecogn ized section and content) DATE CREATED AUTHOR AUTHOR'S ORGANIZ ATION 04/14/2023 [facility] Inactive Administered Medications - up to 3 most recent administrations Administered Medications (un recognized section and content) Inactive Administered Medications - up to 3 most recent administrations Medication Order MAR Action Action Date Dose Rate Site etoposide 184 mg in NaCl 0.9% 549.2 mL 184 mg (100 mg/m2 1.84 m2 Treatment Plan BSA from Recorded weight), INTRAVENOUS, Administer over 1 Hours, ONCE, 1 dose, On Mon04/05/23 at 1330, exp 1900 04/05/23 (room temp) Hazardous Chemotherapy Drug: Use appropriate PPE. Protect from Light. Administer with non-DEHP 0.2 micron filter and tubing. New Bag/Syringe/Bottle 04/05/2023 1:34 PM EST 184 mg Inactive Administered Medications - up to 3 most recent administrations Medication Order MAR Action Action Date Dose Rate Site etoposide 184 mg in NaCl 0.9% 549.2 mL 184 mg (100 mg/m2 1.84 m2 Treatment Plan BSA from Recorded weight), INTRAVENOUS, Administer over 1 Hours, ONCE, 1 dose, On Mon04/06/23 at 1330, exp 1600 04/06/23 (room temp) Hazardous Chemotherapy Drug: Use appropriate PPE. Protect from Light. Administer with non-DEHP 0.2 micron filter and tubing. New Bag/Syringe/Bottle 04/06/2023 1:35 PM EST 184 mg Inactive Administered Medications - up to 3 most recent administrations Medication Order MAR Action Action Date Dose Rate Site NaCl 0.9% iv infusion 500 mL/hr, INTRAVENOUS, Administer over 1 Hours, ONCE, 1 dose, On Mon04/07/23 at 1230, Over 1 hour New Bag/Syringe/Bottl e 04/07/2023 11:05 AM EST 500 mL/hr 500 mL/hr pegfilgrastim 6 mg injection (NEULASTA) 6 mg, SUBCUTANEOUS, ONCE, 1 dose, On Mon04/07/23 at 1030 Given 04/07/2023 11:53 AM EST 6 mg Arm, Left Inactive Administered Medications - up to 3 most recent administrations Medication Order MAR Action Action Date Dose Rate Site NaCl 0.9% iv infusion 500 mL/hr, INTRAVENOUS, Administer over 1 Hours, ONCE, 1 dose, On Mon04/10/23 at 1200, Over 1 hour New Bag/Syringe/Bottle 04/10/2023 12:00 PM EST 500 mL/hr 500 mL/hr FOR RECORDS PERTAINING TO PATIENTS WHO ARE OR HAVE BEEN ENROLLED IN A CHEMICAL DEPENDENCY/SUBSTANCEABUSE PROGRAM, SOME INFORMATION MAY BE OMITTED. This clinical summary was aggregated from multiple sources. Caution should be exercised in using it in the provision of clinical care. This summary normalizes information from multiple sources, and as a consequence, information in this document may materially change the coding, format and clinical context of patient data. In addition, data may be omitted in some cases. CLINICAL DECISIONS SHOULD BE BASED ON THE PRIMARY CLINICAL RECORDS. [employer] [facility]. provides no warranty or guarantee of the accuracy or completeness of information in this document.
[2023-04-24 14:29] LABS: Pathologist Review Reviewed
== END 2023-04-22 14:43 | disposition home or self-care (01) ==
PROVIDERS: Emergency Provider Emergency Medicine; PCP Internal Medicine; Visit Provider Emergency Medicine
DX: R53.1 Weakness (principal); J44.9 Chronic obstructive pulmonary disease, unspecified; R07.9 Chest pain, unspecified; F17.210 Nicotine dependence, cigarettes, uncomplicated; D64.9 Anemia, unspecified; Z85.118 Personal history of other malignant neoplasm of bronchus and lung; K75.9 Inflammatory liver disease, unspecified; I10 Essential (primary) hypertension; F41.9 Anxiety disorder, unspecified; F32.A Depression, unspecified; Z79.899 Other long term (current) drug therapy; Z90.710 Acquired absence of both cervix and uterus; Z92.21 Personal history of antineoplastic chemotherapy
CPT/HCPCS: 71045; 80053; 84484; 85025; 86850; 86900; 86901; 86920; 86922; 93005; 99282; J7040; P9016; A4216

== ENCOUNTER 2023-08-01 12:45 | Emergency (ER) | payer MEDICARE, SELFPAY ==
[2023-08-01 12:46] VITALS: BP 158/78; PULSE 110; RESP 17; TEMP 36.2; O2SAT 96; BMI 30.9
[2023-08-01] MEDS: 0.9% Normal Saline (1000mL) 1,000 ML 15 ML IV (13:21)
--- NOTE | 2023-08-01 13:27 | EDS_ITS ---
HPI History of Present Illness Chief Complaint: Abn Labs PFSH PFSH Medical History Anxiety Cancer COPD (chronic obstructive pulmonary disease) Depression Hepatitis History of cancer of lower lobe bronchus or lung Hypertension Hypoxia Small cell lung cancer Smoker Home Medications ?Medication ?Instructions ?Recorded ?Last Taken ?Type duloxetine 60 mg capsule,delayed 60 mg PO BID DEPRESSION 03/29/15 08/01/23 History release lisinopril 20 2 tab PO DAILY BLOOD PRESSURE 09/25/18 08/01/23 History mg-hydrochlorothiazide 12.5 mg tablet lorazepam 1 mg tablet 1 mg PO BID PRN ANXIETY 09/25/18 08/01/23 History albuterol sulfate 90 mcg/actuation 1 puff inhalation Q6H PRN WHEEZING 08/01/23 Unknown History aerosol inhaler mirtazapine 15 mg tablet 15 mg PO QHS DEPRESSION 08/01/23 07/31/23 History Allergy/AdvReac Type Severity Reaction Status Date / Time No Known Allergies Allergy Verified 08/01/23 12:47 Surgical History History of hysterectomy Social History Smoking Status: Current every day smoker tobacco type: cigarettes Tobacco: How many years used: 40 alcohol intake: never EXAM Physical Exam Const Vital Signs: 08/01/23 12:46 08/01/23 13:59 Temperature 97.2 F L Temperature Source Temporal Pulse Rate 110 H 83 Respiratory Rate 17 16 Blood Pressure 158/78 H 146/70 H Blood Pressure Mean 104 95 Pulse Ox 96 98 Oxygen Delivery Method Room Air Room Air MDM MDM MDM Narrative Medical decision making narrative: Patient presents with hyponatremia and complaint of feeling fatigued. Will order repeat some of the labs that she had done today. I did discuss case with nephrology Dr. Varela who asked that I give patient normal saline at 150 cc an hour and did not recommend hypertonic sodium. Also discussed case with hospitalist will evaluate patient for admission to the ICU. Before admission the repeat lab values returned and patient is found to not be hyponatremic to that extreme and that her sodium is more in the range she normally has which is a sodium of 131. Will obtain a urinalysis. Will discuss with her oncologist who sent her in. Patient has a follow-up appointment with him on 07 August. Urinalysis unremarkable. Will discharge patient home. I did discuss case with her oncologist Dr. Hooper who asked that I asked the patient to avoid excess water intake. Lab Data Attestation: I reviewed the patient's lab results. Labs: Laboratory Results - last 24 hr 08/01/23 08/01/23 13:17 14:02 WBC 12.9 H RBC 3.77 L Hgb 11.7 L Hct 34.1 L MCV 90.5 MCH 31.0 MCHC 34.3 RDW Std Deviation 43.7 RDW Coeff of Krissy 13.2 Plt Count 261 MPV 9.8 Immature Gran % (Auto) 0.900 Neut % (Auto) 76.3 H Lymph % (Auto) 13.4 L [place] % (Auto) 8.9 Eos % (Auto) 0.3 Baso % (Auto) 0.2 Absolute Neuts (auto) 9.8 H Absolute Lymphs (auto) 1.73 Nucleated RBC % 0 Sodium 131 L Potassium 3.4 L Chloride 95 L Carbon Dioxide 28.0 Anion Gap 8 BUN 41 H Creatinine 1.39 H Estim Creat Clear Calc 34.74 Est GFR (MDRD) Af Amer 48 L Est GFR (MDRD) Non-Af 40 L BUN/Creatinine Ratio 29.5 H Glucose 102 Calcium 9.2 Urine Color Yellow Urine Clarity Sl. Cloudy Urine pH 6.0 Ur Specific [place] 1.010 Urine Protein Negative Urine Glucose (UA) Normal Urine Ketones Negative Urine Occult Blood 10 H Urine Nitrite Negative Urine Bilirubin Negative Urine Urobilinogen Normal Ur Leukocyte Esterase 25 H Discharge Plan Triage Chief Complaint: Abn Labs ED Provider: Le An Dx/Rx/DC Orders Clinical Impression: Complaint of fatigable weakness Instructions: ED Weakness (Uncertain Cause) Prescriptions: No Action duloxetine 60 MG capsule 60 mg PO BID lisinopril-hydrochlorothiazide 1 EACH tablet 2 tab PO DAILY lorazepam 1 MG tablet 1 mg PO BID PRN (Reason: ANXIETY ) mirtazapine 15 mg tablet 15 mg PO QHS albuterol sulfate 90 mcg/actuation HFA aerosol inhaler 1 puff inhalation Q6H PRN (Reason: WHEEZING ) Primary Care Provider: Basia Swartz Referrals: Basia Swartz MD [Primary Care Provider] - Nhan Hooper DO [Med Staff - Active Staff] - 3-5 Days Print Language: Upper Sorbian Disposition Disposition: Home, Self Care
[2023-08-01 13:31] LABS: Absolute Lymphocyte Count 1.73 X10^3/uL (0.83-4.51); Absolute Neutrophil Count 9.8 X10^3/uL (2.0-7.7); Basophil# 0.03 X10^3/uL; Basophil% 0.2 % (0-1); Eosinophil# 0.04 X10^3/uL; Eosinophils% 0.3 % (0-5); Hematocrit 34.1 % (37-47); Hemoglobin 11.7 g/dL (12.0-15.0); Lymphocyte # 1.73 X10^3/ul (0.83-4.51); Lymphocyte % 13.4 % (19-41); Mean Corp Hgb Conc 34.3 g/dL (32-36); Mean Corpuscular Volume 90.5 fL (81-99); Mean Platelet Vol. 9.8 fl (6.2-12.0); Monocyte# 1.15 X10^3/uL; Monocyte% 8.9 % (0-10); NRBC Flagged by Analyzer 0 % (0-5); Neutrophil % 76.3 % (47-70); Platelet Count 261 K/mm3 (150-450); RBC Distribution Width CV 13.2 % (11.6-14.6); RBC Distribution Width SD 43.7 fl (35.1-43.9); Red Blood Count 3.77 M/mm3 (4.2-5.4); White Blood Count 12.9 K/mm3 (4.4-11.0)
[2023-08-01 13:45] LABS: Anion Gap 8 (5-15); BUN 41 mg/dL (7-18); BUN/Creat Ratio 29.5 RATIO (10-20); Calcium,Total 9.2 mg/dL (8.5-10.1); Chloride 95 mmol/L (98-107); Creatinine, Serum 1.39 mg/dL (0.55-1.02); EST Glomerular Filtration Rate 40 mL/min (>60); Est Glom Filt Rate - Afr Amer 48 mL/min (>60); Estimated Creatinine Clearance 34.74 ml/min; Glucose 102 mg/dL (74-106); Potassium 3.4 mmol/L (3.5-5.1); Sodium Level 131 mmol/L (136-145)
[2023-08-01 13:59] VITALS: BP 146/70; PULSE 83; RESP 16; O2SAT 98
[2023-08-01 14:33] LABS: Bacteria 0 SEEN /hpf (None Seen); Mucous, Urine 0 SEEN /hpf (<or=2+)
[2023-08-01 14:53] LABS: Color, Urine Yellow (Yellow); Glucose, Dipstick Normal (Normal); Ketone-Dipstick Negative (Negative); Leukocyte Esterase-Dipstick 25 /ul (Negative); Nitrite-Dipstick Negative (Negative); Occult Blood-Urine 10 /ul (Negative); Protein-Dipstick Negative (Negative); Urine Bilirubin Dipstick Negative (Negative); Urine Clarity Sl. Cloudy (Clear); Urine Urobilinogen Normal (Normal)
[2023-08-01 15:00] VITALS: BP 161/86; PULSE 78; RESP 18; TEMP 36.6; O2SAT 98
[2023-08-01 15:03] LABS: Red Blood Cells-Urine 0-5 SEEN /hpf (0-5); Squamous Epithelial Cells - UA 0-5 SEEN /hpf (5-10); White Blood Cells 0-5 SEEN /hpf (0-5)
== END 2023-08-01 15:03 | disposition home or self-care (01) ==
PROVIDERS: Emergency Provider Emergency Medicine; PCP Internal Medicine; Visit Provider Emergency Medicine
DX: R53.83 Other fatigue (principal); J44.9 Chronic obstructive pulmonary disease, unspecified; E87.1 Hypo-osmolality and hyponatremia; F17.210 Nicotine dependence, cigarettes, uncomplicated; R53.1 Weakness; Z85.118 Personal history of other malignant neoplasm of bronchus and lung; I10 Essential (primary) hypertension; K75.9 Inflammatory liver disease, unspecified; F41.9 Anxiety disorder, unspecified; F32.A Depression, unspecified; Z79.899 Other long term (current) drug therapy; Z90.710 Acquired absence of both cervix and uterus
CPT/HCPCS: 80048; 81001; 85025; 96360; 96361; 99283; J7030; A4216

== ENCOUNTER 2023-08-08 09:50 | Emergency (ER) | payer MEDICARE, SELFPAY ==
[2023-08-08] VITALS (7 sets, daily range): BP systolic 113–130; BP diastolic 55–95; PULSE 87–116; RESP 20–22; TEMP 37–37.6; O2SAT 94–98; BMI 32.8
--- NOTE | 2023-08-08 10:14 | EKG12_ITS ---
Test Reason : SOB Blood Pressure : / mmHG Vent. Rate : 106 BPM Atrial Rate : 106 BPM P-R Int : 178 ms QRS Dur : 146 ms QT Int : 364 ms P-R-T Axes : 019 -13 101 degrees QTc Int : 483 ms Sinus tachycardia Left bundle branch block Abnormal ECG Confirmed by Sonido Alvarado ([id number]), editor trade journal ALMA DELIA SIMMONS ([id number]) on 08/09/2023 8:45:36 AM Referred By: Confirmed By:Sonido Alvarado
--- NOTE | 2023-08-08 10:15 | ED.VIS.DYS ---
HPI History of Present Illness Chief Complaint: Shortness of Breath Informant: patient and PCP Narrative Narrative: 80-year-old female has had an illness for about the past 6 days cough, productive of brown and green sputum no blood, fevers, dyspneic. No chest pain no edema in her legs. History of small cell lung cancer, last chemotherapy was several months ago, which is why she went to see her oncologist for this illness today and as a result of having a high white blood count, tachycardia, and a fever was referred here to the ER for further evaluation. Pulse ox outpatient 95% on room air. She is not on oxygen at home. Does have a history of COPD but has not been using any inhalers or breathing treatments recently for this. [facility] Medical History Small cell lung cancer Cancer Anxiety Depression Hepatitis Smoker COPD (chronic obstructive pulmonary disease) Hypoxia History of cancer of lower lobe bronchus or lung Hypertension Home Medications ?Medication ?Instructions ?Recorded ?Last Taken ?Type duloxetine 60 mg capsule,delayed 60 mg PO BID DEPRESSION 03/29/15 08/01/23 History release lisinopril 20 2 tab PO DAILY BLOOD PRESSURE 09/25/18 08/01/23 History mg-hydrochlorothiazide 12.5 mg tablet lorazepam 1 mg tablet 1 mg PO BID PRN ANXIETY 09/25/18 08/01/23 History albuterol sulfate 90 mcg/actuation 1 puff inhalation Q6H PRN WHEEZING 08/01/23 Unknown History aerosol inhaler mirtazapine 15 mg tablet 15 mg PO QHS DEPRESSION 08/01/23 07/31/23 History levofloxacin 750 mg tablet 750 mg PO Q24H #4 tabs 08/08/23 Unknown Rx Allergy/AdvReac Type Severity Reaction Status Date / Time No Known Allergies Allergy Verified 08/08/23 09:51 Surgical History History of hysterectomy Social History Smoking Status: Light Smoker (<10/day) Tobacco: How many years used: 40 alcohol intake: never ROS ROS ED Constitutional Constitutional ED: Reports chills, fever(s) and malaise Eyes Eyes: Denies change in vision or diplopia ENT ENT ED: Denies ear pain, rhinorrhea or sore throat Cardiovascular Cardiovascular: Denies chest pain, orthopnea or palpitations Respiratory/Chest Respiratory/Chest: Reports cough, dyspnea, dyspnea on exertion and sputum; Denies hemoptysis or orthopnea Gastrointestinal Gastrointestinal: Reports nausea; Denies abdominal pain, diarrhea, melena or vomiting Genitourinary Genitourinary ED: Denies dysuria or hematuria Musculoskeletal Musculoskeletal: Denies back pain or neck pain Integumentary Denies abscess or rash Neurologic Neurologic: Denies headache(s), paresthesias or weakness Psychiatric Psychiatric: Denies anxiety or suicidal thoughts EXAM Physical Exam Const Vital Signs: 08/08/23 09:51 08/08/23 09:53 08/08/23 10:23 Temperature 99.6 F H 99.6 F H Temperature Source Temporal Temporal Pulse Rate 116 H 116 H 104 H Respiratory Rate 20 H 20 H 22 H Respiratory Effort Respiratory Depth Respiratory Pattern Tachypnea Blood Pressure 113/95 H 113/95 H Blood Pressure Mean 101 101 Pulse Ox 95 95 Oxygen Delivery Method Room Air Room Air 08/08/23 10:23 08/08/23 10:53 08/08/23 11:01 Temperature 99.3 F H Temperature Source Oral Pulse Rate 105 H Respiratory Rate 20 H Respiratory Effort Respiratory Depth Respiratory Pattern Blood Pressure 130/60 H Blood Pressure Mean 83 Pulse Ox 96 95 Oxygen Delivery Method Room Air Room Air Room Air 08/08/23 11:02 08/08/23 11:57 Temperature 98.6 F Temperature Source Oral Pulse Rate 95 Respiratory Rate 20 H Respiratory Effort Normal Non-Labored Short of Breath Respiratory Depth Normal Respiratory Pattern Normal Blood Pressure 129/59 H Blood Pressure Mean 82 Pulse Ox 98 Oxygen Delivery Method Room Air Room Air Positive well nourished and well developed General Appearance ED: well developed and NAD HEENT Reports moist mucous membranes normocephalic and atraumatic Eyes PERRL and EOMs intact bilaterally Neck full ROM, no lymphadenopathy, supple and no JVD Resp Resp Narrative: Mild tachypnea, speaking in full sentences no distress. Diffuse expiratory wheezes, crackles in the left base Cardio regular rate, regular rhythm and no murmurs Rate: tachycardic GI non-tender and non-distended Auscultation: normoactive bowel sounds Palpation: soft Back/Spine no CVA tenderness General Back: other FROM Extremity normal to inspection General Extremety ED: Yes edema; Negative for pulses abnormal or tenderness General Extremity: edema bilateral lower extremity Details: trace; Negative for pulses abnormal Neuro oriented x3, CN's II-XII intact bilaterally and no sensory deficits noted Sensorium / Orientation: awake and alert Motor Exam: strength 5/5 throughout Psych mental status grossly normal Skin no rashes or lesions noted and no wounds MDM MDM MDM Narrative Medical decision making narrative: Workup shows a leukocytosis, hyponatremia 125 along with hypochloremia, and 2 view chest x-ray my interpretation shows no acute infiltrates. Radiology was in agreement. She does not have a lactic acidosis. After breathing treatment she was breathing a little better, and with ambulation she is no lower than 94% on room air, her vital signs on reevaluation show resolution of her tachycardia with some gentle IV fluids and pulse ox 98% on room air. Her COVID/influenza/RSV swab returned negative. We did send blood cultures. She states that she has been having pain in her left buttock and hip for the past week or 2, she states that she is concerned that maybe she injured it while bouncing around on the riding lawnmower. I obtained x-rays of her left hip for that reason, 3 views of my interpretation show no acute bony abnormality. She was tender diffusely at the greater trochanter, but also in the buttocks and the ischial tuberosity and all the soft tissues in between including the external rotators. At this is probably muscular but could also be some arthritis she states that hurts to walk. With regards to the hyponatremia she is not confused. I asked her if she was feeling really weak, she stated that may be a little but not severely. I offered admission but she refuses and wants to go home. Given her leukocytosis and her clinical exam I think putting her on an antibiotic is entirely reasonable. Will treat her with Levaquin, and when her fluids are done we will let her go home. Advised following up with her PCP, or Dr. Hooper if he will see her for this. Lab Data Attestation: I reviewed the patient's lab results. Labs: Laboratory Results - last 24 hr 08/08/23 10:45 WBC 18.1 H RBC 3.58 L Hgb 11.4 L Hct 32.3 L MCV 90.2 MCH 31.8 MCHC 35.3 RDW Std Deviation 44.6 H RDW Coeff of Krissy 13.4 Plt Count 179 MPV 10.0 Immature Gran % (Auto) 1.100 H Neut % (Auto) 87.6 H Lymph % (Auto) 4.5 L [place] % (Auto) 6.6 Eos % (Auto) 0.1 Baso % (Auto) 0.1 Absolute Neuts (auto) 15.9 H Absolute Lymphs (auto) 0.82 L Nucleated RBC % 0 PT 14.6 INR 1.1 APTT 29.4 Sodium 125 L Potassium 3.6 Chloride 89 L Carbon Dioxide 27.0 Anion Gap 9 BUN 24 H Creatinine 1.05 H Estim Creat Clear Calc 47.38 Est GFR (MDRD) Af Amer 67 Est GFR (MDRD) Non-Af 55 L BUN/Creatinine Ratio 22.9 H Glucose 106 Lactic Acid 0.9 Calcium 9.9 Total Bilirubin 1.10 H AST 38 H ALT 31 Alkaline Phosphatase 109 Total Protein 7.4 Albumin 3.1 L Globulin 4.3 H Albumin/Globulin Ratio 0.7 L Radiography Diagnostic Testing: Clinical Impression(s) from Imaging Studies Hip/Pelvis X-Ray 08/08/23 11:08 IMPRESSION: Degenerative changes. No evidence of fracture or dislocation. Electronically Signed: Rolando Guevara MD at 11:51 EDT , Chest X-Ray 08/08/23 11:15 IMPRESSION: Stable examination. No acute abnormality is seen. Electronically Signed: Rolando Guevara MD at 12:04 EDT , Rhythm Strip Rhythm Strip: Sinus Tach Rate: 105 Ectopy: None EKG Initial EKG: Attestation: I personally reviewed and interpreted this EKG as follows: Interpretation: No Acute Injury Pattern, Sinus Tachycardia and LBBB Prior EKG tracings: available for review Prior: Unchanged Discharge Plan Triage Chief Complaint: Shortness of Breath ED Provider: Travis Jean Baptiste Dx/Rx/DC Orders Clinical Impression: Acute lower respiratory tract infection, Acute hyponatremia, SCLC (small cell lung carcinoma), Acute pain of left hip Instructions: ED Pneumonia (Adult) Prescriptions: New levofloxacin 750 mg tablet 750 mg PO Q24H Qty: 4 0RF No Action duloxetine 60 MG capsule 60 mg PO BID lisinopril-hydrochlorothiazide 1 EACH tablet 2 tab PO DAILY lorazepam 1 MG tablet 1 mg PO BID PRN (Reason: ANXIETY ) mirtazapine 15 mg tablet 15 mg PO QHS albuterol sulfate 90 mcg/actuation HFA aerosol inhaler 1 puff inhalation Q6H PRN (Reason: WHEEZING ) Primary Care Provider: Basia Swartz Referrals: Basia Swartz MD [Primary Care Provider] - 3-5 Days Activity Restrictions/Additional Instructions: Since she received an initial dose of antibiotic in the ER, start the prescription tomorrow, 6/12, morning or lunchtime. Once daily until gone after that. Use your albuterol inhaler as needed for trouble breathing. You may return to the ER at any time if you feel you are doing worse. Print Language: [place] Disposition Disposition: Home, Self Care
[2023-08-08] MEDS: Ipratropium/Albuterol Sulfate 3 ML AMPUL.NEB INHALATION (10:21)
[2023-08-08] MEDS: Acetaminophen 500 MG Tablet 1000 MG PO (10:28)
[2023-08-08] MEDS: 0.9% Normal Saline (1000mL) 1,000 ML 150 ML IV (10:28)
[2023-08-08 10:57] LABS: Absolute Lymphocyte Count 0.82 X10^3/uL (0.83-4.51); Absolute Neutrophil Count 15.9 X10^3/uL (2.0-7.7); Basophil# 0.02 X10^3/uL; Basophil% 0.1 % (0-1); Eosinophil# 0.01 X10^3/uL; Eosinophils% 0.1 % (0-5); Hematocrit 32.3 % (37-47); Hemoglobin 11.4 g/dL (12.0-15.0); Lymphocyte # 0.82 X10^3/ul (0.83-4.51); Lymphocyte % 4.5 % (19-41); Mean Corp Hgb Conc 35.3 g/dL (32-36); Mean Corpuscular Hgb 31.8 pg (27.0-32.0); Mean Corpuscular Volume 90.2 fL (81-99); Monocyte# 1.19 X10^3/uL; Monocyte% 6.6 % (0-10); NRBC Flagged by Analyzer 0 % (0-5); Neutrophil # 15.87 X10^3/uL (2.7-7.7); Neutrophil % 87.6 % (47-70); Platelet Count 179 K/mm3 (150-450); RBC Distribution Width CV 13.4 % (11.6-14.6); RBC Distribution Width SD 44.6 fl (35.1-43.9); Red Blood Count 3.58 M/mm3 (4.2-5.4); White Blood Count 18.1 K/mm3 (4.4-11.0)
[2023-08-08 11:07] LABS: International Normalized Ratio 1.1; Prothrombin Time (Protime)PT. 14.6 SECONDS (11.7-14.9)
[2023-08-08 11:08] LABS: Partial Thromboplast Time 29.4 Seconds (24.1-36.2)
--- NOTE | 2023-08-08 11:08 | RAD_ITS ---
STUDY: X-RAY - PELVIS AND LEFT HIP REASON FOR EXAM: Female, 72 years old. Left hip pain. TECHNIQUE: 2 views of the pelvis and hip. COMPARISON: None. FINDINGS: There is a non-specific bowel gas pattern. There are multiple calcified phleboliths. There is narrowing with cortical sclerosis and osteophyte formation of the sacroiliac joint consistent with degenerative osteoarthritic changes. Normal bilateral superior and inferior pubic rami. Normal pubic symphysis. Normal bilateral ischial tuberosities. Normal visualized femoral head. Normal acetabulum. There is mild articular joint space narrowing of the hip. RAD/HIP, UNI W/ Pelvis 2-3 Views IMPRESSION: Degenerative changes. No evidence of fracture or dislocation. Electronically Signed: Rolando Guevara MD at 11:51 EDT ,
--- NOTE | 2023-08-08 11:15 | RAD_ITS ---
STUDY: X-RAY CHEST REASON FOR EXAM: Female, 72 years old. Cough sob TECHNIQUE: PA and lateral views of the chest. COMPARISON: Comparison is made with prior study April 22, 2023. FINDINGS: EKG electrodes are seen. Hyperinflation. Scattered calcified granulomas. There is no demonstrated pleural abnormality. Normal size heart. Normal mediastinum and jose. Normal visualized pulmonary arteries. There is atherosclerotic calcification of the aortic arch with tortuosity. There is demineralization of the osseous structures. Normal visualized ribs, clavicles, and shoulders. There is no demonstrated abnormality of the visualized soft tissue structures of the upper abdomen. RAD/Chest PA and Lateral IMPRESSION: Stable examination. No acute abnormality is seen. Electronically Signed: Rolando Guevara MD at 12:04 EDT ,
[2023-08-08 11:23] LABS: ALB/GLOB Ratio 0.7 RATIO (0.9-2.4); AST(SGOT) 38 U/L (15-37); Alanine Aminotransfer ALT/SGPT 31 U/L (13-56); Albumin, Serum 3.1 g/dL (3.2-5.0); Alkaline Phosphatase 109 U/L (45-117); Anion Gap 9 (5-15); BUN 24 mg/dL (7-18); BUN/Creat Ratio 22.9 RATIO (10-20); Calcium,Total 9.9 mg/dL (8.5-10.1); Chloride 89 mmol/L (98-107); Creatinine, Serum 1.05 mg/dL (0.55-1.02); EST Glomerular Filtration Rate 55 mL/min (>60); Est Glom Filt Rate - Afr Amer 67 mL/min (>60); Estimated Creatinine Clearance 47.38 ml/min; Globulin 4.3 g/dL (2.2-4.2); Glucose 106 mg/dL (74-106); Potassium 3.6 mmol/L (3.5-5.1); Protein, Total 7.4 g/dL (6.4-8.2); Sodium Level 125 mmol/L (136-145)
[2023-08-08 11:30] LABS: Lactic Acid 0.9 mmol/L (0.4-1.9)
[2023-08-08] MEDS: levoFLOXacin 750 MG Tablet PO (12:50)
== END 2023-08-08 12:58 | disposition home or self-care (01) ==
PROVIDERS: Emergency Provider Emergency Medicine; PCP Internal Medicine; Visit Provider Emergency Medicine
DX: R06.02 Shortness of breath (principal); C34.90 Malignant neoplasm of unspecified part of unspecified bronchus or lung; J44.9 Chronic obstructive pulmonary disease, unspecified; E87.1 Hypo-osmolality and hyponatremia; J22 Unspecified acute lower respiratory infection; M25.552 Pain in left hip; Z92.21 Personal history of antineoplastic chemotherapy; K75.9 Inflammatory liver disease, unspecified; I10 Essential (primary) hypertension; Z79.899 Other long term (current) drug therapy; F32.A Depression, unspecified; F41.9 Anxiety disorder, unspecified; Z90.710 Acquired absence of both cervix and uterus; F17.200 Nicotine dependence, unspecified, uncomplicated; X58.XXXA Exposure to other specified factors, initial encounter; Y93.89 Activity, other specified
CPT/HCPCS: 71046; 73502; 80053; 83605; 85025; 85610; 85730; 87040; 87631; 93005; 94640; 96360; 99283; J7030; A4216

== ENCOUNTER 2023-11-30 09:42 | Emergency (ER) | payer MEDICARE, SELFPAY ==
[2023-11-30 09:43] VITALS: BP 139/76; PULSE 101; RESP 16; TEMP 36.9; O2SAT 95; BMI 30.4
--- NOTE | 2023-11-30 10:07 | EKG12_ITS ---
Test Reason : GENERAL Blood Pressure : / mmHG Vent. Rate : 095 BPM Atrial Rate : 095 BPM P-R Int : 192 ms QRS Dur : 148 ms QT Int : 404 ms P-R-T Axes : 077 -14 097 degrees QTc Int : 507 ms Normal sinus rhythm Left bundle branch block Abnormal ECG Confirmed by JENNIFER ARCHER, JACKLYN ([id number]), proposal editor SHAYLEE NIELSON ([id number]) on 12/01/2023 1:54:25 PM Referred By: Confirmed By:JACKLYN RODRIGUEZ MD
--- NOTE | 2023-11-30 10:22 | EDS_ITS ---
HPI History of Present Illness Chief Complaint: Back Narrative Narrative: Patient is a 73-year-old female past medical history of small cell lung cancer not actively getting a treatment believe she is in remission, anxiety, depression, COPD, hypertension who presented to the emergency department with a chief complaint of back pain. Patient states that her back pain has been going on for approximately 4 weeks now and notes that she has had some outpatient testing done recently including ultrasound of her kidneys which they state that showed some cysts and a recent CT scan yesterday that they are unsure of the results on at the [facility]. They state they called back to the office of her physician and they noted that she should come to the emergency department further evaluation management. Patient denies any new injuries or radiation of her pain. States that is simply across the back mainly on the left side does not radiate anywhere. Patient rates her pain a 7 out of 10. [facility] Medical History Small cell lung cancer Cancer Anxiety Depression Hepatitis Smoker COPD (chronic obstructive pulmonary disease) Hypoxia History of cancer of lower lobe bronchus or lung Hypertension Home Medications ?Medication ?Instructions ?Recorded ?Last Taken ?Type duloxetine 60 mg capsule,delayed 60 mg PO BID DEPRESSION 03/29/15 08/01/23 History release lisinopril 20 2 tab PO DAILY BLOOD PRESSURE 09/25/18 08/01/23 History mg-hydrochlorothiazide 12.5 mg tablet lorazepam 1 mg tablet 1 mg PO BID PRN ANXIETY 09/25/18 08/01/23 History albuterol sulfate 90 mcg/actuation 1 puff inhalation Q6H PRN WHEEZING 08/01/23 Unknown History aerosol inhaler mirtazapine 15 mg tablet 15 mg PO QHS DEPRESSION 08/01/23 07/31/23 History levofloxacin 750 mg tablet 750 mg PO Q24H #4 tabs 08/08/23 Unknown Rx cephalexin 500 mg capsule 500 mg PO BID 5 days #10 caps 11/30/23 Unknown Rx Allergy/AdvReac Type Severity Reaction Status Date / Time No Known Allergies Allergy Verified 11/30/23 09:43 Surgical History History of hysterectomy Social History Smoking Status: Light Smoker (<10/day) Tobacco: How many years used: 40 alcohol intake: never ROS ROS ED ROS Narrative Constitutional: Denies any fevers, chills, headaches, lightness, dizziness Eyes: Denies change in vision double vision blurry vision Cardiovascular: Denies chest pain or palpitations Respiratory: Denies coughing wheezing shortness of breath Abdomen: Denies any abdominal pain nausea vomit diarrhea : Denies any urinary symptoms Neurological: Denies numbness, knees, tingling Musculoskeletal: Complains of back pain as noted above Skin: Denies rashes or lesions EXAM Physical Exam Narrative Exam Narrative: General: Patient was lying in bed rest comfortably did not appear to be in acute distress Head: Atraumatic, normocephalic Eyes: PERRL bilateral, EOMI bilateral, no conjunctival injection noted Neck: Soft, supple, trachea midline Cardiovascular: Regular rate and rhythm no murmurs gallops rubs noted Respiratory: Patient has mild end expiratory wheezing noted exam bilaterally no rales noted Abdomen: Soft, nondistended, nontender to palpation, bowel sounds present x 4 Musculoskeletal: Patient has no midline tenderness palpation the cervical, thoracolumbar spine, left CVA tenderness noted on exam Extremities: +5/5 strength noted in the bilateral lower extremities, no pedal edema on exam Neurological: Patient follow commands and that she is at [facility] years 2023. Sensation grossly intact throughout her body. No saddle anesthesia noted Skin: Warm, dry, intact Const Vital Signs: 11/30/23 09:43 Temperature 98.5 F Temperature Source Oral Pulse Rate 101 H Respiratory Rate 16 Blood Pressure 139/76 H Blood Pressure Mean 97 Pulse Ox 95 Oxygen Delivery Method Room Air MDM MDM MDM Narrative Medical decision making narrative: Patient is a 73-year-old female who presented to the emergency department the [facility] complaint of bilateral back pain that once again has been going on since approximately 4 weeks ago now. Patient will have a workup performed here on the differential diagnose includes but not limited to UTI, pyelonephritis, ACS. Once workup is obtained reviewed she will be reevaluated. Patient will be given Toradol for pain control. Patient CT abdomen pelvis without IV contrast reviewed showed no urinary tract calculus hydronephrosis. Known small bilateral renal cyst not well-visualized on this study they are recommending reviewing her recent renal ultrasound from 11/23/2023. She has cirrhotic liver morphology with suggestion of multiple hypodense masses versus heterogeneous parenchyma further evaluation with ultrasound and/or MRI is advised. Will add on a right upper quadrant ultrasound. Patient's renal ultrasound was also reviewed from 11/23/2023 which showed no hydronephrosis with bilateral renal cysts noted. Patient's EKG from 08/08/2023 was reviewed which showed evidence of left bundle branch block with a rate of 106 bpm. Patient's EKG today showed normal sinus rhythm with evidence of left bundle branch block rate of 95 bpm, Which is very similar to the previous EKG that I reviewed as noted Patient's CBC reviewed and showed a white blood cell count of 12,000 however based on her previous blood draws her white blood cell count is chronically elevated, hemoglobin stable 10.5, platelet count normal at 285. Patient sodium was noted be 133, potassium normal at 3.8, creatinine was noted be 1.29 this appears to be around her baseline as she has underlying chronic kidney disease, AST and ALT were 45 and 26 respectively with a normal total bilirubin of 0.60. Patient's troponin normal at 10, urinalysis was significant for 100 leukocyte esterase 50-100 white blood cells with 3+ bacteria this was sent for culture she will be given a gram of Rocephin and a prescription for Keflex. She was advised to follow-up on this with her primary care physician. Patient's liver ultrasound was reviewed as well which showed hepatomegaly. Nodular contour of the liver suggesting cirrhosis. Hypoechoic solid nodule seen in both lobes of the liver. Described neoplastic process should be ruled out. 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 Patient would like to go home at this point time her family ember at bedside are agreeable with this plan all question concerns answered at bedside she was di scharged home in stable condition. She was encouraged return with worsening symptoms or other concerns. Lab Data Labs: Laboratory Results - last 24 hr 11/30/23 11/30/23 10:25 11:41 WBC 12.9 H RBC 3.29 L Hgb 10.5 L Hct 31.0 L MCV 94.2 MCH 31.9 MCHC 33.9 RDW Std Deviation 44.8 H RDW Coeff of Krissy 12.9 Plt Count 285 MPV 10.3 Immature Gran % (Auto) 0.600 Neut % (Auto) 81.8 H Lymph % (Auto) 7.6 L [place] % (Auto) 9.5 Eos % (Auto) 0.3 Baso % (Auto) 0.2 Absolute Neuts (auto) 10.5 H Absolute Lymphs (auto) 0.98 Nucleated RBC % 0 Sodium 133 L Potassium 3.8 Chloride 97 L Carbon Dioxide 26.0 Anion Gap 10 BUN 36 H Creatinine 1.29 H Estim Creat Clear Calc 36.56 Est GFR (MDRD) Af Amer 52 L Est GFR (MDRD) Non-Af 43 L BUN/Creatinine Ratio 27.9 H Glucose 104 Calcium 9.9 Total Bilirubin 0.60 AST 45 H ALT 26 Alkaline Phosphatase 145 H Troponin I High Sens 10 Total Protein 7.4 Albumin 3.0 L Globulin 4.4 H Albumin/Globulin Ratio 0.7 L Lipase 123 H Urine Color Straw Urine Clarity Sl. Cloudy Urine pH 6.0 Ur Specific [place] 1.020 Urine Protein 15 H Urine Glucose (UA) Normal Urine Ketones Negative Urine Occult Blood 10 H Urine Nitrite Negative Urine Bilirubin 1 H Urine Urobilinogen Normal Ur Leukocyte Esterase 100 H Urine RBC 0-5 SEEN Urine WBC 50-100 SEEN Ur Squamous Epith Cells 25-50 SEEN Urine Bacteria 3+ Urine Mucus 0 SEEN Radiography Diagnostic Testing: Clinical Impression(s) from Imaging Studies Liver Ultrasound 11/30/23 10:30 IMPRESSION: Hepatomegaly. Nodular contour of the liver suggests cirrhosis. Hypoechoic solid nodule seen in both lobes of the liver as described. Neoplastic process should be ruled out. Electronically Signed: Rolando Guevara MD at 11:59 EDT , Discharge Plan Triage Chief Complaint: Back ED Provider: Terry Mott Dx/Rx/DC Orders Clinical Impression: Urinary tract infection, Back pain, Abnormal liver ultrasound Prescriptions: New cephalexin 500 mg capsule 500 mg PO BID 5 Days Qty: 10 0RF No Action duloxetine 60 MG capsule 60 mg PO BID lisinopril-hydrochlorothiazide 1 EACH tablet 2 tab PO DAILY lorazepam 1 MG tablet 1 mg PO BID PRN (Reason: ANXIETY ) levofloxacin 750 mg tablet 750 mg PO Q24H Qty: 4 0RF mirtazapine 15 mg tablet 15 mg PO QHS albuterol sulfate 90 mcg/actuation HFA aerosol inhaler 1 puff inhalation Q6H PRN (Reason: WHEEZING ) Primary Care Provider: Basia Swartz Referrals: Basia Swartz MD [Primary Care Provider] - Activity Restrictions/Additional Instructions: Follow-up with your primary care physician on your urine culture results as we discussed here. Take antibiotics as prescribed. Follow-up with your fiber optic assembly worker oncologist at [facility] as we discussed here for the ultrasound of your liver that was performed today return with worsening symptoms or any other concerns Print Language: Botswanan Disposition Disposition: Home, Self Care
--- NOTE | 2023-11-30 10:30 | US_ITS ---
STUDY: ABDOMINAL ULTRASOUND - RIGHT UPPER QUADRANT REASON FOR VISIT: Female, [address] without contrast yesterday TECHNIQUE: Ultrasound evaluation of the right upper quadrant was performed with real-time and static anderson-scale imaging. TECHNICAL QUALITY: Adequate. COMPARISON: None. FINDINGS: Liver: The liver measures 17.3 cm. The liver has a nodular contour suggestive of possible cirrhotic changes. There is a heterogeneous echogenicity of the liver. The bile ducts are within normal limits. There is hepatic color flow. The direction of portal flow is hepatopetal. There is a 1.9 cm x 1.6 cm x 1.6 cm hypoechoic nodule in the right lobe of the liver. There is also evidence of a 1.5 cm x 1.4 cm x 1.1 cm hypoechoic nodule in the anterior aspect of the left lobe of the liver. A similar appearing hypoechoic nodule is seen in the medial aspect of the left lobe measuring 1.9 cm x 2 cm x 1.3 cm. Neoplastic process should be ruled out. Gallbladder: Normal distended gallbladder. The gallbladder wall measures 2.0 mm. There is a negative sonographic Covarrubias''s sign. There is no pericholecystic fluid. There are no gallstones. Common Bile Duct (C.B.D.): The common bile duct measures 5.0 mm. Pancreas: Normal size of the head, body and tail of the pancreas. There is normal echogenicity of the pancreas. There is no demonstrated pancreatic mass or cyst. Right Kidney: Normal size of the right kidney. The right kidney measures 9.6 cm x 4.4 cm x 4.2 cm. Normal renal cortex. The right cortex measures 1.1 cm. There is an 8mm by 8mm by 7 mm right renal cyst. There is no right hydronephrosis. US/Liver IMPRESSION: Hepatomegaly. Nodular contour of the liver suggests cirrhosis. Hypoechoic solid nodule seen in both lobes of the liver as described. Neoplastic process should be ruled out. Electronically Signed: Rolando Guevara MD at 11:59 EDT ,
[2023-11-30 10:34] LABS: Absolute Lymphocyte Count 0.98 X10^3/uL (0.83-4.51); Absolute Neutrophil Count 10.5 X10^3/uL (2.0-7.7); Basophil# 0.03 X10^3/uL; Basophil% 0.2 % (0-1); Eosinophil# 0.04 X10^3/uL; Eosinophils% 0.3 % (0-5); Hemoglobin 10.5 g/dL (12.0-15.0); Lymphocyte # 0.98 X10^3/ul (0.83-4.51); Lymphocyte % 7.6 % (19-41); Mean Corp Hgb Conc 33.9 g/dL (32-36); Mean Corpuscular Hgb 31.9 pg (27.0-32.0); Mean Corpuscular Volume 94.2 fL (81-99); Mean Platelet Vol. 10.3 fl (6.2-12.0); Monocyte# 1.23 X10^3/uL; Monocyte% 9.5 % (0-10); NRBC Flagged by Analyzer 0 % (0-5); Neutrophil # 10.52 X10^3/uL (2.7-7.7); Neutrophil % 81.8 % (47-70); Platelet Count 285 K/mm3 (150-450); RBC Distribution Width CV 12.9 % (11.6-14.6); RBC Distribution Width SD 44.8 fl (35.1-43.9); Red Blood Count 3.29 M/mm3 (4.2-5.4); White Blood Count 12.9 K/mm3 (4.4-11.0)
[2023-11-30 10:55] LABS: ALB/GLOB Ratio 0.7 RATIO (0.9-2.4); AST(SGOT) 45 U/L (15-37); Alanine Aminotransfer ALT/SGPT 26 U/L (13-56); Alkaline Phosphatase 145 U/L (45-117); Anion Gap 10 (5-15); BUN 36 mg/dL (7-18); BUN/Creat Ratio 27.9 RATIO (10-20); Calcium,Total 9.9 mg/dL (8.5-10.1); Chloride 97 mmol/L (98-107); Creatinine, Serum 1.29 mg/dL (0.55-1.02); EST Glomerular Filtration Rate 43 mL/min (>60); Est Glom Filt Rate - Afr Amer 52 mL/min (>60); Estimated Creatinine Clearance 36.56 ml/min; Globulin 4.4 g/dL (2.2-4.2); Glucose 104 mg/dL (74-106); Lipase 123 U/L (13-75); Potassium 3.8 mmol/L (3.5-5.1); Protein, Total 7.4 g/dL (6.4-8.2); Sodium Level 133 mmol/L (136-145); Troponin-I HS 10 pg/mL (3.0-54.0)
[2023-11-30] MEDS: Ketorolac 30 MG/ML Syringe IV (11:00)
[2023-11-30] MEDS: 0.9% Normal Saline (1000mL) 1,000 ML 999 ML IV (11:01)
[2023-11-30 11:49] LABS: Mucous, Urine 0 SEEN /hpf (<or=2+)
[2023-11-30 11:52] LABS: Color, Urine Straw (Yellow); Glucose, Dipstick Normal (Normal); Ketone-Dipstick Negative (Negative); Leukocyte Esterase-Dipstick 100 /ul (Negative); Nitrite-Dipstick Negative (Negative); Occult Blood-Urine 10 /ul (Negative); Protein-Dipstick 15 mg/dl (Negative); Urine Clarity Sl. Cloudy (Clear); Urine Urobilinogen Normal (Normal)
[2023-11-30 11:56] LABS: Urine Bilirubin Dipstick 1 mg/dL (Negative)
[2023-11-30 12:00] LABS: Bacteria 3+ /hpf (None Seen); Red Blood Cells-Urine 0-5 SEEN /hpf (0-5); Squamous Epithelial Cells - UA 25-50 SEEN /hpf (5-10); White Blood Cells 50-100 SEEN /hpf (0-5)
[2023-11-30] MEDS: HYDROcodone Bitartrate/Apap 5/325 Tablet PO (12:27)
[2023-11-30] MEDS: Ondansetron ODT 4 MG Tablet PO (12:27)
[2023-11-30] MEDS: Ceftriaxone 1 GM/50 ML BAG IV (12:44)
[2023-11-30 13:00] VITALS: BP 126/84; PULSE 76; RESP 16; O2SAT 98
[2023-11-30 13:18] VITALS: BP 126/84; PULSE 76; RESP 16; TEMP 36.5; O2SAT 98
== END 2023-11-30 13:18 | disposition home or self-care (01) ==
PROVIDERS: Emergency Provider Emergency Medicine; PCP Internal Medicine; Visit Provider Emergency Medicine
DX: M54.9 Dorsalgia, unspecified (principal); J44.9 Chronic obstructive pulmonary disease, unspecified; N39.0 Urinary tract infection, site not specified; F32.A Depression, unspecified; F41.9 Anxiety disorder, unspecified; N18.9 Chronic kidney disease, unspecified; Z90.710 Acquired absence of both cervix and uterus; R93.2 Abnormal findings on diagnostic imaging of liver and biliary tract; Z85.118 Personal history of other malignant neoplasm of bronchus and lung; Z79.899 Other long term (current) drug therapy; K75.9 Inflammatory liver disease, unspecified; F17.200 Nicotine dependence, unspecified, uncomplicated; I12.9 Hypertensive chronic kidney disease with stage 1 through stage 4 chronic kidney disease, or unspecified chronic kidney disease
CPT/HCPCS: 76705; 80053; 81001; 83690; 84484; 85025; 87086; 87088; 93005; 96361; 96365; 96375; 99283; J7030; A4216

== ENCOUNTER 2023-12-03 09:26 | Observation (INO) | payer MEDICARE, SELFPAY ==
[2023-12-03 09:26] VITALS: BP 145/71; PULSE 106; RESP 18; TEMP 37.2; O2SAT 100; BMI 32.5
--- NOTE | 2023-12-03 10:08 | CT_ITS ---
INDICATION: PAIN EXAMINATION: CT LUMBAR SPINE - CT Spine Lumbar W/O Contrast Injection TECHNIQUE: Helically acquired images were obtained of the lumbar spine. 2D reformats were reviewed. A radiation dose optimization technique was used for this scan. The protocol utilizes one or more of the following dose reduction techniques: automated exposure control, adjustment of mA and/or kV according to patient size,and/or use of iterative reconstruction technique. IV Contrast dosage and agent: None. RADIATION DOSAGE (If Supplied By Facility): CTDIvol = ( 16.42 ) mGy, DLP = ( 419.73 ) mGycm COMPARISON: PET CT- dated December 06, 2022 FINDINGS: VERTEBRAE: No fracture or traumatic subluxation. There is multilevel endplate spondylosis and facet hypertrophy. No discrete lytic or blastic abnormality observed. Normal alignment. DISCS and SPINAL CANAL: There is multilevel degenerative disc disease. No critical stenosis. VISUALIZED ABDOMEN: Visualized abdominal aorta is not dilated. There is no retroperitoneal adenopathy. There are vascular calcifications. CT/Spine Lumbar without Contrast IMPRESSION: Multilevel degenerative changes. Electronically Signed: Rohini Muñoz MD at 11:30 EDT ,
--- NOTE | 2023-12-03 10:09 | EDS_ITS ---
HPI History of Present Illness Chief Complaint: Back Narrative Narrative: 73-year-old female past medical history of chronic low back pain managed by her primary care provider presents with intractable low back pain, affecting her activities of daily living. She presents with her daughter who relates history that over the last 3 weeks, she has had low back pain radiating to her bilateral legs right greater than left, alternating. She denies any loss of bowel or bladder or any red flag signs for cauda equina. No recent fevers or chills. They also relate history that she had an ultrasound of her kidneys, and also had imaging of her abdomen which showed an irregularity. They were seen in the emergency department 3 days ago where she had a workup where they had ultrasound of the liver performed which showed nodules, and she was diagnosed with a UTI. She is currently on antibiotics. It was suggested that they follow-up with hematology/oncology, Dr. Nhan Hooper, who they state recently called in oxycodone for her because of her lumbar radicular symptoms. As she states that this has been ineffective in treating her pain, they state that they were sent here for imaging of her back and to be admitted for pain management. Her daughter states that the patient lives alone, has been unable to drive as pain in her back is worse with movement. It is in her lumbar back and radiating outward, and she also complains of bilateral buttocks pain. [facility] Medical History Small cell lung cancer Cancer Anxiety Depression Hepatitis Smoker COPD (chronic obstructive pulmonary disease) Hypoxia History of cancer of lower lobe bronchus or lung Hypertension Home Medications ?Medication ?Instructions ?Recorded ?Last Taken ?Type duloxetine 60 mg capsule,delayed 60 mg PO BID DEPRESSION 03/29/15 08/01/23 History release lisinopril 20 2 tab PO DAILY BLOOD PRESSURE 09/25/18 08/01/23 History mg-hydrochlorothiazide 12.5 mg tablet lorazepam 1 mg tablet 1 mg PO BID PRN ANXIETY 09/25/18 08/01/23 History albuterol sulfate 90 mcg/actuation 1 puff inhalation Q6H PRN WHEEZING 08/01/23 Unknown History aerosol inhaler mirtazapine 15 mg tablet 15 mg PO QHS DEPRESSION 08/01/23 07/31/23 History levofloxacin 750 mg tablet 750 mg PO Q24H #4 tabs 08/08/23 Unknown Rx cephalexin 500 mg capsule 500 mg PO BID 5 days #10 caps 11/30/23 Unknown Rx Allergy/AdvReac Type Severity Reaction Status Date / Time No Known Allergies Allergy Verified 12/03/23 09:27 Surgical History History of hysterectomy Social History Smoking Status: Current every day smoker tobacco type: cigarettes Tobacco: How many years used: 40 alcohol intake: never ROS ROS ED ROS Narrative Constitutional: No fever, no chills. HEENT: No sore throat. No neck pain. No loss of vision. No rhinorrhea. Cardiovascular: No chest pain. No palpitations. No pedal edema. Respiratory: No cough, no shortness of breath. Abdominal: No abdominal pain. No nausea. No vomiting. Genitourinary: No dysuria. No hematuria. No loss of bowel or bladder. Musculoskeletal: No myalgias. No arthralgias. Positive low back pain radiating to down bilateral legs. Worse with movement. Neurologic: No headaches. No dizziness. No lightheadedness. No saddle anesthesia. Skin: No rash. No change in color. Psychiatric: No depression. No anxiety. EXAM Physical Exam Narrative Exam Narrative: Afebrile. Vital signs noted. HEENT: Normocephalic. Atraumatic. PERRL, EOMI. Neck soft and supple. No point tenderness or step off. Cardiovascular: Regular rate and rhythm. No murmurs, rubs, or gallops appreciated. Respiratory: No tachypnea. Lungs clear to auscultation bilaterally. Gastrointestinal: Abdomen soft, nontender, with normoactive bowel sounds. No rebound or guarding. Neurological: Awake. Alert. Nonfocal, nonlateralizing. Neurovascularly intact bilateral lower extremities. Straight leg raising is negative bilaterally for cross symptoms but she describes tightness in her back and buttocks when raising her leg. Skin: No rash. Normal color. No pallor. Musculoskeletal: No pedal edema. Full range of motion extremities. Const Vital Signs: 12/03/23 09:26 Temperature 98.9 F Temperature Source Temporal Pulse Rate 106 H Respiratory Rate 18 Blood Pressure 145/71 H Blood Pressure Mean 95 Pulse Ox 100 Oxygen Delivery Method Room Air MDM MDM MDM Narrative Medical decision making narrative: Differential diagnosis includes but not limited to lumbar radiculopathy, sciatica, fracture, degenerative disc disease, spinal stenosis, or metastatic disease to bone. I reviewed her prior workup and she had CT of the abdomen and pelvis which showed no acute process, and ultrasound of the liver which showed nodularities. Past medical history does also include remote uterine carcinoma status post hysterectomy. I discussion with the patient and her daughter. She is having intractable pain which is affecting her ADLs. It is difficult for her to ambulate and she poses a fall risk at home. I will obtain CT imaging of the lumbar spine and she was administered morphine and ondansetron. Additionally, she was diagnosed with a urinary tract infection so I will recheck laboratory work and to see if her UTI is improving. I reviewed her laboratory work and she has elevated white count at 13.5, but in review of previous laboratories, she has a chronic leukocytosis, hemoglobin stable at 10.6 with platelet count normal at 259. Sodium slightly low at 134 with potassium 3.4, glucose appropriately elevated at 122 with a normal anion gap of 8. Urinalysis shows 0 WBCs. I do not feel that she failed outpatient treatment for her UTI but could continue her antibiotics. CT of the lumbar spine radiology report reviewed shows multilevel degenerative disc disease and changes, but no evidence of acute fracture. As the patient required 2 doses of morphine, as well as Toradol 15 mg IV, given her intractable back pain and inability to perform activities of daily living, I discussed patient with Dr. Graham Jones for observation on the general medical floor. Disposition is assigned observation. Patient is in stable condition. History & Record Review Discussion w/independent historian: Patient and Family Lab Data Attestation: I reviewed the patient's lab results. Labs: Laboratory Results - last 24 hr 12/03/23 12/03/23 10:18 11:09 WBC 13.5 H RBC 3.34 L Hgb 10.6 L Hct 31.8 L MCV 95.2 MCH 31.7 MCHC 33.3 RDW Std Deviation 44.7 H RDW Coeff of Krissy 12.8 Plt Count 259 MPV 10.7 Immature Gran % (Auto) 0.400 Neut % (Auto) 82.6 H Lymph % (Auto) 6.8 L [place] % (Auto) 9.7 Eos % (Auto) 0.3 Baso % (Auto) 0.2 Absolute Neuts (auto) 11.1 H Absolute Lymphs (auto) 0.91 Nucleated RBC % 0 Sodium 134 L Potassium 3.4 L Chloride 96 L Carbon Dioxide 30.0 Anion Gap 8 BUN 24 H Creatinine 1.15 H Estim Creat Clear Calc 42.50 Est GFR (MDRD) Af Amer 60 Est GFR (MDRD) Non-Af 49 L BUN/Creatinine Ratio 20.9 H Glucose 122 H Calcium 10.0 Total Bilirubin 0.50 AST 43 H ALT 25 Alkaline Phosphatase 162 H Total Protein 7.5 Albumin 3.1 L Globulin 4.4 H Albumin/Globulin Ratio 0.7 L Urine Color Yellow Urine Clarity Clear Urine pH 6.0 Ur Specific [place] 1.015 Urine Protein 15 H Urine Glucose (UA) Normal Urine Ketones Negative Urine Occult Blood 10 H Urine Nitrite Negative Urine Bilirubin Negative Urine Urobilinogen Normal Ur Leukocyte Esterase 25 H Urine RBC 0 SEEN Urine WBC 0 SEEN Ur Squamous Epith Cells 5-10 SEEN Urine Bacteria RARE Urine Mucus 0 SEEN Radiography Diagnostic Testing: Clinical Impression(s) from Imaging Studies Lumbar Spine CT 12/03/23 10:08 IMPRESSION: Multilevel degenerative changes. Electronically Signed: Rohini Muñoz MD at 11:30 EDT , Management Discussion w/another healthcare provider: Hospitalist Discharge Plan Dx/Rx/DC Orders Clinical Impression: Back pain, Lumbar radiculopathy, Inability to perform activities of daily living Disposition Disposition: Acute Care Hospital [facility]
[2023-12-03] MEDS: Ondansetron 4 MG/2 ML Vial IV (10:12)
[2023-12-03] MEDS: Morphine 4 MG/ML Syringe IV ×3 (10:13→13:00)
[2023-12-03 10:32] LABS: Absolute Lymphocyte Count 0.91 X10^3/uL (0.83-4.51); Absolute Neutrophil Count 11.1 X10^3/uL (2.0-7.7); Basophil# 0.03 X10^3/uL; Basophil% 0.2 % (0-1); Eosinophil# 0.04 X10^3/uL; Eosinophils% 0.3 % (0-5); Hematocrit 31.8 % (37-47); Hemoglobin 10.6 g/dL (12.0-15.0); Lymphocyte # 0.91 X10^3/ul (0.83-4.51); Lymphocyte % 6.8 % (19-41); Mean Corp Hgb Conc 33.3 g/dL (32-36); Mean Corpuscular Hgb 31.7 pg (27.0-32.0); Mean Corpuscular Volume 95.2 fL (81-99); Mean Platelet Vol. 10.7 fl (6.2-12.0); Monocyte% 9.7 % (0-10); NRBC Flagged by Analyzer 0 % (0-5); Neutrophil # 11.11 X10^3/uL (2.7-7.7); Neutrophil % 82.6 % (47-70); POSITIVE COUNT YES; Platelet Count 259 K/mm3 (150-450); RBC Distribution Width CV 12.8 % (11.6-14.6); RBC Distribution Width SD 44.7 fl (35.1-43.9); Red Blood Count 3.34 M/mm3 (4.2-5.4); White Blood Count 13.5 K/mm3 (4.4-11.0)
[2023-12-03 10:44] LABS: ALB/GLOB Ratio 0.7 RATIO (0.9-2.4); AST(SGOT) 43 U/L (15-37); Alanine Aminotransfer ALT/SGPT 25 U/L (13-56); Albumin, Serum 3.1 g/dL (3.2-5.0); Alkaline Phosphatase 162 U/L (45-117); Anion Gap 8 (5-15); BUN 24 mg/dL (7-18); BUN/Creat Ratio 20.9 RATIO (10-20); Chloride 96 mmol/L (98-107); Creatinine, Serum 1.15 mg/dL (0.55-1.02); EST Glomerular Filtration Rate 49 mL/min (>60); Est Glom Filt Rate - Afr Amer 60 mL/min (>60); Globulin 4.4 g/dL (2.2-4.2); Glucose 122 mg/dL (74-106); Potassium 3.4 mmol/L (3.5-5.1); Protein, Total 7.5 g/dL (6.4-8.2); Sodium Level 134 mmol/L (136-145)
[2023-12-03 11:12] LABS: Mucous, Urine 0 SEEN /hpf (<or=2+); Red Blood Cells-Urine 0 SEEN /hpf (0-5); White Blood Cells 0 SEEN /hpf (0-5)
[2023-12-03 11:17] LABS: Color, Urine Yellow (Yellow); Glucose, Dipstick Normal (Normal); Ketone-Dipstick Negative (Negative); Leukocyte Esterase-Dipstick 25 /ul (Negative); Nitrite-Dipstick Negative (Negative); Occult Blood-Urine 10 /ul (Negative); Protein-Dipstick 15 mg/dl (Negative); Specific Gravity, Urine 1.015 (1.002-1.030); Urine Bilirubin Dipstick Negative (Negative); Urine Clarity Clear (Clear); Urine Urobilinogen Normal (Normal)
[2023-12-03] MEDS: Ketorolac 15 MG/ML Vial IV (11:24)
[2023-12-03 11:26] LABS: Bacteria RARE /hpf (None Seen); Squamous Epithelial Cells - UA 5-10 SEEN /hpf (5-10)
--- NOTE | 2023-12-03 11:53 | PCM.HP.STD ---
HPI - General General Date of Admission: 12/03/23 Date of Service: 12/03/23 Chief Complaint: Intractable back pain HPI Narrative FELI MAN, is a 73 F with past medical history significant for non-small cell lung cancer currently in remission following chemo, COPD, essential hypertension who presented with back pain. Per patient symptoms have been progressive for the past couple of months and has gotten to the stents interfering with her activities of daily living. Of note patient had been treated for urinary tract infection and completed antibiotic therapy 3 days prior to her admission. Imaging studies obtained in the ED did show multilevel degenerative joint disease. Admitted for PT OT eval as well as pain management [facility] Medical History Small cell lung cancer Cancer Anxiety Depression Hepatitis Smoker COPD (chronic obstructive pulmonary disease) Hypoxia History of cancer of lower lobe bronchus or lung Hypertension Home Medications ?Medication ?Instructions ?Recorded ?Last Taken ?Type duloxetine 60 mg capsule,delayed 60 mg PO BID DEPRESSION 03/29/15 08/01/23 History release lisinopril 20 2 tab PO DAILY BLOOD PRESSURE 09/25/18 08/01/23 History mg-hydrochlorothiazide 12.5 mg tablet lorazepam 1 mg tablet 1 mg PO BID PRN ANXIETY 09/25/18 08/01/23 History albuterol sulfate 90 mcg/actuation 1 puff inhalation Q6H PRN WHEEZING 08/01/23 Unknown History aerosol inhaler mirtazapine 15 mg tablet 15 mg PO QHS DEPRESSION 08/01/23 07/31/23 History levofloxacin 750 mg tablet 750 mg PO Q24H #4 tabs 08/08/23 Unknown Rx cephalexin 500 mg capsule 500 mg PO BID 5 days #10 caps 11/30/23 Unknown Rx Allergy/AdvReac Type Severity Reaction Status Date / Time No Known Allergies Allergy Verified 12/03/23 09:27 Surgical History History of hysterectomy Social History Smoking Status: Current every day smoker tobacco type: cigarettes Tobacco: How many years used: 40 alcohol intake: never ROS ROS Narrative GENERAL: denies fever, chills, night sweats, weight loss, anorexia HEENT: denies headache, sinus congestion, or drainage, dysphagia RESPIRATORY: denies cough, sputum production, shortness of breath, dyspnea on exertion CARDIAC: denies chest pain, palpitations, orthopnea, PND GASTROINTESTINAL: denies abdominal pain, nausea, vomiting, melena, GENITOURINARY: denies dysuria, urgency, frequency, heamaturia EXTREMITY: denies swelling MUSCULOSKELETAL: Intractable back pain NEUROLOGIC: denies focal numbness, weakness, tingling HEMATOLOGIC: denies easy bruising and/or hemorrhage INTEGUMENT: denies rashes PSYCHIATRIC: denies suicidal or homicidal ideation Vital Signs Vital Signs Vital Signs: 12/03/23 09:26 Temperature 98.9 F Temperature Source Temporal Pulse Rate 106 H Respiratory Rate 18 Blood Pressure 145/71 H Blood Pressure Mean 95 Pulse Ox 100 Oxygen Delivery Method Room Air Weight Weight: 78.3 kg Body Mass Index (BMI) 32.5 Physical Exam Narrative GENERAL: cooperative HEENT: Atraumatic; normocephalic EYES; Anicteric, Normal Conjunctiva NECK; supple, normal thyroid, RESPIRATORY: Diminished to auscultation CARDIOVASCULAR: Regular S1 S2, GI: soft, normoactive bowel sounds, : No Renal angle tenderness; EXTREMITIES: No edema, no clubbing, MUSCULOSKELETAL: no muscle wasting NEURO: Awake; no lateralizing signs. SKIN: No Rash PSYCH; Flat affect Results Lab / Micro Data 12/03/23 10:18 12/03/23 10:18 Labs: Laboratory Results - last 24 hr 12/03/23 10:18: WBC 13.5 H, RBC 3.34 L, Hgb 10.6 L, Hct 31.8 L, MCV 95.2, MCH 31.7, MCHC 33.3, RDW Std Deviation 44.7 H, RDW Coeff of Krissy 12.8, Plt Count 259, MPV 10.7, Immature Gran % (Auto) 0.400, Neut % (Auto) 82.6 H, Lymph % (Auto) 6.8 L, [place] % (Auto) 9.7, Eos % (Auto) 0.3, Baso % (Auto) 0.2, Absolute Neuts (auto) 11.1 H, Absolute Lymphs (auto) 0.91, Nucleated RBC % 0, Sodium 134 L, Potassium 3.4 L, Chloride 96 L, Carbon Dioxide 30.0, Anion Gap 8, BUN 24 H, Creatinine 1.15 H, Estim Creat Clear Calc 42.50, Est GFR (MDRD) Af Amer 60, Est GFR (MDRD) Non-Af 49 L, BUN/Creatinine Ratio 20.9 H, Glucose 122 H, Calcium 10.0, Total Bilirubin 0.50, AST 43 H, ALT 25, Alkaline Phosphatase 162 H, Total Protein 7.5, Albumin 3.1 L, Globulin 4.4 H, Albumin/Globulin Ratio 0.7 L 12/03/23 11:09: Urine Color Yellow, Urine Clarity Clear, Urine pH 6.0, Ur Specific [place] 1.015, Urine Protein 15 H, Urine Glucose (UA) Normal, Urine Ketones Negative, Urine Occult Blood 10 H, Urine Nitrite Negative, Urine Bilirubin Negative, Urine Urobilinogen Normal, Ur Leukocyte Esterase 25 H, Urine RBC 0 SEEN, Urine WBC 0 SEEN, Ur Squamous Epith Cells 5-10 SEEN, Urine Bacteria RARE, Urine Mucus 0 SEEN Imaging Radiology Impression Lumbar Spine CT 12/03/23 10:08 IMPRESSION: Multilevel degenerative changes. Electronically Signed: Rohini Muñoz MD at 11:30 EDT , Assessment & Plan Assessment/Plan (1) Lumbar radiculopathy: PLAN: Plan Patient is a 73-year-old lady presented with intractable back pain 1. Intractable back pain ? Patient has been admitted to regular nursing floor for pain management. Imaging studies demonstrated multilevel degenerative joint disease. Given patient history of previous history of malignancy ordered MRI for subsequent eval 2. History of non-small cell cancer ? Patient currently remission following chemo 3. Hypertension ? Blood pressure controlled, home medications continued with dose adjustment as needed 4. Tobacco dependence ? Counseled on cessation, offered nicotine patch for tobacco cravings 5. Depression with anxiety ? Patient is on duloxetine mirtazapine as well as lorazepam as needed 6. Class I obesity with BMI of 32.6 ? Weight loss advised 7.Mild hyponatremia ? Secondary to patient being on HCTZ, monitoring with daily BMPs 8. Hypokalemia ? Secondary to HCTZ corrected per protocol 9. Chronic kidney disease stage III ? Kidney function at baseline 10. Physical deconditioning ? Requested for PT OT eval and psychologist social to assist with discharge planning 11 DVT prophylaxis ? On enoxaparin Advance planning; did discuss with the patient and family regarding advanced directives as well as CODE STATUS. Did explain the various scenarios involved ( FULL CODE, DNR CCA, DNR CCA with no intubation, and DNR CC and what each meant) patient elected to be DNR CCA no intubation. Order was placed. Time spent on discussion 16 minutes. Charges/Coding Multi Select Codes Visit Charges Visit Charges: 42810 Init Hosp Hospitalists' Procedures Procedures: 21237 Advncd Care Plan 30 Min
--- NOTE | 2023-12-03 11:54 | NURSING ---
MED SURG OBS KITTOE INTRACTABLE BACK PAIN, LUMBAR RADICULOPATHY, INABILITY TO PERFORM ADLS
[2023-12-03 11:55] VITALS: BP 117/101; PULSE 93; RESP 18; TEMP 36.5; O2SAT 100
[2023-12-03 14:13] VITALS: BMI 32.5
[2023-12-03 14:15] VITALS: BP 108/58; PULSE 87; RESP 16; TEMP 36.6; O2SAT 94
[2023-12-03] MEDS: Acetaminophen 500 MG Tablet 1000 MG PO ×2 (15:04→22:06)
[2023-12-03] MEDS: oxyCODONE 5 MG Tablet PO ×2 (15:04→22:06)
[2023-12-03] MEDS: Senna/Docusate Sodium 1 Tablet 2 TABLET PO (22:07)
[2023-12-03 22:15] VITALS: BP 111/58; PULSE 85; RESP 16; TEMP 36.6; O2SAT 93
[2023-12-04] MEDS: Acetaminophen 500 MG Tablet 1000 MG PO ×3 (05:20→20:01)
[2023-12-04] MEDS: oxyCODONE 5 MG Tablet PO ×3 (05:20→20:00)
[2023-12-04 05:28] VITALS: BP 142/68; PULSE 90; RESP 16; TEMP 36.3; O2SAT 98
[2023-12-04 07:14] LABS: Absolute Lymphocyte Count 0.94 X10^3/uL (0.83-4.51); Absolute Neutrophil Count 7.9 X10^3/uL (2.0-7.7); Basophil# 0.03 X10^3/uL; Basophil% 0.3 % (0-1); Eosinophil# 0.11 X10^3/uL; Eosinophils% 1.1 % (0-5); Hematocrit 29.6 % (37-47); Hemoglobin 9.7 g/dL (12.0-15.0); Lymphocyte # 0.94 X10^3/ul (0.83-4.51); Lymphocyte % 9.3 % (19-41); Mean Corp Hgb Conc 32.8 g/dL (32-36); Mean Corpuscular Hgb 31.9 pg (27.0-32.0); Mean Corpuscular Volume 97.4 fL (81-99); Mean Platelet Vol. 10.7 fl (6.2-12.0); Monocyte# 1.09 X10^3/uL; Monocyte% 10.8 % (0-10); NRBC Flagged by Analyzer 0 % (0-5); Neutrophil # 7.85 X10^3/uL (2.7-7.7); Neutrophil % 77.8 % (47-70); Platelet Count 254 K/mm3 (150-450); RBC Distribution Width SD 45.9 fl (35.1-43.9); Red Blood Count 3.04 M/mm3 (4.2-5.4); White Blood Count 10.1 K/mm3 (4.4-11.0)
[2023-12-04 09:41] VITALS: BP 126/67; PULSE 93; RESP 18; TEMP 36.7; O2SAT 93
[2023-12-04 10:01] LABS: Anion Gap 11 (5-15); BUN 39 mg/dL (7-18); BUN/Creat Ratio 21.8 RATIO (10-20); Calcium,Total 9.9 mg/dL (8.5-10.1); Chloride 98 mmol/L (98-107); Creatinine, Serum 1.79 mg/dL (0.55-1.02); EST Glomerular Filtration Rate 30 mL/min (>60); Est Glom Filt Rate - Afr Amer 36 mL/min (>60); Glucose 117 mg/dL (74-106); Magnesium 1.7 mg/dL (1.6-2.6); Phosphorus 5.9 mg/dL (2.5-4.9); Potassium 3.2 mmol/L (3.5-5.1); Sodium Level 136 mmol/L (136-145)
[2023-12-04] MEDS: DULoxetine Hcl 60 MG Capsule PO ×2 (10:14→20:01)
[2023-12-04] MEDS: Enoxaparin 40 MG/0.4 ML Syringe SC (10:16)
[2023-12-04] MEDS: Lisinopril 20 MG Tablet 40 MG PO (10:16)
[2023-12-04] MEDS: hydroCHLOROthiazide 12.5mg 25 MG PO (10:16)
--- NOTE | 2023-12-04 12:46 | MRI_ITS ---
STUDY: MRI LUMBAR SPINE WITHOUT CONTRAST REASON FOR EXAM: Female, 73 years old. Back pain TECHNIQUE: Standardized fat and water weighted pulse sequences were obtained in the sagittal and axial planes. Pre and postcontrast images obtained. Contrast: 15 mL Clariscan COMPARISON: CT examination of 12/03/2023 FINDINGS: Vertebral bodies and alignment. 1. Vertebral body height and alignment are maintained however heterogeneous marrow signal is present. There is a note of loss of intervertebral body height at T11 with diffuse endplate edema and mild enhancement. Findings are consistent with a compression deformity without ashely retropulsion or canal stenosis. There however is extensive marrow enhancement involving the LEFT side of vertebral body extending into the LEFT pedicle and facets. Findings consistent with destructive marrow replacement process. 2. There is focal destructive marrow replacement at T12, as well as L5 with diminished T1 elevated T2 and contrast enhancement. Additional multiple small lesions present at L1, L2, L3 and L4 with diminished T1 elevated T2 signal and contrast enhancement. Similar changes are also present within the sacrum, and iliac crests greater on the RIGHT than LEFT. Findings are consistent with diffuse marrow replacement/metastatic disease with potential pathologic fracture at T11. 3. Paraspinous soft tissue planes have normal appearance. Normal appearance of the muscular fascial planes of the erector spinae. 4. There is incomplete visualization of the abdominal contents, however several T2 signal hyperintensities lesions present along the inferior aspect of the RIGHT hepatic lobe. These are incompletely visualized, however intrahepatic masses are consideration. Intervertebral disks levels. T10-11: Loss of anterior vertebral body height, there is marrow edema involving the vertebral body greater on LEFT than RIGHT with extension into the LEFT pedicle and facet. There is mild epidural thickening. No cord compression. Central canal is narrowed to approximately 8 mm. Endplate: Significant deformity superior endplate of T11 with edema, compression deformity and enhancement. T11-T12: Disc desiccation, minimal RIGHT posterior lateral disc bulge without ashely herniation or canal stenosis. Neural foramina are widely patent. Endplate: No focal endplate marrow changes or endplate deformity. T12-L1: Normal disc height, hydration and morphology. Normal bilateral facet joints. Normal central canal and bilateral lateral recesses. Normal bilateral intervertebral neural foramina. Endplate: No focal endplate marrow changes or endplate deformity. L1-2: Normal disc height, hydration and morphology. Normal bilateral facet joints. Normal central canal and bilateral lateral recesses. Normal bilateral intervertebral neural foramina. Endplate: No focal endplate marrow changes or endplate deformity. L2-3: Disc desiccation, broad-based posterior disc bulge, no disc herniation or canal stenosis. The neural foramina are widely patent. Endplate: Mild contour deformity the inferior endplate of L2 without evidence of Modic changes. L3-4: Disc desiccation, broad-based posterior disc bulge with prominent foraminal compromise greater on LEFT than RIGHT. No central canal stenosis there is however narrowing of the lateral recesses greater on the LEFT than RIGHT with potential L3 nerve root impingement within the LEFT neural foramen. Endplate: No focal endplate marrow changes or endplate deformity. L4-5: Disc desiccation, broad-based posterior disc bulge, no central canal stenosis however facet and ligamentum flavum hypertrophic changes and disc changes contribute to compression of lateral recesses and crowding of nerve roots without ashely nerve root impingement. Neural foramina are mildly narrowed without nerve root impingement. Endplate: Mild endplate Modic type II fatty marrow changes. No endplate edema. L5-S1: No disc desiccation canal stenosis. There is mild foraminal narrowing bilaterally greater on the RIGHT than LEFT contributed by facet hypertrophic changes. No central canal stenosis. Endplate: No focal endplate marrow changes or endplate deformity. Spinal cord: Normal appearance of the spinal cord and conus with the exception of a small syrinx at T12 vertebral body level.. Conus is located at L1-2. Cauda equina has normal appearance. No evidence of cord compression or edema. No intramedullary signal abnormality noted. No evidence of epidural or intradural/intramedullary contrast enhancement. Paraspinous soft tissues: Normal visualized paraspinous soft tissue structures. MRI/Spine Lumbar W/WO Contrast IMPRESSION: 1. Extensive multilevel marrow replacement process, most notable at L5. Significant marrow replacement involving the LEFT side of T11, and compression deformity of the superior endplate of T11 noted. Findings are consistent with bony metastatic changes and pathologic fracture at T11. Mild canal narrowing at T10-11 without cord compression. 2. No evidence of ashely disc herniation however multilevel foraminal narrowing due to disc facet and ligamentum flavum hypertrophic changes. Mild multilevel nerve root impingement particularly involving the LEFT L3 nerve root within the neural foramen at L3-4. 3. No evidence of intramedullary contrast abnormality, however small syrinx is noted without evidence of contributing mass or abnormal enhancement. 4. Incidental note is subtle poorly defined T2 hyperintense lesions within the visualized inferior aspect of the RIGHT hepatic lobe. Findings are suspicious of intrahepatic masses, and metastatic changes are consideration. Consider follow-up evaluation with postcontrast CT examination of the abdomen and pelvis. Electronically Signed: Charles Reinoso MD at 1:30 EDT ,
[2023-12-04 14:11] VITALS: BP 157/83; PULSE 98; RESP 19; TEMP 36.8; O2SAT 93
--- NOTE | 2023-12-04 16:34 | CASEMGMT ---
Met with patient to complete BENDER form. BENDER form explained to patient who voiced understanding and signed form. Original form placed in pt?s chart and copy provided to patient. Azra Briscoe, Discharge Planning Asst
--- NOTE | 2023-12-04 17:52 | PN.HOSP_ITS ---
Subjective Subjective Doing well, no issues overnight. Still has little bit of back pain but it feels better than yesterday Objective Data Objective Data Vital Signs: Vital Signs Temp Pulse Resp BP Pulse Ox O2 Del Method 98.3 F 98 19 H 157/83 H 93 Room Air 12/04/23 14:11 12/04/23 14:11 12/04/23 14:11 12/04/23 14:11 12/04/23 14:11 12/04/23 14:11 Oxygen Delivery Method Room Air Weight: 172 lb 9.951 oz Body Mass Index (BMI) 32.5 Intake & Output: Intake and Output for Last 24 Hours 12/03/23 12/04/23 12/05/23 03:59 03:59 03:59 Intake Total 300 / 300 240 / 240 Balance 300 / 300 240 / 240 Lab / Micro Data 12/04/23 06:48 12/04/23 06:48 Labs: Laboratory Results - last 24 hr 12/04/23 06:48: WBC 10.1, RBC 3.04 L, Hgb 9.7 L, Hct 29.6 L, MCV 97.4, MCH 31.9, MCHC 32.8, RDW Std Deviation 45.9 H, RDW Coeff of Krissy 13.0, Plt Count 254, MPV 10.7, Immature Gran % (Auto) 0.700, Neut % (Auto) 77.8 H, Lymph % (Auto) 9.3 L, [place] % (Auto) 10.8 H, Eos % (Auto) 1.1, Baso % (Auto) 0.3, Absolute Neuts (auto) 7.9 H, Absolute Lymphs (auto) 0.94, Nucleated RBC % 0, Sodium 136, Potassium 3.2 L, Chloride 98, Carbon Dioxide 27.0, Anion Gap 11, BUN 39 H, Creatinine 1.79 H, Estim Creat Clear Calc 27.30, Est GFR (MDRD) Af Amer 36 L, Est GFR (MDRD) Non-Af 30 L, BUN/Creatinine Ratio 21.8 H, Glucose 117 H, Calcium 9.9, Phosphorus 5.9 H, Magnesium 1.7 Physical Exam Narrative General: Alert, Oriented x3, Cooperative, No apparent distress HEENT: Atraumatic, PERRLA, EOMI, Normocephalic Oral: Moist Mucosa Neck: Supple, No JVD Lungs: Diminished, Normal air movement, No rhonchi, No wheeze, No rales Cardiovascular: Regular rate, Regular Rhythm, Normal S1, Normal S2, No murmurs Abdomen: Soft, Non Tender, Non-Distended, No Hepato-splenomegaly Extremities: No edema, Capillary Refill Less than 3 Seconds Skin: No rashes, No breakdown Musculoskeletal: No Tenderness to Palpation of Joints or Extremities Neurological: No focal neurological deficits, Motor Exam 5/5 strength throughout, Sensory exam intact to light touch and pain Psych/Mental Status: Normal Affect, Appropriate Assessment & Plan Assessment/Plan (1) Lumbar radiculopathy: PLAN: Plan 1. Intractable back pain in the setting of a history of non-small cell lung cancer ? MRI is pending read ? Continue with pain medication ? Continue with PT/OT 2. Essential HTN ? Blood pressure stable ? Continue with her home medications ? Monitor make adjustments as necessary 3. Anxiety/depression ? Stable ? Continue with her home medications DVT: Lovenox Charges/Coding Visit Charges Inpatient E&M: 59423 Subs Hosp L2
[2023-12-04] MEDS: Mirtazapine 15 MG Tablet PO (20:01)
[2023-12-04 20:10] VITALS: BP 155/66; PULSE 101; RESP 18; TEMP 36.7; O2SAT 94
[2023-12-04 20:15] VITALS: PULSE 96; RESP 15
[2023-12-04] MEDS: Albuterol 2.5 MG/3 ML VIAL.NEB. INHALATION (20:15)
[2023-12-05] VITALS (14 sets, daily range): BP systolic 112–168; BP diastolic 42–87; PULSE 95–98; RESP 13–20; TEMP 36.6–36.9; O2SAT 94–99
--- NOTE | 2023-12-05 | ASPIGT_PTH ---
PATIENT: FELI MAN LOC: MS3 U#:[id number] AGE/SX: 73/F ROOM: [place]317 RE12/03/[address]: Dr. Milton Chaparro MD : 1950 BED: 1 DIS: 12/05/2023 SPEC #: [id number] RECD: 12/05/23 10:55 STATUS: [place] NADEGE #: [id number] SURY: 12/05/23 00:[address]: Milton Chaparro DEPT: SURGICAL PATHOLOGY RECD BY: Misti Alas ENTERED: 12/05/23 10:55 SP TYPE: ASP RAD OTHR DR: MD Dr. Graham Ramirez MD Tissues: Liver, NOS Procedures: FNA Specimen Adequacy Special Stain Group II Surgery Specimen Level IV Surgery Specimen Level V Imprint (control) HEADER OPERATION: CT guided liver biopsy PRE-OP DIAGNOSIS: Mets to liver TISSUE SUBMITTED: 18 gauge x 5 cores MICROSCOPIC DIAGNOSIS Liver, CT guided core biopsy: Metastatic small cell carcinoma. See comment. 12/06/2023 COMMENT The specimen is evaluated at the time of biopsy by Dr. Mcclure. Immediate Evaluation = Malignant cells present. Immunohistochemistry ([id number]) supports the above diagnosis. Molecular studies on the tumor can be performed, if clinically indicated. Please notify the laboratory, if it is need. Case has been reviewed in consultation with Dr. Ochoa who concurs with the above diagnosis. IDC:AM MICROSCOPIC DESCRIPTION Slides are reviewed. GROSS DESCRIPTION Received in fixative is one container labeled with the patient's name and designated CT liver biopsy. The specimen consists of multiple irregular and elongated fragments of bradley tissue measuring in aggregate 2.0 x 0.6 x 0.1cm. The specimen is submitted in its entirety in one cassette. PETR 12/05/2023 TC:0 CPT:63247,93401
--- NOTE | 2023-12-05 | IMM_PTH ---
PATIENT: FELI MAN LOC: MS3 U#:[id number] AGE/SX: 73/F ROOM: [place]317 RE12/03/[address]: Dr. Milton Chaparro MD : 1950 BED: 1 DIS: 12/05/2023 SPEC #: [id number] RECD: 12/06/23 11:07 STATUS: [place] REAnya #: [id number] SURY: 12/05/23 00:[address]: Milton Chaparro DEPT: IMMUNOHISTOCHEMISTRY RECD BY: Gadiel Wallace ENTERED: 12/06/23 11:08 SP TYPE: IMMUNO OTHR DR: MD Dr. Graham Ramirez MD Tissues: Liver, NOS Procedures: Synapto (add) NAPSIN A (add) CD45 (add) CD56 (add) CHROMO (add) CK20 (add) CK7 (add) CK8 (add) KI-67 (add) P53 (add) TTF1 (add) Pankeratin (initial) PHYSICIAN & [address] [address] SPECIMEN INFORMATION: Tissue Source: Liver biopsy Clinical Info: Mets to liver Specimen Number: [id number] [facility] code: [id number] METHODOLOGY: Deparaffinized sections of prefer/formalin-fixed tissue or PAP/DQ stained slides are incubated with monoclonal/polyclonal antibodies/oligonucleotide probes. Localization is made via biotin free immunoperoxidase method. Appropriate controls are performed and reacted as expected. Results on target cell population are indicated in the following table: RESULTS: ANTIBODY / CLONE RESULT AE1-3 (AE1/AE3/PCK26) positive CK7 (OV-TL12/30) negative CK8 (33tpssD67) positive, focal CK20 (KS20.8) negative CD45 (RP2/18) negative Chromo (LK2H10) positive CD56 (123C3.D5) positive Synapto (polyclonal) positive TTF-1 (8G7G3/1) positive Napsin A (Rabbit Polyclonal) negative P53 (DO-7) positive (missense mutation pattern) Ki-67 (30-9) positive, high, >95% These tests were developed and their performance characteristics determined by [facility]. They may not have been cleared or approved by the U.S. Food and Drug Administration. The FDA has determined that such clearance or approval is not necessary. The above immunohistochemical/dualISH markers are ordered and reviewed by the Pathologist. INTERPRETATION: Liver, CT guided core biopsy: Metastatic small cell carcinoma. COMMENT: Clinical correlation necessary. Case has been reviewed in consultation with Dr. Ochoa who concurs with the above diagnosis. IDC:[id number] [email or web address] 12/07/2023
[2023-12-05] MEDS: Senna/Docusate Sodium 1 Tablet 2 TABLET PO (04:39)
[2023-12-05] MEDS: oxyCODONE 5 MG Tablet PO ×2 (04:39→11:39)
[2023-12-05] MEDS: Acetaminophen 500 MG Tablet 1000 MG PO (04:39)
[2023-12-05] MEDS: Ondansetron ODT 4 MG Tablet 8 MG PO (04:53)
[2023-12-05 07:43] LABS: Anion Gap 8 (5-15); BUN 27 mg/dL (7-18); Calcium,Total 9.9 mg/dL (8.5-10.1); Chloride 98 mmol/L (98-107); Creatinine, Serum 1.04 mg/dL (0.55-1.02); EST Glomerular Filtration Rate 56 mL/min (>60); Est Glom Filt Rate - Afr Amer 67 mL/min (>60); Glucose 132 mg/dL (74-106); Potassium 3.5 mmol/L (3.5-5.1); Sodium Level 137 mmol/L (136-145)
--- NOTE | 2023-12-05 08:31 | CT_ITS ---
STUDY: CT ABDOMEN AND PELVIS WITH CONTRAST REASON FOR EXAM: Female, 73 years old. Liver mets -- no oral contrast RADIATION DOSAGE (If Supplied By Facility): CTDIvol = ( 11.01 ) mGy, DLP = ( 712.12 ) mGycm TECHNIQUE: Transaxial images were obtained from the dome of the diaphragm to the symphysis pubis without oral contrast. IV 100mL Isovue-300 was administered. Sagittal and coronal images were reconstructed. Individualized dose optimization techniques were used for this CT. COMPARISON: Comparison is made with prior study dated March 29, 2015. FINDINGS: The visualized lung bases are unremarkable. The visualized portions of the heart are within normal limits. Hepatomegaly. There are multiple hypodense nodules scattered throughout both right and left lobes of the liver suggestive of diffuse metastatic deposits. Normal gallbladder and extrahepatic biliary system. Normal spleen. Normal pancreas. Normal bilateral adrenal glands. There are small bilateral renal cysts. Normal visualized stomach. Normal small intestine. There are scattered colonic diverticula consistent with diverticulosis. There is non-visualization of the appendix. There is diffuse atherosclerotic calcification of the abdominal aorta, without a demonstrated aneurysm. Normal inferior vena cava. Normal retroperitoneum. Normal urinary bladder. There is absence of the uterus consistent with a prior hysterectomy. Normal abdominal wall. There are degenerative changes of the visualized lumbar spine. Heterogeneous appearance of the visualized lumbar vertebrae. CT/Abdomen/Pelvis WITH Contrast IMPRESSION: Hepatomegaly. Multiple hypodense nodules scattered throughout both lobes of the liver has described. Metastatic deposits should be ruled out. Electronically Signed: Rolando Guevara MD at 11:26 EDT ,
--- NOTE | 2023-12-05 08:31 | CT_ITS ---
PROCEDURE: CT GUIDED liver biopsy. DATE: December 05, 2023. INDICATION: Female, 73 years old. Hepatomegaly and diffuse liver metastasis. PHYSICIAN: Rolando Guevara M.D. RADIATION DOSAGE (If Supplied By Facility): CTDIvol = ( 11.5 ) mGy, DLP = ( 712.12 ) mGycm. Individualized dose optimization techniques were utilized. PROCEDURE: The risks, benefits, and alternatives to the procedure were explained to the patient. The specific risk of hemorrhage requiring further treatment or intervention was detailed and accepted. Follow-up instructions were discussed with the patient as well. Written informed consent was obtained. The patient was brought into the CT suite and placed in the supine position. . An appropriate entry site was identified. The overlying skin was prepped and draped in the usual sterile fashion. 2% lidocaine was administered subcutaneously for local anesthesia. Conscious sedation was performed. The patient received a 2 mg of Versed and 50 mcg of fentanyl intravenously. Conscious sedation was started at 10:35 AM and terminated at 10:50 AM. The patient was independently monitored by the department nurse. Under CT guidance, a total of 5 passes were performed utilizing an 18-gauge core biopsy needle system. The specimens were then placed in the appropriate fluid and transported to the laboratory for analysis. Hemostasis was obtained. The patient tolerated the procedure well without immediate complications. CT/Biopsy/Inj or Needle Placement IMPRESSION: Successful CT guided liver biopsy, as described above. Conscious sedation protocol was followed as described. Electronically Signed: Rolando Guevara MD at 11:34 EDT ,
[2023-12-05 09:15] LABS: International Normalized Ratio 1.1; Partial Thromboplast Time 30.3 Seconds (24.1-36.2); Prothrombin Time (Protime)PT. 13.9 SECONDS (11.7-14.9)
--- NOTE | 2023-12-05 09:59 | DCINST_ITS ---
Discharge Instructions Diet Discharge Diet: No restrictions Activity Discharge Activity: Return to Normal Activity Dressing / Incision Call your doctor if you observe: Fever of 101 or Higher, Shortness of breath, Dizziness, Fainting spells, Swelling in the ankles, Chest pain and Increased palpitations (irregular heartbeat) Follow Up Care Test Results: Test results from this visit will be discussed in further detail at your follow- up appointment, if applicable. Discharge Plan Admission Admit Date/Time: 12/03/23 11:47 Attending Provider: Milton Chaparro Primary Care Provider: Basia Swartz Consulting Providers: Graham Jones Instructions Additional Instructions / Restrictions: Buy MiraLAX and senna [id number] to help with bowel movement while on narcotics. Discharge Orders/Prescriptions Prescriptions: New dexamethasone 4 mg Tablet 4 mg PO BIDCM 7 Days Qty: 14 0RF Rx Instructions: take second dose at lunch Continued duloxetine 60 MG capsule 60 mg PO BID lisinopril-hydrochlorothiazide 1 EACH tablet 2 tab PO DAILY lorazepam 1 MG tablet 1 mg PO BID PRN (Reason: ANXIETY ) oxycodone 5 mg tablet 5 - 10 mg PO Q6H PRN (Reason: PAIN) mirtazapine 15 mg tablet 15 mg PO QHS albuterol sulfate 90 mcg/actuation HFA aerosol inhaler 1 puff inhalation Q6H PRN (Reason: WHEEZING ) Discontinued cephalexin 500 mg capsule 500 mg PO BID 5 Days Qty: 10 0RF Referrals / Follow Up: Basia Swartz MD [Primary Care Provider] - Within 1 Week Disposition Disposition (needs filled in before D/C Order can be placed): Home, Self Care
[2023-12-05] MEDS: 0.9% Normal Saline (250mL Bag) 250 ML 15 ML IV (10:35)
[2023-12-05] MEDS: Midazolam 2 MG/2 ML Syringe IV ×2 (10:35→10:41)
[2023-12-05] MEDS: fentaNYL 100 MCG/2 ML Ampul IV (10:36)
[2023-12-05] MEDS: Lidocaine 2% (20 ml mdv) 20 ML Vial INFILT (10:42)
--- NOTE | 2023-12-05 11:09 | CASEMGMT ---
Late entry for 12/04/23 at 1600-RN CM into pt room, pt is off of floor at this time.
--- NOTE | 2023-12-05 11:09 | CASEMGMT ---
RN CM into pt room, pt is off of floor at this time.
[2023-12-05] MEDS: hydroCHLOROthiazide 12.5mg 25 MG PO (11:30)
[2023-12-05] MEDS: DULoxetine Hcl 60 MG Capsule PO (11:30)
[2023-12-05] MEDS: dexAMETHasone 4 MG Tablet PO (11:30)
[2023-12-05] MEDS: Lisinopril 20 MG Tablet 40 MG PO (11:31)
--- NOTE | 2023-12-05 12:05 | CASEMGMT ---
RN CM into pt room, pt standing up bagging up her belongings. Discussed with pt dc planning. Pt states she lives in a single story home with 1 step to enter alone. Pt reports she is I in ADLs, she drives herself. Pt states she has 2 dtrs who are helpful with her. Discussed the therapy recommendation of outpt therapy. Pt states she does not feel this is necessary right now. She states that cancer was found again and she needs to sort this out. Pt denies any homegoing needs at this time. Pt is ready for dc today.
--- NOTE | 2023-12-05 12:15 | NURSING ---
daughter lorraine called discussed discharge instructions. discussed pt with continue wheeze, refused aerosol at this time states has haler had home and rather just use it.
--- NOTE | 2023-12-05 12:34 | DS.PCM_ITS ---
Providers Date of Admission: 12/03/23 Primary Care Physician: Dr. Basia Swartz MD Reason For Visit: INTRACTABLE BACK PAIN Diagnosis Discharge Diagnosis (1) Lumbar radiculopathy: Status: Acute Code(s): M54.16 - Radiculopathy, lumbar region Medications at Discharge Home Medications duloxetine 60 mg capsule,delayed release 60 mg PO BID DEPRESSION 03/29/15 lisinopril 20 mg-hydrochlorothiazide 12.5 mg tablet 2 tab PO DAILY BLOOD PRESSURE 09/25/18 lorazepam 1 mg tablet 1 mg PO BID PRN ANXIETY 09/25/18 albuterol sulfate 90 mcg/actuation aerosol inhaler 1 puff inhalation Q6H PRN WHEEZING 08/01/23 mirtazapine 15 mg tablet 15 mg PO QHS DEPRESSION 08/01/23 oxycodone 5 mg tablet 5 - 10 mg PO Q6H PRN PAIN 12/03/23 dexamethasone 4 mg tablet 4 mg PO BIDCM 7 days #14 tabs 12/05/23 Hospital Course Operations None Procedures - (Liver met biopsy) Summary of Care Provided Minutes Spent on Discharge: 33 Hospital Course: Per HPI: FELI MAN, is a 73 F with past medical history significant for non-small cell lung cancer currently in remission following chemo, COPD, essential hypertension who presented with back pain. Per patient symptoms have been progressive for the past couple of months and has gotten to the stents interfering with her activities of daily living. Of note patient had been treated for urinary tract infection and completed antibiotic therapy 3 days prior to her admission. Imaging studies obtained in the ED did show multilevel degenerative joint disease. Admitted for PT OT eval as well as pain management Hospital Course: 1. Lumbar back pain due to metastatic disease?73-year-old female with a history of non-small cell lung cancer where she completed chemotherapy around 6 months ago presents to the hospital with increasing lower back pain. Her oncologist had given her a narcotic prescription on Monday which did not seem to be helping so she presented to the ER. MRI demonstrated multiple areas of possible metastatic disease in her spine as well as a pathologic fracture of the endplate T11. Was also noticed that she had some liver mets as well so she underwent a liver biopsy today prior to discharge. Her back pain is much improved and oncology recommended Decadron on discharge at 4 mg p.o. twice daily and this was provided to her. I discussed with her and her daughter the plan for discharge today expressed understanding and is going home and would like to go home today. Will have her follow-up with oncology as an outpatient there is discussion on the phone of potentially proceeding with radiation prior to the initiation of another round of chemotherapy. 2. Essential hypertension, anxiety, depression are chronic medical conditions which complicate her care. Her home medications were continued where appropriate Physical Exam Narrative General: Alert, Oriented x3, Cooperative, No apparent distress HEENT: Atraumatic, PERRLA, EOMI, Normocephalic Oral: Moist Mucosa Neck: Supple, No JVD Lungs: Diminished, Normal air movement, No rhonchi, No wheeze, No rales Cardiovascular: Regular rate, Regular Rhythm, Normal S1, Normal S2, No murmurs Abdomen: Soft, Non Tender, Non-Distended, No Hepato-splenomegaly Extremities: No edema, Capillary Refill Less than 3 Seconds Skin: No rashes, No breakdown Musculoskeletal: No Tenderness to Palpation of Joints or Extremities Neurological: No focal neurological deficits, Motor Exam 5/5 strength throughout, Sensory exam intact to light touch and pain Psych/Mental Status: Normal Affect, Appropriate Weight / BMI Weight Weight: 172 lb 9.951 oz Body Mass Index (BMI) 32.5 ABG / Lab / Microbiology Data 12/04/23 06:48 12/05/23 06:36 Laboratory: Laboratory Results - last 24 hr 12/05/23 06:36: Sodium 137, Potassium 3.5, Chloride 98, Carbon Dioxide 30.0, Anion Gap 8, BUN 27 H, Creatinine 1.04 H, Estim Creat Clear Calc 47.00, Est GFR (MDRD) Af Amer 67, Est GFR (MDRD) Non-Af 56 L, BUN/Creatinine Ratio 26.0 H, G lucose 132 H, Calcium 9.9 12/05/23 08:55: PT 13.9, INR 1.1, APTT 30.3 Radiography Diagnostic Testing: Radiology Impression Lumbar Spine MRI 12/04/23 12:46 IMPRESSION: 1. Extensive multilevel marrow replacement process, most notable at L5. Significant marrow replacement involving the LEFT side of T11, and compression deformity of the superior endplate of T11 noted. Findings are consistent with bony metastatic changes and pathologic fracture at T11. Mild canal narrowing at T10-11 without cord compression. 2. No evidence of ashely disc herniation however multilevel foraminal narrowing due to disc facet and ligamentum flavum hypertrophic changes. Mild multilevel nerve root impingement particularly involving the LEFT L3 nerve root within the neural foramen at L3-4. 3. No evidence of intramedullary contrast abnormality, however small syrinx is noted without evidence of contributing mass or abnormal enhancement. 4. Incidental note is subtle poorly defined T2 hyperintense lesions within the visualized inferior aspect of the RIGHT hepatic lobe. Findings are suspicious of intrahepatic masses, and metastatic changes are consideration. Consider follow-up evaluation with postcontrast CT examination of the abdomen and pelvis. Electronically Signed: Charles Reinoso MD at 1:30 EDT , Abdomen/Pelvis CT 12/05/23 08:31 IMPRESSION: Hepatomegaly. Multiple hypodense nodules scattered throughout both lobes of the liver has described. Metastatic deposits should be ruled out. Electronically Signed: Rolando Guevara MD at 11:26 EDT , Biopsy CT 12/05/23 08:31 IMPRESSION: Successful CT guided liver biopsy, as described above. Conscious sedation protocol was followed as described. Electronically Signed: Rolando Guevara MD at 11:34 EDT , D/C Instructions Discharge Diet: No restrictions Call your doctor if you observe: Fever of 101 or Higher, Shortness of breath, Dizziness, Fainting spells, Swelling in the ankles, Chest pain and Increased palpitations (irregular heartbeat) Meaningful Use Info Meaningful Use Meaningful Use Diagnoses (Choose all that apply): None applicable Ischemic Stroke Statin Dosing Therapy Reference: STATIN DOSE THERAPY REFERENCE: * Patients > 75 years receive moderate or high dose statin therapy. * Patients 75 years or YOUNGER should receive HIGH intensity statin dose unless contraindicated. You will be required to document reason for non-treatment if statin daily dose does not meet guidelines. HIGH DOSE STATIN THERAPY DAILY Atorvastatin > than or = to 40 mg Rosuvastatin > than or = to 20 mg Amlodipine + Atorvastatin > than or = to 2.5/40 mg Ezetimibe + Simvastatin 10/80 mg Simvastatin 80mg Discharge Plan Admission Admit Date/Time: 12/03/23 11:47 Attending Provider: Milton Chaparro Primary Care Provider: Basia Swartz Consulting Providers: Graham Jones Instructions Additional Instructions / Restrictions: Buy MiraLAX and senna [id number] to help with bowel movement while on narcotics. Discharge Orders/Prescriptions Prescriptions: New dexamethasone 4 mg Tablet 4 mg PO BIDCM 7 Days Qty: 14 0RF Rx Instructions: take second dose at lunch Continued duloxetine 60 MG capsule 60 mg PO BID lisinopril-hydrochlorothiazide 1 EACH tablet 2 tab PO DAILY lorazepam 1 MG tablet 1 mg PO BID PRN (Reason: ANXIETY ) oxycodone 5 mg tablet 5 - 10 mg PO Q6H PRN (Reason: PAIN) mirtazapine 15 mg tablet 15 mg PO QHS albuterol sulfate 90 mcg/actuation HFA aerosol inhaler 1 puff inhalation Q6H PRN (Reason: WHEEZING ) Discontinued cephalexin 500 mg capsule 500 mg PO BID 5 Days Qty: 10 0RF Referrals / Follow Up: Basia Swartz MD [Primary Care Provider] - 12/12/23 12:30 pm Disposition Disposition (needs filled in before D/C Order can be placed): Home, Self Care Charges/Coding Visit Charges Inpatient E&M: 19710 Disch Hosp >30min
--- NOTE | 2023-12-05 13:35 | PHA.DC_ITS ---
Pharmacy [facility] has performed discharge medication reconciliation for this patient. Attempted to camp head counselor x2 but patient was not in the room. Medications reviewed. The patient's discharge medication list was reviewed for discrepancies and discrepancies were resolved. Medications at Discharge Home Medications duloxetine 60 mg capsule,delayed release 60 mg PO BID DEPRESSION 03/29/15 lisinopril 20 mg-hydrochlorothiazide 12.5 mg tablet 2 tab PO DAILY BLOOD PRESSUR E 09/25/18 lorazepam 1 mg tablet 1 mg PO BID PRN ANXIETY 09/25/18 albuterol sulfate 90 mcg/actuation aerosol inhaler 1 puff inhalation Q6H PRN WHEEZING 08/01/23 mirtazapine 15 mg tablet 15 mg PO QHS DEPRESSION 08/01/23 oxycodone 5 mg tablet 5 - 10 mg PO Q6H PRN PAIN 12/03/23 dexamethasone 4 mg tablet 4 mg PO BIDCM 7 days #14 tabs 12/05/23
== END 2023-12-05 12:15 | disposition home or self-care (01) ==
LOC: ED 11:52 → MS3 12:42
PROVIDERS: Radiology Diagnostic Radiology; Admitting Provider Internal Medicine; Emergency Provider Emergency Medicine; PCP Internal Medicine; Visit Provider Family Medicine
DX: G89.3 Neoplasm related pain (acute) (chronic) (principal); C78.7 Secondary malignant neoplasm of liver and intrahepatic bile duct; J44.9 Chronic obstructive pulmonary disease, unspecified; N18.30 Chronic kidney disease, stage 3 unspecified; M47.26 Other spondylosis with radiculopathy, lumbar region; I12.9 Hypertensive chronic kidney disease with stage 1 through stage 4 chronic kidney disease, or unspecified chronic kidney disease; F41.9 Anxiety disorder, unspecified; Z92.21 Personal history of antineoplastic chemotherapy; E87.1 Hypo-osmolality and hyponatremia; E66.9 Obesity, unspecified; Z68.32 Body mass index [BMI] 32.0-32.9, adult; F32.A Depression, unspecified; N39.0 Urinary tract infection, site not specified; Z79.899 Other long term (current) drug therapy; F17.210 Nicotine dependence, cigarettes, uncomplicated; Z85.118 Personal history of other malignant neoplasm of bronchus and lung; E87.6 Hypokalemia; M84.58XA Pathological fracture in neoplastic disease, other specified site, initial encounter for fracture
CPT/HCPCS: 47000; 36415; 72131; 72158; 74177; 77012; 80048; 80053; 81001; 83735; 84100; 85025; 85610; 85730; 88172; 88305; 88307; 88313; 88341; 88342; 94640; 96372; 96374; 96375; 96376; 97161; 97166; 99221; 99283; 99406; A9575; J7050; Q9967; A4216; G0378; J2405